=== PATIENT | female | born 1950 | race Caucasian/White ===

== ENCOUNTER → 2019-06-30 14:28 | Outpatient (CLI) | payer MEDICARE, SELFPAY ==
[2019-06-30 10:10] VITALS: BMI 33.6
[2019-06-30 15:01] LABS: Bacteria 0 SEEN /hpf (None Seen); Mucous, Urine 0 SEEN /hpf (<or=2+); Red Blood Cells-Urine 0 SEEN /hpf (0-5); Squamous Epithelial Cells - UA 0 SEEN /hpf (5-10); White Blood Cells 0 SEEN /hpf (0-5)
[2019-06-30 15:24] LABS: Color, Urine Yellow (Yellow); Glucose, Dipstick Normal (Normal); Ketone-Dipstick Negative (Negative); Leukocyte Esterase-Dipstick Negative /ul (Negative); Nitrite-Dipstick Negative (Negative); Occult Blood-Urine Negative /ul (Negative); Protein-Dipstick Negative (Negative); Specific Gravity, Urine 1.015 (1.002-1.030); Urine Bilirubin Dipstick Negative (Negative); Urine Clarity Clear (Clear); Urine Urobilinogen Normal (Normal)
== END ==
PROVIDERS: Family Provider Family Medicine; PCP Family Medicine; Referring Provider Physician Assistant; Visit Provider Physician Assistant
DX: R30.0 Dysuria (principal)
CPT/HCPCS: 81001; 87086; 87088

== ENCOUNTER 2020-07-05 06:37 | Emergency (ER) | payer MEDICARE, SELFPAY ==
[2019-06-30 10:10] VITALS: BMI 33.6
[2020-07-05 06:38] VITALS: BP 165/102; PULSE 54; RESP 20; TEMP 36.1; O2SAT 100; BMI 37.2
--- NOTE | 2020-07-05 06:55 | CT_ITS ---
STUDY: CT ABDOMEN AND PELVIS WITHOUT CONTRAST REASON FOR EXAM: Female, 69 years old. LT FLANK PAIN, N/V, HX-KS, HYSTER, APPY, COPD-FORMER SMOKER, HTN, HLD RADIATION DOSAGE (If Supplied By Facility): CTDIvol = ( 20.97 ) mGy, DLP = ( 958.49 ) mGycm TECHNIQUE: Transaxial images were obtained from the dome of the diaphragm to the symphysis pubis without oral contrast, and without intravenous contrast. Sagittal and coronal images were reconstructed. Individualized dose optimization techniques were used for this CT. COMPARISON: 08/19/2014 FINDINGS: Mild atelectasis or scarring of the lingula is partially visualized. The visualized portions of the heart are within normal limits. There is decreased attenuation of the liver consistent with steatosis. Normal gallbladder and extrahepatic biliary system. Normal spleen. Normal pancreas. Normal bilateral adrenal glands. Bilateral nephrolithiasis with increased number of calcifications since 2014. Left perinephric stranding/edema with mild left hydronephrosis also new with a 4 mm calcification in the proximal left ureter (at superior L4 level). 2.8 x 2.9 cm low-density well-defined cyst is increased in size since prior exam when it measured up to 1.9 cm. Normal visualized stomach. Normal small intestine. Normal colon. There is non-visualization of the appendix. There is diffuse atherosclerotic calcification of the abdominal aorta, without a demonstrated aneurysm. Normal inferior vena cava. Normal retroperitoneum. Normal urinary bladder. There is absence of the uterus consistent with a prior hysterectomy. Normal abdominal wall. There are diffuse degenerative changes of the visualized lumbar spine with acquired canal narrowing most conspicuous at L4-L5. CT/Abdomen/Pelvis without Cont IMPRESSION: 1. Proximal left ureter calculus (4 mm) with mild hydronephrosis and moderate perinephric stranding/edema. 2. Increased size of left renal cyst, still likely a simple cyst but given change in size, follow-up renal ultrasound or renal mass protocol CT/MRI recommended as an outpatient (after resolution of current ureteral obstruction). Electronically Signed: Chris Zepeda MD ([place]) at 8:08 EDT , Service support ,
[2020-07-05] MEDS: Ondansetron 4 MG/2 ML Vial IV (06:58)
[2020-07-05] MEDS: morphine 8 MG/ML Syringe 6 MG IV ×2 (06:59→07:33)
--- NOTE | 2020-07-05 07:03 | ED.DCSUM_ITS ---
- ER Visit Summary Date of Service: 07/05/20 Chief Complaint: Acute left flank pain History of Present Illness: The patient is a 69 F history of prior kidney stones and hypothyroidism. Prior appendectomy and hysterectomy and back surgery. Patient states that she had acute onset left flank pain that woke her from sleep around 230 this morning. Associated nausea and vomiting. No fever. She did get diaphoretic with the pain. States the last few days she has been feeling well. Denies any dysuria or hematuria. Physical Examination: Older female complaining of pain vital signs are stable initial blood pressure 165/102. Afebrile. H EENT exam unremarkable. Neck nontender. Lungs clear to auscultation bilaterally. Heart regular rate and rhythm no murmur. Rate about 60. Abdomen soft and nontender. Normal bowel sounds no peritoneal signs. Patient is moving all 4 extremities. They are neurovascularly intact. No edema. Back nontender. Her pain is around her left CVA flank region but is not reproducible. Neurologically she is awake and alert with no focal motor deficits. Test Results: CBC shows a white count of 10 hemoglobin of 14. Chemistries are unremarkable glucose of 188. Creatinine 1.2 anion gap is 6. UA is pending. CAT scan is currently pending. Emergency Department Course and Treatment: Patient with sudden onset left flank pain that awoke her from sleep. History of kidney stones. Exam and history are consistent with acute ureteral calculi. Patient being treated with IV morphine for pain, IV Zofran for nausea and IV fluids. CAT scan, labs and UA are pending. On repeat exam at 7:28 AM the patient is still on significant amount of left flank pain. She will be given a second dose of morphine IV. Patient is being turned over to the morning physician. He will check her CAT scan results and urinalysis. Reevaluate her and make final disposition. Treatment Plan: If the patient is doing well and her CAT shows a stone that should pass she may be a candidate to be discharged home. Disposition: [] Impression: Acute left flank pain History of kidney stones This note was generated with [employer] dictation software. It may contain incorrect words, spelling, and punctuation that were not noted in review of the chart prior to signing ED Disposition - Plan for ED Patient: Referrals: Jovanna Palafox DO [Primary Care Provider] -
[2020-07-05 07:12] LABS: Absolute Lymphocyte Count 1.35 X10^3/uL (0.83-4.51); Absolute Neutrophil Count 8.1 X10^3/uL (2.0-7.7); Basophil# 0.04 X10^3/uL; Basophil% 0.4 % (0-1); Eosinophil# 0.18 X10^3/uL; Eosinophils% 1.7 % (0-5); Hemoglobin 14.7 g/dL (12.0-15.0); Lymphocyte # 1.35 X10^3/ul (4.0); Lymphocyte % 13.1 % (19-41); Mean Corp Hgb Conc 32.7 g/dL (32-36); Mean Corpuscular Hgb 30.8 pg (27.0-32.0); Mean Corpuscular Volume 94.3 fL (81-99); Mean Platelet Vol. 10.1 fl (6.2-12.0); Monocyte% 5.8 % (0-10); NRBC Flagged by Analyzer 0 % (0-5); Neutrophil # 8.13 X10^3/uL (2.7-7.7); Neutrophil % 78.6 % (47-70); Platelet Count 190 K/mm3 (150-450); RBC Distribution Width CV 11.9 % (11.6-14.6); RBC Distribution Width SD 40.8 fl (35.1-43.9); Red Blood Count 4.77 M/mm3 (4.2-5.4); White Blood Count 10.3 K/mm3 (4.4-11.0)
[2020-07-05 07:21] LABS: Anion Gap 6 (5-15); BUN 25 mg/dL (7-18); BUN/Creat Ratio 20.3 RATIO (10-20); Chloride 106 mmol/L (98-107); Creatinine, Serum 1.23 mg/dL (0.55-1.02); EST Glomerular Filtration Rate 46 mL/min (>60); Est Glom Filt Rate - Afr Amer 55 mL/min (>60); Glucose 188 mg/dL (74-106); Potassium 4.4 mmol/L (3.5-5.1); Sodium Level 137 mmol/L (136-145)
--- NOTE | 2020-07-05 07:32 | ED.DEP ---
ED Disposition - Plan for ED Patient: Disposition: Home or Assisted Living Instructions: ED Renal Stone w Colic Referrals: Jovanna Palafox DO [Primary Care Provider] - 3-5 Days if not improving Additional Instructions: Plenty of fluids and rest. Follow-up with primary care physician if not improving. Pain medication as prescribed.
[2020-07-05] MEDS: 0.9% Normal Saline 1,000 ML 125 ML IV (07:33)
[2020-07-05] MEDS: Morphine 4 MG/ML Syringe IV (08:16)
[2020-07-05 08:23] LABS: Bacteria 0 SEEN /hpf (None Seen)
[2020-07-05 08:26] LABS: Color, Urine Yellow (Yellow); Glucose, Dipstick Normal (Normal); Ketone-Dipstick 5 mg/dl (Negative); Leukocyte Esterase-Dipstick 25 /ul (Negative); Nitrite-Dipstick Negative (Negative); Occult Blood-Urine 10 /ul (Negative); Protein-Dipstick 15 mg/dl (Negative); Specific Gravity, Urine 1.025 (1.002-1.030); Urine Bilirubin Dipstick Negative (Negative); Urine Clarity Sl. Cloudy (Clear); Urine Urobilinogen Normal (Normal)
[2020-07-05 08:35] LABS: Red Blood Cells-Urine 0-5 SEEN /hpf (0-5)
[2020-07-05 08:36] LABS: Mucous, Urine 1+ /hpf (<or=2+); Squamous Epithelial Cells - UA 0-5 SEEN /hpf (5-10); White Blood Cells 0-5 SEEN /hpf (0-5)
--- NOTE | 2020-07-05 08:54 | ED.DEP ---
ED Disposition - Plan for ED Patient: Disposition: Home or Assisted Living Diagnosis: Urolithiasis Instructions: ED Renal Stone w Colic Prescriptions: Tamsulosin HCl [Flomax] 0.4 mg PO DAILY #7 cap Prescription Printed Oxycodone HCl/Acetaminophen [Percocet 5/325] 1 tab PO Q6H PRN PRN 3 Days #12 tab PRN Reason: Pain Prescription Printed Referrals: Vivian Mcdaniels MD [STAFF PHYSICIAN] - 3-5 Days Additional Instructions: Plenty of fluids and rest. Follow-up with urology for repeat evaluation and for repeat imaging of your left renal cyst. Pain medication as prescribed.
[2020-07-05 09:13] VITALS: RESP 18
== END 2020-07-05 09:17 | disposition home or self-care (01) ==
PROVIDERS: Emergency Medicine; Emergency Provider Emergency Medicine
DX: R10.9 Unspecified abdominal pain (principal); N20.9 Urinary calculus, unspecified; N28.1 Cyst of kidney, acquired; E03.9 Hypothyroidism, unspecified; Z87.891 Personal history of nicotine dependence; Z87.442 Personal history of urinary calculi
CPT/HCPCS: 74176; 80048; 81001; 85025; 96361; 96374; 96375; 96376; 99283; J7030; A4216; J2405

== ENCOUNTER 2020-07-06 10:56 | Inpatient (IN) | payer MEDICARE, SELFPAY ==
[2020-07-05 06:38] VITALS: BMI 37.2
[2020-07-06 10:57] VITALS: BP 152/98; PULSE 59; RESP 18; TEMP 36.1; O2SAT 96; BMI 37.2
[2020-07-06 11:10] VITALS: BP 152/98; PULSE 59; RESP 18; TEMP 36.1; O2SAT 96
--- NOTE | 2020-07-06 11:19 | ED.VIS.GI ---
History of Present Illness Chief Complaint: Flank Pain Informant: Patient - Abdominal Pain/Flank Pain Onset: Yesterday Context: Sudden Onset - woke her up Timing: Continuous, Waxes and wanes Quality: Aching Location: Left Flank Current Severity: Severe Maximum Severity: Severe Worsened by: Nothing Relieved by: Nothing - tried Percocet, not helping - Nausea/Vomiting/Emesis GI Symptom: Nausea, Vomiting Quality: Nonbilious - Diarrhea/Melena/Hematochezia GI Symptom: Negative for: Diarrhea, Melena, Hematochezia Associated Symptoms: Negative for: Dysuria, Frequency, Hematuria, Urgency Narrative: Patient seen here yesterday and diagnosed with a left-sided kidney stone. She has had persistent symptoms that are not controlled despite taking Percocet at home. She has been vomiting as well. Denies any new symptoms. No fevers, chills, gross hematuria, urinary retention, dysuria. The pain has not moved or migrated. She has not had surgeries in the past for stones. Referred to Dr. Mcdaniels but has not seen her yet. - Past Medical History (1) Kidney stones Status: Chronic (2) Benign essential HTN Status: Chronic (3) Depression Status: Chronic (4) Generalized osteoarthritis Status: Chronic (5) Glaucoma Status: Chronic (6) Hypothyroidism Status: Chronic Past Medical History - Allergies and Home Meds Allergies/Adverse Reactions: Allergies No Known Allergies Allergy (Verified 06/30/19 10:22) Primary Care Physician: Jovanna Palafox DO [Primary Care Provider] - Surgical History: appendectomy, hysterectomy Lives: Spouse/ Significant Other Smoking Status: Former smoker Review of Systems General: Denies: Chills, Fever, Sweats Eyes: Denies: Visual changes - bilaterally, Diplopia ENT: Denies: Rhinorrhea, Sore throat Cardiovascular: Denies: Chest pain, Palpitations Respiratory: Denies: Dyspnea, Cough, Dyspnea on exertion Gastrointestinal: Reports: Abdominal pain, Nausea, Vomiting. Denies: Diarrhea, Melena, Hematochezia Genitourinary: Denies: Dysuria, Hematuria, Frequency Musculoskeletal: Reports: Back pain. Denies: Myalgias, Swelling Skin: Denies: Rash, Wounds Neurological: Denies: Headache, Weakness, Numbness Physical Exam Vital Signs/Narrative: Vital Signs Temp Pulse Resp BP Pulse Ox 07/06/20 11:10 97 F L 59 L 18 152/98 H 96 07/06/20 10:57 97 F L 59 L 18 152/98 H 96 Inital Vital Signs reviewed: Yes General: Well nourished, Well developed, Obese, Acute Distress - painful; leaning over side of bed Head: Normocephalic, Atraumatic Eyes: Perrl, EOMI ENT: Moist mucous membranes, No rhinorrhea Neck: Supple, Nontender Cardiovascular: Regular rate, Regular rhythm, No murmurs Respiratory: No distress, CTA bilaterally, Chest nontender Abdomen: Soft, Nondistended, Normal bowel sounds, Tender - mild throughout left side. Negative for: Guarding, Rebound tenderness Back: Normal Inspection, CVA tenderness - left. no rash. Extremities: Nontender, No edema. Negative for: Calf Tenderness Skin: Normal color, No rash, No Trauma Neurological: Alert, Oriented x3, Cranial nerves II-XII grossly intact, Normal Strength, Normal Sensation, Normal Gait Psychological: Normal affect, Normal Mood Diagnostic/Tx/Re-eval Laboratory Tests 07/06/20 07/06/20 07/06/20 Range/Units 12:00 11:25 11:25 WBC 12.7 H (4.4-11.0) K/mm3 RBC 4.49 (4.2-5.4) M/mm3 Hgb 13.8 (12.0-15.0) g/dL Hct 43.0 (37-47) % MCV 95.8 (81-99) fL MCH 30.7 (27.0-32.0) pg MCHC 32.1 (32-36) g/dL RDW Std Deviation 42.1 (35.1-43.9) fl RDW Coeff of Isaac 12.0 (11.6-14.6) % Plt Count 181 (150-450) K/mm3 MPV 9.8 (6.2-12.0) fl Immature Gran % (Auto) 0.900 (0.0-0.9) % Neut % (Auto) 88.5 H (47-70) % Lymph % (Auto) 5.6 L (19-41) % [place] % (Auto) 4.6 (0-10) % Eos % (Auto) 0.2 (0-5) % Baso % (Auto) 0.2 (0-1) % Absolute Neuts (auto) 11.2 H (2.0-7.7) X10^3/uL Absolute Lymphs (auto) 0.71 L (0.83-4.51) X10^3/uL Nucleated RBC % 0 (0-5) % Sodium 139 (136-145) mmol/L Potassium 4.3 (3.5-5.1) mmol/L Chloride 106 (98-107) mmol/L Carbon Dioxide 27.0 (21.0-32.0) mmol/L Anion Gap 6 (5-15) BUN 28 H (7-18) mg/dL Creatinine 1.69 H (0.55-1.02) mg/dL Estim Creat Clear Calc 25.26 ml/min Est GFR (MDRD) Af Amer 38 L (>60) mL/min Est GFR (MDRD) Non-Af 32 L (>60) mL/min BUN/Creatinine Ratio 16.6 (10-20) RATIO Glucose 161 H (74-106) mg/dL Calcium 8.9 (8.5-10.1) mg/dL Urine Color Yellow (Yellow) Urine Clarity Clear (Clear) Urine pH 5.0 (5.0 - 8.0) Ur Specific [place] 1.025 (1.002-1.030) Urine Protein Negative (Negative) mg/dl Urine Glucose (UA) Normal (Normal) mg/dl Urine Ketones Negative (Negative) mg/dl Urine Occult Blood 10 H (Negative) /ul Urine Nitrite Negative (Negative) Urine Bilirubin Negative (Negative) mg/dL Urine Urobilinogen Normal (Normal) mg/dl Ur Leukocyte Esterase 25 H (Negative) /ul Urine RBC 0 SEEN (0-5) /hpf Urine WBC 0 SEEN (0-5) /hpf Ur Squamous Epith Cells 0-5 SEEN (5-10) /hpf Urine Bacteria RARE (None Seen) /hpf Urine Mucus 0 SEEN (<or=2+) /hpf - Medical Decision Making After 1 dose of morphine and some Zofran, IV fluids, patient still in significant pain although it helped some. She was given another dose of morphine. She is improved now, but still aches. Given that she has apparently failed outpatient pain control, and has acute kidney injury compared with yesterday, I discussed with Dr. Mcdaniels who is happy to put her in and evaluate/treat further. ED Disposition - Plan for ED Patient: Disposition: Acute Care [facility] Diagnosis: Intractable pain, Ureterolithiasis, Acute kidney injury Referrals: Jovanna Palafox DO [Primary Care Provider] -
[2020-07-06] MEDS: Morphine 4 MG/ML Syringe IV ×2 (11:30→12:32)
[2020-07-06] MEDS: 0.9% Normal Saline 1,000 ML 100 ML IV (11:30)
[2020-07-06 11:31] LABS: Absolute Lymphocyte Count 0.71 X10^3/uL (0.83-4.51); Absolute Neutrophil Count 11.2 X10^3/uL (2.0-7.7); Basophil# 0.03 X10^3/uL; Basophil% 0.2 % (0-1); Eosinophil# 0.03 X10^3/uL; Eosinophils% 0.2 % (0-5); Hemoglobin 13.8 g/dL (12.0-15.0); Lymphocyte # 0.71 X10^3/ul (4.0); Lymphocyte % 5.6 % (19-41); Mean Corp Hgb Conc 32.1 g/dL (32-36); Mean Corpuscular Hgb 30.7 pg (27.0-32.0); Mean Corpuscular Volume 95.8 fL (81-99); Mean Platelet Vol. 9.8 fl (6.2-12.0); Monocyte# 0.58 X10^3/uL; Monocyte% 4.6 % (0-10); NRBC Flagged by Analyzer 0 % (0-5); Neutrophil # 11.19 X10^3/uL (2.7-7.7); Neutrophil % 88.5 % (47-70); Platelet Count 181 K/mm3 (150-450); RBC Distribution Width SD 42.1 fl (35.1-43.9); Red Blood Count 4.49 M/mm3 (4.2-5.4); White Blood Count 12.7 K/mm3 (4.4-11.0)
[2020-07-06] MEDS: Ondansetron 4 MG/2 ML Vial IV (11:32)
[2020-07-06 11:43] LABS: Anion Gap 6 (5-15); BUN 28 mg/dL (7-18); BUN/Creat Ratio 16.6 RATIO (10-20); Calcium,Total 8.9 mg/dL (8.5-10.1); Chloride 106 mmol/L (98-107); Creatinine, Serum 1.69 mg/dL (0.55-1.02); EST Glomerular Filtration Rate 32 mL/min (>60); Est Glom Filt Rate - Afr Amer 38 mL/min (>60); Estimated Creatinine Clearance 25.26 ml/min; Glucose 161 mg/dL (74-106); Potassium 4.3 mmol/L (3.5-5.1); Sodium Level 139 mmol/L (136-145)
[2020-07-06 12:04] LABS: Mucous, Urine 0 SEEN /hpf (<or=2+); Red Blood Cells-Urine 0 SEEN /hpf (0-5); White Blood Cells 0 SEEN /hpf (0-5)
[2020-07-06 12:10] LABS: Color, Urine Yellow (Yellow); Glucose, Dipstick Normal (Normal); Ketone-Dipstick Negative (Negative); Leukocyte Esterase-Dipstick 25 /ul (Negative); Nitrite-Dipstick Negative (Negative); Occult Blood-Urine 10 /ul (Negative); Protein-Dipstick Negative (Negative); Specific Gravity, Urine 1.025 (1.002-1.030); Urine Bilirubin Dipstick Negative (Negative); Urine Clarity Clear (Clear); Urine Urobilinogen Normal (Normal)
[2020-07-06 12:20] LABS: Bacteria RARE /hpf (None Seen); Squamous Epithelial Cells - UA 0-5 SEEN /hpf (5-10)
[2020-07-06 13:08] VITALS: BP 125/63; PULSE 60; RESP 15; O2SAT 96
--- NOTE | 2020-07-06 14:09 | NURSING ---
MED SURG BRANNON INTRACTABLE PAIN, JSUTINE, LEFT URETEROLITHIASIS
[2020-07-06 15:19] VITALS: BMI 36.4; BMI 36.5
[2020-07-06] MEDS: 0.45% Normal Saline 1,000 ML 100 ML IV (15:43)
[2020-07-06] MEDS: Tamsulosin HCl 0.4 MG Capsule PO (16:58)
[2020-07-06] MEDS: HYDROcodone Bitartrate/Apap 5/325 Tablet PO (16:58)
[2020-07-06 20:08] VITALS: BP 137/63; PULSE 72; RESP 16; TEMP 36.7; O2SAT 98
[2020-07-06] MEDS: Cefazolin 1 GM/50 ML BAG IV (21:14)
[2020-07-06] MEDS: 0.9% Saline Lock 10 ML Syringe IV (21:15)
[2020-07-07] VITALS (10 sets, daily range): BP systolic 136–162; BP diastolic 55–90; PULSE 70–82; RESP 16–18; TEMP 36.3–37.2; O2SAT 93–99; BMI 36.4; BMI 36.5
[2020-07-07] MEDS: 0.45% Normal Saline 1,000 ML 100 ML IV ×2 (02:07→12:38)
--- NOTE | 2020-07-07 06:00 | EKG12_ITS ---
Test Reason : PRE-OP Blood Pressure : / mmHG Vent. Rate : 085 BPM Atrial Rate : 085 BPM P-R Int : 162 ms QRS Dur : 092 ms QT Int : 364 ms P-R-T Axes : 074 -16 063 degrees QTc Int : 433 ms Sinus rhythm with Premature atrial complexes Otherwise normal ECG When compared with ECG of 07-DEC-2011 11:18, Premature atrial complexes are now Present Confirmed by TESS MCINTYRE, RAMA ([id number]), restaurant expeditor HANNAH ROSA ([id number]) on 07/14/2020 11:23:17 AM Referred By: MADELINE RAMIREZ Confirmed By:MONIKA PULIDO MD
[2020-07-07 07:34] LABS: Thyroid Stim Hormone (TSH) 0.64 uIU/mL (0.358-3.74)
[2020-07-07] MEDS: Cefazolin 1 GM/50 ML BAG IV (10:33)
[2020-07-07] MEDS: Morphine 4 MG/ML Syringe 3 MG IV (10:49)
[2020-07-07] MEDS: 0.9% Saline Lock 10 ML Syringe IV (10:50)
--- NOTE | 2020-07-07 12:15 | CASEMGMT ---
RN MARYSOL THIRD HAND CM to room to meet with patient for initial transition planning/care coordination assessment. RN MARYSOL introduced self and role at [facility].? Pt voices understanding and consents to assessment at this time.? Pt resting in bed in no distress at this time.? Pt is A/O at this time and answers all questions appropriately.?? Care providers, pharmacy, and demographics verified/updated at this time. PCP: Dr Jovanna Palafox Specialists: Dr Murray: Soil Analyst Preferred Pharmacy: [facility] Insurance: [employer] Prescription Benefit:? Yes Living Will/HPOA:? States has both LW and Healthcare POA, who is her , Truman Rivas (goes by Cornelius) LNOK: , Truman. Daughter, Pat Puri Living Arrangements: Lives w/her in 1-story home w/3 steps to enter. Denies difficulty w/steps. States is independent with ADL's and IADL's. is able to help if needed. Transportation: Pt states drives self and states no transportation concerns at this time.? also drives DME: ? Denies using any DME and denies needs. States has shower chair and walker from [facility] available but does not use. HHC/SNF: No history of either and denies needs for HHC or OP therapy. No needs identified. Pt wishes to return home and states has no concerns with going home at time of discharge.? CM to follow for any discharge planning/needs.? Pt voices no concerns/needs at this time.? Advised pt to ask for CM if any questions/concerns/needs arise.? Voices understanding. PLAN: ?Home Gabriela STEWART RN, CM
--- NOTE | 2020-07-07 16:00 | CALC_PTH ---
PATIENT: TATE MALLORY LOC: MS3 U#:[id number] AGE/SX: 69/F ROOM: MS316 RE07/06/[address]: Dr. Vivian Mcdaniels MD : 1950 BED: 1 DIS: 07/07/2020 SPEC #: [id number] RECD: 07/07/20 18:17 STATUS: KARTHIK AVILAFelipe #: [id number] RIAZ: 07/07/20 16:[address]: Vivian Mcdaniels DEPT: SURGICAL PATHOLOGY RECD BY: Zackary Miranda ENTERED: 07/08/20 06:57 SP TYPE: Calculi OTHR DR: Dr. Jovanna Palafox DO Tissues: CALCULI Procedures: Surgery Specimen Level I HEADER OPERATION: Cystoscopy, ureteroscopy, laser lithotripsy, stone basket extraction PRE-OP DIAGNOSIS: Left ureteral calculus TISSUE SUBMITTED: Left ureteral calculi for analysis GROSS DIAGNOSIS Left ureteral calculi, removal: Unremarkable calculi (gross diagnosis only). AM:florina 07/09/20 COMMENT The calculus is submitted in its entirety for chemical stone analysis. The results from this study will be reported separately. GROSS DESCRIPTION Received in fixative is one container labeled with the patient's name and designated left ureteral calculus. The specimen consists of multiple irregular fragments of light to dark bryson calculi that in aggregate measure 0.5 x 0.2 x 0.2 cm. The specimen is submitted in its entirety for chemical stone analysis. / AM:florina 07/08/20 CPT: 26201
--- NOTE | 2020-07-07 16:03 | PCM.HP.STD ---
Problem List (1) Intractable pain Status: Acute (2) Ureterolithiasis Status: Acute History of Present Illness Date of Admission: 07/07/20 Chief Complaint: Intractable pain, nausea and vomiting, left ureteral stone The patient is a 69 year old F [with a history of stones in the past that did not require surgical intervention. She presented to the emergency room on Sunday with left-sided flank pain, nausea and vomiting. She returned to the emergency room on Sunday and was admitted secondary to the same presentation. She has no urinary urgency, frequency or hematuria. There is no dysuria. She is otherwise relatively healthy.] Past Medical History Past Medical History (Chronic Problems): Chronic Problems (Last Reviewed 06/30/19 @ 10:22 by Gillian England) Kidney stones (Chronic) Hypothyroidism (Chronic) Glaucoma (Chronic) Generalized osteoarthritis (Chronic) Depression (Chronic) Benign essential HTN (Chronic) Medical History: Medical History (Last Reviewed 07/07/20 @ 16:[address] Vivian Mcdaniels MD) Arthritis M19.90 Shoulder pain M25.519 Allergies No Known Allergies Allergy (Verified 06/30/19 10:22) Home Medications: Ambulatory Orders Medication Instructions Recorded latanoprost 0.005 % eye drops 1 drp EACH EYE QHS 09/10/18 Oxycodone HCl/Acetaminophen 1 tab PO Q6H PRN PRN 3 Days #12 tab 07/05/20 [Percocet 5/325] Garlic 1,000 mg PO DAILY 07/06/20 Ibuprofen 400 mg PO DAILY PRN PRN 07/06/20 Levothyroxine Sodium [Synthroid] 50 mcg PO DAILY 07/06/20 Meloxicam 15 mg PO DAILY 07/06/20 Multivitamin with Minerals 1 tab PO DAILY 07/06/20 [Multiple Vitamin] Brunswick-3 Fatty Acids/Fish Oil [Fish 1,000 mg PO DAILY 07/06/20 Oil 1,000 mg Capsule] Tamsulosin HCl [Flomax] 0.4 mg PO DAILY 07/06/20 Timolol Maleate 1 drp EACH EYE BID 07/06/20 Surgical History: Surgical History (Last Reviewed 07/07/20 @ 16:[address] Vivian Mcdaniels MD) History of hysterectomy Z90.710 History of thyroid surgery Z98.890 Surgical History: appendectomy, hysterectomy Lives: Spouse/ Significant Other Smoking Status: Former smoker Review of Systems Constitutional: Denies: Chills, Fever Eyes: Denies: Vision Change HEENT: Denies: Visual Changes Cardiovascular: Denies: Chest Pain, Chest Pressure Respiratory: Denies: Cough, Shortness of Breath Gastrointestinal: Reports: Nausea, Vomiting. Denies: Abdominal Pain Genitourinary: Denies: Dysuria, Frequency, Hematuria, Urgency Musculoskeletal: Denies: Muscle pain Skin: Denies: Wounds Neurological: Denies: Difficulty swallowing VTE Information - Inpt Only VTE Present on Admission: Yes VTE Mechan Device Prophylaxis: SCD's VTE Pharm Prophylaxis ordered?: No Reason prophylaxis not ordered:: Treatment Not Indicated Patient Problems: Active and Suspected Problems (Last Reviewed 06/30/19 @ 10:22 by Gillian England) Intractable pain (Acute) Ureterolithiasis (Acute) Acute kidney injury (Acute) - Physical Exam Vitals/I&O's: Vital Signs Temp Pulse Resp BP Pulse Ox 98.9 F 72 18 160/80 H 99 07/07/20 14:45 07/07/20 14:45 07/07/20 14:45 07/07/20 14:45 07/07/20 14:45 Oxygen Delivery Method Room Air Weight: 93.395 kg Body Mass Index (BMI) 36.4 Intake and Output for Last 24 Hours 07/05/20 07/06/20 07/07/20 23:59 23:59 23:59 Intake Total 2401.67 / 2701.67 1888.33 / 1888.33 Output Total 1850 / 1850 Balance 2401.67 / 1951.67 38.33 / 38.33 General: Alert, Oriented x3, Cooperative HEENT: Atraumatic, Normocephalic Oral: Moist Mucosa Neck: Supple, Trachea Midline Lungs: Normal air movement Cardiovascular: Regular rate Abdomen: Soft, Non Tender, Non-Distended Extremities: No cyanosis Skin: No rashes Musculoskeletal: No Muscle Wasting Neurological: Cranial nerves II-XII grossly intact, Neuro grossly intact Psych/Mental Status: Normal Affect, Alert and oriented to time, place, person, mood and affect Laboratory Results 07/07/20 05:50: TSH 0.64 Current Medications Hydrocodone Bitart/Acetaminophen ([place] 5mg-325mg) 2 tablet PO Q6H PRN PRN PRN Reason: Pain Score 1-5/10 Last Admin: 07/06/20 16:58 Dose: 2 tablet Documented by: Docusate Sodium (Colace) 100 mg PO BID PRN PRN PRN Reason: Constipation Cefazolin Sodium () 1 gm in 50 mls @ 100 mls/hr IV Q12 [facility] Last Infusion: 07/07/20 11:05 Dose: Infused Documented by: Sodium Chloride () 1,000 mls @ 100 mls/hr IV .Q10H [facility] Last Admin: 07/07/20 12:38 Dose: 100 mls/hr Documented by: Morphine Sulfate () 3 mg IV Q3H PRN PRN PRN Reason: Pain Score 6-10/10 Last Admin: 07/07/20 10:49 Dose: 3 mg Documented by: Ondansetron HCl (Zofran) 4 mg IV Q8H PRN PRN PRN Reason: NAUSEA Sodium Chloride () 10 - 40 ml IV UD PRN PRN Reason: SALINE FLUSH Last Admin: 07/07/20 10:50 Dose: 10 ml Documented by: Tamsulosin HCl (Flomax) 0.4 mg PO DAILY@1730 [facility] Last Admin: 07/06/20 16:58 Dose: 0.4 mg Documented by: Assessment/Plan All Active Problems (Last Reviewed 06/30/19 @ 10:22 by Gillian England) Intractable pain (Acute) Ureterolithiasis (Acute) Acute kidney injury (Acute) UTI (urinary tract infection) (Acute) Mid-back pain, acute (Acute) Proceed with cystoscopy, possible left ureteroscopy, laser lithotripsy, left ureteral stent insertion Procedure Criteria Procedure Type: Elective - Unable to tolerate p.o. pain control with increased nausea and vomiting COVID Risk Discussion: The surgeon/proceduralist and patient have discussed in detail the risk of exposure to and/or potential harm posed by the COVID-19 virus with having a surgery/procedure at this time versus the risk of delaying the surgery/procedure. It is not possible to know either the risk of delaying the surgery or procedure or chance of getting an infection with perfect accuracy, but a joint decision was made between the patient and the surgeon/proceduralist to proceed at this time with the scheduled surgery/procedure as indicated on the consent form.
--- NOTE | 2020-07-07 16:08 | PCM.OPRPT ---
Problem List (1) Intractable pain Status: Acute (2) Ureterolithiasis Status: Acute Report of Operation Date of Procedure: 07/07/20 Pre-Operative Diagnosis: left ureteral calculus Post-Operative Diagnosis: same Surgery/Procedure Performed:: cystoscopy with left ureteroscopy, holmium laser lithotripsy, stone basket extraction, left ureteral stent insertion Type of Anesthesia:: General Special Medications: ancef Specimen's removed: Ureteral stone fragments Description of Procedure: The patient is a 69-year-old female with intractable pain secondary to a left obstructing ureteral calculus. She bounced back to the emergency room. After discussing the risk benefits and alternatives she agreed to proceed with surgical intervention. She was taken to the operating room and placed on the operating room table. Anesthesia monitored the head, neck, airway, IV access and vital signs throughout the case. Once anesthesia was administered, the patient was placed into dorsal lithotomy position was prepped and draped in usual sterile fashion. At this time the cystoscope was inserted through the urethra under direct visualization into the urinary bladder. The bladder mucosa was visualized in its entirety. There were no masses identified but there was diffuse mild cystitis cystica present. The ureteral orifices were located in the left one is intubated with a 0.035 Glidewire and a 0.038 Glidewire. Fluoroscopy confirmed these wires to be in the renal pelvis. The flexible ureteroscope was then placed over the 0.035 Glidewire and the stone was identified in the proximal ureter. Using a 200 ?m fiber, the stone was augmented with the holmium laser. The small pieces were removed with a stone basket without difficulty. Following removal of the last piece, the cystoscope was used to place a 6 Hebrew 24 cm double-J ureteral stent over the remaining safety wire. There was good positioning in the renal pelvis as well as the urinary bladder. The patient's bladder was then emptied and the case was terminated. She was awakened and taken to the recovery room in good condition. There were no complications during this procedure. Grafts/Implants Used: 6 x 24cm JJ stent - Complications None - Admit VTE Documentation VTE Present on Admission: Yes VTE Mechan Device Prophylaxis: SCD's VTE Pharm Prophylaxis ordered?: No Reason prophylaxis not ordered:: Treatment Not Indicated
--- NOTE | 2020-07-07 16:09 | DCINST_ITS ---
Discharge Diet: No Restrictions Discharge Activity: Return to Normal Activity, May not drive while taking narcotic pain medications. Call your doctor if you observe: Fever of 101 or Higher, Inability to urinate, Inability to have a bowel movement Allergies/Adverse Reactions: Allergies No Known Allergies Allergy (Verified 06/30/19 10:22) Medications to take at Discharge latanoprost 0.005 % eye drops 1 drp EACH EYE QHS 09/10/18 Oxycodone HCl/Acetaminophen [Percocet 5-325] 1 tab PO Q6H PRN PRN 3 Days #12 tab 07/05/20 Garlic 1,000 mg PO DAILY 07/06/20 Ibuprofen 400 mg PO DAILY PRN PRN 07/06/20 Levothyroxine Sodium [Synthroid] 50 mcg PO DAILY 07/06/20 Meloxicam 15 mg PO DAILY 07/06/20 Multivitamin with Minerals [Multiple Vitamin] 1 tab PO DAILY 07/06/20 [place]-3 Fatty Acids/Fish Oil [Fish Oil 1,000 mg Capsule] 1,000 mg PO DAILY 07/06/20 Timolol Maleate 1 drp EACH EYE BID 07/06/20 Cephalexin [Keflex] 500 mg PO Q12 3 Days #6 cap 07/07/20 Phenazopyridine HCl [Pyridium] 200 mg PO TID PRN PRN 7 Days #30 tab 07/07/20 The following prescriptions were given: Cephalexin [Keflex] 500 mg PO Q12 3 Days #6 cap Transmission Status: Pending to [facility] Phenazopyridine HCl [Pyridium] 200 mg PO TID PRN PRN 7 Days #30 tab PRN Reason: Bladder Spasms Transmission Status: Pending to [facility] Primary Care Physician: Jovanna Palafox DO [Primary Care Provider] - Test Results: Test results from this visit will be discussed in further detail at your follow- up appointment, if applicable. Please Follow Up With: Vivian Mcdaniels MD When: call office for appt Proposed Discharge Date: 07/07/20
[2020-07-07] MEDS: Lubricating Jelly 60 GM Tube 30 GM TOPICAL (17:24)
== END 2020-07-07 21:34 | disposition home or self-care (01) | DRG 661 ==
LOC: ED 14:26 → MS3 14:39
PROVIDERS: Anesthesiology; Admitting Provider Urology; Emergency Provider Emergency Medicine; Visit Provider Urology
PROC: 0TJ98ZZ Inspection of Ureter, Via Natural or Artificial Opening Endoscopic (ICD-10-PCS; CPT 52352; principal; 2020-07-07 15:50)
DX: N13.2 Hydronephrosis with renal and ureteral calculous obstruction (principal); N17.9 Acute kidney failure, unspecified; N30.80 Other cystitis without hematuria; Z87.442 Personal history of urinary calculi; I10 Essential (primary) hypertension; M15.9 Polyosteoarthritis, unspecified; F32.9 Major depressive disorder, single episode, unspecified; H40.9 Unspecified glaucoma; E03.9 Hypothyroidism, unspecified; Z87.891 Personal history of nicotine dependence; E66.9 Obesity, unspecified; Z68.36 Body mass index [BMI] 36.0-36.9, adult; F41.9 Anxiety disorder, unspecified; Z79.899 Other long term (current) drug therapy
CPT/HCPCS: 36415; 74176; 76000; 80048; 81001; 82360; 84443; 85025; 88300; 93005; 96361; 96374; 96375; 96376; 99283; 99284; J7030; A4216; C1769; C2617; J2405

== ENCOUNTER 2021-11-29 08:11 | Emergency (ER) | payer MEDICARE, SELFPAY ==
[2021-11-29 08:12] VITALS: BP 156/101; PULSE 69; RESP 15; TEMP 35.5; O2SAT 97; BMI 35.4
--- NOTE | 2021-11-29 08:46 | CT_ITS ---
STUDY: CT ABDOMEN AND PELVIS WITHOUT CONTRAST REASON FOR EXAM: Female, 71 years old. 2 day history of right flank pain. History of kidney stones. RADIATION DOSAGE (If Supplied By Facility): CTDIvol = ( 19.97 ) mGy, DLP = ( 898.01 ) mGycm TECHNIQUE: Transaxial images were obtained from the dome of the diaphragm to the symphysis pubis without oral contrast, and without intravenous contrast. Sagittal and coronal images were reconstructed. Individualized dose optimization techniques were used for this CT. COMPARISON: Comparison is made with prior study dated 07/05/2020. FINDINGS: Stable atelectasis and/or scarring in the medial anterior aspect of the right middle lobe. Mild scarring in the lingular segment of the left upper lobe. The visualized portions of the heart are within normal limits. There is decreased attenuation of the liver consistent with steatosis. Normal gallbladder and extrahepatic biliary system. Normal spleen. Normal pancreas. Normal bilateral adrenal glands. There are several nonobstructive right intrarenal calculi. The larger calculus measures 4 mm and is in the upper midportion of the kidney. Mild degree of right hydronephrosis and right hydroureter with perinephric and periureteric stranding due to a recently passed calculus. The calculus measures 8.7 mm and is within the base of the bladder on the right side. There is a 2.8 cm cyst in the upper pole of the left kidney. There is a 5.7 mm nonobstructive calculus in the superior pole of the left kidney. Normal visualized stomach. Normal small intestine. There are scattered colonic diverticula consistent with diverticulosis. There are surgical clips in the region of the appendix consistent with a prior appendectomy. There is scattered atherosclerotic calcification of the abdominal aorta, without a demonstrated aneurysm. Normal inferior vena cava. Normal retroperitoneum. Normal urinary bladder. There is absence of the uterus consistent with a prior hysterectomy. There is a small umbilical hernia containing fat. There are diffuse degenerative changes of the visualized lumbar spine. CT/Abdomen/Pelvis without Cont IMPRESSION: Bilateral nonobstructive intrarenal calculi. Right hydronephrosis and hydroureter due to a recently passed 8.7 mm calculus. The calculus lies along the posterior aspect of the bladder on the right side. Left renal cyst. Electronically Signed: Jairo Siddiqi MD at 9:45 EST ,
[2021-11-29 08:53] VITALS: BP 156/101; PULSE 69; RESP 15; TEMP 35.5; O2SAT 97
[2021-11-29 08:53] LABS: Mucous, Urine 0 SEEN /hpf (<or=2+); White Blood Cells 0 SEEN /hpf (0-5)
[2021-11-29 08:56] LABS: Color, Urine SEE COMMENT BELOW (Yellow); Glucose, Dipstick Normal (Normal); Ketone-Dipstick Negative (Negative); Leukocyte Esterase-Dipstick Negative /ul (Negative); Nitrite-Dipstick Positive (Negative); Occult Blood-Urine 150 /ul (Negative); Protein-Dipstick 15 mg/dl (Negative); Urine Bilirubin Dipstick 3 mg/dL (Negative); Urine Clarity Sl. Cloudy (Clear); Urine Urobilinogen 1 mg/dl (Normal)
[2021-11-29 08:59] LABS: Absolute Neutrophil Count 7.7 X10^3/uL (2.0-7.7); Basophil# 0.06 X10^3/uL; Basophil% 0.6 % (0-1); Eosinophil# 0.36 X10^3/uL; Eosinophils% 3.5 % (0-5); Hematocrit 45.8 % (37-47); Hemoglobin 16.1 g/dL (12.0-15.0); Lymphocyte % 11.8 % (19-41); Mean Corp Hgb Conc 35.2 g/dL (32-36); Mean Corpuscular Hgb 32.1 pg (27.0-32.0); Mean Corpuscular Volume 91.4 fL (81-99); Mean Platelet Vol. 10.1 fl (6.2-12.0); Monocyte# 0.78 X10^3/uL; Monocyte% 7.7 % (0-10); NRBC Flagged by Analyzer 0 % (0-5); Neutrophil # 7.71 X10^3/uL (2.7-7.7); Neutrophil % 75.9 % (47-70); Platelet Count 242 K/mm3 (150-450); RBC Distribution Width CV 12.4 % (11.6-14.6); RBC Distribution Width SD 41.6 fl (35.1-43.9); Red Blood Count 5.01 M/mm3 (4.2-5.4); White Blood Count 10.2 K/mm3 (4.4-11.0)
[2021-11-29] MEDS: Ondansetron 4 MG/2 ML Vial IV (09:01)
[2021-11-29] MEDS: Morphine 4 MG/ML Syringe IV (09:02)
[2021-11-29 09:05] LABS: Bacteria 1+ /hpf (None Seen); Red Blood Cells-Urine 10-25 SEEN /hpf (0-5); Squamous Epithelial Cells - UA 0-5 SEEN /hpf (5-10)
[2021-11-29 09:07] LABS: Anion Gap 3 (5-15); BUN 16 mg/dL (7-18); BUN/Creat Ratio 14.7 RATIO (10-20); Calcium,Total 9.1 mg/dL (8.5-10.1); Chloride 108 mmol/L (98-107); Creatinine, Serum 1.09 mg/dL (0.55-1.02); EST Glomerular Filtration Rate 52 mL/min (>60); Est Glom Filt Rate - Afr Amer 63 mL/min (>60); Estimated Creatinine Clearance 38.02 ml/min; Glucose 152 mg/dL (74-106); Potassium 4.1 mmol/L (3.5-5.1); Sodium Level 139 mmol/L (136-145)
--- NOTE | 2021-11-29 09:23 | EX.ED.DYSGE1 ---
HPI History of Present Illness Chief Complaint: Flank Pain Informant: patient Narrative Narrative: Patient presents with right flank pain. It started on Sunday. It started in the back that is now moved around to the front. Mild nausea but no vomiting. No fevers or chills. Prior surgeries are hysterectomy. She has had kidney stones in the past. Nothing really makes her pain better or worse. [facility] Medical History (Updated 11/29/21 @ 11:[address] Dennys Pavon MD) Arthritis Shoulder pain Home Medications latanoprost 0.005 % eye drops 1 drp EACH EYE QHS 09/10/18 [History Last Taken 07/05/20] garlic 1,000 mg PO DAILY 07/06/20 [History Last Taken 07/05/20] ibuprofen 400 mg PO DAILY PRN PRN 07/06/20 [History Last Taken 07/06/20] levothyroxine 50 mcg PO DAILY 07/06/20 [History Last Taken 07/05/20] meloxicam 15 mg PO DAILY 07/06/20 [History Last Taken 07/05/20] multivitamin with minerals 1 tab PO DAILY 07/06/20 [History Last Taken 07/05/20] omega-3 fatty acids-fish oil 1,000 mg PO DAILY 07/06/20 [History Last Taken 07/05/20] timolol maleate 1 drp EACH EYE BID 07/06/20 [History Last Taken 07/06/20] ondansetron 4 mg PO Q8H PRN #10 tab 11/29/21 [Rx Last Taken Unknown] oxycodone-acetaminophen [Percocet] 1 tab PO Q6H PRN 3 Days #12 tab 11/29/21 [Rx Last Taken Unknown] tamsulosin [Flomax] 0.4 mg PO DAILY #7 cap 11/29/21 [Rx Last Taken Unknown] Allergy/AdvReac Type Severity Reaction Status Date / Time No Known Allergies Allergy Verified 06/30/19 10:22 Surgical History History of hysterectomy History of thyroid surgery Social History Smoking Status: Former smoker alcohol intake: never ROS ROS ED Constitutional Constitutional ED: Denies chills or fever(s) ENT ENT ED: Denies rhinorrhea Cardiovascular Cardiovascular: Denies chest pain or palpitations Respiratory/Chest Respiratory/Chest: Denies cough or dyspnea Gastrointestinal Gastrointestinal: Reports abdominal pain, nausea and other Details: See history of present illness. ; Denies constipation, diarrhea, melena or vomiting Genitourinary Genitourinary ED: Reports hematuria and other Details: Patient suspicious for hematuria but she also started Pyridium [id number] so her urine is red/orange-colored. Integumentary Denies rash Neurologic Neurologic: Denies paresthesias or weakness Endocrine Endocrinology: Denies polydipsia or polyuria Allergic/Immunologic Allergic/Immunologic ED: Denies mouth swelling or urticaria EXAM Physical Exam Const Vital Signs: 11/29/21 08:12 11/29/21 08:53 11/29/21 10:46 Temperature 95.9 F L 95.9 F L Temperature Source Temporal Temporal Pulse Rate 69 69 64 Respiratory Rate 15 15 16 Blood Pressure 156/101 H 156/101 H 115/41 L Blood Pressure Mean 119 119 65 Pulse Ox 97 97 93 Oxygen Delivery Method Room Air Room Air Room Air Positive well nourished and well developed General Appearance ED: well developed and NAD; Negative for cyanotic or diaphoretic HEENT Reports moist mucous membranes Eyes General Eye ED: Negative for pale conjunctiva or scleral icterus Neck no JVD Chest Wall inspection of chest normal Resp normal respiratory effort and clear to auscultation bilaterally Cardio regular rate and regular rhythm GI normal to inspection, nondistended, normoactive bowel sounds and non-tender GI Narrative: Despite the pain that goes toward the right lower quadrant, her abdomen is actually completely benign. She states it does not hurt to press it just hurts by itself. Palpation: soft Back/Spine General Back: CVA tenderness Extremity normal to inspection Skin no rashes or lesions noted MDM MDM MDM Narrative Medical decision making narrative: Patient did get better. Her CT showed that she had 8.7 mm stone in the bladder. When I looked at it this could still be perched at the very distal UVJ. We will still get her on Flomax because of this. Urine shows a few nitrites but 0 white cells. She does not have an elevated white count. She has an appointment with Dr. Trinidad tomorrow. Lab Data Attestation: I reviewed the patient's lab results. Labs: Laboratory Results - last 24 hr 11/29/21 11/29/21 11/29/21 08:47 08:47 08:47 WBC 10.2 RBC 5.01 Hgb 16.1 H Hct 45.8 MCV 91.4 MCH 32.1 H MCHC 35.2 RDW Std Deviation 41.6 RDW Coeff of Isaac 12.4 Plt Count 242 MPV 10.1 Immature Gran % (Auto) 0.500 Neut % (Auto) 75.9 H Lymph % (Auto) 11.8 L [place] % (Auto) 7.7 Eos % (Auto) 3.5 Baso % (Auto) 0.6 Absolute Neuts (auto) 7.7 Absolute Lymphs (auto) 1.20 Nucleated RBC % 0 Sodium 139 Potassium 4.1 Chloride 108 H Carbon Dioxide 28.0 Anion Gap 3 L BUN 16 Creatinine 1.09 H Estim Creat Clear Calc 38.02 Est GFR (MDRD) Af Amer 63 Est GFR (MDRD) Non-Af 52 L BUN/Creatinine Ratio 14.7 Glucose 152 H Calcium 9.1 Urine Color SEE COMMENT BELOW Urine Clarity Sl. Cloudy Urine pH 5.0 Ur Specific [place] 1.020 Urine Protein 15 H Urine Glucose (UA) Normal Urine Ketones Negative Urine Occult Blood 150 H Urine Nitrite Positive H Urine Bilirubin 3 H Urine Urobilinogen 1 H Ur Leukocyte Esterase Negative Urine RBC 10-25 SEEN Urine WBC 0 SEEN Ur Squamous Epith Cells 0-5 SEEN Urine Bacteria 1+ Urine Mucus 0 SEEN Radiography Diagnostic Testing: Clinical Impression(s) from Imaging Studies Abdomen/Pelvis CT 11/29/21 08:46 IMPRESSION: Bilateral nonobstructive intrarenal calculi. Right hydronephrosis and hydroureter due to a recently passed 8.7 mm calculus. The calculus lies along the posterior aspect of the bladder on the right side. Left renal cyst. Electronically Signed: Jairo Siddiqi MD at 9:45 EST , Discharge Plan Triage Chief Complaint: Flank Pain ED Provider: Dennys Pavon Dx/Rx/DC Orders Clinical Impression: Kidney stone on right side Instructions: ED Kidney Stone w/ Colic Prescriptions: New oxycodone-acetaminophen [Percocet] 5-325 mg tablet 1 tab PO Q6H PRN (Reason: pain) 3 Days Qty: 12 RF: 0 ondansetron 4 mg tablet,disintegrating 4 mg PO Q8H PRN (Reason: nausea and vomiting) Qty: 10 RF: 0 tamsulosin [Flomax] 0.4 mg capsule 0.4 mg PO DAILY Qty: 7 RF: 0 No Action latanoprost [Xalatan] 0.005 % drops 1 drp EACH EYE QHS RF: 0 garlic 1,000 MG capsule 1,000 mg PO DAILY RF: 0 timolol maleate 5 ML drops 1 drp EACH EYE BID RF: 0 levothyroxine 50 MCG tablet 50 mcg PO DAILY RF: 0 ibuprofen 200 MG tablet 400 mg PO DAILY PRN PRN (Reason: Pain Or Fever) RF: 0 multivitamin with minerals 1 EACH tablet 1 tab PO DAILY RF: 0 omega-3 fatty acids-fish oil 1 EACH capsule 1,000 mg PO DAILY RF: 0 meloxicam 15 MG tablet 15 mg PO DAILY RF: 0 Primary Care Provider: Jovanna Palafox Referrals: Vivian Mcdaniels MD [STAFF PHYSICIAN] - 1 Day Jovanna Palafox DO [Primary Care Provider] - Disposition Disposition: Home, Self Care
[2021-11-29] MEDS: Ketorolac 15 MG/ML Vial IV (10:06)
[2021-11-29] MEDS: HYDROmorphone 0.5 MG/0.5 ML SYRINGE IV (10:45)
[2021-11-29 10:46] VITALS: BP 115/41; PULSE 64; RESP 16; O2SAT 93
[2021-11-29 11:39] VITALS: BP 145/78; PULSE 81; RESP 18; O2SAT 98
== END 2021-11-29 11:40 | disposition home or self-care (01) ==
PROVIDERS: Emergency Provider Emergency Medicine; Visit Provider Emergency Medicine
DX: N13.2 Hydronephrosis with renal and ureteral calculous obstruction (principal); Z87.891 Personal history of nicotine dependence
CPT/HCPCS: 74176; 80048; 81001; 85025; 96361; 96374; 96375; 99283; J7040; A4216; J2405

== ENCOUNTER 2021-11-30 09:47 | Outpatient (CLI) | payer MEDICARE, SELFPAY ==
--- NOTE | 2021-11-30 09:52 | RAD_ITS ---
STUDY: X-RAY - ABDOMEN/PELVIS REASON FOR EXAM: Female, 71 years old. Renal stones. Follow-up. TECHNIQUE: Single AP view of the abdomen / pelvis on 2 images. COMPARISON: CT of the abdomen and pelvis dated 11/29/2021. FINDINGS: Normal visualized lung bases. There is an unremarkable bowel gas pattern. There is no demonstrated free abdominal air. The visualized liver, spleen and kidneys are grossly normal in size and morphology. The renal calculi seen on the CT a very small and likely not seen because of overlying bowel gas and feces. Normal soft tissue structures. Normal visualized osseous structures. RAD/Abdomen Single View IMPRESSION: No acute abnormality. See discussion above. Electronically Signed: Armando Fagan MD at 10:02 [facility] ,
== END 2021-11-30 23:59 | disposition home or self-care (01) ==
LOC: MTRAD 09:49
PROVIDERS: Referring Provider Urology; Visit Provider Urology
DX: N20.0 Calculus of kidney (principal)
CPT/HCPCS: 74018

== ENCOUNTER 2021-12-12 13:49 | Day surgery (SDC) | payer MEDICARE, SELFPAY ==
--- NOTE | 2021-12-06 09:27 | EKG12_ITS ---
Test Reason : PREOP Blood Pressure : / mmHG Vent. Rate : 069 BPM Atrial Rate : 069 BPM P-R Int : 184 ms QRS Dur : 090 ms QT Int : 386 ms P-R-T Axes : 068 -31 066 degrees QTc Int : 413 ms Normal sinus rhythm Left axis deviation Abnormal ECG Confirmed by MAURI MCINTYRE, BRIGID ([id number]), sound editor HANNAH ROSA ([id number]) on 12/07/2021 9:54:00 AM Referred By: Vivian Mcdaniels Confirmed By:BRIGID DOTSON MD
[2021-12-06 10:18] LABS: Hematocrit 46.9 % (37-47); Hemoglobin 15.3 g/dL (12.0-15.0); Mean Corp Hgb Conc 32.6 g/dL (32-36); Mean Corpuscular Hgb 30.4 pg (27.0-32.0); Mean Corpuscular Volume 93.1 fL (81-99); Mean Platelet Vol. 9.9 fl (6.2-12.0); Platelet Count 242 K/mm3 (150-450); RBC Distribution Width CV 12.5 % (11.6-14.6); Red Blood Count 5.04 M/mm3 (4.2-5.4); White Blood Count 10.4 K/mm3 (4.4-11.0)
[2021-12-06 10:42] LABS: Anion Gap 2 (5-15); BUN 13 mg/dL (7-18); BUN/Creat Ratio 13.8 RATIO (10-20); Chloride 105 mmol/L (98-107); Creatinine, Serum 0.94 mg/dL (0.55-1.02); EST Glomerular Filtration Rate 62 mL/min (>60); Est Glom Filt Rate - Afr Amer 75 mL/min (>60); Glucose 140 mg/dL (74-106); Potassium 4.5 mmol/L (3.5-5.1); Sodium Level 138 mmol/L (136-145)
[2021-12-12 14:24] VITALS: BP 149/41; PULSE 74; RESP 16; TEMP 36.3; O2SAT 96; BMI 36.7
[2021-12-12] MEDS: Lactated Ringers 1,000 ML 15 ML IV (14:24)
--- NOTE | 2021-12-12 15:37 | PCM.OPRPT ---
Problems Associated Problem List Diagnoses (1) Bilateral renal stones: Report of Operation Date of Procedure: 12/12/21 Pre-Operative Diagnosis: Left renal calculus Post-Operative Diagnosis: Same Surgery/Procedure Performed:: Left extracorporal shockwave lithotripsy, cystoscopy with left retrograde pyelogram Surgeon: Vivian Mcdaniels Type of Anesthesia: General Specimen's removed: none Description of Procedure: The patient is a 71-year-old female with bilateral renal calculi who presents for shockwave lithotripsy of her left renal stone. Informed consent was obtained. Patient was taken in the operating room and placed on the operating room table. Anesthesia monitored the head, neck, airway, IV access and vital signs throughout the case. Once anesthesia was appropriate ministered the patient was placed in the lithotripter and the C arm was used to visualize the stones. There was difficulty secondary to the patient's habitus. At this time the decision was made to proceed with cystoscopy with retrograde pyelogram for further evaluation. She was placed into dorsal lithotomy position was prepped and draped in usual sterile fashion. The cystoscope was inserted through the urethra under direct visualization into the urinary bladder. Left ureteral orifice was isolated and intubated with an 8 Japanese cone-tip catheter. Contrast was injected in retrograde fashion under fluoroscopic visualization. The stones were identified in the upper pole of the left kidney. At this time the cystoscope was removed and 3000 shocks were applied to the stones which appeared to be well fragmented at the conclusion of the case. There were no complications during the procedure. She was awakened and taken to the recovery room in good condition. Grafts/Implants Used: None Complications None Admit VTE Documentation VTE Present on Admission: Yes VTE Mechan Device Prophylaxis: SCD's VTE Pharm Prophylaxis ordered?: No Reason prophylaxis not ordered:: Treatment Not Indicated
[2021-12-12] MEDS: Cefazolin 2 GM in 0.9% Normal Saline 100 ML IV (15:59)
--- NOTE | 2021-12-12 16:25 | PCM.DC ---
Discharge Instructions Diet Discharge Diet: No restrictions Activity Discharge Activity: Return to Normal Activity Dressing / Incision Call your doctor if you observe: Fever of 101 or Higher, Inability to urinate and Inability to have a bowel movement Follow Up Care Please Follow Up With: Vivian Mcdaniels MD When: in the office in 2-3 weeks with KUB Test Results: Test results from this visit will be discussed in further detail at your follow-up appointment, if applicable. Discharge Plan Admission Attending Provider: Vivian Mcdaniels Primary Care Provider: Jovanna Palafox Discharge Orders/Prescriptions Prescriptions: New oxycodone-acetaminophen [oxycodone-acetaminophen] 1 TABLET tablet 2 tab PO Q8H PRN PRN (Reason: Pain) 7 Days Qty: 20 RF: 0 cephalexin [cephalexin] 500 MG capsule 500 mg PO Q12 3 Days Qty: 6 RF: 0 Continued latanoprost [Xalatan] 0.005 % drops 1 drp EACH EYE QHS RF: 0 garlic 1,000 MG capsule 1,000 mg PO DAILY RF: 0 timolol maleate 5 ML drops 1 drp EACH EYE BID RF: 0 levothyroxine 50 MCG tablet 50 mcg PO QHS RF: 0 ibuprofen 200 MG tablet 400 mg PO DAILY PRN PRN (Reason: Pain Or Fever) RF: 0 multivitamin with minerals 1 EACH tablet 1 tab PO DAILY RF: 0 omega-3 fatty acids-fish oil 1 EACH capsule 1,000 mg PO DAILY RF: 0 meloxicam 15 MG tablet 15 mg PO DAILY RF: 0 oxycodone-acetaminophen [Percocet] 5-325 mg tablet 1 tab PO Q6H PRN (Reason: pain) 3 Days Qty: 12 RF: 0 ondansetron 4 mg tablet,disintegrating 4 mg PO Q8H PRN (Reason: nausea and vomiting) Qty: 10 RF: 0 tamsulosin [Flomax] 0.4 mg capsule 0.4 mg PO DAILY Qty: 7 RF: 0 Referrals / Follow Up: Jovanna Palafox DO [Primary Care Provider] - Disposition Disposition (needs filled in before D/C Order can be placed): Home, Self Care
[2021-12-12 17:08] VITALS: BP 134/70; BP 149/41; PULSE 82; RESP 14; TEMP 36.4; O2SAT 98
[2021-12-12 17:15] VITALS: BP 137/65; BP 149/41; PULSE 78; RESP 16; O2SAT 98
[2021-12-12 17:30] VITALS: BP 130/71; BP 149/41; PULSE 73; RESP 16; O2SAT 96
[2021-12-12 17:45] VITALS: BP 141/65; BP 149/41; PULSE 77; RESP 16; TEMP 36.4; O2SAT 100
[2021-12-12 18:11] VITALS: BP 149/41; BP 151/76; PULSE 74; RESP 16; TEMP 35.8; O2SAT 97
== END 2021-12-12 23:59 | disposition home or self-care (01) ==
LOC: SDC 13:49 → AC 13:55
PROVIDERS: Referring Provider Urology; Visit Provider Urology
PROC: (CPT 50590; principal; 2021-12-12 15:15)
DX: N20.0 Calculus of kidney (principal); J44.9 Chronic obstructive pulmonary disease, unspecified; N95.2 Postmenopausal atrophic vaginitis; N39.46 Mixed incontinence; E07.9 Disorder of thyroid, unspecified; M19.90 Unspecified osteoarthritis, unspecified site; Z79.899 Other long term (current) drug therapy; Z87.891 Personal history of nicotine dependence
CPT/HCPCS: 52005; 50590; 36415; 80048; 85027; 93005; J7120; J2405

== ENCOUNTER 2022-01-02 13:55 | Outpatient (CLI) | payer MEDICARE, SELFPAY ==
--- NOTE | 2022-01-02 13:57 | RAD_ITS ---
STUDY: XR Abdomen 1 View 01/02/2022 2:00 PM REASON FOR EXAM: Female, 71 years old. ABDOMINAL PAIN KIDNEY CALC TECHNIQUE: XR Abdomen 1 View COMPARISON: None FINDINGS: There is an unremarkable bowel gas pattern. There is no demonstrated free abdominal air. The visualized liver, spleen and kidneys are grossly normal in size and morphology. Normal soft tissue structures. There are diffuse degenerative changes of the visualized lumbar spine. RAD/Abdomen Single View IMPRESSION: There are no acute findings. Electronically Signed: Shailesh Feldman MD at 15:07 EDT ,
== END 2022-01-02 23:59 | disposition home or self-care (01) ==
PROVIDERS: Referring Provider Urology; Visit Provider Urology
DX: N20.0 Calculus of kidney (principal)
CPT/HCPCS: 74018

== ENCOUNTER → 2022-07-04 | Outpatient (CLI) | payer MEDICARE, SELFPAY ==
--- NOTE | 2022-07-04 15:40 | RAD_ITS ---
STUDY: X-RAY - ABDOMEN/PELVIS REASON FOR EXAM: Female, 71 years old. Kidney stone. TECHNIQUE: Two AP supine views of the abdomen and pelvis. COMPARISON: Abdomen, 01/02/2022. FINDINGS: Normal visualized lung bases. There is an unremarkable bowel gas pattern. There is no demonstrated free abdominal air. The visualized liver, spleen and kidneys are grossly normal in size and morphology. No visualized renal or ureteral calculi. Stable phleboliths in the right pelvis. Stable degenerative changes of the lumbar spine and pelvis. RAD/Abdomen Single View IMPRESSION: Normal x-ray examination of the abdomen and pelvis. No major interval change. Electronically Signed: Martin Alcocer DO at 16:03 EDT ,
== END | disposition home or self-care (01) ==
PROVIDERS: Referring Provider Urology; Visit Provider Urology
DX: N20.0 Calculus of kidney (principal)
CPT/HCPCS: 74018

== ENCOUNTER → 2024-06-25 | Outpatient (CLI) | payer MEDICARE, SELFPAY ==
--- NOTE | 2024-06-25 16:46 | CT_ITS ---
PROCEDURE: CT RIGHT KNEE WITHOUT CONTRAST REASON FOR EXAM: Female, 73 years old. Preoperative planning for the [employer] Robotic knee surgery. Knee pain. TECHNIQUE: Transaxial CT of the hip, knee and ankle were obtained. Coronal and sagittal reconstruction images of the knee were provided. Individualized dose optimization techniques were used for this CT. COMPARISON: None. FINDINGS: Standard protocol for the preoperative planning for the [employer] robotic knee surgery was performed. Osteopenia with mild arthrosis of the right hip, moderate medial compartmental arthrosis with osteophytes and mild arthrosis of the lateral femorotibial compartment and patellofemoral compartment and mild arthrosis of the tibiotalar and subtalar joints. Large calcaneal spurs. CT/Extremity Lower without Contra IMPRESSION: Preoperative [employer] Robotic knee surgical CT evaluation with findings as described above. Electronically Signed: Armando Fagan MD at 10:02 EDT ,
== END | disposition home or self-care (01) ==
LOC: CT 16:44
PROVIDERS: PCP Internal Medicine; Referring Provider Orthopaedic Surgery; Visit Provider Orthopaedic Surgery
DX: M17.11 Unilateral primary osteoarthritis, right knee (principal)
CPT/HCPCS: 73700

== ENCOUNTER → 2024-07-28 | Outpatient (CLI) | payer MEDICARE, SELFPAY ==
--- NOTE | 2024-07-28 11:57 | EKG12_ITS ---
Test Reason : PREOP Blood Pressure : / mmHG Vent. Rate : 096 BPM Atrial Rate : 096 BPM P-R Int : 156 ms QRS Dur : 094 ms QT Int : 346 ms P-R-T Axes : 055 -35 066 degrees QTc Int : 437 ms Normal sinus rhythm Left axis deviation Abnormal ECG Confirmed by MAURI MCINTYRE, BRIGID ([id number]), photograph editor HANNAH ROSA ([id number]) on 07/28/2024 1:32:56 PM Referred By: Jamal Hebert Confirmed By:BRIGID DOTSON MD
--- NOTE | 2024-07-28 12:06 | RAD_ITS ---
INDICATION: PRE OP EXAMINATION/TECHNIQUE: X-RAY - XR Chest 2 Views COMPARISON: None. FINDINGS: LINES/DEVICES: None. LUNGS: No consolidation, edema or effusion. No pneumothorax. MEDIASTINUM AND CARDIOVASCULAR STRUCTURES: Cardiac silhouette within normal limits. BONES AND SOFT TISSUES: No acute findings. RAD/Chest PA and Lateral IMPRESSION: No radiographic evidence of acute cardiopulmonary disease. Electronically Signed: Yaniv Javier MD at 19:58 EDT ,
--- OUTSIDE RECORDS SUMMARY | 2024-07-28 14:14 | XMS RPT_ITS | CCD ---
Author Organization [facility] Care Team Providers Care Network Director Name Role Phone Bernice HEAD, Radha Bourgeois Unavailable Dhruv HEAD, Sol Bourgeois Unavailable Unavailab Sol Chopra LPN Unavailable Unavailab alejo BARTON DO, DR TOSCANO Primary Care Physician [phone] Yrn PT, Shadia Unavailable Unavailable ORALIA HILL, DR TOSCANO Primary Care Physician [phone] ORALIA HILL, DR TOSCANO Primary Care Unavailable ORALIA HILL, DR TOSCANO Attending Unavailable ORALIA HILL, DR TOSCANO Primary Care Unavailable ORALIA HILL, DR TOSCANO Attending Unavailable PEPPER WILLINGHAM Attending Unavailable ORALIA HILL, DR TOSCANO Primary Care Unavailable ORALIA HILL, DR TOSCANO Primary Care Unavailable ORALIA HILL, DR TOSCANO Attending Unavailable Allergies Allergy Classification Reported Allergen(s) Allergy Type Date of Onset Reaction(s) Facility (8 sources) Adhesive Tape Allergy to substance Burn injury (morphologic abnormality) [facility] Work Phone: (8 sources) oxyCODONE; Translations: [oxycodone] Drug Allergy Unknown [facility] Work Phone: Medications Current Medications Medication Drug Class(es) Dates Sig (Normalized) Sig (Original) acyclovir 400 mg oral tablet (2 sources) Herpesvirus Nucleoside Analog DNA Polymerase Inhibitor, Herpes Simplex Virus Nucleoside Analog DNA Polymerase Inhibitor, Herpes Zoster Virus Nucleoside Analog DNA Polymerase Inhibitor Start: 02-14-2022 take 1 tablet by mouth five times daily, then take 1 tablet by mouth twice daily acyclovir 400 mg oral tablet Take 1 tablet by mouth as directed; 5 times a day for 1 week then 1 tablet twice daily Start Date: 02/14/22 Status: Ordered DME MISCellaneous (3 sources) Start: 08-19-2021 DME MISCellaneous See Instructions, Dx S92.909A; dispense one walking boot for fracture, # 1 EA, 0 Refill(s), Foot fracture, 95.8 Start Date: 08/19/21 Status: Ordered dorzolamide 20 mg/ml / timolol 5 mg/ml ophthalmic solution (4 sources) Carbonic Anhydrase Inhibitor, beta-Adrenergic Norman Start: 08-15-2022 dorzolamide-timolol 2.23%-0.68% ophthalmic solution Dose = 1 drop(s), Ophthalmic, BID, # 10 mL, 0 Refill(s) Start Date: 08/15/22 Status: Ordered escitalopram 20 mg oral tablet (2 sources) Serotonin Reuptake Inhibitor Start: 08-14-2023 escitalopram 20 mg oral tablet Dose : 20 mg = 1 tab(s), Oral, qDay, # 90 tab(s), 0 Refill(s), Pharmacy: [facility], 156, cm, 08/14/23 13:20:00 EST, Height, kg, 08/14/23 13:20:00 EST, Dosing Weight Start Date: 08/14/23 Status: Ordered Start: 02-13-2023 Lexapro 10 mg oral tablet Dose : 10 mg = 1 tab(s), Oral, Daily, # 90 tab(s), 1 Refill(s), Pharmacy: [facility], 156, cm, 02/13/23 11:08:00 EDT, Height, kg, 02/13/23 11:08:00 EDT, Dosing Weight Start Date: 02/13/23 Status: Ordered fish oil (9 sources) Start: 08-15-2019 Fish Oil 1000 mg oral capsule Dose : 1,000 mg = 1 cap(s), Oral, qDay, # 90 cap(s), 0 Refill(s) Start Date: 08/15/19 Status: Ordered Start: 03-10-2017 [facility] C APS as directed OMEGA-3 FATTY ACIDS CAPS [id number] Sol Bartlett LPN fluorometholone 1 mg/ml ophthalmic suspension (4 sources) Corticosteroid Start: 11-10-2022 take 1 dose into the eye(s) twice daily fluorometholone 0.1% ophthalmic suspension Dose = 1 drop(s), Eyes, both, BID, # 10 mL, 0 Refill(s) Start Date: 11/10/22 Status: Ordered Garlic preparation (11 sources) Non-Standardized Food Allergenic Extract Start: 08-15-2019 take 1 capsule by mouth once daily garlic oral capsule Dose = 1 cap(s), Oral, Daily, 0 Refill(s) Start Date: 08/15/19 Status: Ordered Start: 03-10-2017 GARLIC 1500 CA PS as directed GARLIC CAPS [id number] Sol Bartlett LPN Start: 03-10-2017 GARLIC 1500 CA PS as directed GARLIC CAPS [id number] Sol Bartlett LPN hydrOXYzine pamoate 25 mg oral capsule (3 sources) Antihistamine Start: 07-10-2023 hydrOXYzine pa moate 25 mg oral capsule Dose : 25 mg = 1 cap(s), Oral, BID, TAKE 1 CAPSULE BY MOUTH TWICE DAILY NEEDED FOR ANXIETY, # 180 cap(s), 0 Refill(s), Pharmacy: [facility], 156, cm, 06/08/23 14:32:00 EDT, Height, kg, 06/08/23 14:32:00 EDT, Dosing Weight Start Date: 07/10/23 Status: Ordered latanoprost 0.05 mg/ml ophthalmic solution (11 sources) Prostaglandin Analog Start: 11-06-[address] 0.005% ophthalmic solution 0 Refill(s) Start Date: 11/06/19 Status: Ordered Start: 11-06-2019 latanoprost 0. 005% ophthalmic solution 0 Refill(s) Start Date: 11/06/19 Status: Ordered Start: 03-10-2017 XALATAN SOLN a s directed LATANOPROST SOLN [id number] Sol Bartlett LPN Start: 03-10-[address] as directed LATANOPROST SOLN [id number] Sol Bartlett LPN Start: 03-10-2017 XALATAN SOLN a s directed LATANOPROST SOLN [id number] Sol Bartlett LPN Start: 03-10-[address] as directed LATANOPROST SOLN [id number] Sol Bk Bartlett LPN levothyroxine sodium 0.05 mg oral tablet (11 sources) l-Thyroxine Start: 02-29-2024 levothyroxine 50 mcg (0.05 mg) oral tablet Dose : 50 mcg = 1 tab(s), Oral, qDay, # 90 tab(s), 1 Refill(s), Pharmacy: [facility], 160, cm, 02/28/24 13:30:00 EDT, Height, kg, 01/08/24 13:29:00 EDT, Dosing Weight Start Date: 02/29/24 Status: Ordered Start: 08-14-2023 End: 02-10-2024 levothyroxine 50 mcg (0.05 m g) oral tablet Dose : 50 mcg = 1 tab(s), Oral, qDay, # 90 tab(s), 1 Refill(s), Pharmacy: [facility], 156, cm, 08/14/23 13:20:00 EST, Height, kg, 08/14/23 13:20:00 EST, Dosing Weight Start Date: 08/14/23 Stop Date: 02/10/24 Status: Ordered Start: 02-13-2023 End: 08-12-2023 levothyroxine 50 mcg (0.05 m g) oral tablet Dose : 50 mcg = 1 tab(s), Oral, qDay, # 90 tab(s), 1 Refill(s), Pharmacy: [facility], 156, cm, 02/13/23 11:08:00 EDT, Height, kg, 02/13/23 11:08:00 EDT, Dosing Weight Start Date: 02/13/23 Stop Date: 08/12/23 Status: Ordered Start: 02-14-2022 End: 08-13-2022 levothyroxine 50 mcg (0.05 m g) oral tablet Dose : 50 mcg = 1 tab(s), Oral, qDay, # 90 tab(s), 1 Refill(s), Pharmacy: [facility], 156, cm, 02/14/22 9:27:00 EDT, Height, kg, 02/14/22 9:27:00 EDT, Dosing Weight Start Date: 02/14/22 Stop Date: 08/13/22 Status: Ordered Start: 05-19-2021 End: 11-15-2021 levothyroxine 50 mcg (0.05 m g) oral tablet Dose : 50 mcg = 1 tab(s), Oral, qDay, # 90 tab(s), 1 Refill(s), Pharmacy: [facility], 156, cm, 05/19/21 9:51:00 EDT, Height, kg, 05/19/21 9:51:00 EDT, Dosing Weight Start Date: 05/19/21 Stop Date: 11/15/21 Status: Ordered Start: 03-10-2017 SYNTHROID TABS as directed LEVOTHYROXINE SODIUM TABS [id number] Sol Bartlett LPN Start: 03-10-2017 SYNTHROID TABS as directed LEVOTHYROXINE SODIUM TABS [id number] Sol Bartlett LPN meloxicam 15 mg oral tablet (11 sources) Nonsteroidal Anti-inflammatory Drug Start: 11-27-2023 meloxicam 15 mg oral tablet Dose : 15 mg = 1 tab(s), Oral, qDay, # 90 tab(s), 1 Refill(s), Pharmacy: [facility], 160, cm, 11/13/23 11:23:00 EST, Height, kg, 11/13/23 11:23:00 EST, Dosing Weight Start Date: 11/27/23 Status: Ordered Start: 09-04-2023 meloxicam 15 m g oral tablet Dose : 15 mg = 1 tab(s), Oral, qDay, # 90 tab(s), 1 Refill(s), Pharmacy: [facility], 156, cm, 08/29/23 13:51:00 EST, Height, kg, 08/29/23 13:51:00 EST, Dosing Weight Start Date: 09/04/23 Status: Ordered Start: 02-13-2023 meloxicam 15 m g oral tablet Dose : 15 mg = 1 tab(s), Oral, qDay, # 90 tab(s), 1 Refill(s), Pharmacy: [facility], 156, cm, 02/13/23 11:08:00 EDT, Height, kg, 02/13/23 11:08:00 EDT, Dosing Weight Start Date: 02/13/23 Status: Ordered Start: 07-13-2022 meloxicam 15 m g oral tablet Dose : 15 mg = 1 tab(s), Oral, qDay, PRN Joint pain, # 30 tab(s), 0 Refill(s), Pharmacy: [facility], 156, cm, 02/14/22 9:27:00 EDT, Height, kg, 02/14/22 9:27:00 EDT, Dosing Weight Start Date: 07/13/22 Status: Ordered Start: 05-19-2021 meloxicam 15 m g oral tablet Dose : 15 mg = 1 tab(s), Oral, qDay, PRN Joint pain, # 30 tab(s), 0 Refill(s), Pharmacy: [facility], 156, cm, 05/19/21 9:51:00 EDT, Height, kg, 05/19/21 9:51:00 EDT, Dosing Weight Start Date: 05/19/21 Status: Ordered Start: 03-10-2017 MELOXICAM TABS as directed MELOXICAM TABS [id number] Sol Bartlett LPN Start: 03-10-2017 MELOXICAM TABS as directed MELOXICAM TABS [id number] Sol Bartlett LPN Multivitamin preparation (8 sources) Start: 08-15-2019 take 1 tablet by mouth once daily Multivitamin Dose = 1 tab(s), Oral, Daily, 0 Refill(s) Start Date: 08/15/19 Status: Ordered PEG-3350 with Electrolytes (Eqv-GoLYTELY) oral powder for reconstitution (1 source) Start: 08-29-2023 PEG-3350 with Electrolytes (Eqv-GoLYTELY) oral powder for reconstitution See Instructions, Take as directed 1 day before colonoscopy. Follow instructions as provided by your GI provider at [facility] # 1 EA, 0 Refill(s), Pharmacy: [facility] #[facility], 156, cm, 08/29/23 13:51:00 EST, Height, kg, 08/29/23 13:51:00 EST, Dosing Weight Start Date: 08/29/23 Status: Ordered prednisoLONE acetate 10 mg/ml ophthalmic suspension (2 sources) Corticosteroid Start: 02-14-2022 prednisoLONE acetate 1% ophthalmic suspension Place 1 drop in surgical eye four times a day; then as directed Start Date: 02/14/22 Status: Ordered 12 hr timolol 5 mg/ml ophthalmic solution (4 sources) beta-Adrenergic Norman Start: 11-06-2019 timolol maleate 0.5% ophthalmic solution 0 Refill(s) Start Date: 11/06/19 Status: Ordered Start: 11-06-2019 timolol maleat e 0.5% ophthalmic solution 0 Refill(s) Start Date: 11/06/19 Status: Ordered 24 hr venlafaxine 37.5 mg extended release oral capsule (2 sources) Serotonin and Norepinephrine Reuptake Inhibitor Start: 02-29-2024 Effexor XR 37.5 mg oral capsule, extended release Dose : 37.5 mg = 1 cap(s), Oral, BID, # 180 cap(s), 3 Refill(s), Pharmacy: [facility], 160, cm, 02/28/24 13:30:00 EDT, Height, kg, 01/08/24 13:29:00 EDT, Dosing Weight Start Date: 02/29/24 Status: Ordered Start: 01-08-2024 Effexor XR 37. 5 mg oral capsule, extended release Dose : 37.5 mg = 1 cap(s), Oral, BID, # 60 cap(s), 1 Refill(s), Pharmacy: [facility], 160, cm, 01/08/24 13:29:00 EDT, Height, kg, 01/08/24 13:29:00 EDT, Dosing Weight Start Date: 01/08/24 Status: Ordered Benefiber (8 sources) Start: 08-15-2019 Benefiber gram (s), Oral, BID, 0 Refill(s) Start Date: 08/15/19 Status: Ordered Completed/Discontinued Medications Medication Drug Class(es) Dates Sig (Normalized) Sig (Original) AZITHROMYCIN (3 sources) Macrolide Antimicrobial Start: 03-10-2017 ZITHROMAX Z-ANNY 250 MG TABS take 2 tablets today, one for the next 4 days AZITHROMYCIN [id number] Mahnaz Smith PA-C Start: 03-10-2017 ZITHROMAX Z-PA K 250 MG TABS take 2 tablets today, one for the next 4 days ALEXANDER [id number] Mahnaz Smith PA-C MULTIPLE VITAMIN (3 sources) Start: 03-10-2017 MULTIVITAMINS CAPS as directed MULTIPLE VITAMIN [id number] Sol Bartlett FURNACE FIRER Start: 03-10-2017 MULTIVITAMINS CAPS as directed MULTIPLE VITAMIN [id number] Sol Bartlett FURNACE FIRER OMEGA-3 FATTY ACIDS CAPS (2 sources) Start: 03-10-2017 [facility] FISH OIL C APS as directed OMEGA-3 FATTY ACIDS CAPS [id number] Sol Bartlett FURNACE FIRER Psyllium (3 sources) Start: 03-10-2017 [facility] FIBER CAPS as directed PSYLLIUM CAPS [id number] Sol Bartlett FURNACE FIRER Start: 03-10-2017 [facility] FIBER CAPS as directed PSYLLIUM CAPS [id number] Sol Bartlett FURNACE FIRER Problems Active Problems Problem Classification Problem Date Documented Da te Episodic/Chronic Adjustment disorders (4 sources) Adjustment disorder 10-06-2022 Chronic Calculus of urinary tract (6 sources) Kidney stone 02-14-2022 Episodic Cardiac dysrhythmias (8 sources) Premature atrial contraction 02-15-2021 Chronic Chronic kidney disease (10 sources) Chronic kidney disease stage 3; Translations: [Chronic kidney disease, stage 3 unspecified] 02-15-2021 Chronic Chronic obstructive pulmonary disease and bronchiectasis (8 sources) Chronic obstructive lung disease 03-12-2020 Chronic Diabetes mellitus without complication (10 sources) Hyperglycemia; Translations: [Hyperglycemia, unspecified] 02-15-2021 Episodic Disorders of lipid metabolism (10 sources) Hyperlipidemia; Translations: [Hyperlipidemia, unspecified] 03-12-2020 Chronic Mood disorders (2 sources) Recurrent major depressive episodes, moderate 11-13-2023 Chronic Nutritional deficiencies (9 sources) Vitamin D deficiency; Translations: [Vitamin D deficiency, unspecified] 02-15-2021 Chronic Osteoarthritis (16 sources) Arthritis; Translations: [Osteoarthritis of right knee joint] 03-12-2020 Chronic Other bone disease and musculoskeletal deformities (8 sources) Osteopenia 03-12-2020 Episodic Other bone disease and musculoskeletal deformities (1 source) Disorder of bone; Translations: [Other specified disorders of bone density and structure, unspecified site] Episodic Other connective tissue disease (8 sources) Triggering of digit 02-15-2021 Episodic Other nervous system disorders (8 sources) Piriformis syndrome 08-14-2019 Chronic Other nutritional; endocrine; and metabolic disorders (2 sources) Body mass index 40+ - severely obese 02-15-2021 Chronic Other nutritional; endocrine; and metabolic disorders (8 sources) Morbid obesity 02-15-2021 Chronic Other nutritional; endocrine; and metabolic disorders (6 sources) Body mass index 30+ - obesity 02-14-2022 Chronic Other upper respiratory disease (6 sources) Allergic rhinitis 02-14-2022 Chronic Residual codes; unclassified (8 sources) H/O Spinal surgery 08-15-2019 Episodic Residual codes; unclassified (3 sources) Family history of cancer of colon 08-29-2023 Episodic Screening and history of mental health and substance abuse codes (8 sources) Ex-smoker 08-15-2019 Episodic Thyroid disorders (9 sources) Hypothyroidism; Translations: [Hypothyroidism, unspecified] 03-12-2020 Chronic Unclassified (3 sources) Patient encounter status 08-29-2023 Comment on above: needs repeat 08/2026 Past or Other Problems Problem Classification Problem Date Documented Da te Episodic/Chronic Other circulatory disease (3 sources) Other specified symptoms and signs involving the circulatory and respiratory systems; Translations: [Other specified symptoms and signs involving the circulatory and respiratory systems] Onset: 03-10-2017 03-10-2017 Episodic Other screening for suspected conditions (not mental disorders or infectious disease) (2 sources) Encounter for screening for malignant neoplasm of colon; Translations: [Encounter for screening for malignant neoplasm of colon] Onset: 09-10-2023 Episodic Other upper respiratory infections (4 sources) Acute pharyngitis; Translations: [Acute sinusitis] Onset: 03-10-2017 09-02-2017 Episodic Results Test Name Value Interpretation Reference Range Facility MA MAMMOGRAM SCREENING BILAT ERAL W/TOMOon 03-28-2024 MA MAMMOGRAM SCREENING BILATERAL W/JAMARI ORIGINAL FROM: [facility] [address] [place] [address] PROCEDURE FOR: TATE [facility] [address] [place] [address] Home: PID#: [id number] Exam#: [id number] : 1950 Age: 73 TO: DORCAS BARTON DO [address], [place] [address] Fax: NO FAX EXAMINATION: SCREENING DIGITAL BILATERAL MAMMOGRAM WITH TOMOSYNTHESIS, 03/28/2024 1:38 pm TECHNIQUE: Screening mammography of the bilateral breasts was performed with tomosynthesis. 2D standard and 3D tomosynthesis combination imaging performed through both breasts in the MLO and CC projection. Computer aided detection was utilized in the interpretation of this exam. COMPARISON: 03/28/2023, 04/11/2022, 03/27/2022 HISTORY: Breast cancer screening. FINDINGS: BREAST DENSITY: There are scattered areas of fibroglandular density. There are benign appearing calcifications in the right breast. There are benign appearing scattered unchanged densities in the left breast.. There are no significant masses or calcifications. IMPRESSION: No mammographic evidence of malignancy. Continued screening with annual mammograms is recommended. Kathe Lopeszick risk calculations, generated with the history provided, report this patient's 10 year risk and lifetime risk for developing breast cancer at 3.6% and 3.6%, respectively. Based on this assessment tool, if the patient's calculated lifetime risk is below 20%, then the patient is considered at average risk for developing breast cancer. If the patient's calculated lifetime risk is at or above 20%, then the patient is considered high risk for developing breast cancer and may be a candidate for supplemental breast MRI screening in addition to annual mammographic screening per the [employer] [employer]. BIRADS: BI-RADS: 2: Benign RECALL: 1 year screening RECALL TYPE: mammo LETTER SENT: Normal BI-RADS 1 and 2 Interpreted by: Ilan Araujo MD Preliminary Report By: Ilan Araujo MD Electronically signed By Ilan Araujo MD Dictated Date: 03/28/2024 5:30:54 PM Prelim Date: 03/28/2024 5:36:58 PM Sign Date: 03/28/2024 5:36:58 PM Ordering Provider: DORCAS BARTON Behavioral Health Worker: SOWMYA TANG RT(R) RDMS letter sent: Normal BI-RADS 1 and 2 Mammogram BI-RADS: 2 Benign Normal [facility] ([place]) .Auto Diffon 02-22-2024 Basophil, Absolute 0.0 10 3/mcL Normal 0.0-0.2 [facility] ([place]) Comment on above: Performed By: #### G FR, FERR, FT4, CBC, CMP, ADIFF, TSH, FT3, VIDH, ANEU, LIPID, FE, A1C #### [address] [address] Basophils/100 WBC (Bld) 0.3 % Normal 0.0-2.5 [facility]) Comment on above: Performed By: #### G FR, FERR, FT4, CBC, CMP, ADIFF, TSH, FT3, VIDH, ANEU, LIPID, FE, A1C #### [address] [address] Eosinophil, Absolute 0.4 10 3/mcL Normal 0.0-0.4 [facility] ([place]) Comment on above: Performed By: #### G FR, FERR, FT4, CBC, CMP, ADIFF, TSH, FT3, VIDH, ANEU, LIPID, FE, A1C #### [address] [address] Eosinophils/100 WBC (Bld) 4.4 % Normal 0.0-7.0 [facility] ([place]) Comment on above: Performed By: #### G FR, FERR, FT4, CBC, CMP, ADIFF, TSH, FT3, VIDH, ANEU, LIPID, FE, A1C #### [address] [address] Lymphocyte, Absolute 1.9 10 3/mcL Normal 0.8-3.9 [facility] ([place]) Comment on above: Performed By: #### G FR, FERR, FT4, CBC, CMP, ADIFF, TSH, FT3, VIDH, ANEU, LIPID, FE, A1C #### [address] [address] Lymphocytes/100 WBC (Bld) 20.3 % Normal 10.0-50.0 [facility] ([place]) Comment on above: Performed By: #### G FR, FERR, FT4, CBC, CMP, ADIFF, TSH, FT3, VIDH, ANEU, LIPID, FE, A1C #### [address] [address] Monocyte, Absolute 0.7 10 3/mcL Normal 0.2-1.0 [facility] ([place]) Comment on above: Performed By: #### G FR, FERR, FT4, CBC, CMP, ADIFF, TSH, FT3, VIDH, ANEU, LIPID, FE, A1C #### [address] [address] Monocytes/100 WBC (Bld) 8.0 % Normal 1.7-13.0 [facility] ([place]) Comment on above: Performed By: #### G FR, FERR, FT4, CBC, CMP, ADIFF, TSH, FT3, VIDH, ANEU, LIPID, FE, A1C #### [address] [address] Neutrophils/100 WBC (Bld) 67.0 % Normal 37.0-80.0 [facility] ([place]) Comment on above: Performed By: #### G FR, FERR, FT4, CBC, CMP, ADIFF, TSH, FT3, VIDH, ANEU, LIPID, FE, A1C #### [address] [address] .GFRon 02-22-2024 GFR 50 ml/min/1.73sqm Normal [facility] ([place]) Comment on above: Result Comment: GFR Population mean for , Non- Americans Ages 20-29 = 116 mL/min/1.73 sq.m. Ages 30-39 = 107 mL/min/1.73 sq.m. Ages 40-49 = 99 mL/min/1.73 sq.m. Ages 50-59 = 93 mL/min/1.73 sq.m. Ages 60-69 = 85 mL/min/1.73 sq.m. Ages 70+ = 75 mL/min/1.73 sq.m. Chronic Kidney Disease: Less than 60 mL/min/1.73 square meters End Stage Renal Disease: Less than 15 mL/min/1.73 square meters Performed By: #### G FR, FERR, FT4, CBC, CMP, ADIFF, TSH, FT3, VIDH, ANEU, LIPID, FE, A1C #### [address] [address] GFR Non- 41 ml/min/1.73sqm Normal [facility] ([place]) Comment on above: Result Comment: GFR Population mean for , Non- Americans Ages 20-29 = 116 mL/min/1.73 sq.m. Ages 30-39 = 107 mL/min/1.73 sq.m. Ages 40-49 = 99 mL/min/1.73 sq.m. Ages 50-59 = 93 mL/min/1.73 sq.m. Ages 60-69 = 85 mL/min/1.73 sq.m. Ages 70+ = 75 mL/min/1.73 sq.m. Chronic Kidney Disease: Less than 60 mL/min/1.73 square meters End Stage Renal Disease: Less than 15 mL/min/1.73 square meters Performed By: #### G FR, FERR, FT4, CBC, CMP, ADIFF, TSH, FT3, VIDH, ANEU, LIPID, FE, A1C #### [address] [address] .NEUABSon 02-22-2024 Neutrophil, Absolute 6.1 10 3/mcL Normal 2.9-6.2 [facility] ([place]) Comment on above: Performed By: #### G FR, FERR, FT4, CBC, CMP, ADIFF, TSH, FT3, VIDH, ANEU, LIPID, FE, A1C #### [address] [address] A1Con 02-22-2024 HbA1c (Bld) [Mass fraction] 6.2 % Normal 4.3-6.4 [facility] ([place]) Comment on above: Performed By: #### G FR, FERR, FT4, CBC, CMP, ADIFF, TSH, FT3, VIDH, ANEU, LIPID, FE, A1C #### [place] [id number] CBCon 02-22-2024 Erythrocyte distribution width (RBC) [Ratio] 13.2 % Normal 11.5-14.5 [facility] ([place]) Comment on above: Performed By: #### G FR, FERR, FT4, CBC, CMP, ADIFF, TSH, FT3, VIDH, ANEU, LIPID, FE, A1C #### [place] [address] Hematocrit (Bld) [Volume fraction] 42.4 % Normal 37.0-47.0 [facility] ([place]) Comment on above: Performed By: #### G FR, FERR, FT4, CBC, CMP, ADIFF, TSH, FT3, VIDH, ANEU, LIPID, FE, A1C #### [place] [address] Hgb 14.9 G/dL Normal 12.0-16.0 [facility] ([place]) Comment on above: Performed By: #### G FR, FERR, FT4, CBC, CMP, ADIFF, TSH, FT3, VIDH, ANEU, LIPID, FE, A1C #### [place] [id number] MCH (RBC) [Entitic mass] 31.3 pg High 27.0-31.2 [facility] ([place]) Comment on above: Performed By: #### G FR, FERR, FT4, CBC, CMP, ADIFF, TSH, FT3, VIDH, ANEU, LIPID, FE, A1C #### [place] [address] MCHC 35.2 G/dL Normal 33.0-37.0 [facility] ([place] Comment on above: Performed By: #### G FR, FERR, FT4, CBC, CMP, ADIFF, TSH, FT3, VIDH, ANEU, LIPID, FE, A1C #### [place] [address] MCV (RBC) [Entitic vol] 89.0 fL Normal 80.0-94.0 [facility] ([place]) Comment on above: Performed By: #### G FR, FERR, FT4, CBC, CMP, ADIFF, TSH, FT3, VIDH, ANEU, LIPID, FE, A1C #### [address] [address] Platelet 237 10 3/mcL Normal 130-400 [facility] ([place]) Comment on above: Performed By: #### G FR, FERR, FT4, CBC, CMP, ADIFF, TSH, FT3, VIDH, ANEU, LIPID, FE, A1C #### [address] [address] Platelet mean volume (Bld) [Entitic vol] 7.5 fL Normal 7.4-10.4 [facility] ([place]) Comment on above: Performed By: #### G FR, FERR, FT4, CBC, CMP, ADIFF, TSH, FT3, VIDH, ANEU, LIPID, FE, A1C #### [address] [address] RBC 4.76 10 6/mcL Normal 4.20-5.40 [facility] ([place]) Comment on above: Performed By: #### G FR, FERR, FT4, CBC, CMP, ADIFF, TSH, FT3, VIDH, ANEU, LIPID, FE, A1C #### [address] [address] WBC 9.2 10 3/mcL Normal 4.6-10.8 [facility] ([place]) Comment on above: Performed By: #### G FR, FERR, FT4, CBC, CMP, ADIFF, TSH, FT3, VIDH, ANEU, LIPID, FE, A1C #### [address] [address] CMPon 02-22-2024 Albumin Level 3.6 G/dL Normal 3.4-4.8 [facility] ([place]) Comment on above: Performed By: #### G FR, FERR, FT4, CBC, CMP, ADIFF, TSH, FT3, VIDH, ANEU, LIPID, FE, A1C #### [address] [address] Albumin/Globulin [Mass ratio] 0.9 {ratio} Low 1.1-2.5 [facility] ([place]) Comment on above: Performed By: #### G FR, FERR, FT4, CBC, CMP, ADIFF, TSH, FT3, VIDH, ANEU, LIPID, FE, A1C #### [address] [address] ALP [Catalytic activity/Vol] 73 U/L Normal 40-135 [facility] ([place]) Comment on above: Performed By: #### G FR, FERR, FT4, CBC, CMP, ADIFF, TSH, FT3, VIDH, ANEU, LIPID, FE, A1C #### [address] [address] ALT [Catalytic activity/Vol] 26 U/L Normal 14-59 [facility] ([place] Comment on above: Performed By: #### G FR, FERR, FT4, CBC, CMP, ADIFF, TSH, FT3, VIDH, ANEU, LIPID, FE, A1C #### [address] [address] AST [Catalytic activity/Vol] 11 U/L Normal 10-40 [facility] ([place] Comment on above: Performed By: #### G FR, FERR, FT4, CBC, CMP, ADIFF, TSH, FT3, VIDH, ANEU, LIPID, FE, A1C #### [address] [address] Bili Total 0.5 mg/dL Normal 0.2-1.0 [facility] ([place] Comment on above: Result Comment: Use of this assay is not recommended for patients undergoing treatment with eltrombopag due to the potential for falsely elevated results. Performed By: #### G FR, FERR, FT4, CBC, CMP, ADIFF, TSH, FT3, VIDH, ANEU, LIPID, FE, A1C #### [address] [address] BUN/Creatinine Ratio 13 ratio Normal 7-27 [facility] ([place] Comment on above: Performed By: #### G FR, FERR, FT4, CBC, CMP, ADIFF, TSH, FT3, VIDH, ANEU, LIPID, FE, A1C #### [address] [address] Calcium [Mass/Vol] 9.2 mg/dL Normal 8.4-10.2 [facility] ([place]) Comment on above: Performed By: #### G FR, FERR, FT4, CBC, CMP, ADIFF, TSH, FT3, VIDH, ANEU, LIPID, FE, A1C #### [address] [address] Chloride [Moles/Vol] 105 mmol/L Normal 98-107 [facility] ([place] Comment on above: Performed By: #### G FR, FERR, FT4, CBC, CMP, ADIFF, TSH, FT3, VIDH, ANEU, LIPID, FE, A1C #### [address] [address] CO2 [Moles/Vol] 27 mmol/L Normal 23-31 [facility] ([place] Comment on above: Performed By: #### G FR, FERR, FT4, CBC, CMP, ADIFF, TSH, FT3, VIDH, ANEU, LIPID, FE, A1C #### [address] [address] Creatinine [Mass/Vol] 1.26 mg/dL High 0.55-1.02 [facility] ([place]) Comment on above: Performed By: #### G FR, FERR, FT4, CBC, CMP, ADIFF, TSH, FT3, VIDH, ANEU, LIPID, FE, A1C #### [address] [address] Electrolyte Balance 12.0 mEq/L Normal 4.0-15.0 [facility] ([place]) Comment on above: Performed By: #### G FR, FERR, FT4, CBC, CMP, ADIFF, TSH, FT3, VIDH, ANEU, LIPID, FE, A1C #### [place] [id number] Globulin 3.9 G/dL Normal [facility] ([place] Comment on above: Performed By: #### G FR, FERR, FT4, CBC, CMP, ADIFF, TSH, FT3, VIDH, ANEU, LIPID, FE, A1C #### [address] [address] Glucose [Mass/Vol] 144 mg/dL High 83-110 [facility] ([place] Comment on above: Performed By: #### G FR, FERR, FT4, CBC, CMP, ADIFF, TSH, FT3, VIDH, ANEU, LIPID, FE, A1C #### [address] [address] Potassium [Moles/Vol] 4.6 mmol/L Normal 3.5-5.1 [facility] ([place] Comment on above: Performed By: #### G FR, FERR, FT4, CBC, CMP, ADIFF, TSH, FT3, VIDH, ANEU, LIPID, FE, A1C #### [address] [address] Sodium [Moles/Vol] 144 mmol/L Normal 136-145 [facility] ([place] Comment on above: Performed By: #### G FR, FERR, FT4, CBC, CMP, ADIFF, TSH, FT3, VIDH, ANEU, LIPID, FE, A1C #### [address] [address] Total Protein 7.5 G/dL Normal 6.4-8.2 [facility] ([place] Comment on above: Performed By: #### G FR, FERR, FT4, CBC, CMP, ADIFF, TSH, FT3, VIDH, ANEU, LIPID, FE, A1C #### [address] [address] Urea nitrogen [Mass/Vol] 16 mg/dL Normal 7-18 [facility] ([place] Comment on above: Performed By: #### G FR, FERR, FT4, CBC, CMP, ADIFF, TSH, FT3, VIDH, ANEU, LIPID, FE, A1C #### [address] [address] FEon 02-22-2024 Iron [Mass/Vol] 77 ug/dL Normal 50-170 [facility] ([place] Comment on above: Performed By: #### G FR, FERR, FT4, CBC, CMP, ADIFF, TSH, FT3, VIDH, ANEU, LIPID, FE, A1C #### [address] [address] Jacqueline 02-22-2024 Ferritin [Mass/Vol] 373.0 ng/mL High 8.0-252.0 [facility] ([place] Comment on above: Performed By: #### G FR, FERR, FT4, CBC, CMP, ADIFF, TSH, FT3, VIDH, ANEU, LIPID, FE, A1C #### [address] [address] FT3on 02-22-2024 Free T3 [Mass/Vol] 3.19 pg/mL Normal 2.30-4.00 [facility] ([place]) Comment on above: Performed By: #### G FR, FERR, FT4, CBC, CMP, ADIFF, TSH, FT3, VIDH, ANEU, LIPID, FE, A1C #### [address] [address] FT4on 02-22-2024 Free T4 [Mass/Vol] 1.26 ng/dL Normal 0.76-1.46 [facility] ([place]) Comment on above: Performed By: #### G FR, FERR, FT4, CBC, CMP, ADIFF, TSH, FT3, VIDH, ANEU, LIPID, FE, A1C #### [address] [address] LABORATORYOrdered By: SYSTEM SYSTEM on 02-22-2024 25-hydroxyvitamin D3 [Mass/Vol] 41.7 ng/mL Invalid Interpretation Code AO ADM SS Comment on above: Interpretive Data: I nterpretive Values Based on Total 25(OH) Vitamin D: Deficient <20 ng/mL Insufficient 20 - <30 ng/mL Sufficient 30-100 ng/mL Albumin BCP dye [Mass/Vol] 3.6 G/dL Normal 3.4 - 4.8 G/dL AO ADM SS Albumin/Globulin [Mass ratio] 0.9 {ratio} Low 1.1 - 2.5 ratio AO ADM SS ALP [Catalytic activity/Vol] 73 U/L Normal 40 - 135 U/L AO ADM SS ALT With P-5'-P [Catalytic activity/Vol] 26 U/L Normal 14 - 59 U/L AO ADM SS AST With P-5'-P [Catalytic activity/Vol] 11 U/L Normal 10 - 40 U/L AO ADM SS Basophil, Absolute 0.0 103/mcL Normal 0.0 - 0.2 10^3/mcL AO Workflow SS Basophils/100 WBC (Bld) 0.3 % Normal 0.0 - 2.5 % AO Workflow SS Bilirubin [Mass/Vol] 0.5 mg/dL Normal 0.2 - 1 .0 mg/dL AO ADM SS Comment on above: Interpretive Data: U se of this assay is not recommended for patients undergoing treatment with eltrombopag due to the potential for falsely elevated results. Calcium [Mass/Vol] 9.2 mg/dL Normal 8.4 - 10. 2 mg/dL AO ADM SS Chloride [Moles/Vol] 105 mmol/L Normal 98 - 10 7 mmol/L AO ADM SS CO2 [Moles/Vol] 27 mmol/L Normal 23 - 31 mmol/L AO ADM SS Creatinine [Mass/Vol] 1.26 mg/dL High 0.55 - 1.02 mg/dL AO ADM SS Electrolyte Balance 12.0 mEq/L Normal 4.0 - 15 .0 mEq/L AO ADM SS Eosinophil, Absolute 0.4 103/mcL Normal 0.0 - 0 .4 10^3/mcL AO Workflow SS Eosinophils/100 WBC (Bld) 4.4 % Normal 0.0 - 7.0 % AO Workflow SS Erythrocyte distribution width (RBC) [Ratio] 13.2 % Normal 11.5 - 14.5 % AO Workflow SS Ferritin [Mass/Vol] 373.0 ng/mL High 8.0 - 25 2.0 ng/mL AO ADM SS Free T3 [Mass/Vol] 3.19 pg/mL Normal 2.30 - 4. 00 pg/mL AO ADM SS Free T4 [Mass/Vol] 1.26 ng/dL Normal 0.76 - 1. 46 ng/dL AO ADM SS GFR/1.73 sq M.predicted among blacks MDRD (S/P/Bld) [Vol rate/Area] 50 ml/min/1.73sqm Invalid Interpretation Code AO Chemistry S Comment on above: Interpretive Data: GFR Population mean for , Non- Americans Ages 20-29 = 116 mL/min/1.73 sq.m. Ages 30-39 = 107 mL/min/1.73 sq.m. Ages 40-49 = 99 mL/min/1.73 sq.m. Ages 50-59 = 93 mL/min/1.73 sq.m. Ages 60-69 = 85 mL/min/1.73 sq.m. Ages 70+ = 75 mL/min/1.73 sq.m. Chronic Kidney Disease: Less than 60 mL/min/1.73 square meters End Stage Renal Disease: Less than 15 mL/min/1.73 square meters GFR/1.73 sq M.predicted among non-blacks MDRD (S/P/Bld) [Vol rate/Area] 41 ml/min/1.73sqm Invalid Interpretation Code AO Chemistry S Comment on above: Interpretive Data: GFR Population mean for , Non- Americans Ages 20-29 = 116 mL/min/1.73 sq.m. Ages 30-39 = 107 mL/min/1.73 sq.m. Ages 40-49 = 99 mL/min/1.73 sq.m. Ages 50-59 = 93 mL/min/1.73 sq.m. Ages 60-69 = 85 mL/min/1.73 sq.m. Ages 70+ = 75 mL/min/1.73 sq.m. Chronic Kidney Disease: Less than 60 mL/min/1.73 square meters End Stage Renal Disease: Less than 15 mL/min/1.73 square meters Globulin 3.9 G/dL Invalid Interpretation Code AO ADM SS Glucose [Mass/Vol] 144 mg/dL High 83 - 110 mg/dL AO ADM SS HbA1c (Bld) [Mass fraction] 6.2 % Normal 4.3 - 6.4 % AO ADM SS Hematocrit (Bld) [Volume fraction] 42.4 % Normal 37.0 - 47.0 % AO Workflow SS Hemoglobin (Bld) [Mass/Vol] 14.9 G/dL Normal 12.0 - 16.0 G/dL AO Workflow SS Iron [Mass/Vol] 77 ug/dL Normal 50 - 170 mcg/dL AO ADM SS Lymphocyte, Absolute 1.9 103/mcL Normal 0.8 - 3 .9 10^3/mcL AO Workflow SS Lymphocytes/100 WBC (Bld) 20.3 % Normal 10.0 - 50.0 % AO Workflow SS MCH (RBC) [Entitic mass] 31.3 pg High 27.0 - 31.2 pg AO Workflow SS MCHC 35.2 G/dL Normal 33.0 - 37.0 G/dL AO Workflow SS MCV (RBC) [Entitic vol] 89.0 fL Normal 80.0 - 94.0 fL AO Workflow SS Monocyte, Absolute 0.7 103/mcL Normal 0.2 - 1.0 10^3/mcL AO Workflow SS Monocytes/100 WBC (Bld) 8.0 % Normal 1.7 - 13.0 % AO Workflow SS Neutrophil, Absolute 6.1 103/mcL Normal 2.9 - 6 .2 10^3/mcL AO Workflow SS Neutrophils/100 WBC (Bld) 67.0 % Normal 37.0 - 80.0 % AO Workflow SS Platelet mean volume (Bld) [Entitic vol] 7.5 fL Normal 7.4 - 10.4 fL AO Workflow SS Platelets (Bld) [#/Vol] 237 103/mcL Normal 130 - 400 10^3/mcL AO Workflow SS Potassium [Moles/Vol] 4.6 mmol/L Normal 3.5 - 5.1 mmol/L AO ADM SS Protein [Mass/Vol] 7.5 G/dL Normal 6.4 - 8.2 G/dL AO ADM SS RBC (Bld) [#/Vol] 4.76 106/mcL Normal 4.20 - 5.4 0 10^6/mcL AO Workflow SS Sodium [Moles/Vol] 144 mmol/L Normal 136 - 145 mmol/L AO ADM SS TSH Qn 1.26 m[IU]/L Normal 0.36 - 3.74 mcIU/mL AO ADM SS Urea nitrogen [Mass/Vol] 16 mg/dL Normal 7 - 18 mg/dL AO ADM SS Urea nitrogen/Creatinine [Mass ratio] 13 ratio Normal 7 - 27 ratio AO ADM SS WBC (Bld) [#/Vol] 9.2 103/mcL Normal 4.6 - 10.8 10^3/mcL AO Workflow SS LABORATORYOrdered By: Vicky Springer on 02-22-2024 Cholesterol [Mass/Vol] 249 mg/dL High 0 - 200 mg/dL AO ADM SS Comment on above: Interpretive Data: C holesterol Reference Interval: Less than 200 Desirable 200-239 Borderline high risk 240 and above High risk Cholesterol in HDL [Mass/Vol] 62 mg/dL High 40 - 60 mg/dL AO ADM SS Cholesterol in LDL [Mass/Vol] 157 mg/dL High 0 - 130 mg/dL AO ADM SS Triglyceride [Mass/Vol] 149 mg/dL Normal 0 - 150 mg/dL AO ADM SS Comment on above: Interpretive Data: T riglyceride Reference Interval: Less than 150 Normal 150-199 Borderline high risk 200-499 High risk 500 or higher Very high risk LIPIDon 02-22-2024 Cholesterol [Mass/Vol] 249 mg/dL High 0-200 [facility] ([place]) Comment on above: Result Comment: Chol esterol Reference Interval: Less than 200 Desirable 200-239 Borderline high risk 240 and above High risk Performed By: #### G FR, FERR, FT4, CBC, CMP, ADIFF, TSH, FT3, VIDH, ANEU, LIPID, FE, A1C #### [address] [address] Cholesterol in HDL [Mass/Vol] 62 mg/dL High 40-60 [facility] ([place] Comment on above: Performed By: #### G FR, FERR, FT4, CBC, CMP, ADIFF, TSH, FT3, VIDH, ANEU, LIPID, FE, A1C #### [address] [address] Cholesterol in LDL [Mass/Vol] 157 mg/dL High 0-130 [facility] ([place] Comment on above: Performed By: #### G FR, FERR, FT4, CBC, CMP, ADIFF, TSH, FT3, VIDH, ANEU, LIPID, FE, A1C #### [address] [address] Triglyceride [Mass/Vol] 149 mg/dL Normal 0-150 [facility] ([place] Comment on above: Result Comment: Trig lyceride Reference Interval: Less than 150 Normal 150-199 Borderline high risk 200-499 High risk 500 or higher Very high risk Performed By: #### G FR, FERR, FT4, CBC, CMP, ADIFF, TSH, FT3, VIDH, ANEU, LIPID, FE, A1C #### [address] [address] TSHon 02-22-2024 TSH Qn 1.26 m[IU]/L Normal 0.36-3.74 [facility] ([place]) Comment on above: Performed By: #### G FR, FERR, FT4, CBC, CMP, ADIFF, TSH, FT3, VIDH, ANEU, LIPID, FE, A1C #### [place] [address] VIDHon 02-22-2024 Vit. D 25-Hydroxy 41.7 ng/mL Normal [facility] ([place]) Comment on above: Result Comment: Inte rpretive Values Based on Total 25(OH) Vitamin D: Deficient <20 ng/mL Insufficient 20 - <30 ng/mL Sufficient 30-100 ng/mL Performed By: #### G FR, FERR, FT4, CBC, CMP, ADIFF, TSH, FT3, VIDH, ANEU, LIPID, FE, A1C #### [address] [address] Final Surgical Pathology Rep [facility] 09-13-2023 Final Surgical Pathology Report . Pathology Reports Accession: Collected Date/Time: Received Date/Time: Pathologist: [id number] 09/10/2023 13:25 EST 09/11/2023 10:15 MD SYLVAIN LOPEZ Final Surgical Pathology Report DIAGNOSIS: CECUM/ASCENDING COLON, BIOPSY: - TUBULAR ADENOMA CLINICAL INFORMATION: SCREENING Procedure: COLONOSCOPY Preoperative diagnosis: SCREENING Postoperative diagnosis: SCREENING SPECIMEN: A ASCENDING CECAL GROSS DESCRIPTION: All parts labelled with patient name and [id number] Received in formalin labeled cecal polyp are 2 bryson tissue fragments measuring 0.3 and 0.7 x 0.4 cm greatest dimension. TS-1 Shayy Seals, Grossing Re Examiner/ Dr. Mitch Ulloa, Pathologist Dictated by Shayy Seals MICROSCOPIC DESCRIPTION: The microscopic examination is performed, except in the case of Gross Only. Electronically Signed by Pathology Report verified by [facility] SYLVAIN SKY MD Sign out Date: 09/13/2023 13:48 Performing Lab: [facility], [facility] [address] [place] [address] Pathology Dept Disclaimer If ancillary studies were utilized, the following Laboratory Developed Test (LDT) disclaimer will apply: Under CLIA requirements, [facility] is qualified to perform high complexity testing. For all ancillary stains, positive and negative controls stain appropriately. Performance characteristics of immunohistochemical and chromogenic in-situ hybridization tests have been determined by [facility]. These tests are used for clinical purposes, They should not be regarded as investigational or for research. Normal [facility] ([place]) .Auto Diffon 08-16-2023 Basophil, Absolute 0.1 10 3/mcL Normal 0.0-0.2 [facility] ([place] Comment on above: Performed By: #### G FR, FERR, FT4, CBC, CMP, ADIFF, TSH, FT3, VIDH, ANEU, LIPID, FE, A1C #### [address] [address] Basophils/100 WBC (Bld) 0.6 % Normal 0.0-2.5 [facility] ([place]) Comment on above: Performed By: #### G FR, FERR, FT4, CBC, CMP, ADIFF, TSH, FT3, VIDH, ANEU, LIPID, FE, A1C #### [address] [address] Eosinophil, Absolute 0.4 10 3/mcL Normal 0.0-0.4 [facility] ([place]) Comment on above: Performed By: #### G FR, FERR, FT4, CBC, CMP, ADIFF, TSH, FT3, VIDH, ANEU, LIPID, FE, A1C #### [address] [address] Eosinophils/100 WBC (Bld) 5.2 % Normal 0.0-7.0 [facility] ([place] Comment on above: Performed By: #### G FR, FERR, FT4, CBC, CMP, ADIFF, TSH, FT3, VIDH, ANEU, LIPID, FE, A1C #### [address] [address] Lymphocyte, Absolute 1.9 10 3/mcL Normal 0.8-3.9 [facility] ([place]) Comment on above: Performed By: #### G FR, FERR, FT4, CBC, CMP, ADIFF, TSH, FT3, VIDH, ANEU, LIPID, FE, A1C #### [address] [address] Lymphocytes/100 WBC (Bld) 23.0 % Normal 10.0-50.0 [facility] ([place]) Comment on above: Performed By: #### G FR, FERR, FT4, CBC, CMP, ADIFF, TSH, FT3, VIDH, ANEU, LIPID, FE, A1C #### [address] [address] Monocyte, Absolute 0.8 10 3/mcL Normal 0.2-1.0 [facility] ([place] Comment on above: Performed By: #### G FR, FERR, FT4, CBC, CMP, ADIFF, TSH, FT3, VIDH, ANEU, LIPID, FE, A1C #### [address] [address] Monocytes/100 WBC (Bld) 9.9 % Normal 1.7-13.0 [facility] ([place] Comment on above: Performed By: #### G FR, FERR, FT4, CBC, CMP, ADIFF, TSH, FT3, VIDH, ANEU, LIPID, FE, A1C #### [address] [address] Neutrophils/100 WBC (Bld) 61.3 % Normal 37.0-80.0 [facility] ([place] Comment on above: Performed By: #### G FR, FERR, FT4, CBC, CMP, ADIFF, TSH, FT3, VIDH, ANEU, LIPID, FE, A1C #### [address] [address] .GFRon 08-16-2023 GFR Non- 49 ml/min/1.73sqm Normal [facility] ([place]) Comment on above: Result Comment: GFR Population mean for , Non- Americans Ages 20-29 = 116 mL/min/1.73 sq.m. Ages 30-39 = 107 mL/min/1.73 sq.m. Ages 40-49 = 99 mL/min/1.73 sq.m. Ages 50-59 = 93 mL/min/1.73 sq.m. Ages 60-69 = 85 mL/min/1.73 sq.m. Ages 70+ = 75 mL/min/1.73 sq.m. Chronic Kidney Disease: Less than 60 mL/min/1.73 square meters End Stage Renal Disease: Less than 15 mL/min/1.73 square meters Performed By: #### G FR, FERR, FT4, CBC, CMP, ADIFF, TSH, FT3, VIDH, ANEU, LIPID, FE, A1C #### [address] [address] GFR 59 ml/min/1.73sqm Normal [facility] ([place] Comment on above: Result Comment: GFR Population mean for , Non- Americans Ages 20-29 = 116 mL/min/1.73 sq.m. Ages 30-39 = 107 mL/min/1.73 sq.m. Ages 40-49 = 99 mL/min/1.73 sq.m. Ages 50-59 = 93 mL/min/1.73 sq.m. Ages 60-69 = 85 mL/min/1.73 sq.m. Ages 70+ = 75 mL/min/1.73 sq.m. Chronic Kidney Disease: Less than 60 mL/min/1.73 square meters End Stage Renal Disease: Less than 15 mL/min/1.73 square meters Performed By: #### G FR, FERR, FT4, CBC, CMP, ADIFF, TSH, FT3, VIDH, ANEU, LIPID, FE, A1C #### [address] [address] .NEUABSon 08-16-2023 Neutrophil, Absolute 5.1 10 3/mcL Normal 2.9-6.2 [facility] ([place] Comment on above: Performed By: #### G FR, FERR, FT4, CBC, CMP, ADIFF, TSH, FT3, VIDH, ANEU, LIPID, FE, A1C #### [address] [address] A1Con 08-16-2023 HbA1c (Bld) [Mass fraction] 6.2 % Normal 4.3-6.4 [facility] ([place] Comment on above: Performed By: #### G FR, FERR, FT4, CBC, CMP, ADIFF, TSH, FT3, VIDH, ANEU, LIPID, FE, A1C #### [address] [address] CBCon 08-16-2023 Erythrocyte distribution width (RBC) [Ratio] 12.7 % Normal 11.5-14.5 [facility] ([place] Comment on above: Performed By: #### G FR, FERR, FT4, CBC, CMP, ADIFF, TSH, FT3, VIDH, ANEU, LIPID, FE, A1C #### [address] [address] Hematocrit (Bld) [Volume fraction] 43.0 % Normal 37.0-47.0 [facility] ([place] Comment on above: Performed By: #### G FR, FERR, FT4, CBC, CMP, ADIFF, TSH, FT3, VIDH, ANEU, LIPID, FE, A1C #### [address] [address] Hgb 14.7 G/dL Normal 12.0-16.0 [facility] ([place] Comment on above: Performed By: #### G FR, FERR, FT4, CBC, CMP, ADIFF, TSH, FT3, VIDH, ANEU, LIPID, FE, A1C #### [address] [address] MCH (RBC) [Entitic mass] 30.4 pg Normal 27.0-31.2 [facility] ([place] Comment on above: Performed By: #### G FR, FERR, FT4, CBC, CMP, ADIFF, TSH, FT3, VIDH, ANEU, LIPID, FE, A1C #### [address] [address] MCHC 34.1 G/dL Normal 33.0-37.0 [facility] ([place] Comment on above: Performed By: #### G FR, FERR, FT4, CBC, CMP, ADIFF, TSH, FT3, VIDH, ANEU, LIPID, FE, A1C #### [address] [address] MCV (RBC) [Entitic vol] 89.2 fL Normal 80.0-94.0 [facility] ([place] Comment on above: Performed By: #### G FR, FERR, FT4, CBC, CMP, ADIFF, TSH, FT3, VIDH, ANEU, LIPID, FE, A1C #### [place] [address] Platelet 213 10 3/mcL Normal 130-400 [facility] ([place] Comment on above: Performed By: #### G FR, FERR, FT4, CBC, CMP, ADIFF, TSH, FT3, VIDH, ANEU, LIPID, FE, A1C #### [place] [address] Platelet mean volume (Bld) [Entitic vol] 7.4 fL Normal 7.4-10.4 [facility] ([place] Comment on above: Performed By: #### G FR, FERR, FT4, CBC, CMP, ADIFF, TSH, FT3, VIDH, ANEU, LIPID, FE, A1C #### [address] [address] RBC 4.82 10 6/mcL Normal 4.20-5.40 [facility] ([place] Comment on above: Performed By: #### G FR, FERR, FT4, CBC, CMP, ADIFF, TSH, FT3, VIDH, ANEU, LIPID, FE, A1C #### [address] [address] WBC 8.3 10 3/mcL Normal 4.6-10.8 [facility] ([place] Comment on above: Performed By: #### G FR, FERR, FT4, CBC, CMP, ADIFF, TSH, FT3, VIDH, ANEU, LIPID, FE, A1C #### [address] [address] CMPon 08-16-2023 Albumin Level 3.4 G/dL Normal 3.4-4.8 [facility] ([place] Comment on above: Performed By: #### G FR, FERR, FT4, CBC, CMP, ADIFF, TSH, FT3, VIDH, ANEU, LIPID, FE, A1C #### [address] [address] Albumin/Globulin [Mass ratio] 0.8 {ratio} Low 1.1-2.5 [facility] ([place] Comment on above: Performed By: #### G FR, FERR, FT4, CBC, CMP, ADIFF, TSH, FT3, VIDH, ANEU, LIPID, FE, A1C #### [address] [address] ALP [Catalytic activity/Vol] 79 U/L Normal 40-135 [facility] ([place] Comment on above: Performed By: #### G FR, FERR, FT4, CBC, CMP, ADIFF, TSH, FT3, VIDH, ANEU, LIPID, FE, A1C #### [address] [address] ALT [Catalytic activity/Vol] 21 U/L Normal 14-59 [facility] ([place] Comment on above: Performed By: #### G FR, FERR, FT4, CBC, CMP, ADIFF, TSH, FT3, VIDH, ANEU, LIPID, FE, A1C #### [address] [address] AST [Catalytic activity/Vol] 13 U/L Normal 10-40 [facility] ([place] Comment on above: Performed By: #### G FR, FERR, FT4, CBC, CMP, ADIFF, TSH, FT3, VIDH, ANEU, LIPID, FE, A1C #### [address] [address] Bili Total 0.4 mg/dL Normal 0.2-1.0 [facility] ([place] Comment on above: Result Comment: Use of this assay is not recommended for patients undergoing treatment with eltrombopag due to the potential for falsely elevated results. Performed By: #### G FR, FERR, FT4, CBC, CMP, ADIFF, TSH, FT3, VIDH, ANEU, LIPID, FE, A1C #### [address] [address] BUN/Creatinine Ratio 21 ratio Normal 7-27 [facility] ([place] Comment on above: Performed By: #### G FR, FERR, FT4, CBC, CMP, ADIFF, TSH, FT3, VIDH, ANEU, LIPID, FE, A1C #### [address] [address] Calcium [Mass/Vol] 8.9 mg/dL Normal 8.4-10.2 [facility] ([place]) Comment on above: Performed By: #### G FR, FERR, FT4, CBC, CMP, ADIFF, TSH, FT3, VIDH, ANEU, LIPID, FE, A1C #### [address] [address] Chloride [Moles/Vol] 106 mmol/L Normal 98-107 [facility] ([place] Comment on above: Performed By: #### G FR, FERR, FT4, CBC, CMP, ADIFF, TSH, FT3, VIDH, ANEU, LIPID, FE, A1C #### [address] [address] CO2 [Moles/Vol] 26 mmol/L Normal 23-31 [facility] ([place] Comment on above: Performed By: #### G FR, FERR, FT4, CBC, CMP, ADIFF, TSH, FT3, VIDH, ANEU, LIPID, FE, A1C #### [address] [address] Creatinine [Mass/Vol] 1.10 mg/dL High 0.55-1.02 [facility] ([place]) Comment on above: Performed By: #### G FR, FERR, FT4, CBC, CMP, ADIFF, TSH, FT3, VIDH, ANEU, LIPID, FE, A1C #### [address] [address] Electrolyte Balance 10.0 mEq/L Normal 4.0-15.0 [facility] ([place]) Comment on above: Performed By: #### G FR, FERR, FT4, CBC, CMP, ADIFF, TSH, FT3, VIDH, ANEU, LIPID, FE, A1C #### [address] [address] Globulin 4.0 G/dL Normal [facility] ([place] Comment on above: Performed By: #### G FR, FERR, FT4, CBC, CMP, ADIFF, TSH, FT3, VIDH, ANEU, LIPID, FE, A1C #### [address] [address] Glucose [Mass/Vol] 122 mg/dL High 83-110 [facility] ([place]) Comment on above: Performed By: #### G FR, FERR, FT4, CBC, CMP, ADIFF, TSH, FT3, VIDH, ANEU, LIPID, FE, A1C #### [address] [address] Potassium [Moles/Vol] 4.5 mmol/L Normal 3.5-5.1 [facility] ([place]) Comment on above: Performed By: #### G FR, FERR, FT4, CBC, CMP, ADIFF, TSH, FT3, VIDH, ANEU, LIPID, FE, A1C #### [address] [address] Sodium [Moles/Vol] 142 mmol/L Normal 136-145 [facility] ([place]) Comment on above: Performed By: #### G FR, FERR, FT4, CBC, CMP, ADIFF, TSH, FT3, VIDH, ANEU, LIPID, FE, A1C #### [address] [address] Total Protein 7.4 G/dL Normal 6.4-8.2 [facility] ([place]) Comment on above: Performed By: #### G FR, FERR, FT4, CBC, CMP, ADIFF, TSH, FT3, VIDH, ANEU, LIPID, FE, A1C #### [address] [address] Urea nitrogen [Mass/Vol] 23 mg/dL High 7-18 [facility] ([place]) Comment on above: Performed By: #### G FR, FERR, FT4, CBC, CMP, ADIFF, TSH, FT3, VIDH, ANEU, LIPID, FE, A1C #### [address] [address] LIPIDon 08-16-2023 Cholesterol [Mass/Vol] 225 mg/dL High 0-200 [facility] ([place]) Comment on above: Result Comment: Chol esterol Reference Interval: Less than 200 Desirable 200-239 Borderline high risk 240 and above High risk Performed By: #### G FR, FERR, FT4, CBC, CMP, ADIFF, TSH, FT3, VIDH, ANEU, LIPID, FE, A1C #### [address] [address] Cholesterol in HDL [Mass/Vol] 59 mg/dL Normal 40-60 [facility] ([place]) Comment on above: Performed By: #### G FR, FERR, FT4, CBC, CMP, ADIFF, TSH, FT3, VIDH, ANEU, LIPID, FE, A1C #### [address] [address] Cholesterol in LDL [Mass/Vol] 138 mg/dL High 0-130 [facility] ([place]) Comment on above: Performed By: #### G FR, FERR, FT4, CBC, CMP, ADIFF, TSH, FT3, VIDH, ANEU, LIPID, FE, A1C #### [address] [address] Triglyceride [Mass/Vol] 139 mg/dL Normal 0-150 [facility] ([place]) Comment on above: Result Comment: Trig lyceride Reference Interval: Less than 150 Normal 150-199 Borderline high risk 200-499 High risk 500 or higher Very high risk Performed By: #### G FR, FERR, FT4, CBC, CMP, ADIFF, TSH, FT3, VIDH, ANEU, LIPID, FE, A1C #### [address] [address] TSHon 08-16-2023 TSH Qn 0.66 m[IU]/L Normal 0.36-3.74 [facility] ([place]) Comment on above: Performed By: #### G FR, FERR, FT4, CBC, CMP, ADIFF, TSH, FT3, VIDH, ANEU, LIPID, FE, A1C #### [address] [address] VIDHon 08-16-2023 Vit. D 25-Hydroxy 37.7 ng/mL Normal [facility] ([place]) Comment on above: Result Comment: Inte rpretive Values Based on Total 25(OH) Vitamin D: Deficient <20 ng/mL Insufficient 20 - <30 ng/mL Sufficient 30-100 ng/mL Performed By: #### G FR, FERR, FT4, CBC, CMP, ADIFF, TSH, FT3, VIDH, ANEU, LIPID, FE, A1C #### [address] [address] LABORATORYOrdered By: SYSTEM SYSTEM on 02-13-2023 25-hydroxyvitamin D3 [Mass/Vol] 36.2 ng/mL Invalid Interpretation Code AO ADM SS Albumin BCP dye [Mass/Vol] 3.5 G/dL Invalid Interpretation Code 3.4 - 4.8 G/dL AO ADM SS Albumin/Globulin [Mass ratio] 1.0 {ratio} Invalid Interpretation Code 1.1 - 2.5 ratio AO ADM SS ALP [Catalytic activity/Vol] 60 U/L Invalid Interpretation Code 40 - 135 U/L AO ADM SS ALT With P-5'-P [Catalytic activity/Vol] 28 U/L Invalid Interpretation Code 14 - 59 U/L AO ADM SS AST With P-5'-P [Catalytic activity/Vol] 15 U/L Invalid Interpretation Code 10 - 40 U/L AO ADM SS Bilirubin [Mass/Vol] 0.4 mg/dL Invalid Interpretation Code 0.2 - 1.0 mg/dL AO ADM SS Calcium [Mass/Vol] 8.7 mg/dL Invalid Interpretation Code 8.4 - 10.2 mg/dL AO ADM SS Chloride [Moles/Vol] 107 mmol/L Invalid Interpretation Code 98 - 107 mmol/L AO ADM SS CO2 [Moles/Vol] 30 mmol/L Invalid Interpretation Code 23 - 31 mmol/L AO ADM SS Creatinine [Mass/Vol] 0.83 mg/dL Invalid Interpretation Code 0.55 - 1.02 mg/dL AO ADM SS Electrolyte Balance 5.0 mEq/L Invalid Interpretation Code 4.0 - 15.0 mEq/L AO ADM SS GFR/1.73 sq M.predicted among blacks MDRD (S/P/Bld) [Vol rate/Area] 81 ml/min/1.73sqm Invalid Interpretation Code AO Chemistry S GFR/1.73 sq M.predicted among non-blacks MDRD (S/P/Bld) [Vol rate/Area] 67 ml/min/1.73sqm Invalid Interpretation Code AO Chemistry S Globulin 3.5 G/dL Invalid Interpretation Code AO ADM SS Glucose [Mass/Vol] 115 mg/dL Invalid Interpretation Code 83 - 110 mg/dL AO ADM SS Potassium [Moles/Vol] 4.3 mmol/L Invalid Interpretation Code 3.5 - 5.1 mmol/L AO ADM SS Protein [Mass/Vol] 7.0 G/dL Invalid Interpretation Code 6.4 - 8.2 G/dL AO ADM SS Sodium [Moles/Vol] 142 mmol/L Invalid Interpretation Code 136 - 145 mmol/L AO ADM SS TSH Qn 0.44 m[IU]/L Invalid Interpretation Code 0.36 - 3.74 mcIU/mL AO ADM SS Urea nitrogen [Mass/Vol] 19 mg/dL Invalid Interpretation Code 7 - 18 mg/dL AO ADM SS Urea nitrogen/Creatinine [Mass ratio] 23 ratio Invalid Interpretation Code 7 - 27 ratio AO ADM SS LABORATORYOrdered By: Nataliya Coreas on 02-13-2023 Basophil, Absolute 0.0 103/mcL Invalid Interpretation Code 0.0 - 0.2 10^3/mcL AO Workflow SS Basophils/100 WBC (Bld) 0.5 % Invalid Interpretation Code 0.0 - 2.5 % AO Workflow SS Eosinophil, Absolute 0.3 103/mcL Invalid Interpretation Code 0.0 - 0.4 10^3/mcL AO Workflow SS Eosinophils/100 WBC (Bld) 4.3 % Invalid Interpretation Code 0.0 - 7.0 % AO Workflow SS Erythrocyte distribution width (RBC) [Ratio] 13.3 % Invalid Interpretation Code 11.5 - 14.5 % AO Workflow SS Hematocrit (Bld) [Volume fraction] 42.9 % Invalid Interpretation Code 37.0 - 47.0 % AO Workflow SS Hemoglobin (Bld) [Mass/Vol] 14.2 G/dL Invalid Interpretation Code 12.0 - 16.0 G/dL AO Workflow SS Lymphocyte, Absolute 1.9 103/mcL Invalid Interpretation Code 0.8 - 3.9 10^3/mcL AO Workflow SS Lymphocytes/100 WBC (Bld) 25.5 % Invalid Interpretation Code 10.0 - 50.0 % AO Workflow SS MCH (RBC) [Entitic mass] 30.3 pg Invalid Interpretation Code 27.0 - 31.2 pg AO Workflow SS MCHC 33.2 G/dL Invalid Interpretation Code 33.0 - 37.0 G/dL AO Workflow SS MCV (RBC) [Entitic vol] 91.4 fL Invalid Interpretation Code 80.0 - 94.0 fL AO Workflow SS Monocyte, Absolute 0.6 103/mcL Invalid Interpretation Code 0.2 - 1.0 10^3/mcL AO Workflow SS Monocytes/100 WBC (Bld) 8.0 % Invalid Interpretation Code 1.7 - 13.0 % AO Workflow SS Neutrophil, Absolute 4.6 103/mcL Invalid Interpretation Code 2.9 - 6.2 10^3/mcL AO Workflow SS Neutrophils/100 WBC (Bld) 61.7 % Invalid Interpretation Code 37.0 - 80.0 % AO Workflow SS Platelet mean volume (Bld) [Entitic vol] 8.1 fL Invalid Interpretation Code 7.4 - 10.4 fL AO Workflow SS Platelets (Bld) [#/Vol] 203 103/mcL Invalid Interpretation Code 130 - 400 10^3/mcL AO Workflow SS RBC (Bld) [#/Vol] 4.69 106/mcL Invalid Interpretation Code 4.20 - 5.40 10^6/mcL AO Workflow SS WBC (Bld) [#/Vol] 7.4 103/mcL Invalid Interpretation Code 4.6 - 10.8 10^3/mcL AO Workflow SS LABORATORYOrdered By: Annita Dunn on 02-13-2023 Cholesterol [Mass/Vol] 193 mg/dL Invalid Interpretation Code 0 - 200 mg/dL AO ADM SS Cholesterol in HDL [Mass/Vol] 58 mg/dL Invalid Interpretation Code 40 - 60 mg/dL AO ADM SS Cholesterol in LDL [Mass/Vol] 105 mg/dL Invalid Interpretation Code 0 - 130 mg/dL AO ADM SS Triglyceride [Mass/Vol] 151 mg/dL Invalid Interpretation Code 0 - 150 mg/dL AO ADM SS LABORATORYOrdered By: Jason Ramos on 08-11-2022 Albumin BCP dye [Mass/Vol] 4.0 G/dL Invalid Interpretation Code 3.4 - 4.8 G/dL AO ADM SS Albumin/Globulin [Mass ratio] 1.2 {ratio} Invalid Interpretation Code 1.1 - 2.5 ratio AO ADM SS ALP [Catalytic activity/Vol] 76 U/L Invalid Interpretation Code 40 - 135 U/L AO ADM SS ALT With P-5'-P [Catalytic activity/Vol] 46 U/L Invalid Interpretation Code 14 - 59 U/L AO ADM SS AST With P-5'-P [Catalytic activity/Vol] 27 U/L Invalid Interpretation Code 10 - 40 U/L AO ADM SS Bilirubin [Mass/Vol] 0.7 mg/dL Invalid Interpretation Code 0.2 - 1.0 mg/dL AO ADM SS Calcium [Mass/Vol] 9.4 mg/dL Invalid Interpretation Code 8.4 - 10.2 mg/dL AO ADM SS Chloride [Moles/Vol] 106 mmol/L Invalid Interpretation Code 98 - 107 mmol/L AO ADM SS Cholesterol [Mass/Vol] 227 mg/dL Invalid Interpretation Code 0 - 200 mg/dL AO ADM SS Cholesterol in HDL [Mass/Vol] 64 mg/dL Invalid Interpretation Code 40 - 60 mg/dL AO ADM SS Cholesterol in LDL [Mass/Vol] 137 mg/dL Invalid Interpretation Code 0 - 130 mg/dL AO ADM SS CO2 [Moles/Vol] 32 mmol/L Invalid Interpretation Code 23 - 31 mmol/L AO ADM SS Creatinine [Mass/Vol] 0.88 mg/dL Invalid Interpretation Code 0.55 - 1.02 mg/dL AO ADM SS Electrolyte Balance 5.0 mEq/L Invalid Interpretation Code 4.0 - 15.0 mEq/L AO ADM SS Globulin 3.4 G/dL Invalid Interpretation Code AO ADM SS Glucose [Mass/Vol] 107 mg/dL Invalid Interpretation Code 83 - 110 mg/dL AO ADM SS Potassium [Moles/Vol] 4.2 mmol/L Invalid Interpretation Code 3.5 - 5.1 mmol/L AO ADM SS Protein [Mass/Vol] 7.4 G/dL Invalid Interpretation Code 6.4 - 8.2 G/dL AO ADM SS Sodium [Moles/Vol] 143 mmol/L Invalid Interpretation Code 136 - 145 mmol/L AO ADM SS Triglyceride [Mass/Vol] 130 mg/dL Invalid Interpretation Code 0 - 150 mg/dL AO ADM SS TSH Qn 0.95 m[IU]/L Invalid Interpretation Code 0.36 - 3.74 mcIU/mL AO ADM SS Urea nitrogen [Mass/Vol] 12 mg/dL Invalid Interpretation Code 7 - 18 mg/dL AO ADM SS Urea nitrogen/Creatinine [Mass ratio] 14 ratio Invalid Interpretation Code 7 - 27 ratio AO ADM SS Vit. D 25-Hydroxy 32.1 ng/mL Invalid Interpretation Code AO ADM SS LABORATORYOrdered By: Radha Red on 08-11-2022 Basophil, Absolute 0.0 103/mcL Invalid Interpretation Code 0.0 - 0.2 10^3/mcL AO Workflow SS Basophils/100 WBC (Bld) 0.7 % Invalid Interpretation Code 0.0 - 2.5 % AO Workflow SS Eosinophil, Absolute 0.4 103/mcL Invalid Interpretation Code 0.0 - 0.4 10^3/mcL AO Workflow SS Eosinophils/100 WBC (Bld) 6.5 % Invalid Interpretation Code 0.0 - 7.0 % AO Workflow SS Erythrocyte distribution width (RBC) [Ratio] 13.5 % Invalid Interpretation Code 11.5 - 14.5 % AO Workflow SS Hematocrit (Bld) [Volume fraction] 43.4 % Invalid Interpretation Code 37.0 - 47.0 % AO Workflow SS Hemoglobin (Bld) [Mass/Vol] 14.9 G/dL Invalid Interpretation Code 12.0 - 16.0 G/dL AO Workflow SS Lymphocyte, Absolute 1.5 103/mcL Invalid Interpretation Code 0.8 - 3.9 10^3/mcL AO Workflow SS Lymphocytes/100 WBC (Bld) 22.7 % Invalid Interpretation Code 10.0 - 50.0 % AO Workflow SS MCH (RBC) [Entitic mass] 30.9 pg Invalid Interpretation Code 27.0 - 31.2 pg AO Workflow SS MCHC 34.3 G/dL Invalid Interpretation Code 33.0 - 37.0 G/dL AO Workflow SS MCV (RBC) [Entitic vol] 90.3 fL Invalid Interpretation Code 80.0 - 94.0 fL AO Workflow SS Monocyte, Absolute 0.6 103/mcL Invalid Interpretation Code 0.2 - 1.0 10^3/mcL AO Workflow SS Monocytes/100 WBC (Bld) 8.7 % Invalid Interpretation Code 1.7 - 13.0 % AO Workflow SS Neutrophil, Absolute 4.1 103/mcL Invalid Interpretation Code 2.9 - 6.2 10^3/mcL AO Workflow SS Neutrophils/100 WBC (Bld) 61.4 % Invalid Interpretation Code 37.0 - 80.0 % AO Workflow SS Platelet mean volume (Bld) [Entitic vol] 8.5 fL Invalid Interpretation Code 7.4 - 10.4 fL AO Workflow SS Platelets (Bld) [#/Vol] 212 103/mcL Invalid Interpretation Code 130 - 400 10^3/mcL AO Workflow SS RBC (Bld) [#/Vol] 4.81 106/mcL Invalid Interpretation Code 4.20 - 5.40 10^6/mcL AO Workflow SS WBC (Bld) [#/Vol] 6.7 103/mcL Invalid Interpretation Code 4.6 - 10.8 10^3/mcL AO Workflow SS LABORATORYOrdered By: SYSTEM SYSTEM on 08-11-2022 GFR 76 ml/min/1.73sqm Invalid Interpretation Code AO Chemistry S GFR Non- 63 ml/min/1.73sqm Invalid Interpretation Code AO Chemistry S LABORATORYOrdered By: Annita Murphy on 08-11-2022 HbA1c (Bld) [Mass fraction] 6.3 % Invalid Interpretation Code 4.3 - 6.4 % AO ADM SS LABORATORYOrdered By: Annita Dunn on 02-10-2022 Albumin BCP dye [Mass/Vol] 3.4 G/dL Invalid Interpretation Code 3.4 - 4.8 G/dL AO ADM SS Albumin/Globulin [Mass ratio] 0.8 {ratio} Invalid Interpretation Code 1.1 - 2.5 ratio AO ADM SS ALP [Catalytic activity/Vol] 77 U/L Invalid Interpretation Code 40 - 135 U/L AO ADM SS ALT With P-5'-P [Catalytic activity/Vol] 43 U/L Invalid Interpretation Code 14 - 59 U/L AO ADM SS AST With P-5'-P [Catalytic activity/Vol] 23 U/L Invalid Interpretation Code 10 - 40 U/L AO ADM SS Bilirubin [Mass/Vol] 0.4 mg/dL Invalid Interpretation Code 0.2 - 1.0 mg/dL AO ADM SS Calcium [Mass/Vol] 8.7 mg/dL Invalid Interpretation Code 8.4 - 10.2 mg/dL AO ADM SS Chloride [Moles/Vol] 104 mmol/L Invalid Interpretation Code 98 - 107 mmol/L AO ADM SS Cholesterol [Mass/Vol] 205 mg/dL Invalid Interpretation Code 0 - 200 mg/dL AO ADM SS Cholesterol in HDL [Mass/Vol] 54 mg/dL Invalid Interpretation Code 40 - 60 mg/dL AO ADM SS Cholesterol in LDL [Mass/Vol] 133 mg/dL Invalid Interpretation Code 0 - 130 mg/dL AO ADM SS CO2 [Moles/Vol] 29 mmol/L Invalid Interpretation Code 23 - 31 mmol/L AO ADM SS Creatinine [Mass/Vol] 1.03 mg/dL Invalid Interpretation Code 0.55 - 1.02 mg/dL AO ADM SS Electrolyte Balance 10.0 mEq/L Invalid Interpretation Code 4.0 - 15.0 mEq/L AO ADM SS Globulin 4.1 G/dL Invalid Interpretation Code AO ADM SS Glucose [Mass/Vol] 135 mg/dL Invalid Interpretation Code 83 - 110 mg/dL AO ADM SS HbA1c (Bld) [Mass fraction] 6.1 % Invalid Interpretation Code 4.3 - 6.4 % AO ADM SS Potassium [Moles/Vol] 3.9 mmol/L Invalid Interpretation Code 3.5 - 5.1 mmol/L AO ADM SS Protein [Mass/Vol] 7.5 G/dL Invalid Interpretation Code 6.4 - 8.2 G/dL AO ADM SS Sodium [Moles/Vol] 143 mmol/L Invalid Interpretation Code 136 - 145 mmol/L AO ADM SS Triglyceride [Mass/Vol] 91 mg/dL Invalid Interpretation Code 0 - 150 mg/dL AO ADM SS TSH Qn 1.24 m[IU]/L Invalid Interpretation Code 0.36 - 3.74 mcIU/mL AO ADM SS Urea nitrogen [Mass/Vol] 12 mg/dL Invalid Interpretation Code 7 - 18 mg/dL AO ADM SS Urea nitrogen/Creatinine [Mass ratio] 12 ratio Invalid Interpretation Code 7 - 27 ratio AO ADM SS Vit. D 25-Hydroxy 34.5 ng/mL Invalid Interpretation Code AO ADM SS LABORATORYOrdered By: SYSTEM SYSTEM on 02-10-2022 GFR 64 ml/min/1.73sqm Invalid Interpretation Code AO Chemistry S GFR Non- 53 ml/min/1.73sqm Invalid Interpretation Code AO Chemistry S LABORATORYOrdered By: Melba Hebert on 08-11-2021 Albumin BCP dye [Mass/Vol] 3.9 G/dL Invalid Interpretation Code 3.4 - 4.8 G/dL AO ADM SS Albumin/Globulin [Mass ratio] 1.1 {ratio} Invalid Interpretation Code 1.1 - 2.5 ratio AO ADM SS ALP [Catalytic activity/Vol] 65 U/L Invalid Interpretation Code 40 - 135 U/L AO ADM SS ALT With P-5'-P [Catalytic activity/Vol] 35 U/L Invalid Interpretation Code 14 - 59 U/L AO ADM SS AST With P-5'-P [Catalytic activity/Vol] 20 U/L Invalid Interpretation Code 10 - 40 U/L AO ADM SS Bilirubin [Mass/Vol] 0.5 mg/dL Invalid Interpretation Code 0.2 - 1.0 mg/dL AO ADM SS Calcium [Mass/Vol] 9.1 mg/dL Invalid Interpretation Code 8.4 - 10.2 mg/dL AO ADM SS Chloride [Moles/Vol] 105 mmol/L Invalid Interpretation Code 98 - 107 mmol/L AO ADM SS Cholesterol [Mass/Vol] 238 mg/dL Invalid Interpretation Code 0 - 200 mg/dL AO ADM SS Cholesterol in HDL [Mass/Vol] 62 mg/dL Invalid Interpretation Code 40 - 60 mg/dL AO ADM SS Cholesterol in LDL [Mass/Vol] 154 mg/dL Invalid Interpretation Code 0 - 130 mg/dL AO ADM SS CO2 [Moles/Vol] 29 mmol/L Invalid Interpretation Code 23 - 31 mmol/L AO ADM SS Creatinine [Mass/Vol] 0.88 mg/dL Invalid Interpretation Code 0.55 - 1.02 mg/dL AO ADM SS Electrolyte Balance 8.0 mEq/L Invalid Interpretation Code AO ADM SS Globulin 3.4 G/dL Invalid Interpretation Code AO ADM SS Glucose [Mass/Vol] 96 mg/dL Invalid Interpretation Code 83 - 110 mg/dL AO ADM SS Potassium [Moles/Vol] 5.0 mmol/L Invalid Interpretation Code 3.5 - 5.1 mmol/L AO ADM SS Protein [Mass/Vol] 7.3 G/dL Invalid Interpretation Code 6.4 - 8.2 G/dL AO ADM SS Sodium [Moles/Vol] 142 mmol/L Invalid Interpretation Code 136 - 145 mmol/L AO ADM SS Triglyceride [Mass/Vol] 109 mg/dL Invalid Interpretation Code 0 - 150 mg/dL AO ADM SS TSH Qn 0.68 m[IU]/L Invalid Interpretation Code 0.36 - 3.74 mcIU/mL AO ADM SS Urea nitrogen [Mass/Vol] 14 mg/dL Invalid Interpretation Code 7 - 18 mg/dL AO ADM SS Urea nitrogen/Creatinine [Mass ratio] 16 ratio Invalid Interpretation Code 7 - 27 ratio AO ADM SS Vit. D 25-Hydroxy 36.6 ng/mL Invalid Interpretation Code AO ADM SS LABORATORYOrdered By: SYSTEM SYSTEM on 08-11-2021 GFR 77 ml/min/1.73sqm Invalid Interpretation Code AO Chemistry S GFR Non- 63 ml/min/1.73sqm Invalid Interpretation Code AO Chemistry S LABORATORYOrdered By: Annita Dunn on 08-11-2021 HbA1c (Bld) [Mass fraction] 6.1 % Invalid Interpretation Code 4.3 - 6.4 % AO ADM SS Office Visit: UC: Sore throa t/sinus congestionon 09-02-2017 Documentation of current medications (procedure) Done Invalid Interpretation Code [facility] Work Phone: Fall risk assessment No Invalid Interpretation Code [facility] Work Phone: Rapid strep test Negative Invalid Interpretation Code [facility] Work Phone: Tobacco smoking status NHIS Never Invalid Interpretation Code [facility] Work Phone: Tobacco smoking status NHIS Tobacco smoking status NHIS Invalid Interpretation Code [facility] Work Phone: Office Visit: UC: sinus janes estionon 03-10-2017 Fall risk assessment No [facility] Work Phone: Protein mass conc Done [facility] Work Phone: Tobacco smoking status NHIS Never smoker [facility] Work Phone: Vital Signs Date Time Vital Sign Value Performing Clinician Faci lity 09-10-2023 14:00-0500 Diastolic Blood Pressure Non-Invasive 65 mm[Hg] DR PEPPER WILLINGHAM MD [facility] 09-10-2023 14:00-0500 Heart rate 77 /min DR PEPPER WILLINGHAM MD [facility] 09-10-2023 14:00-0500 Respiratory rate 19 /min DR PEPPER WILLINGHAM MD [facility] 09-10-2023 14:00-0500 Systolic Blood Pressure Non-Invasive 141 mm[Hg] DR PEPPER WILLINGHAM MD [facility] 09-10-2023 13:56-0500 Diastolic Blood Pressure Non-Invasive 62 mm[Hg] DR PEPPER WILLINGHAM MD [facility] 09-10-2023 13:56-0500 Heart rate 73 /min DR PEPPER WILLINGHAM MD [facility] 09-10-2023 13:56-0500 Respiratory rate 18 /min DR PEPPER WILLINGHAM MD [facility] 09-10-2023 13:56-0500 Systolic Blood Pressure Non-Invasive 93 mm[Hg] DR PEPPER WILLINGHAM MD [facility] 09-10-2023 13:51-0500 Diastolic Blood Pressure Non-Invasive 62 mm[Hg] DR PEPPER WILLINGHAM MD [facility] 09-10-2023 13:51-0500 Heart rate 64 /min DR PEPPER WILLINGHAM MD [facility] 09-10-2023 13:51-0500 Respiratory rate 14 /min DR PEPPER WILLINGHAM MD [facility] 09-10-2023 13:51-0500 Systolic Blood Pressure Non-Invasive 125 mm[Hg] DR PEPPER WILLINGHAM MD [facility] 09-10-2023 13:40-0500 Body temperature 96.8 [degF] DR PEPPER WILLINGHAM MD [facility] 09-10-2023 13:35-0500 Respiratory Rate - Anes 12 br/min DR PEPPER WILLINGHAM MD [facility] 09-10-2023 13:30-0500 Respiratory Rate - Anes 15 br/min DR PEPPER WILLINGHAM MD [facility] 09-10-2023 13:25-0500 Respiratory Rate - Anes 15 br/min DR PEPPER WILLINGHAM MD [facility] 09-10-2023 13:04-0500 Body height [address] PEPPER WILLINGHAM MD [facility] 09-10-2023 13:04-0500 Body weight 92.[address] PEPPER WILLINGHAM MD [facility] 09-10-2023 13:04-0500 Body weight 38.13 kg/m2 DR PEPPER WILLINGHAM MD [facility] 09-10-2023 12:50-0500 Body height [address] PEPPER WILLINGHAM MD [facility] 09-10-2023 12:50-0500 Body temperature 96.26 [degF] DR PEPPER WILLINGHAM MD [facility] 09-10-2023 12:50-0500 Body weight 92.[address] PEPPER WILLINGHAM MD [facility] 09-10-2023 12:50-0500 Heart rate 67 /min DR PEPPER WILLINGHAM MD [facility] 09-02-2017 09:20-0500 BMI (Body Mass Index) 34.89 kg/m2 Radha Queen [employer] [facility] Work Phone: 09-02-2017 09:20-0500 Body Temperature 98.3 [degF] Radha Alarconar [employer] [facility] Work Phone: 09-02-2017 09:20-0500 BP Diastolic 82 mm[Hg] Radha Queen [employer] [facility] Work Phone: 09-02-2017 09:20-0500 BP Systolic 126 mm[Hg] Radha Queen [employer] [facility] Work Phone: 09-02-2017 09:20-0500 Height 160.02 cm Radha Queen [employer] [facility] Work Phone: 09-02-2017 09:20-0500 Pulse (Heart Rate) 96 /min Radha Queen [employer] [facility] Work Phone: 09-02-2017 09:20-0500 Respiratory Rate 14 /min Radha Queen [employer] [facility] Work Phone: 09-02-2017 09:20-0500 Weight 89.36 kg Radha Queen [employer] [facility] Work Phone: 03-10-2017 12:32-0400 BMI (Body Mass Index) 35.57 kg/m2 Sol Bartlett LPN [facility] Work Phone: 03-10-2017 12:32-0400 Body Temperature 98.2 [degF] Sol Bartlett LPN [facility] Work Phone: 03-10-2017 12:32-0400 BP Diastolic 72 mm[Hg] Sol Bartlett LPN [facility] Work Phone: 03-10-2017 12:32-0400 BP Systolic 124 mm[Hg] Sol Bartlett LPN [facility] Work Phone: 03-10-2017 12:32-0400 Height 160.02 cm Sol Bartlett LPN [facility] Work Phone: 03-10-2017 12:32-0400 Pulse (Heart Rate) 72 /min Sol Bartlett LPN [facility] Work Phone: 03-10-2017 12:32-0400 Pulse Oximetry 97 % Sol Bartlett LPN [facility] Work Phone: 03-10-2017 12:32-0400 Respiratory Rate 14 /min Sol Bartlett LPN [facility] Work Phone: 03-10-2017 12:32-0400 Weight 91.08 kg Sol Bartlett LPN [facility] Work Phone: Encounters Encounter Date Encounter Type Care Provider Facility Start: 03-28-2024 End: 03-28-[address] DORCAS BARTON DO Facility:B Start: 03-28-2024 End: 03-28-[address] DORCAS BARTON DO [facility] Start: 02-22-2024 End: 02-22-[address] DORCAS BARTON DO Facility:B Start: 02-22-2024 End: 02-22-[address] DORCAS BARTON DO [facility] Start: 09-10-2023 End: 09-10-2023 ambulatory PEPPER WILLINGHAM Facility:B Start: 09-10-2023 End: 09-10-[address] PEPPER WILLINGHAM MD [facility] Start: 08-16-2023 End: 08-16-[address] DORCAS ORALIA DO Facility:B Start: 02-13-2023 End: 02-13-[address] DORCAS BARTON DO [facility] Start: 08-11-2022 End: 08-11-[address] DORCAS BARTON DO [facility] Start: 03-27-2022 End: 03-27-[address] DORCAS BARTON DO [facility] Start: 02-10-2022 End: 02-10-[address] DORCAS BARTON DO [facility] Start: 08-11-2021 End: 08-11-[address] DORCAS BARTON DO [facility] Procedures Date Procedure Procedure Detail Performing Clinician Start: 01-30-2024 Structure of eye pro per (body structure) DR DORCAS BARTON DO Comment on above: tube placed for glau coma. Start: 12-30-[address] DORCAS BARTON DO Start: 09-02-2017 End: 09-02-2017 [facility] Anthony Crawford PA-C Work Phone: Start: 03-31-[address] DORCAS BARTON DO Start: 03-01-[address] DORCAS WOLF DO Start: 12-11-[address] DORCAS BARTON DO Start: 10-01-[address] DORCAS BARTON DO Start: 10-01-1995 Ligation of fallopian tube DR DORCAS BARTON DO Start: 10-01-[address] DORCAS WOLF DO Start: 10-01-1993 Adhesive capsulitis of shoulder (disorder) DR DORCAS BARTON DO Start: 10-01-1979 Lobectomy of thyroid gland DR DORCAS BARTON DO Cataract surgery DR DORCAS LLANES DO Septoplasty/submucou s resecj w/wo cartilage grf DR DORCAS BARTON DO Comment on above: 2001 Plan of Treatment Date Care Activity Detail Author Start: 09-02-2017 End: 09-02-2017 Streptococcus.beta-hemol ytic [Presence] in Throat by Organism specific culture *Culture, R/O Strep A Swab [facility] Work Phone: Start: 09-02-2017 End: 09-02-2017 Appointment Appointment [facility] Work Phone: Start: 03-10-2017 End: 03-10-2017 Appointment Appointment [facility] Work Phone: Patient Education UPPER%20RESPIR ATORY%20IN FECTION [facility] Work Phone: Immunizations Immunization Date Immunization Notes Care Provider [facility] 08-14-2023 influenza, high dose seasonal, preservative-free; Translations: [Fluad Quadrivalent PF ] DR PEPPER WILLINGHAM MD [facility] 02-20-[address] DORCAS BARTON DO [facility] 08-21-[address] DORCAS BARTON DO [facility] 07-26-2022 COVID-19, mRNA, LNP- S, bivalent booster, PF, 30 mcg/0.3 mL dose; Translations: [Pfizer-BioNTech COVID-19 (12y+) Bivalent Booster Vaccine PF] DR DORCAS BARTON DO [facility] 07-26-2022 [id number] mRNA([id number]+)biv al vac; Translations: [Pfizer-BioNTech COVID-19 (12y+) Bivalent Booster Vaccine PF] DR DORCAS BARTON DO [facility] 07-14-2022 influenza, high dose seasonal, preservative-free DR DORCAS BARTON DO [facility] 02-16-2022 COVID-19, mRNA, LNP- S, PF, 30 mcg/0.3 mL dose; Translations: [Pfizer-BioNTech COVID-19 Vaccine (Do Not Dilute)] DR DORCAS BARTON DO [facility] 09-01-2021 COVID-19, mRNA, LNP- S, PF, 30 mcg/0.3 mL dose; Translations: [Pfizer-BioNTech COVID-19 Vaccine] DR DORCAS BARTON DO [facility] 08-18-2021 influenza, high dose seasonal, preservative-free; Translations: [Fluad Quadrivalent PF ] DR DORCAS BARTON DO [facility] 01-03-2021 SARS-CoV-2 mRNA (tozinameran) vaccine DR DORCAS BARTON DO [facility] 12-13-2020 SARS-CoV-2 mRNA (tozinameran) vaccine DR DORCAS BARTON DO [facility] Comment on above: Result Comment: 2020: [id number] 06-18-2020 influenza, injectabl e, quadrivalent, preservative free; Translations: [Fluarix PF Quadrivalent ] DR DORCAS BARTON DO [facility] 08-08-2019 influenza, injectabl e, quadrivalent, preservative free; Translations: [Fluarix PF Quadrivalent ] DR DORCAS BARTON DO [facility] 06-28-2018 influenza virus vacc ine, unspecified formulation DR DORCAS BARTON DO [facility] 07-03-2017 influenza virus vacc ine, unspecified formulation DR DORCAS BARTON DO [facility] 10-01-2016 pneumococcal conjuga te vaccine, [address] DORCAS BARTON DO [facility] 07-17-2016 influenza virus vacc ine, unspecified formulation DR DORCAS BARTON DO [facility] 01-21-2016 pneumococcal conjuga te vaccine, [address] DORCAS BARTON DO [facility] 07-30-2015 influenza virus vacc ine, unspecified formulation DR DORCAS BARTON DO [facility] 08-19-2014 pneumococcal polysaccharide vaccine, [address] DORCAS BARTON DO [facility] 07-31-2014 influenza virus vacc ine, unspecified formulation DR DORCAS BARTON DO [facility] 07-25-2013 influenza virus vacc ine, unspecified formulation DR DORCAS BARTON DO [facility] 04-16-[address] Francoise BARTON DO [facility] Payers Date Payer Category Payer Medicare [id number] 1950 Unknown [id number] 1950 Unknown [id number] 1950 Unknown [id number] 1950 Unknown [id number] Social History Date Type Detail Facility Start: 08-14-2019 Ex-smoker (finding) [facility] Comment on above: Minimal smoke exposu re Quit smokng August 2010, smoked for 20 years Sex Assigned At [facility] Functional Status Date Assessment Result Facility 09-10-2023 Functional Status Maintained [facility] Mental Status Date Assessment Result Facility 09-10-2023 Mental Status Orientation Oriented x 4 [facility] 09-10-2023 Mental Status [facility] Clinical Notes 09-10-2023 Note Date & Type Note Facility 09-10-2023 Hospital Discharg e instructions Patient Education 09/10/2023 13:47:47 Monitored Anesthesia Care, Care After Monitored Anesthesia Care, Care After These instructions provide you with information about caring for yourself after your procedure. Your health care provider may also give you more specific instructions. Your treatment has been planned according to current medical practices, but problems sometimes occur. Call your health care provider if you have any problems or questions after your procedure. What can I expect after the procedure? After your procedure, you may: Feel sleepy for several hours. Feel clumsy and have poor balance for several hours. Feel forgetful about what happened after the procedure. Have poor judgment for several hours. Feel nauseous or vomit. Have a sore throat if you had a breathing tube during the procedure. Follow these instructions at home: For at least 24 hours after the procedure: Have a responsible adult stay with you. It is important to have someone help care for you until you are awake and alert. Rest as needed. Do not: ?Participate in activities in which you could fall or become injured. ?Drive. ?Use heavy machinery. ?Drink alcohol. ?Take sleeping pills or medicines that cause drowsiness. ?Make important decisions or sign legal documents. ?Take care of children on your own. Eating and drinking Follow the diet that is recommended by your health care provider. If you vomit, drink water, juice, or soup when you can drink without vomiting. Make sure you have little or no nausea before eating solid foods. General instructions Take ldju-szf-jarpsqs and prescription medicines only as told by your health care provider. If you have sleep apnea, surgery and certain medicines can increase your risk for breathing problems. Follow instructions from your health care provider about wearing your sleep device: ?Anytime you are sleeping, including during daytime naps. ?While taking prescription pain medicines, sleeping medicines, or medicines that make you drowsy. If you smoke, do not smoke without supervision. Keep all follow-up visits as told by your health care provider. This is important. Contact a health care provider if: You keep feeling nauseous or you keep vomiting. You feel light-headed. You develop a rash. You have a fever. Get help right away if: You have trouble breathing. Summary For several hours after your procedure, you may feel sleepy and have poor judgment. Have a responsible adult stay with you for at least 24 hours or until you are awake and alert. This information is not intended to replace advice given to you by your health care provider. Make sure you discuss any questions you have with your health care provider. Document Released: 01/07/2017 Document Revised: 12/16/2018 Document Reviewed: 01/07/2017 [employer] Patient Education 2020 [employer]. 09/10/2023 13:47:41 Colonoscopy, Adult, Care After, Zfai-kr-Hrbv Colonoscopy, Adult, Care After This sheet gives you information about how to care for yourself after your procedure. Your doctor may also give you more specific instructions. If you have problems or questions, call your doctor. What can I expect after the procedure? After the procedure, it is common to have: A small amount of blood in your poop for 24 hours. Some gas. Mild cramping or bloating in your belly. Follow these instructions at home: General instructions For the first 24 hours after the procedure: ?Do not drive or use machinery. ?Do not sign important documents. ?Do not drink alcohol. ?Do your daily activities more slowly than normal. ?Eat foods that are soft and easy to digest. Take leos-vkp-tlselrd or prescription medicines only as told by your doctor. To help cramping and bloating: Try walking around. Put heat on your belly (abdomen) as told by your doctor. Use a heat source that your doctor recommends, such as a moist heat pack or a heating pad. ?Put a towel between your skin and the heat source. ?Leave the heat on for 20 30 minutes. ?Remove the heat if your skin turns bright red. This is especially important if you cannot feel pain, heat, or cold. You can get burned. Eating and drinking Drink enough fluid to keep your pee (urine) clear or pale yellow. Return to your normal diet as told by your doctor. Avoid heavy or fried foods that are hard to digest. Avoid drinking alcohol for as long as told by your doctor. Contact a doctor if: You have blood in your poop (stool) 2 3 days after the procedure. Get help right away if: You have more than a small amount of blood in your poop. You see large clumps of tissue (blood clots) in your poop. Your belly is swollen. You feel sick to your stomach (nauseous). You throw up (vomit). You have a fever. You have belly pain that gets worse, and medicine does not help your pain. Summary After the procedure, it is common to have a small amount of blood in your poop. You may also have mild cramping and bloating in your belly. For the first 24 hours after the procedure, do not drive or use machinery, do not sign important documents, and do not drink alcohol. Get help right away if you have a lot of blood in your poop, feel sick to your stomach, have a fever, or have more belly pain. This information is not intended to replace advice given to you by your health care provider. Make sure you discuss any questions you have with your health care provider. Document Released: 10/20/2011 Document Revised: 07/18/2018 Document Reviewed: 06/11/2017 [employer] Patient Education [employer]. Follow Up Care 08/30/2023 09:26:14 With:PEPPER WILLINGHAM MD, Clinical Gastroenterology Address: [address] [place] [address] [place] [address]- [phone] When: Unknown Comments:Follow-up as needed. Call the office with questions or concerns. [facility] 09-10-2023 Evaluation + Plan note Extrac willard from: Title:History and Physical Author:MARE WILLINGHAM MD Date:09/10/23 Orders: Lactated Ringers Infusion 1,000 mL, Start: 09/10/23 12:45:00 EST, Rate: 20 mL/hr, 09/10/23 12:45:00 EST Communication Order (scheduled) Communication Order (scheduled) Communication Order (scheduled) Consult to Anesthesia Sign Consent Strong family history of colon cancer. Consent conference held for colonoscopy. Future Appointments Appointment Date:02/12/2024 01:30:00 PM Scheduled Provider:DORCAS BARTON DO Location:[facility] Appointment Type:PC [facility] 12-11-2023 Summary of episode note Discharge Instructions Thank you for allowing [facility] to assist you with your healthcare needs. The following is importantdischarge information regarding your hospital visit. Your Care Team DORCAS BARTON DO What to do next Scheduled Follow-Up Appointments Appointment Type When With Where Contact InformationPC 02/12/2024 01:30 PM EDT DORCAS BARTON DO [facility] [address] [phone] Follow Up Appointments Follow Up with PEPPER WILLINGHAM MD, Clinical Gastroenterology When Why: Follow-up as needed. Call the office with questions or concerns. Where: [address] [place] [address] [place] [address] [phone] Allergies OxyCONTIN (Unknown) Tape (Burn) Medications Please ask your primary doctor or pharmacist before taking any other medication not listed, including over the counter drugs, herbal medications, vitamins and or supplements as they may interact withyour home medications. What How Much When Instructions Last Dose Unchanged dorzolamide-timolol ophthalmic (dorzolamide-timolol 2.23%-0.68% ophthalmic solution) 1 Drops Ophthalmic Two (2) times a day Unchanged escitalopram (escitalopram 20 mg oral tablet) 1 tab(s) by mouth Once a day Unchanged fluorometholone ophthalmic (fluorometholone 0.1% ophthalmic suspension) 1 Drops Both eyes Two (2) times a day Unchanged herbal/ nutritional product (garlic oral capsule) 1 cap by mouth Every day Unchanged hydrOXYzine (hydrOXYzine pamoate 25 mg oral capsule) 1 cap by mouth Two (2) times a day TAKE 1 CAPSULE BY MOUTH TWICE DAILY NEEDED FOR ANXIETY Unchanged levothyroxine (levothyroxine 50 mcg (0.05 mg) oral tablet) 1 tab(s) by mouth Once a day Duration: 90 Days Unchanged meloxicam (meloxicam 15 mg oral tablet) 1 tab(s) by mouth Once a day Unchanged multivitamin (Multivitamin) 1 tab(s) by mouth Every day Unchanged omega-3 polyunsaturated fatty acids (Fish Oil 1000 mg oral capsule) 1 cap by mouth Once a day Unchanged polyethylene glycol 3350 with electrolytes (PEG-3350 with Electrolytes (Eqv-GoLYTELY) oral powder for reconstitution) See instructions Take as directed 1 day before colonoscopy. Follow instructions as provided by your GI provider at [facility]. Unchanged wheat dextrin (Benefiber) by mouth Two (2) times a day Please take this list to your next doctor s visit. Bring all medications you take, including over the counter medications, herbals and other supplements with you to your doctor s visit. Patients and families are reminded to discard old lists and to update any records with all medication providers or retail pharmacies. Education Materials Monitored Anesthesia Care, Care After These instructions provide you with information about caring for yourself after your procedure. Your health care provider may also give you more specific instructions. Your treatment has been plannedaccording to current medical practices, but problems sometimes occur. Call your health care provider if you have any problems or questions after your procedure. What can I expect after the procedure? After your procedure, you may: Feel sleepy for several hours. Feel clumsy and have poor balance for several hours. Feel forgetful about what happened after the procedure. Have poor judgment for several hours. Feel nauseous or vomit. Have a sore throat if you had a breathing tube during the procedure. Follow these instructions at home: For at least 24 hours after the procedure: Have a responsible adult stay with you. It is important to have someone help care for you until youare awake and alert. Rest as needed. Do not: ? Participate in activities in which you could fall or become injured. ? Drive. ? Use heavy machinery. ? Drink alcohol. ? Take sleeping pills or medicines that cause drowsiness. ? Make important decisions or sign legal documents. ? Take care of children on your own. Eating and drinking Follow the diet that is recommended by your health care provider. If you vomit, drink water, juice, or soup when you can drink without vomiting. Make sure you have little or no nausea before eating solid foods. General instructions Take brec-unm-poqgerf and prescription medicines only as told by your health care provider. If you have sleep apnea, surgery and certain medicines can increase your risk for breathing problems. Follow instructions from your health care provider about wearing your sleep device: ? Anytime you are sleeping, including during daytime naps. ? While taking prescription pain medicines, sleeping medicines, or medicines that make you drowsy. If you smoke, do not smoke without supervision. Keep all follow-up visits as told by your health care provider. This is important. Contact a health care provider if: You keep feeling nauseous or you keep vomiting. You feel light-headed. You develop a rash. You have a fever. Get help right away if: You have trouble breathing. Summary For several hours after your procedure, you may feel sleepy and have poor judgment. Have a responsible adult stay with you for at least 24 hours or until you are awake and alert. This information is not intended to replace advice given to you by your health care provider. Make sure you discuss any questions you have with your health care provider. Document Released: 01/07/2017 Document Revised: 12/16/2018 Document Reviewed: 01/07/2017 [employer] Patient Education 2020 [employer]. Colonoscopy, Adult, Care After This sheet gives you information about how to care for yourself after your procedure. Your doctor may also give you more specific instructions. If you have problems or questions, call your doctor. What can I expect after the procedure? After the procedure, it is common to have: A small amount of blood in your poop for 24 hours. Some gas. Mild cramping or bloating in your belly. Follow these instructions at home: General instructions For the first 24 hours after the procedure: ? Do not drive or use machinery. ? Do not sign important documents. ? Do not drink alcohol. ? Do your daily activities more slowly than normal. ? Eat foods that are soft and easy to digest. Take thyd-ygt-pkisniq or prescription medicines only as told by your doctor. To help cramping and bloating: Try walking around. Put heat on your belly (abdomen) as told by your doctor. Use a heat source that your doctor recommends, such as a moist heat pack or a heating pad. ? Put a towel between your skin and the heat source. ? Leave the heat on for 20 30 minutes. ? Remove the heat if your skin turns bright red. This is especially important if you cannot feel pain, heat, or cold. You can get burned. Eating and drinking Drink enough fluid to keep your pee (urine) clear or pale yellow. Return to your normal diet as told by your doctor. Avoid heavy or fried foods that are hard to digest. Avoid drinking alcohol for as long as told by your doctor. Contact a doctor if: You have blood in your poop (stool) 2 3 days after the procedure. Get help right away if: You have more than a small amount of blood in your poop. You see large clumps of tissue (blood clots) in your poop. Your belly is swollen. You feel sick to your stomach (nauseous). You throw up (vomit). You have a fever. You have belly pain that gets worse, and medicine does not help your pain. Summary After the procedure, it is common to have a small amount of blood in your poop. You may also have mild cramping and bloating in your belly. For the first 24 hours after the procedure, do not drive or use machinery, do not sign important documents, and do not drink alcohol. Get help right away if you have a lot of blood in your poop, feel sick to your stomach, have a fever, or have more belly pain. This information is not intended to replace advice given to you by your health care provider. Make sure you discuss any questions you have with your health care provider. Document Released: 10/20/2011 Document Revised: 07/18/2018 Document Reviewed: 06/11/2017 [employer] Patient Education 2020 [employer] Additional Information VACCINATE! IT SAVES LIVES! Members of the community who have not yet received the COVID-19 vaccine and would like to receive it can visit one of [facility] vaccine clinics. There are many vaccine clinic locations within the [facility]. For locations and available times, please visit https://gettheshot.coronavirus.[place].gov/. It is important to note that some COVID mobile vaccine clinics are held outdoors and may be canceled in rainy or stormy conditions. To learn more about pediatric vaccinations (ages 5-11), we invite you to visit the [facility] webpage. https://www.[email or web address].org/pages/5691-Pftmg-Fjvjjfygmfj-Mzqdbgpakz-Myyno-Elr stions.htmlTo learn more about the COVID-19 vaccine, we invite you to visit the CDC website for a list of frequently asked questions.https://www.cdc.gov/coronavirus/2019-ncov/vaccines/faq.html [employer] Patient Portal Access Instructions: Stay connected with your healthcare team and access your personal medical information anytime with the [employer] Patient Portal. Please follow the directions below to create your [employer] account: 1.Access the email account you provided upon registration to the hospital/physician office.2.Look for an invitation email from [facility].3.Open the email and access the invitation link: AcceptInvitation to [employer].4.Fill in the required foster to create your account. To access your account, visit [email or web address]. Click the blue button labeled Access Patient Portal and then log in with the username and password that you created in the steps above. You will be able to view your test results, lab results, a summary of your visits, upcoming appointments and more. There is also a convenient messaging option where you can send secure messages to your p rovider. In addition, you will have the ability to download any documents or summaries to your computer and/or send the information securely to a physician. Remember that your healthcare information is confidential, so carefully consider who you will allowto register on the [facility] Patient Portal for access to your information. You can also access the [facility] Patient Portal on the [facility] arjun. Simply click on Patient Portal and then log into your account. If you would like to receive a full copy of your medical records, please contact the [facility] Medical Records Department by calling [phone], Sunday through Sunday between 8 a.m. and 4:30 p.m. HOW TO SAFELY DISPOSE OF PRESCRIPTION MEDICATIONS Please use one of the following methods to safely dispose of your unused medications. 1.Use a drug disposal kit: the drug disposal pouch allows you to safely discard your old and unuseddrugs. Ask your nurse to give you one when you are discharged.2.Visit a local take-back location: Many local pharmacies and police departments have programs that collect old and unwanted prescriptiondrugs. Call your local pharmacy or go to http://[employer].MyDemocracy/7S6Ei7v to find one close to you.3.Make use of household items: Use cat litter or old coffee grounds to dispose medications if other options arenot available. Mix your drugs with these household products, seal them in an airtight container andthrow it into the garbage. Call [facility]: [phone] to be sure your drugs can be disposed of in this way. Some medicines may require a different approach.4.Never flush your medications down the toilet. IF YOU HAVE BEEN PRESCRIBED AN OPIOID FOR PAIN If you have been prescribed an opioid (such as hydrocodone, oxycodone or morphine), it is critical to understand the possible side effects and risks of opioid pain medications. Even when taken as directed, opioids can have several side effects including: Tolerance, meaning you might need to take more of a medication for the same pain relief. Nausea, vomiting and/or constipation. Sleepiness, dizziness, dry mouth, confusion, depression or itching. Physical dependence, meaning you have withdrawal symptoms when a medication is stopped, can develop within a few days. KNOW YOUR RESPONSIBILITIES It is important to know exactly how much and how often to take the opioid pain medications you are prescribed. Never take opioids in higher amounts or more often than prescribed. Do not combine opioids with alcohol or other drugs that cause drowsiness, such as benzodiazepines, also known as benzos, including diazepam and alprazolam, muscle relaxants or sleep aids. Never sell or share prescription opioids. This is illegal. Store opioids in a secure place and out of reach of others (including children, family, friends and visitors). The last page of this document has been signed and retained as a CHART COPY. Signatures Patient Education Materials Monitored Anesthesia Care, Care After Colonoscopy, Adult, Care After, Bwcc-ou-Twok Medication Leaflets My discharge plan and instructions have been reviewed and explained to me and I,TATE MALLORY V understand my current condition and have read and understand these discharge instructions. I have received a written copy of the plan/instructions. If I have questions, I am aware that I should contactmy doctor. Patient/Oleo Hasher And Renderer Signature: Date/Time: Relationship to Patient: Witness Name/Signature: Date/Time: [facility]12-11-2023 Note Date of Service 09/10/2023 Chief Complaint Family history of colon cancer and 2 siblings and screening History of Present Illness This is a preprocedural/presurgical H&P. The patient was originally evaluated by Betty Alejandro, the PA. Please refer to her note also. I independently and personally performed a history and physical examination with this patient and repeated the villanueva components of the exam/history. I have reviewed her note. The patient was scheduled for endoscopy based on that visit and was evaluated by me prior to it. Voice recognition software was utilized for this document and may contain recognition errors inherent in that process. He has had 2 brothers with colon cancer. Here for screening purposes.No current GI symptoms. Physical Exam Vitals and Measurements T: 35.7 C (Temporal Artery) HR: 67(Apical) RR: 14 SpO2: 96% HT: 156 cm WT: 92.8 kg BMI: 38.13 Weight Dosing Weight: 92.8 kg (09/10/23) Dosing Weight: 92.8 kg (09/10/23) General appearance: The patient is alert and oriented and in no apparent distress. Vital signs werereviewed. HEENT: Hearing is appropriate. Sclera are clear and nonicteric. Nares normal. Neck is free of lymphadenopathy. The trachea is midline. Chest: No supraclavicular lymphadenopathy. Lungs: Lungs are clear bilaterally. No rales or wheezing. Cardiac: nl Abdomen: Bowel sounds are present. The abdomen is soft, nontender. No palpable masses. No organomegaly. No inguinal lymphadenopathy. Rectal examination is deferred. Extremities: No cyanosis or clubbing. Neurology: No gross focal neurologic deficits. Integument: No telangiectasias or petechiae are seen. Lymphatic: No supraclavicular cervical inguinal adenopathy found Psychiatric examination: The patient is alert and oriented. Cognition seems appropriate. Recent andremote memory intact. Affect is appropriate. Lab Results No 36 Hour Lab Data Assessment/Plan Orders: Lactated Ringers Infusion 1,000 mL, Start: 09/10/23 12:45:00 EST, Rate: 20 mL/hr, 09/10/23 12:45:00EST Communication Order (scheduled) Communication Order (scheduled) Communication Order (scheduled) Consult to Anesthesia Sign Consent Strong family history of colon cancer. Consent conference held for colonoscopy. Problem List/Past Medical History Ongoing Adjustment disorder Allergic rhinitis Arthritis BMI 39.0-39.9,adult CKD (chronic kidney disease) stage 3, GFR 30-59 ml/min COPD without exacerbation Family history of colon cancer Former smoker Hyperglycemia Hyperlipidemia Hypothyroidism Morbid obesity Nephrolithiasis Osteoarthritis of right knee Osteopenia PAC (premature atrial contraction) Piriformis syndrome Previous back surgery Screening for colon cancer Trigger finger Vitamin D deficiency Historical No qualifying data Procedure/Surgical History DESK Cornea transplant: 12/30/18 Microdiscectomy: 03/31/16 Colonoscopy: 03/01/16 Knee replacement: 12/11/11 Tubal ligation: 10/01/95 Hysterectomy: 10/01/94 Frozen shoulder: 10/01/93 Thyroid lobectomy: 10/01/79 Cataract surgery bilateral Septoplasty or submucous resection, with or without cartilage scoring, contouring or replacement with graft Medications Home Medications (11) Active Benefiber , Oral, BID dorzolamide-timolol 2.23%-0.68% ophthalmic solution 1 drop(s), Ophthalmic, BID escitalopram 20 mg oral tablet 20 mg = 1 tab(s), Oral, qDay Fish Oil 1000 mg oral capsule 1,000 mg = 1 cap(s), Oral, qDay fluorometholone 0.1% ophthalmic suspension 1 drop(s), Eyes, both, BID garlic oral capsule 1 cap(s), Oral, Daily hydrOXYzine pamoate 25 mg oral capsule 25 mg = 1 cap(s), Oral, BID levothyroxine 50 mcg (0.05 mg) oral tablet 50 mcg = 1 tab(s), Oral, qDay meloxicam 15 mg oral tablet 15 mg = 1 tab(s), Oral, qDay Multivitamin 1 tab(s), Oral, Daily PEG-3350 with Electrolytes (Eqv-GoLYTELY) oral powder for reconstitution See Instructions Allergies OxyCONTIN (Unknown) Tape (Burn) Social History Alcohol Use: occasional., 08/14/2019 Nutrition/Health Caffeine intake amount: coffee 1 servings., 04/22/2020 Substance Abuse Use: Never., 08/14/2019 Tobacco Tobacco Use: Former smoker, quit more than 30 days ago., 08/14/2019 Family History Diabetes mellitus type 2: Grandparent. Malignant neoplasm of brain: Grandparent. Melanoma: Father. Immunizations pneumococcal 13-valent conjugate vaccine: 0 unknown unit (10/01/16) pneumococcal 13-valent conjugate vaccine: 0 unknown unit (01/21/16) pneumococcal 23-valent vaccine(Pneumovax: 0 unknown unit (08/19/14) SARS-CoV-2 mRNA (tozinameran) vaccine: 30 mcg (02/16/22) SARS-CoV-2 mRNA (tozinameran) vaccine: 30 mcg (09/01/21) SARS-CoV-2 mRNA (tozinameran) vaccine: 0.5 unknown unit (01/03/21) SARS-CoV-2 mRNA (tozinameran) vaccine: 0.5 unknown unit (12/13/20) varicella virus vaccine: 0 unknown unit (04/16/13) zoster vaccine, inactivated: 0.5 unknown unit (08/21/22) Code Status No qualifying data available. Digitally Signed by PEPPER WILLINGHAM MD on 09/10/2023 01:18 PM [facility]12-11-2023 Anesthesiology Consult note Patient: TATE MALLORY V Age: 72 years Sex: Female : 1950 Associated Diagnoses: None Author: ZOHREH PENNINGTON Preoperative Information Anesthesia history Patient's history: negative. Family's history: negative. Health Status Allergies: Allergic Reactions (Selected) Severity Not Documented OxyCONTIN- Unknown. Tape- Burn., Allergies (2) ActiveReaction OxyCONTINUnknown TapeBurn Current medications: (Selected) Inpatient Medications Ordered Lactated Ringers Infusion 1,000 mL: 20 mL/hr, Intravenous Prescriptions Prescribed PEG-3350 with Electrolytes (Eqv-GoLYTELY) oral powder for reconstitution: See Instructions, Take asdirected 1 day before colonoscopy. Follow instructions as provided by your GI provider at [facility]., 1 EA, 0 Refill(s) escitalopram 20 mg oral tablet: 20 mg, 1 tab(s), Oral, qDay, 90 tab(s), 0 Refill(s) hydrOXYzine pamoate 25 mg oral capsule: 25 mg, 1 cap(s), Oral, BID, TAKE 1 CAPSULE BY MOUTH TWICE DAILY NEEDED FOR ANXIETY, 180 cap(s), 0 Refill(s) levothyroxine 50 mcg (0.05 mg) oral tablet: 50 mcg, 1 tab(s), Oral, qDay, for 90 day(s), 90 tab(s),1 Refill(s) meloxicam 15 mg oral tablet: 15 mg, 1 tab(s), Oral, qDay, 90 tab(s), 1 Refill(s) Documented Medications Documented Benefiber: gram(s), Oral, BID, 0 Refill(s) Fish Oil 1000 mg oral capsule: 1,000 mg, 1 cap(s), Oral, qDay, 90 cap(s), 0 Refill(s) Multivitamin: 1 tab(s), Oral, Daily, 0 Refill(s) dorzolamide-timolol 2.23%-0.68% ophthalmic solution: 1 drop(s), Ophthalmic, BID, 10 mL, 0 Refill(s) fluorometholone 0.1% ophthalmic suspension: 1 drop(s), Eyes, both, BID, 10 mL, 0 Refill(s) garlic oral capsule: 1 cap(s), Oral, Daily, 0 Refill(s), Medications (1) Active Scheduled: (0) Continuous: (1) Lactated Ringers Infusion 1,000 mL 1,000 mL, Intravenous, 20 mL/hr PRN: (0) Problem list: Medical Adjustment disorder / SNOMED CT 90804477 / Confirmed Allergic rhinitis / SNOMED CT 010191234 / Confirmed Arthritis / SNOMED CT 2089059 / Confirmed BMI 39.0-39.9,adult / SNOMED CT 936456054 / Confirmed CKD (chronic kidney disease) stage 3, GFR 30-59 ml/min / SNOMED CT 4974116754 / Confirmed COPD without exacerbation / SNOMED CT 53425227 / Confirmed Former smoker / SNOMED CT 18945177 / Confirmed Family history of colon cancer / SNOMED CT 986639849 / Confirmed Previous back surgery / SNOMED CT 761313882 / Confirmed Hyperglycemia / SNOMED CT 519646469 / Confirmed Hyperlipidemia / SNOMED CT 64661060 / Confirmed Hypothyroidism / SNOMED CT 51828802 / Confirmed Nephrolithiasis / SNOMED CT 776734374 / Confirmed Morbid obesity / SNOMED CT 098975016 / Confirmed Osteoarthritis of right knee / SNOMED CT 0054147480 / Confirmed Osteopenia / SNOMED CT 144190839 / Confirmed Screening for colon cancer / SNOMED CT 964007807 / Confirmed Piriformis syndrome / SNOMED CT 838037095 / Confirmed PAC (premature atrial contraction) / SNOMED CT 633248995 / Confirmed Trigger finger / SNOMED CT 113762297 / Confirmed Vitamin D deficiency / SNOMED CT 19819087 / Confirmed, Active Problems (21) Adjustment disorder Allergic rhinitis Arthritis BMI 39.0-39.9,adult CKD (chronic kidney disease) stage 3, GFR 30-59 ml/min COPD without exacerbation Family history of colon cancer Former smoker Hyperglycemia Hyperlipidemia Hypothyroidism Morbid obesity Nephrolithiasis Osteoarthritis of right knee Osteopenia PAC (premature atrial contraction) Piriformis syndrome Previous back surgery Screening for colon cancer Trigger finger Vitamin D deficiency Histories Past Medical History: No active or resolved past medical history items have been selected or recorded. 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 Microdiscectomy (274317609) on 03/31/2016 at 65 Years. Colonoscopy (481556453) on 03/01/2016 at 65 Years. Knee replacement ([id number]) on 12/11/2011 at 61 Years. Arthroscopic knee procedure ([id number]) on 10/01/2010 at 59 Years. Tubal ligation ([id number]) on 10/01/1995 at 44 Years. Hysterectomy ([id number]) on 10/01/1994 at 43 Years. Frozen shoulder (7097033571) on 10/01/1993 at 42 Years. Thyroid lobectomy (2092250635) on 10/01/1979 at 28 Years. Cataract surgery bilateral (884215540). Septoplasty or submucous resection, with or without cartilage scoring, contouring or replacement with graft (23364). Comments: 08/18/2019 9:18 EDDIE - Miya Francisco LPN 2002 Social History Social & Psychosocial Habits Alcohol 09/10/2023 Use: occasional Substance Abuse 09/10/2023 Use: Never Tobacco 09/10/2023 Tobacco Use: Former smoker, quit more Comment: Quit smokng August 2010, smoked for 20 years - 08/14/2019 17:14 - Chela Vaughn LPN; Minimal smoke exposure - 08/14/2019 17:14 - Chela Vaughn LPN Nutrition/Health 09/10/2023 Caffeine intake amount: coffee 1 servings . Physical Examination Vital Signs 09/10/2023 12:50 EST Temperature Temporal Artery 35.7 DegC Apical Heart Rate 67 bpm Respiratory Rate 14 br/min Vital Signs(last 24 hrs) Last Charted Resp Rate 14 br/min (SEP 10 12:50) BMI38.13 (SEP 10 13:04) Measurements from flowsheet : Measurements 09/10/2023 13:04 EST Height 156 cm Admission Weight 92.8 kg [place] Body Weight 48.76 kg BSA Admission 1.92 Body Mass Index 38.13 kg/m2 09/10/2023 12:50 EST Height 156 cm Admission Weight 92.8 kg [place] Body Weight 48.76 kg Admission Body Mass Index 38.13 m2 Pain assessment: Pain Assessment 09/10/2023 12:50 EST Primary Pain Intensity 0 Pain Scale Type 0-10 Pain scale . General: Alert and oriented. Airway: Normal temporomandibular joint mobility. Mallampati classification: II (soft palate, fauces, uvula visible). Dentition Evaluation: Denies loose/chipped teeth. Respiratory: Lungs are clear to auscultation, Respirations are non-labored. Cardiovascular: Normal rate, Regular rhythm. Neurologic: Alert, Oriented. Review / Management Results review: No qualifying data available , Lab results 09/10/2023 13:04 EST Designated Person #1 We May Share SIMON Puri [phone] Designated Person #1 Relationship Daughter Height 156 cm Admission Weight 92.8 kg [place] Body Weight 48.76 kg BSA Admission 1.92 Body Mass Index 38.13 kg/m2 Status N/A Sensory Deficits Hearing deficit, left ear, Hearing deficit, right ear Infectious Disease Symptoms Patient states no symptoms Infectious Disease Recent Exposure No Alcohol and Drug Use No Employee of Institutional Living No Health Care Employee No History of Exposure to TB No History of Positive Chest X-Ray for TB No History of Positive TB Skin Test No Homeless No Known Immunosuppression No Recent Immigrant No Resident of Institutional Living No Bloody Sputum No Fatigue No Fever No Loss of Appetite No Night Sweats No Persistent Cough > 3 Weeks No Weight Loss No Individuals Taught Patient Learning Readiness Willing to learn Barriers to Learning Hearing deficit Teaching Method Explanation, Printed materials Preferred Spoken Language [place] Preferred Written Language [place] Information Given by Patient Patient's Current Physicians Dr. Barton Discharge To, Anticipated Home with family care Prev Test Positive/Diagnosis w/COVID-19 No Current Quarantine/Isolated any Illness No Any Contact with Sick Animals/Birds No Traveled Anywhere in Last 30 Days No Lactated Ringers Injection Begin Bag 1,000 mL mL N/A Personal Devices, Patient Valuables Dentures, partial plate Admission Note-Nursing Procedure/Therapy Intake 09/10/2023 13:00 EST Continuous IV Infusions LR Antecubital Right 09/10/2023 Peripheral IV Activity: Insert new site Peripheral IV Dressing Condition: Clean, Dry, Intact Peripheral IV Dressing Activity: Applied Peripheral IV Line Status/Patency: Continuous infusion Peripheral IV Site Condition: No complications Peripheral IV Equipment: Manual Peripheral IV Number of Attempts: 1 09/10/2023 12:50 EST Height 156 cm Admission Weight 92.8 kg [place] Body Weight 48.76 kg Admission Body Mass Index 38.13 m2 Temperature Temporal Artery 35.7 DegC Apical Heart Rate 67 bpm Respiratory Rate 14 br/min Primary Pain Intensity 0 Pain Scale Type 0-10 Pain scale Heart Sounds ICU S1S2 All Lobes Breath Sounds Clear, Diminished Oxygen Therapy Room air Oxygen Saturation 96 % Abdomen Description Non-distended Bowel Sounds All Quadrants Present Skin Temperature Warm Skin Description [place], Dry Skin Integrity Intact Mucous Membrane Color [place] Characteristics of Speech Clear Level of Consciousness Alert Strength All Extremities Strong Affect/Behavior Appropriate, Calm, Cooperative Orientation Oriented x 4 Patient Identified Identification band Arrival Mode Ambulatory Amrita Motor (2) Moves 4 extremities voluntarily or on command Amrita Respirations (2) Spontaneous respiration without support, RR > 10 Amrita Blood Pressure (2) BP 20% above or below preanesthetic level Amrita Pulse (2) Pulse 20% above or below preanesthetic level Amrita Oxygen Saturation (2) 94% or more Amrita Level of Consciousness (2) Fully awake Amrita III Score 12 Standard Safety ID band on, Allergy Band on, Call device within reach, Bed in low position, Wheels locked . Assessment and Plan [place] [employer] Anesthesiologists (ASA) physical status classification: Class III. Anesthetic Preoperative Plan Anesthetic technique: MAC. Postoperative pain management: Per surgeon. Risks discussed: nausea, vomiting, hypotension, allergic reaction, serious complications. Informed consent: signed by patient. Digitally Signed by ZOHREH PENNINGTON on 09/10/2023 01:13 PM [facility] Future Appointments Appointment Date:08/18/2021 09:00:00 AM Scheduled Provider:DORCAS BARTON DO Location:[facility] Appointment Type:PC OV Appointment Date:08/18/2021 02:00:00 PM Scheduled Provider:DORCAS BARTON DO Location:[facility] Appointment Type:PC OV [facility] Evaluation + Plan note Future Appointments Appointment Date:02/14/2022 09:30:00 AM Scheduled Provider:DORCAS BARTON DO Location:[facility] Appointment Type:PC OV Future Scheduled Tests Radiology* XR Foot Minimum 3 Views Right 08/18/21 [facility] Evaluation + Plan note Future Appointments Appointment Date:08/15/2022 10:45:00 AM Scheduled Provider:DORCAS BARTON DO Location:[facility] Appointment Type:PC OV Follow Up Future Scheduled Tests Laboratory* Thyroid Stimulating Hormone 08/17/22 * A1C Hemoglobin 08/17/22 * Complete Blood Count 08/17/22 * Lipid Profile 08/17/22 * Vitamin D Level 08/17/22 * Complete Metabolic Panel 08/17/22 Radiology* XR Foot Minimum 3 Views Right 08/18/21 [facility] Evaluation + Plan note Future Appointments Appointment Date:08/15/2022 11:00:00 AM Scheduled Provider:DORCAS BARTON DO Location:[facility] Appointment Type:PC OV Follow Up Future Scheduled Tests Radiology* XR Foot Minimum 3 Views Right 08/18/21 [facility] Evaluation + Plan note Future Appointments Appointment Date:08/14/2023 01:30:00 PM Scheduled Provider:DORCAS BARTON DO Location:[facility] Appointment Type:PC OV Future Scheduled Tests Radiology* MA Mammo Screening Bilateral w/ Jamari 02/13/23 * BD Bone Density DEXA Axial Skeleton 02/13/23 [facility] Evaluation + Plan note Future Appointments Appointment Date:02/28/2024 01:30:00 PM Scheduled Provider:DORCAS BARTON DO Location:[facility] Appointment Type:PC OV [facility] Evaluation + Plan note Future Appointments Appointment Date:08/21/2024 02:00:00 PM Scheduled Provider:DORCAS BARTON DO Location:[facility] Appointment Type:PC OV Future Scheduled Tests Laboratory* Thyroid Stimulating Hormone 08/30/24 * A1C Hemoglobin 08/30/24 * Complete Blood Count 08/30/24 * Lipid Profile 08/30/24 * Vitamin D Level 08/30/24 * Complete Metabolic Panel 08/30/24 [facility] Hospital course Narrative No data available for this section [facility] Hospital Discharge instructions No data available for this section [facility] Progress note No data available for this section [facility] Summary Purpose Family History No Family History Records Found Advance Directives No Advanced Directives Records Found Additional Source Comments Care Team (unrecognized sect ion and content) Personnel Name: DORCAS BARTON DO Address: [address] [place] [address] Name: Jean Marie Pool PT Care Team Personnel Name: Jean Marie Pool PT Position: P3 Scheduling - Unit Leader Advanced Member Role: Other Name: DORCAS BARTON DO Position: P4 Physician - Primary Care Member Role: Primary Care Physician Address: Address: [address] [place] [address] Care Team Related Persons Name: HARINI PURI Care Team Personnel Name: Jean Marie Pool PT Position: P3 Scheduling - Unit Leader Advanced Member Role: Other Name: DORCAS BARTON DO Position: P4 Physician - Primary Care Member Role: Primary Care Physician Address: Address: [address] Care Team Related Persons Name: HARINI PURI Care Team Personnel Name: Jean Marie Pool PT Position: P3 Scheduling - Unit Leader Advanced Member Role: Other Name: DORCAS BARTON DO Position: P4 Physician - Primary Care Member Role: Primary Care Physician Address: Address: [address] [place] [address] Care Team Related Persons Name: HARINI PURI Care Team Personnel Name: Jean Marie Pool Clecharlie Reno PT Position: P3 Scheduling - Unit Leader Advanced Member Role: Other Name: DORCAS BARTON DO Position: P4 Physician - Primary Care Member Role: Primary Care Physician Address: Address: [address] [place] [address] Care Team Related Persons Name: HARINI PURI Care Team (unrecognized sect ion and content) Personnel Name: DORCAS BARTON DO Address: Address: [address] [place] [address] Name: Jean Marie Poolrk Shadia PT Care Team Personnel Name: Jean Marie Pool PT Position: P3 Scheduling - Unit Leader Advanced Member Role: Other Name: DORCAS BARTON DO Position: P4 Physician - Primary Care Member Role: Primary Care Physician Address: Address: [address] [place] [address] Care Team Related Persons Name: SARAH MALLORY Address: [address] [id number] [place] INFORMATION SOURCE (unrecogn ized section and content) DATE CREATED AUTHOR 04/02/2024 [facility]ation ([place]) FOR RECORDS PERTAINING TO PATIENTS WHO ARE OR HAVE BEEN ENROLLED IN A CHEMICAL DEPENDENCY/SUBSTANCEABUSE PROGRAM, SOME INFORMATION MAY BE OMITTED. This clinical summary was aggregated from multiple sources. Caution should be exercised in using it in the provision of clinical care. This summary normalizes information from multiple sources, and as a consequence, information in this document may materially change the coding, format and clinical context of patient data. In addition, data may be omitted in some cases. CLINICAL DECISIONS SHOULD BE BASED ON THE PRIMARY CLINICAL RECORDS. [facility] [employer] [facility]. provides no warranty or guarantee of the accuracy or completeness of information in this document.
== END | disposition home or self-care (01) ==
LOC: PSN 11:56
PROVIDERS: PCP Internal Medicine; Referring Provider Orthopaedic Surgery; Visit Provider Orthopaedic Surgery
DX: Z01.810 Encounter for preprocedural cardiovascular examination (principal); M17.11 Unilateral primary osteoarthritis, right knee
CPT/HCPCS: 71046; 93005

== ENCOUNTER → 2024-08-11 | Outpatient (CLI) | payer MEDICARE, SELFPAY ==
--- NOTE | 2024-08-11 09:45 | KNEE_PTH ---
PATIENT: TATE MALLORY LOC: [facility] U#:[id number] AGE/SX: 73/F ROOM: RE08/11/[address]: Dr. Jamal Hebert MD : 1950 BED: DIS: 08/11/2024 SPEC #: [id number] RECD: 08/11/24 14:57 STATUS: KARTHIK REQ #: [id number] RIAZ: 08/11/24 09:[address]: Jamal Hebert DEPT: SURGICAL PATHOLOGY RECD BY: Tika Sharp ENTERED: 08/12/24 10:06 SP TYPE: TOTAL KNEE OTHR DR: Dr. Leonor Domingo MD Tissues: Knee, NOS Procedures: Decalcification bone/plaque Surgery Specimen Level IV HEADER OPERATION: Right total knee arthroplasty PRE-OP DIAGNOSIS: Severe right knee osteoarthritis TISSUE SUBMITTED: Right knee bone and soft tissue MICROSCOPIC DIAGNOSIS Bone and tissue of right knee, total knee resection: Severe degenerative joint disease. Polarizable crystals suggestive of pseudogout. AM: 08/15/2024 MICROSCOPIC DESCRIPTION Slides are reviewed. GROSS DESCRIPTION Received is one container designated bone and soft tissue right knee. The specimen consists of multiple fragments of bryson-yellow bone measuring in aggregate 11.0 x 10.0 x 3.5 cm. Also present in the container are two detached pieces of fibrocartilaginous tissue measuring in aggregate 5.5 x 2.5 x 1.0cm. A number of bony fragments contain articular surfaces consistent with tibial plateau and femoral condyle and displaying prominent osteophyte formation, eburnation and bone erosion. Postal Worker sections are submitted in two cassettes as follows: 1 - soft tissue, 2 - bone after decalcification. / ARIAN. 08/12/2024 TC:5 CPT: 20274, 33643
== END | disposition home or self-care (01) ==
LOC: LABSPEC 15:05
PROVIDERS: PCP Internal Medicine; Referring Provider Orthopaedic Surgery; Visit Provider Orthopaedic Surgery
DX: M17.11 Unilateral primary osteoarthritis, right knee (principal)
CPT/HCPCS: 88305; 88311

== ENCOUNTER 2024-09-14 22:15 | Inpatient (IN) | payer MEDICARE, SELFPAY ==
[2024-09-14 22:16] VITALS: BP 200/96; PULSE 110; RESP 20; TEMP 36.2; O2SAT 95; BMI 38.9
--- NOTE | 2024-09-14 22:29 | EKG12_ITS ---
Test Reason : HTN Blood Pressure : */* mmHG Vent. Rate : 100 BPM Atrial Rate : 100 BPM P-R Int : 156 ms QRS Dur : 82 ms QT Int : 326 ms P-R-T Axes : 67 -38 70 degrees QTcB Int : 420 ms Normal sinus rhythm Left axis deviation Abnormal ECG Confirmed by MAURI MCINTYRE, BRIGID ([id number]), senior editor HANNAH ROSA ([id number]) on 09/17/2024 6:29:00 AM Referred By: Confirmed By: BRIGID DOTSON MD
--- NOTE | 2024-09-14 22:29 | CT_ITS ---
EXAM: CT HEAD WITHOUT INTRAVENOUS CONTRAST CLINICAL INDICATION: dysequilibrium TECHNIQUE: Multiple axial images were obtained of the head without intravenous contrast. This CT exam was performed using one or more of the following dose reduction techniques: automated exposure control, adjustment of the mA and/or kV according to patient size, and/or use of iterative reconstruction technique. RADIATION DOSE: CTDIvol = 44.99 mGy, DLP = 796.11 mGy-cm COMPARISON: No relevant prior studies available. FINDINGS: BRAIN AND EXTRA-AXIAL SPACES: Moderate generalized atrophy. Moderate low density bilaterally in the deep white matter. No intra- or extra-axial hemorrhage. No evidence of acute infarct. No intracranial mass or mass effect. There is preservation of the peguero/white matter interface. Posterior fossa structures are unremarkable. No hydrocephalus. Basal cisterns are patent. BONES/JOINTS: Unremarkable. No discrete lytic or blastic abnormalities. SINUSES: Unremarkable as visualized. Clear. MASTOID AIR CELLS: Unremarkable. Clear. ORBITS: Visualized globes, extraocular muscles, optic nerves and retrobulbar fat appear unremarkable. CT/Brain/Head without Contrast IMPRESSION: Moderate generalized atrophy. Moderate low density bilaterally in the deep white matter. This likely represents chronic small vessel ischemic changes in the deep white matter. Electronically Signed: Angus Rubin MD at 23:37 EST ,
--- NOTE | 2024-09-14 22:35 | EDS_ITS ---
HPI History of Present Illness Chief Complaint: Hypertension Informant: patient Narrative Narrative: 73-year-old female presents with dizziness that started sometime yesterday, over 24 hours ago. Mostly notices it when she is getting around walking. She is off balance and feels some sensation of dizziness in her head but not lily spinning and vomiting. No nausea with this. No hearing disturbance. 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 She denies any recent URI or earache/infection. No recent head injury. She decided to check her blood pressure at home and it was reading 180 systolic. She does not have a history of high blood pressure, last time she had a checked was when she had knee surgery in August and it was in the 150s. She denies any chest pain, dyspnea. She has urinary frequency but no dysuria. No focal neurologic symptoms, vision changes, diplopia, photophobia. PFSH PFSH Medical History Bilateral renal stones Wears hearing aid Wears glasses Wears partial dentures History of steroid therapy Thyroid disease Osteoarthritis Easy bruising Former smoker COPD (chronic obstructive pulmonary disease) Shortness of breath on exertion History of irregular heartbeat History of stress test Shoulder pain Arthritis Home Medications ?Medication ?Instructions ?Recorded ?Last Taken ?Type latanoprost 0.005 % eye drops 1 drp EACH EYE QHS GLUACOMA 09/10/18 07/05/20 History (Xalatan) levothyroxine 50 mcg tablet 50 mcg PO QHS THYROID 07/06/20 07/05/20 History multivitamin with minerals 1 tab PO DAILY SUPPLEMENT 07/06/20 07/05/20 History timolol maleate 0.25 % eye drops 1 drp EACH EYE BID GLAUCOMA 07/06/20 07/06/20 History hydroxyzine pamoate 25 mg capsule 25 mg PO BID PRN PRN anxiety 09/14/24 Unknown History venlafaxine 37.5 mg 37.5 mg PO BID 09/14/24 Unknown History capsule,extended release 24 hr Allergy/AdvReac Type Severity Reaction Status Date / Time No Known Allergies Allergy Verified 09/14/24 22:16 Surgical History History of shoulder surgery History of cornea transplant History of microdiscectomy History of colonoscopy History of total left knee replacement History of nasal septoplasty History of tubal ligation History of cataract extraction History of thyroid surgery History of hysterectomy Social History Smoking Status: Former smoker alcohol intake: never ROS ROS ED Constitutional Constitutional ED: Denies chills or fever(s) Eyes Eyes: Denies change in vision or diplopia ENT ENT ED: Denies rhinorrhea or sore throat Cardiovascular Cardiovascular: Denies chest pain or palpitations Respiratory/Chest Respiratory/Chest: Denies cough or dyspnea Gastrointestinal Gastrointestinal: Denies abdominal pain, diarrhea, nausea or vomiting Genitourinary Genitourinary ED: Reports urinary frequency; Denies dysuria or hematuria Musculoskeletal Musculoskeletal: Denies back pain or neck pain Integumentary Denies abscess or rash Neurologic Neurologic: Reports as per HPI, abnormal gait, disequilibrium and dizziness; Denies abnormal speech, headache(s), paresthesias, vertigo or weakness Psychiatric Psychiatric: Denies anxiety or suicidal thoughts EXAM Physical Exam Const Vital Signs: 09/14/24 22:16 09/14/24 22:36 09/14/24 23:03 Temperature 97.1 F L Temperature Source Temporal Pulse Rate 110 H 98 Respiratory Rate 20 H 30 H Respiratory Effort Normal Non-Labored Respiratory Pattern Normal Blood Pressure 200/96 H 156/78 H Blood Pressure Mean 130 104 Pulse Ox 95 97 Oxygen Delivery Method Room Air Positive well nourished and well developed General Appearance ED: well developed and NAD HEENT Reports moist mucous membranes normocephalic and atraumatic Eyes PERRL and EOMs intact bilaterally Neck full ROM and supple Resp normal respiratory effort and clear to auscultation bilaterally Cardio regular rate, regular rhythm and no murmurs Rate: tachycardic GI non-tender and non-distended Auscultation: normoactive bowel sounds Palpation: soft Back/Spine no CVA tenderness General Back: other FROM Extremity normal to inspection General Extremety ED: Negative for edema, pulses abnormal or tenderness General Extremity: Negative for edema or pulses abnormal Neuro oriented x3, CN's II-XII intact bilaterally and no sensory deficits noted Neuro Narrative: Normal speech. No dysmetria. Normal visual foster. NIHSS 0. Sensorium / Orientation: awake and alert Motor Exam: strength 5/5 throughout Psych mental status grossly normal Skin no rashes or lesions noted and no wounds MDM MDM MDM Narrative Medical decision making narrative: Patient is concerned her blood pressure is high and causing the symptoms. 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 Ischemic stroke in the posterior fossa is in the differential here. However the patient presents with symptoms that have been ongoing for more than 24 hours. Therefore no stroke team was called and she does not need emergent vascular imaging at this time, but since my plan is admission, she can get an MRI with an MRA tomorrow. In case she is having an acute stroke that is causing this I do not want to lower her blood pressure too much so protocol orders were placed for this including labetalol as needed for diastolic or systolic it is too high. In the meantime workup shows the following: Urine appears to be infected which should not be explaining her high blood pressure, she has a mild JUSTINE which may or may not be related to her high pressures, and her CT head is negative for any acute. I reviewed the images and the report which I agree with. Without treatment, repeat blood pressure is 156/78. I test-walked her myself. She is not grossly ataxic, but had some mild disequilibrium symptoms. She was holding right hand while walking. Given that the patient is in the first 48 hours of symptoms, it is possible she is having posterior CERTIFIED OPHTHALMIC TECHNICIAN process and a false negative CT which is common in that context. I recommend inpatient observation possibly MR imaging in the morning. Discussed with hospitalist. Patient amenable. Lab Data Attestation: I reviewed the patient's lab results. Labs: Laboratory Results - last 24 hr 09/14/24 09/14/24 22:33 22:52 WBC 9.1 RBC 4.38 Hgb 13.1 Hct 41.2 MCV 94.1 MCH 29.9 MCHC 31.8 L RDW Std Deviation 45.6 H RDW Coeff of Isaac 13.2 Plt Count 239 MPV 9.6 Immature Gran % (Auto) 0.200 Neut % (Auto) 54.6 Lymph % (Auto) 27.6 [place] % (Auto) 10.8 H Eos % (Auto) 6.2 H Baso % (Auto) 0.6 Absolute Neuts (auto) 4.9 Absolute Lymphs (auto) 2.50 Nucleated RBC % 0 Sodium 140 Potassium 3.9 Chloride 106 Carbon Dioxide 27.0 Anion Gap 7 BUN 25 H Creatinine 1.31 H Estim Creat Clear Calc 41.80 Est GFR (MDRD) Af Amer 51 L Est GFR (MDRD) Non-Af 42 L BUN/Creatinine Ratio 19.1 Glucose 214 H Calcium 9.0 Troponin I High Sens 13 Urine Color Yellow Urine Clarity Cloudy Urine pH 5.0 Ur Specific [place] 1.025 Urine Protein 100 H Urine Glucose (UA) Normal Urine Ketones Negative Urine Occult Blood 150 H Urine Nitrite Positive H Urine Bilirubin Negative Urine Urobilinogen Normal Ur Leukocyte Esterase 500 H Urine RBC 5-10 SEEN Urine WBC 10-25 SEEN Ur Squamous Epith Cells 5-10 SEEN Urine Bacteria 2+ Urine Mucus RARE Radiography Diagnostic Testing: Clinical Impression(s) from Imaging Studies Brain CT 09/14/24 22:29 IMPRESSION: Moderate generalized atrophy. Moderate low density bilaterally in the deep white matter. This likely represents chronic small vessel ischemic changes in the deep white matter. Electronically Signed: Angus Rubin MD at 23:37 EST , Rhythm Strip Rhythm Strip: Sinus Tach Rate: 110 Ectopy: None EKG Initial EKG: Attestation: I personally reviewed and interpreted this EKG as follows: Interpretation: No Acute Injury Pattern, Sinus Tachycardia and LAFB Comments: nml intervals Prior EKG tracings: available for review Prior: Unchanged Management Discussion w/another healthcare provider: Hospitalist Discharge Plan Dx/Rx/DC Orders Clinical Impression: Dysequilibrium, Acute UTI, Accelerated hypertension, Acute renal insufficiency Disposition Disposition: Acute Care [facility]
[2024-09-14 22:40] LABS: Absolute Neutrophil Count 4.9 X10^3/uL (2.0-7.7); Basophil# 0.05 X10^3/uL; Basophil% 0.6 % (0-1); Eosinophil# 0.56 X10^3/uL; Eosinophils% 6.2 % (0-5); Hematocrit 41.2 % (37-47); Hemoglobin 13.1 g/dL (12.0-15.0); Lymphocyte % 27.6 % (19-41); Mean Corp Hgb Conc 31.8 g/dL (32-36); Mean Corpuscular Hgb 29.9 pg (27.0-32.0); Mean Corpuscular Volume 94.1 fL (81-99); Mean Platelet Vol. 9.6 fl (6.2-12.0); Monocyte# 0.98 X10^3/uL; Monocyte% 10.8 % (0-10); NRBC Flagged by Analyzer 0 % (0-5); Neutrophil # 4.94 X10^3/uL (2.7-7.7); Neutrophil % 54.6 % (47-70); Platelet Count 239 K/mm3 (150-450); RBC Distribution Width CV 13.2 % (11.6-14.6); RBC Distribution Width SD 45.6 fl (35.1-43.9); Red Blood Count 4.38 M/mm3 (4.2-5.4); White Blood Count 9.1 K/mm3 (4.4-11.0)
[2024-09-14 22:58] LABS: Anion Gap 7 (5-15); BUN 25 mg/dL (7-18); BUN/Creat Ratio 19.1 RATIO (10-20); Chloride 106 mmol/L (98-107); Creatinine, Serum 1.31 mg/dL (0.55-1.02); EST Glomerular Filtration Rate 42 mL/min (>60); Est Glom Filt Rate - Afr Amer 51 mL/min (>60); Glucose 214 mg/dL (74-106); Potassium 3.9 mmol/L (3.5-5.1); Sodium Level 140 mmol/L (136-145); Troponin-I HS 13 pg/mL (3.0-54.0)
[2024-09-14 22:59] LABS: Color, Urine Yellow (Yellow); Glucose, Dipstick Normal (Normal); Ketone-Dipstick Negative (Negative); Leukocyte Esterase-Dipstick 500 /ul (Negative); Nitrite-Dipstick Positive (Negative); Occult Blood-Urine 150 /ul (Negative); Protein-Dipstick 100 mg/dl (Negative); Specific Gravity, Urine 1.025 (1.002-1.030); Urine Bilirubin Dipstick Negative (Negative); Urine Clarity Cloudy (Clear); Urine Urobilinogen Normal (Normal)
[2024-09-14 23:03] VITALS: BP 156/78; PULSE 98; RESP 30; O2SAT 97
[2024-09-14 23:06] LABS: Red Blood Cells-Urine 5-10 SEEN /hpf (0-5); White Blood Cells 10-25 SEEN /hpf (0-5)
[2024-09-14 23:07] LABS: Bacteria 2+ /hpf (None Seen); Mucous, Urine RARE /hpf (<or=2+); Squamous Epithelial Cells - UA 5-10 SEEN /hpf (5-10)
[2024-09-14] MEDS: Ceftriaxone 1 GM/50 ML BAG IV (23:33)
--- NOTE | 2024-09-14 23:49 | PCM.HP.STD ---
HPI - General General Date of Admission: 09/14/24 Date of Service: 09/14/24 Chief Complaint: Lightheadedness, dizziness, urinary frequency. HPI Narrative The patient is a 73 y/o F w/ PMHx: PAF, CKD stage III unclear subtype based on GFR trending, Glaucoma unclear type, Anxiety and Depression, Hypothyroidism, COPD, Former tobacco use, Obesity who presents to the [facility] ED on 09/14/24 with history of dizziness starting approximately 24 hours prior especially with attempts to get up and walk with sensation of feeling off balance occasionally dizzy but no lily spinning with no nausea or emesis with history of previous benign positional vertigo with no recent URI or earaches or infection no head injury with BP assessment at home with elevated readings with systolic at 180s with no history of hypertension previously although she does report that in August she had knee surgery and her BP was elevated at that time at 150 but was untreated with recent urinary frequency prompting eventual ED evaluation to be cautious. She definitely does report that the dizziness is different than when she has had benign positional vertigo previously. Workup in the ED included T97.1, heart rate 110, BP initially 200/96, respiratory rate 20, and he 5% on room air with most recent repeat vitals heart rate 98, BP 156/78, respiratory rate 30, 97% on room air, CBC with WBC 9.1, human 13.1, platelet 239 without marked shift, BMP with BUN/creatinine 25/1.31, GFR 42, glucose 214, troponin 13, urinalysis with cloudy appearing urine, specific gravity 1.025, protein 100, occult blood 150, nitrate positive, excess trace 500, urine RBCs 5-10, urine WBCs 10-25 with 2+ urine bacteria, urine culture pending per ED, CT brain with moderate generalized atrophy with moderate low-density bilaterally deep white matter likely member services representative of chronic small vessel ischemic changes, EKG with sinus tachycardia with no acute evidence of ischemia unchanged from previous. In the ED patient administered Rocephin 1 g IV x 1.in place. Full Code status. [facility] Medical History (Updated 09/15/24 @ 00:[address] Florida Salinas MD) Obesity Anxiety and depression CKD (chronic kidney disease), stage III Hypothyroidism PAF (paroxysmal atrial fibrillation) Bilateral renal stones Wears hearing aid Wears glasses Wears partial dentures Osteoarthritis Former smoker COPD (chronic obstructive pulmonary disease) History of stress test Arthritis Home Medications ?Medication ?Instructions ?Recorded ?Last Taken ?Type latanoprost 0.005 % eye drops 1 drp EACH EYE QHS GLUACOMA 09/10/18 07/05/20 History (Xalatan) levothyroxine 50 mcg tablet 50 mcg PO QHS THYROID 07/06/20 07/05/20 History multivitamin with minerals 1 tab PO DAILY SUPPLEMENT 07/06/20 07/05/20 History timolol maleate 0.25 % eye drops 1 drp EACH EYE BID GLAUCOMA 07/06/20 07/06/20 History hydroxyzine pamoate 25 mg capsule 25 mg PO BID PRN PRN anxiety 09/14/24 Unknown History venlafaxine 37.5 mg 37.5 mg PO BID 09/14/24 Unknown History capsule,extended release 24 hr Allergy/AdvReac Type Severity Reaction Status Date / Time No Known Allergies Allergy Verified 09/14/24 22:16 Family History (Updated 09/15/24 @ 00:[address] Florida Salinas MD) Mother Hypertension Father Hypertension CAD (coronary artery disease) Myocardial infarction Heart disease Surgical History History of shoulder surgery History of cornea transplant History of microdiscectomy History of colonoscopy History of total left knee replacement History of nasal septoplasty History of tubal ligation History of cataract extraction History of thyroid surgery History of hysterectomy Social History (Updated 09/15/24 @ 00:[address] Florida Salinas MD) household members: none Smoking Status: Former smoker how long ago did patient quit smoking: Quit 2011, started in her 20s, smoked 1/2-1 ppd until quit. alcohol intake: never substance use type: does not use ROS ROS Narrative Admission Review of Systems: CONSTITUTIONAL: No weight loss, fever, chills, + weakness or fatigue. HEENT: + Lightheadedness, dizziness. Eyes: No visual loss, blurred vision, double vision or yellow sclerae. Ears, Nose, Throat: No hearing loss, sneezing, congestion, runny nose or sore throat. SKIN: No rash or itching, lesions, wounds. CARDIOVASCULAR: No chest pain, chest pressure or chest discomfort, palpitations, edema, orthopnea, syncopal events. RESPIRATORY: No shortness of breath, cough or sputum, wheezing, hemoptysis. GASTROINTESTINAL: No anorexia, nausea, vomiting or diarrhea, abdominal pain, melena, BRBPR. GENITOURINARY: + Urinary frequency increased. No dysuria, urgency or retention. NEUROLOGICAL: + Lightheadedness, dizziness, questionable ataxia. No headache, syncope, paralysis, numbness or tingling in the extremities, focal weakness, change in bowel or bladder control, seizure. MUSCULOSKELETAL: + muscle, back pain, joint pain or stiffness. HEMATOLOGIC: No anemia, bleeding or bruising. LYMPHATICS: No enlarged nodes. No history of splenectomy. PSYCHIATRIC: + History of anxiety and depression. ENDOCRINOLOGIC: No reports of sweating, cold or heat intolerance. No polyuria or polydipsia. ALLERGIES: No history of asthma, hives, eczema or rhinitis. Vital Signs Vital Signs Vital Signs: 09/14/24 22:16 09/14/24 22:36 09/14/24 23:03 Temperature 97.1 F L Temperature Source Temporal Pulse Rate 110 H 98 Respiratory Rate 20 H 30 H Respiratory Effort Normal Non-Labored Respiratory Pattern Normal Blood Pressure 200/96 H 156/78 H Blood Pressure Mean 130 104 Pulse Ox 95 97 Oxygen Delivery Method Room Air Weight Weight: 220 lb Body Mass Index (BMI) 38.9 Physical Exam Narrative Physical Examination: General: Awake, alert, oriented x 3 and cooperative, seated upright in the ED bed, no acute distress, no dizziness reported and when she is up and attempting to move. Skin: Normal color, normal turgor, no icterus, no cyanosis. HEENT: AT/NC, EOMI, PERRLA, dry MM, no carotid bruits or JVD noted. Lungs: Mild diminished, greater bases, appropriate effort, no rales, ronchi or wheezing. Heart: Regular rate and rhythm; no gallop, rub audible. Abdomen: Soft, obese, NTTP, ND, mildly hyperactive BS, no appreciated HSM. Extremities: No cyanosis, clubbing, or edema. Neurological: Patient awake, alert, oriented as noted, cognitive function intact; pupils equally reactive to light and accommodation, cranial nerves grossly normal, moving all 4 extremities, no focal deficits, strength mildly to moderately global decrease secondary to acute presentation, no evidence of any nystagmus, sensation intact, currently no dizziness but at rest. Psychiatric: Affect appears fatigued otherwise normal, no acute evidence of depressive or anxiety feelings but does have underlying history. Results Lab / Micro Data 09/14/24 22:33 09/14/24 22:33 Labs: Laboratory Results - last 24 hr 09/14/24 22:33: WBC 9.1, RBC 4.38, Hgb 13.1, Hct 41.2, MCV 94.1, MCH 29.9, MCHC 31.8 L, RDW Std Deviation 45.6 H, RDW Coeff of Isaac 13.2, Plt Count 239, MPV 9.6, Immature Gran % (Auto) 0.200, Neut % (Auto) 54.6, Lymph % (Auto) 27.6, [place] % (Auto) 10.8 H, Eos % (Auto) 6.2 H, Baso % (Auto) 0.6, Absolute Neuts (auto) 4.9, Absolute Lymphs (auto) 2.50, Nucleated RBC % 0, Sodium 140, Potassium 3.9, Chloride 106, Carbon Dioxide 27.0, Anion Gap 7, BUN 25 H, Creatinine 1.31 H, Estim Creat Clear Calc 41.80, Est GFR (MDRD) Af Amer 51 L, Est GFR (MDRD) Non-Af 42 L, BUN/Creatinine Ratio 19.1, Glucose 214 H, Calcium 9.0, Troponin I High Sens 13 09/14/24 22:52: Urine Color Yellow, Urine Clarity Cloudy, Urine pH 5.0, Ur Specific [place] 1.025, Urine Protein 100 H, Urine Glucose (UA) Normal, Urine Ketones Negative, Urine Occult Blood 150 H, Urine Nitrite Positive H, Urine Bilirubin Negative, Urine Urobilinogen Normal, Ur Leukocyte Esterase 500 H, Urine RBC 5-10 SEEN, Urine WBC 10-25 SEEN, Ur Squamous Epith Cells 5-10 SEEN, Urine Bacteria 2+, Urine Mucus RARE Rhythm Strip Rhythm Strip: Sinus Tach Rate: 110 Ectopy: None Imaging Radiology Impression Brain CT 09/14/24 22:29 IMPRESSION: Moderate generalized atrophy. Moderate low density bilaterally in the deep white matter. This likely represents chronic small vessel ischemic changes in the deep white matter. Electronically Signed: Angus Rubin MD at 23:37 EST , Assessment & Plan Assessment/Plan (1) Acute UTI: PLAN: Plan The patient is a 73 y/o F w/ PMHx: PAF, CKD stage III unclear subtype based on GFR trending, Glaucoma unclear type, Anxiety and Depression, Hypothyroidism, COPD, Former tobacco use, Obesity who presents to the [facility] ED on 09/14/24 with history of dizziness starting approximately 24 hours prior especially with attempts to get up and walk with sensation of feeling off balance occasionally dizzy but no lily spinning with no nausea or emesis with history of previous benign positional vertigo with no recent URI or earaches or infection no head injury with BP assessment at home with elevated readings with systolic at 180s with no history of hypertension previously although she does report that in August she had knee surgery and her BP was elevated at that time at 150 but was untreated with recent urinary frequency prompting eventual ED evaluation to be cautious. #1. Dizziness, lightheadedness, possible ataxia concerning for possible posterior CVA: Will admit to PCU, will obtain MRI Brain, ECHO, PT/OT/Speech/Nutrition evaluation per protocol. Will allow permissive HTN, will continue hydration given mild increased creatinine with plan for also follow-up CTA head and neck as long as creatinine clearance remains appropriate, will maintain on asa, AM FLP, fall precautions. Will obtain Mag, TSH, FLP, HgbA1c requested. Maintain on fall and aspiration precautions. #2. Acute Complicated Urinary Tract Infection: UA upon ED evaluation remarkable, pending UCx, judiciously hydrate, monitor I/Os, continue IV Rocephin w/ transition as able pending sensitivities and speciation. #3. Elevated BP without hypertensive diagnosis concerning for Hypertensive Urgency: From report likely had elevated BP at least in August with systolic in the 150s, currently upon presentation elevated again above goal, improved with labetalol in the ED, certainly could be related with acute infection but given elevation previously may be chronic but this is also in the setting of an acute surgical intervention, will maintain on as needed IV hydralazine in the interim but if ongoing will need to add oral regimen. #4. Acutely elevated creatinine/acute renal insufficiency on Chronic Kidney Disease Stage III, unclear subtype per GFR trending (not greater than 1.5 times baseline normal thus not consistent technically with acute kidney injury): Admission BUN/Cr 25/1.31, baseline renal function appears primarily 0.9-1.2 although has vacillated up to 1.6, most recently prior to this 12/06/2021 creatinine 0.94, repeat BMP in AM. #5. PAF: Per current list she is not on any regimen nor anticoagulant, will maintain on monitor as noted. #6. Chronic COPD: Per current list does not appear to be on any inhalers, will maintain in the interim PRN albuterol, HOB, IS parameters. #7. Anxiety and depression: We will continue patient home venlafaxine regimen as well as as needed hydroxyzine. #8. Former tobacco use: Encourage continued tobacco cessation. #9. Glaucoma, unclear type: We will continue patient home eyedrop regimen. #10. Hypothyroidism: We will continue patient home levothyroxine regimen. #11. Obesity: Weight loss and lifestyle changes encouraged. #12. DVT prophylaxis: Lovenox. #13. CODE status: Patient MILAN is her daughter and living will is currently in place. Full Code status. Charges/Coding Visit Charges Inpatient E&M: 42035 Init Hosp L3
[2024-09-14 23:56] VITALS: BP 156/80; PULSE 90; RESP 16; TEMP 36.8; O2SAT 100
[2024-09-14 23:57] VITALS: BP 156/82; PULSE 90; RESP 16; TEMP 36.8; O2SAT 95
--- NOTE | 2024-09-15 00:25 | MRI_ITS ---
STUDY: MRI BRAIN WITHOUT CONTRAST REASON FOR EXAM: Female, 73 years old. ? CVA izziness, off balance TECHNIQUE: Standardized multiplanar fat and water weighted pulse sequences were obtained. COMPARISON: Head CT dated September 14, 2024 FINDINGS: There is mild cerebral atrophy with widening of the extra-axial spaces and ventricular dilatation. There are multiple white matter hyperintensities, distributed throughout the deep white matter tracts of the cerebral hemispheres, consistent with moderate chronic white matter ischemic changes. There is no evidence for recent intracranial ischemia or other cause of cytotoxic edema on diffusion weighted imaging (DWI). There are no demyelinating plagues of the supratentorial brain, brainstem or cerebellum. There are no findings suspicious for multiple sclerosis (MS). Normal T2* images of the brain without demonstrated susceptibility artifact. There is no demonstrated hemosiderin stain. Normal bilateral basal ganglia. Normal thalami. There is no extra-axial fluid accumulation. Normal flow voids within the major intracranial circulation suggesting patency by spin echo criteria. Normal sella turcica, pituitary gland, infundibular stalk, optic chiasm and hypothalamus. Normal tectal plate and pineal gland. Normal midbrain, lashawn and medulla. Normal cerebellum. Normal basal cisterns. Normal bilateral temporal bones. Normal bilateral internal auditory canals. No demonstrated orbital abnormality, within the constraints of a routine brain study. Normal visualized paranasal sinuses. Normal calvarium and skull base. Normal visualized soft tissue structures. Normal visualized upper cervical spine. MRI/Brain without Contrast IMPRESSION: No acute infarct or intracranial hemorrhage. 1. Involutional moderate chronic ischemic changes of the brain, as described above. Electronically Signed: Rosas Crocker MD at 11:13 EST Reading Location ID and State: [facility] / [place] , Service support ,
--- NOTE | 2024-09-15 00:26 | ECHOCS_ITS ---
Reason For Study: TIA/CVA Procedure This was a 2D Doppler, Color Flow transthoracic echocardiogram. The study was technically difficult. Contrast injection was performed. Exam performed portable in patient room. Left Ventricle Normal LV size. Left ventricular systolic function is normal. The left ventricular ejection fraction is 65 %. No regional wall motion abnormalities noted. Right Ventricle Normal RV size. Normal systolic function. Atria Normal left atrium. Normal right atrium. Bubble contrast study is negative for PFO/ASD. Mitral Valve Normal mitral valve. Tricuspid Valve Normal tricuspid valve. Aortic Valve Trisinus/trileaflet aortic valve. Pulmonic Valve Normal pulmonic valve. Great Vessels Normal aortic root. The pulmonary artery is normal size. Inferior vena cava collapse with respiration. Pericardium/Pleural No pericardial effusion. Medication Diluted definity 2ml given slow IV push to enhance endocardial definition. Performed a rapid injection of agitated mix of 9 cc saline and 1cc air to assess for atrial septal defect. MMode/2D Measurements & Calculations LVIDd: 3.6 cm IVSd: 1.5 cm LVOT diam: 1.9 cm LVIDs: 1.6 cm LVPWd: 1.1 cm RVDd: 3.3 cm FS: 57.5 % LVOT area: 2.8 cm2 asc Aorta Diam: 3.6 cm LAV(MOD-bp): 25.8 ml LVAd ap4: 26.0 cm2 LAV(MOD-bp) Indexed: 12.9 ml/m2 LVLd ap4: 7.7 cm LAV(MOD-sp2): 28.3 ml EDV(MOD-sp4): 73.1 ml LAV(MOD-sp4): 22.4 ml EDV(sp4-el): 74.1 ml LVAs ap4: 16.3 cm2 LVLs ap4: 6.9 cm ESV(MOD-sp4): 31.9 ml ESV(sp4-el): 32.6 ml EF(MOD-sp4): 56.4 % EF(sp4-el): 56.0 % LVAd ap2: 24.2 cm2 SV(MOD-sp4): 41.2 ml SV(MOD-sp2): 40.1 ml LVLd ap2: 7.7 cm SI(MOD-sp4): 20.6 ml/m2 SI(MOD-sp2): 20.1 ml/m2 EDV(MOD-sp2): 61.2 ml EDV(sp2-el): 64.4 ml LVAs ap2: 12.6 cm2 LVLs ap2: 6.0 cm ESV(MOD-sp2): 21.1 ml ESV(sp2-el): 22.2 ml EF(MOD-sp2): 65.5 % SV(sp4-el): 41.4 ml Ao sinus diam: 3.[address] Junction: 2.9 cm LA dimension(2D): 3.3 cm LA A4 area: 10.6 cm2 RA A4 area: 11.6 cm2 TAPSE: 1.5 cm Time Measurements MV dec time: 0.17 sec Doppler Measurements & Calculations MV E max natonio: 74.9 cm/sec Lat Peak E' Antonio: 8.3 cm/sec Med Peak E' Antonio: 9.2 cm/sec MV A max antonio: 94.2 cm/sec E/E' lat: 9.0 E/E' med: 8.1 MV E/A: 0.79 MV dec slope: 441.0 cm/sec2 Ao V2 max: 119.4 cm/sec LV V1 max: 95.9 cm/sec Ao max P.7 mmHg LV V1 max P.7 mmHg Ao V2 mean: 91.9 cm/sec LV V1 mean P.4 mmHg Ao mean P.5 mmHg LV V1 mean: 75.3 cm/sec Ao V2 VTI: 19.2 cm LV V1 VTI: 15.5 cm AV (velocity ratio): 0.81 SANDEEP(I,D): 2.3 cm2 SANDEEP(V,D): 2.3 cm2 SV(LVOT): 43.4 ml PA V2 max: 122.9 cm/sec ECHO/Echo Complete W/ Contrast Interpretation Summary Normal LV size. Left ventricular systolic function is normal. The left ventricular ejection fraction is 65 %. Bubble contrast study is negative for PFO/ASD. Contrast injection was performed. Ordering Physician: [place] Salinas Performed By: Poppy Snowden RDCS
[2024-09-15 00:35] VITALS: BMI 38.2
[2024-09-15] MEDS: 0.9% Normal Saline (1000mL) 1,000 ML 100 ML IV (01:10)
[2024-09-15] MEDS: 0.9% Saline Lock 10 ML Syringe IV ×2 (01:10→12:06)
[2024-09-15] MEDS: Aspirin 325 MG Tablet PO (01:14)
[2024-09-15 01:24] VITALS: BMI 38.2
[2024-09-15 03:48] VITALS: BMI 38.2
[2024-09-15 04:25] VITALS: BP 146/63; PULSE 95; RESP 18; TEMP 36.6; O2SAT 95
--- NOTE | 2024-09-15 05:55 | CT_ITS ---
STUDY: CTA HEAD AND NECK WITH CONTRAST REASON FOR EXAM: Female, 73 years old. Acute mental status change RADIATION DOSAGE (If Supplied By Facility): CTDIvol = ( 15.55 ) mGy, DLP = ( 685.44 ) mGycm TECHNIQUE: CT angiography was performed with a multi-detector CT scanner. Data acquisition was obtained from the skull base through the vertex following intravenous administration of IV 100mL Isovue-370. MIP images were reconstructed from the axial data set. Post-processing of the angiographic images was performed, with multiplanar reformation and 3D reconstruction. Individualized dose optimization techniques were used for this CT. COMPARISON: No relevant priors. FINDINGS: Normal bilateral petrous carotid arteries. Normal right cavernous carotid artery with a normal supraclinoid bifurcation. Normal left cavernous carotid artery with a normal supraclinoid bifurcation. Normal right A1 segments of the anterior cerebral artery. Normal left A1 segments of the anterior cerebral artery. Normal intact anterior communicating artery (ACOM). Normal bilateral A2 segments of the anterior cerebral arteries. Normal right M1 and M2 segments of the middle cerebral arteries, with a normal M1 bifurcation. Normal left M1 and M2 segments of the middle cerebral arteries, with a normal M1 bifurcation. Normal right posterior communicating artery (PCOM). Normal left posterior communicating artery (PCOM). Normal bilateral vertebral arteries. Normal basilar artery with a normal basilar bifurcation. The visualized bilateral superior cerebellar (SCA) arteries are normal. Normal bilateral P1, P2 and visualized P3 segments of the posterior cerebral arteries. There is no demonstrated aneurysm of the [place]. Left lobe of the thyroid is likely surgically absent. The right lobe shows multiple low-density nodules. Consider a dedicated thyroid ultrasound if not recently performed. No suspicious enhancing lesion, no airway narrowing or deviation. Lung apices are clear AORTIC ARCH: Normal visualized aortic arch. Normal origins of the brachiocephalic, left common carotid, and left subclavian arteries. RIGHT CAROTID ARTERIES: Normal right common carotid artery (CCA). Normal right common carotid bulb. Normal origin of the right internal carotid (ICA) artery however, just distal to the origin is a calcified plaque causing 50% stenosis of the proximal right ICA this is seen on source images 197-212. No further narrowing is identified. Normal origin of the right external carotid artery (ECA). LEFT CAROTID ARTERIES: Normal left common carotid artery (CCA). Normal left common carotid bulb. Normal origin of the left internal carotid (ICA) artery without a hemodynamically significant stenosis. Normal visualized cervical portion of the left internal carotid artery. Normal origin of the left external carotid artery (ECA). VERTEBRAL ARTERIES: There is enhancement within the bilateral vertebral arteries with a small right vertebral artery, and a dominant left vertebral artery. CT/CTA Head AND Neck W/ Contrast IMPRESSION: No vaso-occlusive disease or significant stenosis noted in the intracranial circulation. No demonstrated aneurysm or vascular malformation 50% stenosis of the proximal right ICA just distal to its origin No demonstrated left ICA stenosis No demonstrated CCA stenosis Multiple low-density nodules within the right lobe of the thyroid, consider dedicated thyroid ultrasound for further evaluation No suspicious enhancing lesion, airway narrowing or deviation Electronically Signed: Torsten Mcmillan MD at 8:45 EST ,
[2024-09-15 06:13] LABS: Absolute Lymphocyte Count 2.87 X10^3/uL (0.83-4.51); Absolute Neutrophil Count 4.5 X10^3/uL (2.0-7.7); Basophil# 0.04 X10^3/uL; Basophil% 0.4 % (0-1); Eosinophil# 0.56 X10^3/uL; Eosinophils% 6.3 % (0-5); Hematocrit 37.4 % (37-47); Hemoglobin 11.7 g/dL (12.0-15.0); Lymphocyte # 2.87 X10^3/ul (0.83-4.51); Lymphocyte % 32.1 % (19-41); Mean Corp Hgb Conc 31.3 g/dL (32-36); Mean Corpuscular Hgb 29.8 pg (27.0-32.0); Mean Corpuscular Volume 95.2 fL (81-99); Monocyte# 0.94 X10^3/uL; Monocyte% 10.5 % (0-10); NRBC Flagged by Analyzer 0 % (0-5); Neutrophil # 4.51 X10^3/uL (2.7-7.7); Neutrophil % 50.5 % (47-70); Platelet Count 215 K/mm3 (150-450); RBC Distribution Width CV 13.2 % (11.6-14.6); RBC Distribution Width SD 46.7 fl (35.1-43.9); Red Blood Count 3.93 M/mm3 (4.2-5.4); White Blood Count 8.9 K/mm3 (4.4-11.0)
[2024-09-15 06:53] LABS: ALB/GLOB Ratio 0.8 RATIO (0.9-2.4); AST(SGOT) 15 U/L (15-37); Alanine Aminotransfer ALT/SGPT 20 U/L (13-56); Albumin, Serum 2.9 g/dL (3.2-5.0); Alkaline Phosphatase 99 U/L (45-117); Anion Gap 5 (5-15); BUN 21 mg/dL (7-18); BUN/Creat Ratio 19.6 RATIO (10-20); Calcium,Total 8.9 mg/dL (8.5-10.1); Chloride 109 mmol/L (98-107); Creatinine, Serum 1.07 mg/dL (0.55-1.02); EST Glomerular Filtration Rate 53 mL/min (>60); Est Glom Filt Rate - Afr Amer 64 mL/min (>60); Estimated Creatinine Clearance 50.66 ml/min; Globulin 3.8 g/dL (2.2-4.2); Glucose 106 mg/dL (74-106); Potassium 3.9 mmol/L (3.5-5.1); Protein, Total 6.7 g/dL (6.4-8.2); Sodium Level 142 mmol/L (136-145)
[2024-09-15 07:09] LABS: Hemoglobin A1c 6.6 % (3.8-5.6)
--- NOTE | 2024-09-15 08:27 | NURSING ---
NIHSS not completed at 0825 due to patient getting ECHO. Will complete NIHSS when testing completed.
[2024-09-15 09:00] VITALS: BP 197/94; PULSE 114; RESP 16; TEMP 37.2; O2SAT 97
[2024-09-15 09:09] LABS: Ferritin 328 ng/mL (8-252); Iron 48 ug/dL (50-170); Iron Binding Capacity,Total 244 ug/dL (250-450); PERCENT IRON SATURATION 19.7 % (15.0-55.0)
[2024-09-15 11:20] LABS: Cholesterol 199 mg/dL (200); High Density Lipoprotein 53 mg/dL; Triglycerides 213 mg/dL; Very Low Density Lipoprotein 43 mg/dL (5-40)
[2024-09-15 11:30] VITALS: BP 133/68; PULSE 102
--- NOTE | 2024-09-15 11:35 | CASEMGMT ---
BRIDGETTE GREGG Face to Face with patient for initial transition planning/care coordination assessment. RN CM introduced self and role at [facility]. Patient sitting in chair, alert and oriented. Patient willing to participate in assessment and is able to answer all questions appropriately. Care providers, pharmacy, and demographics verified. Strata: 1 PCP: Jose L Specialists: trei Clark Preferred Pharmacy: [facility]; [facility] Retail at discharge. Insurance: [employer] Prescription Benefit: Yes Living Will/HPOA: yes, daughter Pat Puri LNOK: daughter Living Arrangements: Patient lives alone in a single story home with 5-6 steps and railing to enter the home. Patient is independent and able to ambulate stairs Transportation: self, sister DME/HHC: Patient has cane, walker, shower chair, cpap, and pulse ox at home. No previous HHC or SNF. Patient is currently active with [facility] outpatient therapy Patient wishes to discharge home, with resumption of outpatient therapy as previously ordered. Patient states she has no further needs or concerns at this time. CM to follow for discharge planning needs that may arise. Disposition Plan: Patient to discharge home with family support and follow-up plans in place. Mary STEWART, RN, CM
[2024-09-15] MEDS: FLU VACCINE **HIGH DOSE** TV 24-25 180 MCG/0.5 ML SYRINGE IM (11:37)
[2024-09-15] MEDS: Aspirin 81 MG TAB.CHEW PO (11:37)
[2024-09-15] MEDS: Enoxaparin 40 MG/0.4 ML Syringe SC (11:42)
--- NOTE | 2024-09-15 12:00 | CASEMGMT ---
SW did not complete a PHQ 9 as patient did not have a Stroke. Yamel ZAPIEN
[2024-09-15 13:00] VITALS: BP 141/69; PULSE 98; RESP 17; TEMP 36.7; O2SAT 97
[2024-09-15 13:50] VITALS: O2SAT 98
[2024-09-15 14:17] VITALS: BMI 38.2
--- NOTE | 2024-09-15 14:21 | PCM.DC.SUM ---
Providers Date of Admission: 09/14/24 Date of Discharge: 09/15/24 Primary Care Physician: Dr. Leonor Domingo MD Reason For Visit: HTN URGENCY UTI ? TIA/CVA Diagnosis Discharge Diagnosis (1) Acute UTI: Status: Acute Code(s): N39.0 - Urinary tract infection, site not specified Medications at Discharge Home Medications levothyroxine 50 mcg tablet 50 mcg PO QHS THYROID 07/06/20 multivitamin with minerals 1 tab PO DAILY SUPPLEMENT 07/06/20 timolol maleate 0.25 % eye drops 1 drp EACH EYE BID GLAUCOMA 07/06/20 hydroxyzine pamoate 25 mg capsule 25 mg PO BID PRN PRN anxiety 09/14/24 venlafaxine 37.5 mg capsule,extended release 24 hr 37.5 mg PO BID 09/14/24 aspirin 81 mg chewable tablet 81 mg PO BREAKFAST 30 days #30 tabs 09/15/24 atorvastatin 40 mg tablet 40 mg PO DAILY 30 days #30 tabs 09/15/24 levofloxacin 750 mg tablet 750 mg PO DAILY 5 days #5 tabs 09/15/24 Hospital Course Operations None Procedures EKG, Transthoracic echo and - (CT brain, MRI brain, CTA head/neck) Summary of Care Provided Minutes Spent on Discharge: 45 Hospital Course: Patient is a 73-year-old female who presented [facility] ED on 09/14/2024 with dizziness and hypertension. Short hospital course as noted below. Patient discharged home with no therapy needs in stable condition on 09/15. 1. Dizziness with disequilibrium, CVA ruled out; history of vertigo ? Neurology followed. Presented with dizziness and disequilibrium with walking as well as very elevated blood pressure into the 180s to 190s concerning for posterior stroke. However, CT brain, CTA head/neck and MRI brain were all needed for any acute pathology. Echo showed normal EF, no other concerning findings. Worked with therapy on afternoon of day of discharge and did well, dizziness was much improved. Blood pressure also improved back to the 130s systolic without treatment. Lipid panel with total cholesterol 199, LDL 103, HDL 53. A1c 6.6%. Given concern for possible TIA and elevated lipids as well as elevated ASCVD risk score, will treat with baby aspirin and atorvastatin 40 mg daily going forward. 2. Elevated blood pressure readings ? Patient was hypertensive to the 190s to low 200s systolic on admission. Patient denies ever being on previous antihypertensive medications. Blood pressure improved back to the 130s to low 140s systolic by hospital day 2 and was consistently in the range. Patient may have some degree of essential hypertension at baseline but I recommended patient take her blood pressure at home twice daily for the next week and see how her blood pressures are running. Recommended that if they are continuing to run in the 130s to 140s that she contact her PCP and discuss starting an antihypertensive medication then. 3. Acute cystitis ? Patient did report increased urinary frequency on admission. UA showed 500 leukocyte esterase, positive nitrites, 2+ bacteria. Urine culture pending on discharge. Patient notably with no prior urine culture data available and does not have a frequent history of UTIs. Will opt to treat with Levaquin on discharge to complete a 7-day course of antibiotics total, stop date 09/20. I discussed with the patient that if her urine culture shows that she is resistant to Levaquin, I will call her and switch her antibiotic as needed. 4. Mild normocytic anemia ? Hemoglobin 11.7 on admit. Prior baseline appeared to be 13-14 back in 2021. Anemia studies were consistent with mild anemia of chronic disease. No need for further treatment at this time. 5. Mild creatinine elevation ? Creatinine 1.31 on admit, improved to 1.07 on hospital day 2 after IV fluid resuscitation. Prior baseline was 0.9-1.0 back in 2021, suspect she is back to her baseline. 6. Hyperlipidemia ?Lipid panel on admit as noted above. ASCVD 10-year risk score calculated to be 24%. Will start patient on atorvastatin 40 mg daily on discharge. 7. Thyroid nodules ? Noted on CTA head/neck to have multiple low-density nodules within the right lobe of the thyroid with recommendation to consider thyroid ultrasound for further evaluation. Patient notably with normal TSH on admit and no symptoms of neck pain or discomfort. Continue home Synthroid as noted below and will defer to outpatient physician on need for ultrasound moving forward. Chronic medical conditions: ? Class II obesity: BMI 38 on admit. Encouraged lifestyle modifications. Complicates hospital course, care and prognosis. ? Hypothyroidism: TSH normal on admit. Continue home Synthroid. ? Depression/anxiety: Stable. Continue home venlafaxine and hydroxyzine as needed. ? Glaucoma: Continue home eyedrops. ? Former tobacco use: Encouraged continued cessation. *Patient was admitted under inpatient status but improved back to baseline more quickly than anticipated and was able to be discharged home on hospital day 2. Total clinical time spent by myself addressing the patient's medical issues, reviewing all the data, and collaborating with patient's care team: 45 minutes. Physical Exam Const alert, oriented x3 and no apparent distress Constitutional Narrative: Elderly female, class II obesity, otherwise sitting up comfortably in bed, conversing normally, in no acute distress. General Appearance: cooperative and comfortable HEENT normocephalic, head/scalp atraumatic, hearing grossly normal bilaterally, nasal mucous membranes and turbinates normal and moist oral mucous membranes Eyes PERRL, EOMs intact bilaterally and conjunctivae normal Neck full ROM Chest inspection of chest normal Resp normal respiratory effort, normal air movement, no use of accessory muscles and clear to auscultation bilaterally Cardio regular rate, regular rhythm, no murmurs and peripheral pulses 2+ throughout GI normal to inspection, nondistended, normoactive bowel sounds, soft to palpation, non-tender and non-distended Back/Spine normal ROM Extremity normal to inspection, full ROM and no pedal edema Skin no rashes or lesions noted Psych mental status grossly normal Weight / BMI Weight Weight: 98 kg Body Mass Index (BMI) 38.2 ABG / Lab / Microbiology Data 09/15/24 05:09 09/15/24 05:09 Laboratory: Laboratory Results - last 24 hr 09/14/24 22:33: WBC 9.1, RBC 4.38, Hgb 13.1, Hct 41.2, MCV 94.1, MCH 29.9, MCHC 31.8 L, RDW Std Deviation 45.6 H, RDW Coeff of Isaac 13.2, Plt Count 239, MPV 9.6, Immature Gran % (Auto) 0.200, Neut % (Auto) 54.6, Lymph % (Auto) 27.6, Sherman % (Auto) 10.8 H, Eos % (Auto) 6.2 H, Baso % (Auto) 0.6, Absolute Neuts (auto) 4.9, Absolute Lymphs (auto) 2.50, Nucleated RBC % 0, Sodium 140, Potassium 3.9, Chloride 106, Carbon Dioxide 27.0, Anion Gap 7, BUN 25 H, Creatinine 1.31 H, Estim Creat Clear Calc 41.80, Est GFR (MDRD) Af Amer 51 L, Est GFR (MDRD) Non-Af 42 L, BUN/Creatinine Ratio 19.1, Glucose 214 H, Calcium 9.0, Magnesium 2.0, Troponin I High Sens 13 09/14/24 22:52: Urine Color Yellow, Urine Clarity Cloudy, Urine pH 5.0, Ur Specific [place] 1.025, Urine Protein 100 H, Urine Glucose (UA) Normal, Urine Ketones Negative, Urine Occult Blood 150 H, Urine Nitrite Positive H, Urine Bilirubin Negative, Urine Urobilinogen Normal, Ur Leukocyte Esterase 500 H, Urine RBC 5-10 SEEN, Urine WBC 10-25 SEEN, Ur Squamous Epith Cells 5-10 SEEN, Urine Bacteria 2+, Urine Mucus RARE 09/15/24 05:09: WBC 8.9, RBC 3.93 L, Hgb 11.7 L, Hct 37.4, MCV 95.2, MCH 29.8, MCHC 31.3 L, RDW Std Deviation 46.7 H, RDW Coeff of Isaac 13.2, Plt Count 215, MPV 10.0, Immature Gran % (Auto) 0.200, Neut % (Auto) 50.5, Lymph % (Auto) 32.1, Sherman % (Auto) 10.5 H, Eos % (Auto) 6.3 H, Baso % (Auto) 0.4, Absolute Neuts (auto) 4.5, Absolute Lymphs (auto) 2.87, Nucleated RBC % 0, Sodium 142, Potassium 3.9, Chloride 109 H, Carbon Dioxide 27.0, Anion Gap 5, BUN 21 H, Creatinine 1.07 H, Estim Creat Clear Calc 50.66, Est GFR (MDRD) Af Amer 64, Est GFR (MDRD) Non-Af 53 L, BUN/Creatinine Ratio 19.6, Glucose 106, Hemoglobin A1c 6.6 H, Calcium 8.9, Iron 48 L, TIBC 244 L, Iron Saturation 19.7, Ferritin 328 H, Total Bilirubin 0.30, AST 15, ALT 20, Alkaline Phosphatase 99, Total Protein 6.7, Albumin 2.9 L, Globulin 3.8, Albumin/Globulin Ratio 0.8 L, Triglycerides 213 H, Cholesterol 199, LDL Cholesterol 103, VLDL Cholesterol 43 H, HDL Cholesterol 53, Folate 19.20, TSH 1.730 Radiography Diagnostic Testing: Radiology Impression Brain CT 09/14/24 22:29 IMPRESSION: Moderate generalized atrophy. Moderate low density bilaterally in the deep white matter. This likely represents chronic small vessel ischemic changes in the deep white matter. Electronically Signed: Angus Rubin MD at 23:37 EST , Brain MRI 09/15/24 00:25 IMPRESSION: No acute infarct or intracranial hemorrhage. 1. Involutional moderate chronic ischemic changes of the brain, as described above. Electronically Signed: Rosas Crocker MD at 11:13 EST , Echocardiogram 09/15/24 00:26 Interpretation Summary Normal LV size. Left ventricular systolic function is normal. The left ventricular ejection fraction is 65 %. Bubble contrast study is negative for PFO/ASD. Contrast injection was performed. Ordering Physician: [place] Salinas Performed By: Poppy Snowden RDCS Head/Neck CTA 09/15/24 05:55 IMPRESSION: No vaso-occlusive disease or significant stenosis noted in the intracranial circulation. No demonstrated aneurysm or vascular malformation 50% stenosis of the proximal right ICA just distal to its origin No demonstrated left ICA stenosis No demonstrated CCA stenosis Multiple low-density nodules within the right lobe of the thyroid, consider dedicated thyroid ultrasound for further evaluation No suspicious enhancing lesion, airway narrowing or deviation Electronically Signed: Torsten Mcmillan MD at 8:45 EST , D/C Instructions DC O2, CPAP, BIPAP Needs Additional Home O2 Discharge instructions: No DC home with Oxygen: No Meaningful Use Info Meaningful Use Meaningful Use Diagnoses (Choose all that apply): None applicable Ischemic Stroke Statin Dosing Therapy Reference: STATIN DOSE THERAPY REFERENCE: * Patients > 75 years receive moderate or high dose statin therapy. * Patients 75 years or YOUNGER should receive HIGH intensity statin dose unless contraindicated. You will be required to document reason for non-treatment if statin daily dose does not meet guidelines. HIGH DOSE STATIN THERAPY DAILY Atorvastatin > than or = to 40 mg Rosuvastatin > than or = to 20 mg Amlodipine + Atorvastatin > than or = to 2.5/40 mg Ezetimibe + Simvastatin 10/80 mg Simvastatin 80mg Discharge Plan Admission Admit Date/Time: 09/14/24 23:49 Primary Reason for Your Visit: dizziness and elevated BP Attending Provider: Obi Moran Primary Care Provider: Leonor Domingo Consulting Providers: [place] Salinas Instructions Additional Instructions / Restrictions: Please start taking a baby aspirin and Lipitor daily as noted below. Please take Levaquin daily for 5 more days to complete a course of antibiotics for your urinary tract infection. Please take your blood pressure at home twice daily for the next week and if it is running very high, please either call your primary care doctor or come back to the ED for further evaluation. Discharge Orders/Prescriptions Prescriptions: New aspirin 81 mg Tablet,Chewable 81 mg PO BREAKFAST 30 Days Qty: 30 2RF atorvastatin 40 mg tablet 40 mg PO DAILY 30 Days Qty: 30 2RF levofloxacin 750 mg tablet 750 mg PO DAILY 5 Days Qty: 5 0RF Continued timolol maleate 5 ML drops 1 drp EACH EYE BID levothyroxine 50 MCG tablet 50 mcg PO QHS multivitamin with minerals 1 EACH tablet 1 tab PO DAILY hydroxyzine pamoate 25 mg capsule 25 mg PO BID PRN PRN (Reason: anxiety) venlafaxine 37.5 mg capsule,extended release 24hr 37.5 mg PO BID Discontinued latanoprost [Xalatan] 0.005 % drops 1 drp EACH EYE QHS Referrals / Follow Up: Leonor Domingo MD [Primary Care Provider] - Disposition Disposition (needs filled in before D/C Order can be placed): Home, Self Care Charges/Coding Visit Charges Inpatient E&M: 29964 Disch Hosp >30min
[2024-09-15 16:28] LABS: Vitamin B12 194 pg/mL (211-911)
== END 2024-09-15 16:11 | disposition home or self-care (01) | DRG 690 ==
LOC: ED 23:37 → PCU 09-15 03:08
PROVIDERS: Admitting Provider Family Medicine; Emergency Provider Emergency Medicine; PCP Internal Medicine; Visit Provider Hospitalist
DX: N30.00 Acute cystitis without hematuria (principal); G45.9 Transient cerebral ischemic attack, unspecified; D63.1 Anemia in chronic kidney disease; J44.9 Chronic obstructive pulmonary disease, unspecified; N18.30 Chronic kidney disease, stage 3 unspecified; E03.9 Hypothyroidism, unspecified; F32.A Depression, unspecified; Z68.38 Body mass index [BMI] 38.0-38.9, adult; I48.0 Paroxysmal atrial fibrillation; F41.9 Anxiety disorder, unspecified; E78.5 Hyperlipidemia, unspecified; R03.0 Elevated blood-pressure reading, without diagnosis of hypertension; R42 Dizziness and giddiness; E66.812 Obesity, class 2; Z79.890 Hormone replacement therapy; Z79.899 Other long term (current) drug therapy; Z87.891 Personal history of nicotine dependence; Z23 Encounter for immunization; Z82.49 Family history of ischemic heart disease and other diseases of the circulatory system
CPT/HCPCS: 36415; 70450; 70496; 70498; 70551; 80048; 80053; 80061; 81001; 82607; 82728; 82746; 83036; 83540; 83550; 83735; 84443; 84484; 85025; 87086; 87088; 90662; 93005; 93306; 94668; 97162; 97166; 97802; 99252; 99285; J7030; Q9957; Q9967; A4216; C8929; G0463

== ENCOUNTER → 2024-10-21 | Outpatient (CLI) | payer MEDICARE, SELFPAY | END | disposition home or self-care (01) | PROVIDERS: PCP Internal Medicine; Referring Provider Physician Assistant; Visit Provider Physician Assistant | DX: G47.33 Obstructive sleep apnea (adult) (pediatric) (principal) | CPT/HCPCS: 95810 ==

== ENCOUNTER → 2024-10-22 | Outpatient (CLI) | payer MEDICARE, SELFPAY ==
--- NOTE | 2024-10-23 08:48 | STRESSREP_ITS ---
Stress Test Report Date: 10/22/2024 Procedure: Pharmacologic stress nuclear imaging study Indications: Dyspnea Consent: Per the patient Procedure: The patient underwent pharmacologic (Regadenoson 0.4mg ) evaluation with a peak heart rate of 107 beats per minute (73%predicted maximal heart rate) and a peak blood pressure of 138/80 mmHg. The baseline ECG demonstrated sinus rhythm. The peak pharmacologic ECG demonstrated no ischemic change. There were no cardiac dysrhythmias pretest, during pharmacologic infusion, or recovery. There was no complaint of chest discomfort during pharmacologic infusion or recovery. The patient was injected with 14.6 millicuries of technetium 99m Cardiolite and subsequently rest SPECT Cardiolite nuclear imaging was obtained in the horizontal long, vertical long, and short axis views. The patient underwent pharmacologic (Regadenoson) evaluation. The patient was injected with 45.0 millicuries of technetium 99m Cardiolite and subsequently stress SPECT Cardiolite nuclear imaging was obtained in the horizontal long, vertical long, and short axis views. A gated Cardiolite study at peak stress was obtained. The examination was stopped secondary to completion of protocol. Rest and stress SPECT Cardiolite nuclear imaging status post realignment, normalization, and attenuation correction demonstrate no fixed or reversible perfusion defects. There is end systolic thickening and brightening. The gated Cardiolite study demonstrates myocardial thickening and inward wall motion. The reported LVEF is 82%. Impression: 1. Pharmacologic (Regadenoson) evaluation 2. Peak pharmacologic ECG with no diagnostic ischemic changes. 3. There were no cardiac dysrhythmias pretest, during pharmacologic infusion, or recovery. 5. Rest and stress SPECT Cardiolite nuclear imaging demonstrate relative uniform tracer uptake and myocardial perfusion appearing within normal limits. 6. The gated Cardiolite study reports an LVEF of 82%. This note was generated with VeriShowation software. It may contain incorrect words, spelling, and punctuation that were not noted in checking the note before signing.
== END | disposition home or self-care (01) ==
LOC: CVS 05:24
PROVIDERS: PCP Internal Medicine; Referring Provider Physician Assistant; Visit Provider Physician Assistant
DX: R06.09 Other forms of dyspnea (principal)
CPT/HCPCS: 78452; 93017; A9500; A4216; J2785

== ENCOUNTER → 2024-11-11 | Outpatient (CLI) | payer MEDICARE, SELFPAY | END | disposition home or self-care (01) | LOC: SL 13:46 | PROVIDERS: PCP Internal Medicine; Referring Provider Physician Assistant; Visit Provider Physician Assistant | DX: Z00.00 Encounter for general adult medical examination without abnormal findings (principal) ==

== ENCOUNTER → 2024-11-12 | Outpatient (CLI) | payer MEDICARE, SELFPAY | END | disposition home or self-care (01) | LOC: PSN 11:49 | PROVIDERS: PCP Internal Medicine; Referring Provider Internal Medicine Cardiovascular Disease; Visit Provider Internal Medicine Cardiovascular Disease | DX: E78.5 Hyperlipidemia, unspecified (principal); R06.09 Other forms of dyspnea; R53.83 Other fatigue; I51.89 Other ill-defined heart diseases; R00.0 Tachycardia, unspecified | CPT/HCPCS: 93225; 93226 ==

== ENCOUNTER → 2024-11-20 | Outpatient (CLI) | payer MEDICARE, SELFPAY ==
--- NOTE | 2024-11-20 13:45 | US_ITS ---
PROCEDURE: ULTRASOUND THYROID REASON FOR EXAM: Evaluate nodule seen on recent CT. TECHNIQUE: REAL-TIME GRAYSCALE AND COLOR-FLOW IMAGING WAS PERFORMED ALONG WITH ROUTINE IMAGE DOCUMENTATION. COMPARISON: CT neck dated 09/15/2024. FINDINGS: Right thyroid lobe measures 4.53 x 1.90 x 1.93 cm.. Left thyroid is surgically absent. Isthmus thickness is surgically absent.. Right thyroid lobe size: Normal. Background Echotexture: Normal. Thyroid Nodules: NODULE: Inferior pole, cystic, 0.9 x 0.8 x 1.0 cm, lobulated margin, well- circumscribed, anechoic, TR 1. NODULE: Inferior pole, solid, 1.5 x 1.3 x 1.5 cm, lobulated margin, well- circumscribed, hyperechoic, no calcification, wider than tall, TR 3. NODULE: Midpole, predominantly solid, 1.2 x 1.1 x 0.8 cm, well-circumscribed, isoechoic, no calcification, wider than tall, TR 3. US/Thyroid IMPRESSION: 1. Status post left hemithyroidectomy. 2. Benign cystic nodule, right inferior pole. 3. TR 3 category nodules in the right mid and inferior poles. No FNA warrante d. Follow-up ultrasound recommended in 12 months. Reading Location: [facility]
== END | disposition home or self-care (01) ==
LOC: US 13:44
PROVIDERS: PCP Internal Medicine; Referring Provider Physician Assistant; Visit Provider Physician Assistant
DX: E04.1 Nontoxic single thyroid nodule (principal)
CPT/HCPCS: 76536

== ENCOUNTER → 2024-12-11 | Outpatient (CLI) | payer MEDICARE, SELFPAY ==
[2024-12-11 14:42] LABS: ALB/GLOB Ratio 1.1 RATIO (0.9-2.4); AST(SGOT) 21 U/L (<=31); Alanine Aminotransfer ALT/SGPT 24 U/L (<=34); Alkaline Phosphatase 95 U/L (35-104); Anion Gap 15 (5-15); BUN 19 mg/dL (4-19); BUN/Creat Ratio 17.5 RATIO (10-20); Calcium,Total 9.2 mg/dL (7.6-11.0); Carbon Dioxide 22.7 mmol/L (21.0-32.0); Chloride 102 mmol/L (98-108); EST Glomerular Filtration Rate 52 (>60); Globulin 3.7 g/dL (2.2-4.2); Glucose 304 mg/dL (70-99); Potassium 3.8 mmol/L (3.3-5.1); Protein, Total 7.7 g/dL (5.9-8.4); Sodium Level 139 mmol/L (133-145); Total Bilirubin 0.36 mg/dL (0.00-1.30)
== END | disposition home or self-care (01) ==
LOC: LAB 13:28
PROVIDERS: PCP Internal Medicine; Referring Provider Internal Medicine Cardiovascular Disease; Visit Provider Internal Medicine Cardiovascular Disease
DX: I47.11 Inappropriate sinus tachycardia, so stated (principal); R06.09 Other forms of dyspnea; R53.83 Other fatigue
CPT/HCPCS: 36415; 80053

== ENCOUNTER 2024-12-30 12:56 | Outpatient (CLI) | payer MEDICARE, SELFPAY ==
--- NOTE | 2024-12-30 12:58 | CT_ITS ---
PROCEDURE: LIMITED CHEST CT CARDIAC ONLY REASON FOR EXAM: R06.09 - OTHER FORMS OF DYSPNEA TECHNIQUE: Supine chest CT with and without contrast, high resolution CT (HRCT) protocol. One or more dose reduction techniques were used (e.g., Automated exposure control, adjustment of the mA and/or kV according to patient size, use of iterative reconstruction technique). COMPARISON: None FINDINGS: Hardware: None Lymph nodes: Small benign-appearing mediastinal lymph nodes. Heart and Vasculature: Normal heart size. No pericardial effusion. Coronary Artery Calcifications: Present Lungs and Airways: Minimal linear scarring in the lingular segment of the left upper lobe as well as the right middle lobe. Pleura: Unremarkable Upper Abdomen: Fatty infiltration of the liver. Bones: Degenerative changes of the thoracic spine. CT/Limited Chest CT Cardiac Only IMPRESSION: Coronary artery calcification (CAC) is is present Reading Location: [id number]
[2024-12-30 13:13] VITALS: BP 163/71; PULSE 82; RESP 18; O2SAT 97; BMI 35.4
[2024-12-30 13:35] VITALS: BP 117/67; PULSE 77
[2024-12-30] MEDS: Metoprolol Tartrate 5 MG/5 ML Vial IV (13:35)
[2024-12-30] MEDS: Nitroglycerin SL (ED/IMG/CATH) 0.4 MG TABLET SL (13:39)
[2024-12-30 13:42] VITALS: BP 132/72
[2024-12-30 13:48] VITALS: BP 110/57; PULSE 69; RESP 18; O2SAT 96
[2024-12-30 13:51] VITALS: BP 126/62; PULSE 67; RESP 18; O2SAT 96
--- NOTE | 2024-12-31 08:18 | CCTA.WCONT ---
CCTA w/Cont Coronary Arteries Date of Study:: 12/30/24 Dyspnea Coronary Calcium Scoring: High-resolution Computed Tomographic imaging of the chest was performed on [12/30/2024], with particular attention paid to the coronary arteries. Intravenous contrast agent was administered per protocol and images reconstructed and displayed. LEFT MAIN CORONARY ARTERY: Coronary calcium score of 0. The left main arises from the left coronary cusp with no significant calcification or atherosclerotic plaquing noted. It bifurcates into left anterior descending artery and left circumflex artery. [] LEFT ANTERIOR DESCENDING CORONARY ARTERY: Coronary calcium score of 288. This vessel arises from the left main coronary artery. The proximal portion appears to be free of significant atherosclerotic plaquing but there is an eccentric 40 to 50% plaque noted in the midsegment of the LAD with the distal vessel being free of significant disease. [] LEFT CIRCUMFLEX CORONARY ARTERY: Coronary calcium score of 26. The proximal circumflex artery appears to be free of significant disease there is mild calcification noted in the vessel continues with no high-grade plaquing present. [] RIGHT CORONARY ARTERY: Coronary calcium score of 31. This arises from the right coronary cusp there is mild calcification noted in the vessel is noted to be a small vessel. [] THORACIC AORTA: [] PULMONARY ARTERY: [] LEFT ATRIUM/APPENDAGE: [] MITRAL VALVE: [] AORTIC VALVE: [] LEFT VENTRICLE: [] CORONARY CALCIUM SCORE: Total coronary calcium score of 346. Percentile ranking of [address] angiogram demonstrating moderate calcification noted in the LAD with eccentric plaquing. []
== END 2024-12-30 23:59 | disposition home or self-care (01) ==
PROVIDERS: PCP Internal Medicine; Referring Provider Internal Medicine Cardiovascular Disease; Visit Provider Internal Medicine Cardiovascular Disease
DX: I25.10 Atherosclerotic heart disease of native coronary artery without angina pectoris (principal); R06.09 Other forms of dyspnea; R53.83 Other fatigue; R00.0 Tachycardia, unspecified; I51.89 Other ill-defined heart diseases; E78.5 Hyperlipidemia, unspecified
CPT/HCPCS: 75571; 75574; 76380; 96374; Q9967

== ENCOUNTER → 2025-03-31 | Outpatient (CLI) | payer MEDICARE, SELFPAY ==
--- NOTE | 2025-03-31 13:15 | BI_ITS ---
EXAM: SCRN MAMM (CAD)W/JADA BILAT DATE: 03/31/2025 CLINICAL HISTORY: F, Age 74 y/o , SCREENING TECHNIQUE: SCRN MAMM (CAD)W/JADA BILAT COMPARISON: Prior exam(s) dated 03/28/2024, 03/28/2023 03/27/2022. FINDINGS: TISSUE DENSITY: There are scattered areas of fibroglandular density. Bilateral Breast Mammographic Findings: No significant masses, calcifications or other abnormalities are identified. BI/SCRN MAMM (CAD)W/JADA BILAT IMPRESSION: There is no mammographic evidence of malignancy. OVERALL FINAL ASSESSMENT BI-RADS 1: NEGATIVE. RECOMMEND ANNUAL MAMMOGRAPHIC SCREENING. RECOMMENDATION: Routine annual follow-up in 1 Year A letter with findings and recommendations will be mailed to the patient. Reading Location: [id number]
--- OUTSIDE RECORDS SUMMARY | 2025-03-31 22:30 | XMS RPT_ITS | CCD ---
Author Organization [facility] Care Team Providers Care Diesel Dinkey Engineer Name Role Phone Radha Queen LPN N Unavailable Sol Bartlett LPN Unavailable Unavailab le Sol Bartlett LPN Unavailable Unavailab le ORALIA HILL, DR TOSCANO Primary Care Physician Yrn PT, Shadia Unavailable Unavailable Dr. Dorcas Palafox Primary Care Provider [phone] Dr. Nikita Malik Attending Provider Dr. Vivian Mcdaniels Referring Provider ORALIA HILL, DR TOSCANO Primary Care Physician [phone] ORALIA HILL, DR TOSCANO Primary Care Unavailable ORALIA DO, DR TOSCANO Attending Unavailable ORALIA DO, DR TOSCANO Primary Care Unavailable ORALIA DO, DR TOSCANO Attending Unavailable PEPPER WILLINGHAM Attending Unavailable ORALIA DO, DR TOSCANO Primary Care Unavailable ORALIA DO, DR TOSCANO Primary Care Unavailable ORALIA DO, DR TOSCANO Attending Unavailable DORCAS PALAFOX Attending Unavailable DORCAS PALAFXO Primary Care Unavailable Jose L MCINTYRE, Dr. Galvez Primary Care Provider Ventura MCINTYRE, Dr. Blanton Emergency Provider Rita MCINTYRE, Dr. [place] Moses Admit Provider Rita MCINTYRE, Dr. [place] Moses Other Provider [phone] Dr. Obi Moran DO Attending Provider Dr. [place] Salinas MD Attending Provider Dr. Nikita Malik MD Attending Provider Dr. Obi Moran DO Other Provider [phone] Jose L MCINTYRE, Dr. Galvez Referring Provider Giacomo Brian Attending Provider [phone] Jose L MCINTYRE, Dr. Galvez Attending Provider Giacomo Brian Referring Provider [phone] Leonardo MCINTYRE, Dr. Carreno Attending Provider Giacomo Brian Other Provider Leonardo MCINTYRE, Dr. Carreno Referring Provider Leonardo MCINTYRE, Dr. Carreno Other Provider [phone] [place], Leonor Referring Unavailable Wayvandana PAGiacomo Attending Unavailable [place], Leonor Primary Care Unavailable Wayt PA, Giacomo Attending Unavailable Wayt PA, Giacomo Referring Unavailable [place], Leonor Primary Care Unavailable Wayt PA, Giacomo Attending Unavailable Wayt PA, Giacomo Referring Unavailable [place], Leonor Primary Care Unavailable Leonardo, Wai Referring Unavailable Leonardo, Wai Attending Unavailable [place], Leonor Primary Care Unavailable Obi Moran Attending Unavailable White, [place] L Admitting Unavailable White, [place] L Consulting Unavailable [place], Leonor Primary Care Unavailable Obi Moran Consulting Unavailable White, [place] L Admitting Unavailable White, [place] L Consulting Unavailable White, [place] L Attending Unavailable Jose L, Leonor Primary Care Unavailable Helena, Nikita Attending Unavailable [place], Leonor Primary Care Unavailable Jamal Hebert Referring Unavailable Helena, Nikita Attending Unavailable [place], Leonor Primary Care Unavailable Leonardo, Wai Referring Unavailable Leonardo, Wai Attending Unavailable [place], Leonor Primary Care Unavailable Wayt PA, Giacomo Attending Unavailable Wayt PA, Giacomo Referring Unavailable [place], Leonor Primary Care Unavailable Wayt PA, Giacomo Attending Unavailable Wayt PA, Giacomo Referring Unavailable Jose L, Leonor Primary Care Unavailable White, [place] L Admitting Unavailable White, [place] L Consulting Unavailable Obi Moran Attending Unavailable Jose L, Leonor Primary Care Unavailable Jose L, Leonor Referring Unavailable Jsoe L, Leonor Primary Care Unavailable [place], Leonor Attending Unavailable Jose L, Leonor Referring Unavailable [place], Leonor Attending Unavailable Jose L, Leonor Primary Care Unavailable [place], Leonor Referring Unavailable Giacomo Brian Attending Unavailable [place], Leonor Primary Care Unavailable Leonardo, Wai Attending Unavailable [place], Leonor Referring Unavailable [place], Leonor Primary Care Unavailable Leonardo, Wai Referring Unavailable [place], Leonor Primary Care Unavailable Helena, [place] Attending Unavailable Hebert, Jamal Referring Unavailable Jose L, Leonor Primary Care Unavailable Hebert, Jamal Attending Unavailable Hebert, Jamal Attending Unavailable Hebert, Jamal Referring Unavailable [place], Leonor Primary Care Unavailable Hebert, Jamal Attending Unavailable Hebert, Jamal Referring Unavailable Jose L, Leonor Primary Care Unavailable Leonardo, Wai Referring Unavailable Leonardo, Wai Attending Unavailable [place], Leonor Primary Care Unavailable Leonardo, Wai Attending Unavailable Giacomo Brian Referring Unavailable [place], Leonor Primary Care Unavailable Leonardo, Wai Attending Unavailable Giacomo Brian Referring Unavailable Giacomo Brian Consulting Unavailable Jose L, Leonor Primary Care Unavailable Leonardo, Wai Referring Unavailable Leonardo, Wai Consulting Unavailable Jose L, Leonor Primary Care Unavailable Helena, [place] Attending Unavailable Jose L, Leonor Referring Unavailable Jose L, Leonor Primary Care Unavailable [place], [place] Attending Unavailable Leonardo, Wai Referring Unavailable Leonardo, Wai Attending Unavailable Jose L, Leonor Primary Care Unavailable Leonardo, Wai Attending Unavailable Jose L, Leonor Referring Unavailable [place], Leon[place] Primary Care Unavailable Jose L, Leon[place] Referring Unavailable Jose L, Leonor Primary Care Unavailable Giacomo Brian Attending Unavailable Allergies Allergy Classification Reported Allergen(s) Allergy Type Date of Onset Reaction(s) Facility (9 sources) Adhesive Tape Allergy to substance Burn injury (morphologic abnormality) [facility] Work Phone: (9 sources) oxyCODONE; Translations: [oxycodone] Drug Allergy Unknown [facility] Work Phone: Medications Current Medications Medication [...] twice daily Start Date: 02/14/22 Status: Ordered aspirin 81 mg chewable tablet (2 sources) Platelet Aggregation Inhibitor, Nonsteroidal Anti-inflammatory Drug Start: 09-15-2024 take 1 tablet by mouth at breakfast Aspirin 81 mg Tablet,Chewable Active 81 mg PO WITH BREAKFAST September 15, 2024 1:00am atorvastatin 40 mg oral tablet (4 sources) HMG-CoA Reductase Inhibitor Start: 09-15-2024 End: 12-12-2024 take 1 tablet by mouth once daily Atorvastatin 40 mg tablet Active 40 mg PO DAILY 90 December 12, 2024 1:37pm [facility] (3 sources) Start: 08-19-2021 DME [facility] See Instructions, Dx S92.909A; dispense one walking boot for fracture, # 1 EA, 0 Refill(s), Foot fracture, 95.8 Start Date: 08/19/21 Status: Ordered dorzolamide 20 mg/ml / timolol 5 mg/ml ophthalmic solution (6 sources) Carbonic Anhydrase Inhibitor, beta-Adrenergic Norman Start: 12-30-2024 Dorzolamide-Timolol 22.3-6.8 mg/mL drops Active 1 NMA OPHTHALMIC TWICE A DAY December 30, 2024 12:00am Start: 08-15-2022 dorzolamide-ti molol 2.23%-0.68% ophthalmic solution Dose = 1 drop(s), Ophthalmic, BID, # 10 mL, 0 Refill(s) Start Date: 08/15/22 Status: Ordered escitalopram 20 mg oral tablet (2 sources) Serotonin Reuptake Inhibitor Start: 08-14-2023 escitalopram 20 mg oral tablet Dose : 20 mg = 1 tab(s), Oral, qDay, # 90 tab(s), 0 Refill(s), Pharmacy: [facility], 156, cm, 08/14/23 13:20:00 EST, Height, kg, 08/14/23 13:20:00 EST, Dosing Weight Start Date: 08/14/23 Status: Ordered Start: 02-13-2023 Lexapro 10 mg oral tablet Dose : 10 mg = 1 tab(s), Oral, Daily, # 90 tab(s), 1 Refill(s), Pharmacy: [facility], 156, cm, 02/13/23 11:08:00 [...] APS as directed OMEGA-3 FATTY ACIDS CAPS [id number] Sol Bartlett LPN fluorometholone 1 mg/ml ophthalmic suspension (5 sources) Corticosteroid Start: 11-10-2022 take 1 dose into the eye(s) twice daily fluorometholone 0.1% ophthalmic suspension Dose = 1 drop(s), Eyes, both, BID, # 10 mL, 0 Refill(s) Start Date: 11/10/22 Status: Ordered 14 actuat fluticasone furoate 0.1 mg/actuat / umeclidinium 0.0625 mg/actuat / vilanterol 0.025 mg/actuat dry powder inhaler (2 sources) Anticholinergic, Corticosteroid, beta2-Adrenergic Agonist Start: 12-12-2024 Fluticasone-Umeclidi n-Vilanter (Trelegy Ellipta) 100-62.5-25 mcg blister with device Active 1 NMA INHALATION Q24H December 12, 2024 12:00am Garlic (16 sources) Non-Standardized Food Allergenic Extract Start: 07-06-2020 take 1000 mg by mouth once daily Garlic Active 1000 MG PO DAILY July 06, 2020 2:17pm Start: 07-06-2020 End: 09-14-2024 take 1 capsule by mouth once daily Garlic 1,000 MG capsule Discontinued 1000 mg PO DAILY July 06, 2020 12:00am September 14, 2024 11:38pm Start: 07-06-2020 take 1000 mg by mout h once daily Garlic Active 1000 MG PO DAILY July 06, 2020 12:00am Start: 08-15-2019 take 1 capsule by mo uth once daily garlic oral capsule Dose = 1 cap(s), Oral, Daily, 0 Refill(s) Start Date: 08/15/19 Status: Ordered Start: 03-10-2017 GARLIC 1500 CA PS as directed GARLIC CAPS [id number] Sol Bartlett LPN Start: 03-10-2017 GARLIC 1500 CA PS as directed GARLIC CAPS [id number] Sol Bartlett LPN hydrOXYzine pamoate 25 mg oral capsule (8 sources) Antihistamine Start: 09-14-2024 End: 12-12-2024 take 1 capsule by mouth twice daily as needed for anxiety Hydroxyzine Pamoate 25 mg capsule Active 25 mg PO TWICE DAILY NEEDED as needed for anxiety 120 December 12, 2024 1:37pm Start: 04-02-2024 hydrOXYzine pa moate 25 mg oral capsule Dose : 25 mg = 1 cap(s), Oral, BID, TAKE 1 CAPSULE BY MOUTH TWICE DAILY NEEDED FOR ANXIETY, # 180 cap(s), 0 Refill(s), Pharmacy: [facility], 160, cm, 02/28/24 13:30:00 EDT, Height, kg, 01/08/24 13:29:00 EDT, Dosing Weight Start Date: 04/02/24 Status: Ordered Start: 07-10-2023 hydrOXYzine pa moate 25 mg oral capsule Dose : 25 mg = 1 cap(s), Oral, BID, TAKE 1 CAPSULE BY MOUTH TWICE DAILY NEEDED FOR ANXIETY, # 180 cap(s), 0 Refill(s), Pharmacy: [facility], 156, cm, 06/08/23 14:32:00 EDT, Height, kg, 06/08/23 14:32:00 EDT, Dosing Weight Start Date: 07/10/23 Status: Ordered latanoprost 0.05 mg/ml ophthalmic solution (15 sources) Prostaglandin Analog Start: 11-06-[address] 0.005% ophthalmic solution 0 Refill(s) Start Date: 11/06/19 Status: Ordered Start: 11-06-2019 latanoprost 0. 005% ophthalmic solution 0 Refill(s) Start Date: 11/06/19 Status: Ordered Start: 09-10-2018 End: 09-15-2024 Latanoprost (Xalatan) 0.005 % drops Discontinued 1 NMA EACH EYE AT BEDTIME September 10, 2018 1:00am September 15, 2024 4:05pm Start: 09-10-2018 Latanoprost (X alatan) 0.005 % drops Active 1 DRP EACH EYE AT BEDTIME September 10, 2018 1:26pm Start: 03-10-2017 XALATAN SOLN a s directed LATANOPROST SOLN [id number] Sol Bartlett LPN Start: 03-10-[address] as directed LATANOPROST SOLN [id number] Sol Bartlett LPN Start: 03-10-2017 XALATAN SOLN a s directed LATANOPROST SOLN [id number] Sol Bartlett LPN Start: 03-10-[address] as directed LATANOPROST SOLN [id number] Sol Bartlett LPN levothyroxine sodium 0.05 mg oral tablet (16 sources) l-Thyroxine Start: 02-29-2024 levothyroxine 50 mcg (0.05 mg) oral tablet Dose : 50 mcg = 1 tab(s), Oral, qDay, # 90 tab(s), 1 Refill(s), Pharmacy: [facility], 160, cm, 02/28/24 13:30:00 EDT, Height, kg, 01/08/24 13:29:00 EDT, Dosing Weight Start Date: 02/29/24 Status: Ordered Start: 08-14-2023 End: 02-10-2024 levothyroxine 50 mcg (0.05 m g) oral tablet Dose : 50 mcg = 1 tab(s), Oral, qDay, # 90 tab(s), 1 Refill(s), Pharmacy: [facility], 156, cm, 08/14/23 13:20:00 EST, Height, kg, 08/14/23 13:20:00 EST, Dosing Weight Start Date: 08/14/23 Stop Date: 02/10/24 Status: Ordered Start: 02-13-2023 End: 08-12-2023 levothyroxine 50 mcg (0.05 m g) oral tablet Dose : 50 mcg = 1 tab(s), Oral, qDay, # 90 tab(s), 1 Refill(s), Pharmacy: [facility], 156, cm, 02/13/23 11:08:00 EDT, Height, kg, 02/13/23 11:08:00 EDT, Dosing Weight Start Date: 02/13/23 Stop Date: 08/12/23 Status: Ordered Start: 02-14-2022 End: 08-13-2022 levothyroxine 50 mcg (0.05 m g) oral tablet Dose : 50 mcg = 1 tab(s), Oral, qDay, # 90 tab(s), 1 Refill(s), Pharmacy: [facility], 156, cm, 02/14/22 9:27:00 EDT, Height, kg, 02/14/22 9:27:00 EDT, Dosing Weight Start Date: 02/14/22 Stop Date: 08/13/22 Status: Ordered Start: 05-19-2021 End: 11-15-2021 levothyroxine 50 mcg (0.05 m g) oral tablet Dose : 50 mcg = 1 tab(s), Oral, qDay, # 90 tab(s), 1 Refill(s), Pharmacy: [facility], 156, cm, 05/19/21 9:51:00 EDT, Height, kg, 05/19/21 9:51:00 EDT, Dosing Weight Start Date: 05/19/21 Stop Date: 11/15/21 Status: Ordered Start: 07-06-2020 take 1 tablet by eyad th at bedtime Levothyroxine 50 MCG tablet Active 50 ug PO AT BEDTIME July 06, 2020 12:00am Start: 03-10-2017 SYNTHROID TABS as directed LEVOTHYROXINE SODIUM TABS [id number] Sol Bartlett LPN Start: 03-10-2017 SYNTHROID TABS as directed LEVOTHYROXINE SODIUM TABS [id number] Sol Bartlett LPN lisinopril 5 mg oral tablet (2 sources) Angiotensin Converting Enzyme Inhibitor Start: 12-12-2024 take 1 tablet by mouth once daily Lisinopril 5 mg tablet Active 5 mg PO daily December 12, 2024 12:00am meloxicam 15 mg oral tablet (20 sources) Nonsteroidal Anti-inflammatory Drug Start: 12-30-2024 take 1 tablet by mouth once daily Meloxicam 15 mg tablet Active 15 mg PO DAILY December 30, 2024 12:00am Start: 12-11-2024 End: 12-13-2024 Meloxicam 15 mg tablet Disco ntinued mg PO December 11, 2024 12:00am December 13, 2024 11:47am Start: 01-23-2018 End: 09-14-2024 meloxicam 15 mg oral tablet Dose : 15 mg = 1 tab(s), Oral, qDay, # 90 tab(s), 0 Refill(s), Pharmacy: [facility], 160, cm, 02/28/24 13:30:00 EDT, Height, kg, 01/08/24 13:29:00 EDT, Dosing Weight Start Date: 04/02/24 Status: Ordered Start: 03-10-2017 MELOXICAM TABS as directed MELOXICAM TABS [id number] Sol Bartlett LPN Start: 03-10-2017 MELOXICAM TABS as directed MELOXICAM TABS [id number] Sol Bartlett LPN 24 hr metFORMIN hydrochloride 500 mg extended release oral tablet (2 sources) Biguanide Start: 12-12-2024 take 1 tablet by mouth twice daily Metformin 500 mg tablet extended release 24 hr Active 500 mg PO TWICE A DAY December 12, 2024 12:00am 24 hr metoprolol succinate 50 mg extended release oral tablet (4 sources) beta-Adrenergic Norman Start: 12-11-2024 take 1 tablet by mouth once daily Metoprolol Succinate 50 mg tablet extended release 24 hr Active 50 mg PO daily December 11, 2024 12:00am Start: 10-28-2024 End: 12-01-2024 take 1 tablet by mouth every hour Metoprolol Tartrate 50 mg tablet Discontinued 50 mg PO ONCE 1 October 28, 2024 1:00am December 01, 2024 4:52pm Take (1) tablet by mouth (1) hour prior to Cardiac Angiogram and Calcium Scoring diagnostic examination. Multivitamin preparation (9 sources) Start: 08-15-2019 take 1 tablet by mouth once daily Multivitamin Dose = 1 tab(s), Oral, Daily, 0 Refill(s) Start Date: 08/15/19 Status: Ordered Multivitamin With Minerals (2 sources) Start: 07-06-2020 take 1 tablet by mouth once daily Multivitamin With Minerals Active 1 TABLET PO DAILY July 06, 2020 2:17pm Start: 07-06-2020 take 1 tablet by eyad th once daily Multivitamin With Minerals Active 1 TABLET PO DAILY July 06, 2020 12:00am Multivitamin With Minerals 1 EACH tablet (2 sources) Start: 07-06-2020 take 1 tablet by mouth once daily Multivitamin With Minerals 1 EACH tablet Active 1 {tbl} PO DAILY July 06, 2020 12:00am Jarbidge-3 Fatty Acids-Fish Oil (2 sources) Start: 07-06-2020 take 1000 mg by mouth once daily Jarbidge-3 Fatty Acids-Fish Oil Active 1000 MG PO DAILY July 06, 2020 2:17pm Start: 07-06-2020 take 1000 mg by mout h once daily Jarbidge-3 Fatty Acids-Fish Oil Active 1000 MG PO DAILY July 06, 2020 12:00am PEG-3350 with Electrolytes (Eqv-GoLYTELY) oral powder for reconstitution (1 source) Start: 08-29-2023 PEG-3350 with Electrolytes (Eqv-GoLYTELY) oral powder for reconstitution See Instructions, Take as directed 1 day before colonoscopy. Follow instructions as provided by your GI provider at [facility] # 1 EA, 0 Refill(s), Pharmacy: [facility], 156, cm, 08/29/23 13:51:00 EST, Height, kg, 08/29/23 13:51:00 EST, Dosing Weight Start Date: 08/29/23 Status: Ordered prednisoLONE acetate 10 mg/ml ophthalmic suspension (2 sources) Corticosteroid Start: 02-14-2022 prednisoLONE a cetate 1% ophthalmic suspension Place 1 drop in surgical eye four times a day; then as directed Start Date: 02/14/22 Status: Ordered timolol 2.5 mg/ml ophthalmic solution (8 sources) beta-Adrenergic Norman Start: 07-06-2020 Timolol Maleate 5 ML drops Active 1 NMA EACH EYE TWICE A DAY July 06, 2020 12:00am Start: 07-06-2020 Timolol Maleat e Active 1 DRP EACH EYE TWICE A DAY July 06, 2020 2:17pm Start: 11-06-2019 timolol maleat e 0.5% ophthalmic solution 0 Refill(s) Start Date: 11/06/19 Status: Ordered Start: 11-06-2019 timolol maleat e 0.5% ophthalmic solution 0 Refill(s) Start Date: 11/06/19 Status: Ordered 24 hr venlafaxine 37.5 mg extended release oral capsule (5 sources) Serotonin and Norepinephrine Reuptake Inhibitor Start: 09-14-2024 take 1 capsule by mouth twice daily Venlafaxine 37.5 mg capsule,extended release 24hr Active 37.5 mg PO TWICE A DAY September 14, 2024 1:00am Start: 04-02-2024 Effexor XR 37. 5 mg oral capsule, extended release Dose : 37.5 mg = 1 cap(s), Oral, BID, # 180 cap(s), 0 Refill(s), Pharmacy: [facility], 160, cm, 02/28/24 13:30:00 EDT, Height, kg, 01/08/24 13:29:00 EDT, Dosing Weight Start Date: 04/02/24 Status: Ordered Start: 02-29-2024 Effexor XR 37. 5 mg oral capsule, extended release Dose : 37.5 mg = 1 cap(s), Oral, BID, # 180 cap(s), 3 Refill(s), Pharmacy: [facility], 160, cm, 02/28/24 13:30:00 EDT, Height, kg, 01/08/24 13:29:00 EDT, Dosing Weight Start Date: 02/29/24 Status: Ordered Start: 01-08-2024 Effexor XR 37. 5 mg oral capsule, extended release Dose : 37.5 mg = 1 cap(s), Oral, BID, # 60 cap(s), 1 Refill(s), Pharmacy: [facility], 160, cm, 01/08/24 13:29:00 EDT, Height, kg, 01/08/24 13:29:00 EDT, Dosing Weight Start Date: 01/08/24 Status: Ordered Benefiber (9 sources) Start: 08-15-2019 Benefiber gram (s), Oral, BID, 0 Refill(s) Start Date: 08/15/19 Status: Ordered Completed/Discontinued Medications Medication Drug Class(es) Dates Sig (Normalized) Sig (Original) acetaminophen 325 mg / oxyCODONE hydrochloride 5 mg oral tablet (16 sources) Opioid Agonist Start: 12-12-2021 End: 09-14-2024 Oxycodone-Acetamino phen 1 TABLET tablet Discontinued 2 {tbl} PO EVERY 8 HOURS NEEDED as needed for Pain 19 04December 12, 2021 September 14, 2024 11:39pm Start: 12-12-2021 take 2 tablets by mo uth every eight hours as needed Oxycodone-Acetaminophen Active 2 TABLET PO EVERY 8 HOURS NEEDED 19 04December 12, 2021 4:26pm Start: 11-29-2021 End: 09-14-2024 Oxycodone-Acetaminophen (Per cocet) 5-325 mg tablet Discontinued 1 {tbl} PO EVERY 6 HOURS as needed for pain 09 02November 29, 2021 September 14, 2024 11:39pm Start: 07-05-2020 End: 07-08-2020 Oxycodone-Acetaminophen 1 TA BLET tablet Discontinued 1 {tbl} PO EVERY 6 HOURS NEEDED as needed for Pain 09 02July 05, 2020 July 07, 2020 12:00am July 08, 2020 12:02am Start: 07-05-2020 End: 07-08-2020 take 1 tablet by mouth every six hours as needed Oxycodone-Acetaminophen Discontinued 1 TABLET PO EVERY 6 HOURS NEEDED 09 02July 05, 2020 July 08, 2020 12:02am Start: 08-19-2014 End: 09-10-2018 Oxycodone-Acetaminophen 1 TA BLET tablet Discontinued 1 {tbl} PO EVERY 4 HOURS NEEDED as needed for Pain August 19, 2014 1:00am September 10, 2018 1:26pm Start: 08-19-2014 End: 09-10-2018 take 1 tablet by mouth every four hours as needed Oxycodone-Acetaminophen Discontinued 1 TABLET PO EVERY 4 HOURS NEEDED August 19, 2014 8:05am September 10, 2018 1:26pm AZITHROMYCIN (3 sources) Macrolide Antimicrobial Start: 03-10-2017 ZITHRO MAX Z-ANNY 250 MG TABS take 2 tablets today, one for the next 4 days AZITHROMYCIN [id number] Mahnaz Smith PA-C Start: 03-10-2017 ZITHROMAX Z-PA K 250 MG TABS take 2 tablets today, one for the next 4 days AZITHROMYCIN [id number] Mahnaz Smith PA-C buPROPion hydrochloride 75 mg oral tablet (4 sources) Aminoketone Start: 08-19-2014 End: 09-10-2018 take 1 tablet by mouth once daily Bupropion Hcl 75 MG tablet Discontinued 75 mg PO DAILY August 19, 2014 1:00am September 10, 2018 1:26pm cephalexin 500 mg oral capsule (8 sources) Cephalosporin Antibacterial Start: 12-12-2021 End: 09-14-2024 take 1 capsule by mouth every twelve hours Cephalexin 500 MG capsule Discontinued 500 mg PO EVERY 12 HOURS 6 3 December 12, 2021 12:00am September 14, 2024 11:37pm Start: 07-07-2020 End: 07-10-2020 take 1 capsule by mouth every twelve hours Cephalexin 500 MG capsule Discontinued 500 mg PO EVERY 12 HOURS 6 3 July 07, 2020 12:00am July 09, 2020 12:00am July 10, 2020 12:02am ibuprofen 200 mg oral tablet (4 sources) Nonsteroidal Anti-inflammatory Drug Start: 07-06-2020 End: 09-14-2024 take 2 tablets by mouth once daily as needed for pain Ibuprofen 200 MG tablet Discontinued 400 mg PO DAILY NEEDED as needed for Pain Or Fever July 06, 2020 12:00am September 14, 2024 11:38pm Start: 07-06-2020 take 400 mg by mouth once daily as needed Ibuprofen Active 400 MG PO DAILY NEEDED July 06, 2020 2:17pm levoFLOXacin 750 mg oral tablet (2 sources) Quinolone Antimicrobial Start: 09-15-2024 End: 09-25-2024 take 1 tablet by mouth once daily Levofloxacin 750 mg tablet Discontinued 750 mg PO DAILY 5 September 15, 2024 1:00am September 25, 2024 3:27pm MULTIPLE VITAMIN (3 sources) Start: 03-10-2017 MULTIVITAMINS CAPS as directed MULTIPLE VITAMIN [id number] Sol Bartlett LPN Start: 03-10-2017 MULTIVITAMINS CAPS as directed MULTIPLE VITAMIN [id number] Sol Bartlett LPN OMEGA-3 FATTY ACIDS CAPS (2 sources) Start: 03-10-2017 [facility] FISH OIL CAPS as directed OMEGA-3 FATTY ACIDS CAPS [id number] Sol Bartlett LPN Jarbidge-3 Fatty Acids-Fish Oil 1 EACH capsule (2 sources) Start: 07-06-2020 End: 09-14-2024 take 1 capsule by mouth once daily Jarbidge-3 Fatty Acids-Fish Oil 1 EACH capsule Discontinued 1000 mg PO DAILY July 06, 2020 12:00am September 14, 2024 11:39pm ondansetron 4 mg disintegrating oral tablet (4 sources) Serotonin-3 Receptor Antagonist Start: 11-29-2021 End: 09-14-2024 take 1 tablet by mouth every eight hours as needed for nausea and vomiting Ondansetron 4 mg tablet,disintegratin g Discontinued 4 mg PO Q8H as needed for nausea and vomiting November 29, 2021 1:00am September 14, 2024 11:39pm phenazopyridine hydrochloride 200 mg oral tablet (4 sources) Start: 07-07-2020 End: 07-14-2020 take 1 tablet by mouth three times daily as needed for muscle spasms Phenazopyridine 200 MG tablet Discontinued 200 mg PO 3 TIMES DAILY NEEDED as needed for Bladder Spasms 30 July 07, 2020 12:00am July 13, 2020 12:00am July 14, 2020 12:03am Psyllium (3 sources) Start: 03-10-2017 [facility] FIBER CAPS as directed PSYLLIUM CAPS [id number] Sol Bartlett LPN Start: 03-10-2017 [facility] FIBER CAPS as directed PSYLLIUM CAPS [id number] Sol N Dhruv CERTIFIER rosuvastatin calcium 5 mg oral tablet (4 sources) HMG-CoA Reductase Inhibitor Start: 08-19-2014 End: 09-10-2018 take 1 tablet by mouth at bedtime Rosuvastatin 5 MG tablet Discontinued 5 mg PO AT BEDTIME August 19, 2014 1:00am September 10, 2018 1:26pm tamsulosin hydrochloride 0.4 mg oral capsule (16 sources) alpha-Adrenergic Norman Start: 11-29-2021 End: 09-14-2024 take 1 capsule by mouth once daily Tamsulosin (Flomax) 0.4 mg capsule Discontinued 0.4 mg PO DAILY November 29, 2021 1:00am September 14, 2024 11:39pm Start: 07-05-2020 End: 07-07-2020 take 1 capsule by mouth once daily Tamsulosin 0.4 MG capsule Discontinued 0.4 mg PO DAILY July 06, 2020 2:25pm July 07, 2020 5:55pm Start: 08-19-2014 End: 09-10-2018 take 1 capsule by mouth once daily Tamsulosin 0.4 MG capsule Discontinued 0.4 mg PO DAILY August 19, 2014 1:00am September 10, 2018 1:26pm Problems Active Problems Problem Classification Problem Date Documented Da te Episodic/Chronic Acute and unspecified renal failure (4 sources) Injury of kidney; Translations: [Acute kidney failure, unspecified] 09-01-2024 Episodic Adjustment disorders (5 sources) Adjustment disorder 10-06-2022 Chronic Administrative/social admission (2 sources) First encounter by subject; Translations: [Persons encountering health services in other specified circumstances] Onset: 12-30-2024 12-29-2024 Episodic Anxiety disorders (10 sources) Mixed anxiety and depressive disorder; Translations: [Anxiety disorder, unspecified] Onset: 12-30-2024 10-28-2024 Chronic Calculus of urinary tract (20 sources) Kidney stone; Translations: [Calculus of kidney] Episodic Cardiac dysrhythmias (13 sources) Premature atrial contraction; Translations: [Inappropriate sinus tachycardia] 02-15-2021 Chronic Cardiac dysrhythmias (6 sources) Tachycardia; Translations: [Tachycardia, unspecified] Onset: 12-12-2024 10-28-2024 Episodic Chronic kidney disease (15 sources) Chronic kidney disease stage 3; Translations: [Chronic kidney disease, stage 3 unspecified] 02-15-2021 Chronic Chronic kidney disease (2 sources) Chronic kidney disease; Translations: [Chronic kidney disease, stage 3 unspecified] Onset: 07-29-2024 Chronic obstructive pulmonary disease and bronchiectasis (9 sources) Chronic obstructive lung disease 03-12-2020 Chronic Complications of surgical procedures or medical care (2 sources) Postoperative hypothyroidism; Translations: [Postprocedural hypothyroidism] Onset: 12-30-2024 12-29-2024 Chronic Deficiency and other anemia (6 sources) Anemia; Translations: [Anemia, unspecified] 09-25-2024 Episodic Diabetes mellitus without complication (10 sources) Diabetes mellitus; Translations: [Type 2 diabetes mellitus without complications] Onset: 12-30-2024 09-25-2024 Chronic Diabetes mellitus without complication (13 sources) Hyperglycemia; Translations: [Hyperglycemia, unspecified] Onset: 07-29-2024 02-15-2021 Episodic Disorders of lipid metabolism (20 sources) Hyperlipidemia; Translations: [Hyperlipidemia, unspecified] Onset: 07-29-2024 03-12-2020 Chronic Essential hypertension (12 sources) Benign essential hypertension; Translations: [Essential (primary) hypertension] Onset: 12-30-2024 09-23-2024 Chronic Glaucoma (4 sources) Glaucoma; Translations: [Unspecified glaucoma] 10-16-2013 Chronic Malaise and fatigue (6 sources) Fatigue; Translations: [Other fatigue] Onset: 12-12-2024 09-25-2024 Episodic Mood disorders (7 sources) Depressive disorder; Translations: [Depression] 11-13-2023 Chronic Mood disorders (1 source) Mood disorders; Translations: [Depression, unspecified] Onset: 12-30-2024 Nutritional deficiencies (12 sources) Vitamin D deficiency; Translations: [Vitamin D deficiency, unspecified] Onset: 07-29-2024 02-15-2021 Chronic Nutritional deficiencies (6 sources) Cobalamin deficiency; Translations: [Deficiency of other specified B group vitamins] Onset: 12-30-2024 09-25-2024 Episodic Osteoarthritis (20 sources) Arthritis; Translations: [Osteoarthritis of right knee joint] Onset: 09-09-2024 03-12-2020 Chronic Other and ill-defined heart disease (6 sources) Diastolic dysfunction; Translations: [Other ill-defined heart diseases] 10-28-2024 Chronic Other and ill-defined heart disease (2 sources) Other ill-defined heart diseases; Translations: [Other ill-defined heart diseases] Onset: 12-12-2024 Chronic Other bone disease and musculoskeletal deformities (9 sources) Osteopenia 03-12-2020 Episodic Other bone disease and musculoskeletal deformities (1 source) Disorder of bone; Translations: [Other specified disorders of bone density and structure, unspecified site] Episodic Other bone disease and musculoskeletal deformities (2 sources) Other specified disorders of bone density and structure, unspecified site; Translations: [Other specified disorders of bone density and structure, unspecified site] Onset: 07-29-2024 Episodic Other circulatory disease (5 sources) Elevated blood pressure; Translations: [Elevated blood-pressure reading, without diagnosis of hypertension] 09-25-2024 Episodic Other connective tissue disease (2 sources) History of total knee arthroplasty; Translations: [Presence of right artificial knee joint] 10-28-2024 Chronic Comment on above: Aug 2024 Other connective tissue disease (9 sources) Triggering of digit 02-15-2021 Episodic Other diseases of kidney and ureters (4 sources) Acute renal insufficiency; Translations: [Disorder of kidney and ureter, unspecified] 09-23-2024 Episodic Other lower respiratory disease (17 sources) Dyspnea on exertion; Translations: [Other forms of dyspnea] Episodic Other lower respiratory disease (2 sources) Other forms of dyspnea; Translations: [Other forms of dyspnea] Onset: 01-07-2025 Episodic Other nervous system disorders (9 sources) Piriformis syndrome 08-14-2019 Chronic Other non-traumatic joint disorders (1 source) Pain in wrist; Translations: [Pain in right wrist] 12-29-2024 Episodic Other non-traumatic joint disorders (1 source) Pain in right wrist; Translations: [Pain in right wrist] Onset: 12-30-2024 Episodic Other nutritional; endocrine; and metabolic disorders (2 sources) Body mass index 40+ - severely obese 02-15-2021 Chronic Other nutritional; endocrine; and metabolic disorders (9 sources) Morbid obesity 02-15-2021 Chronic Other nutritional; endocrine; and metabolic disorders (13 sources) Body mass index 30+ - obesity; Translations: [Obesity, unspecified] 02-14-2022 Chronic Other nutritional; endocrine; and metabolic disorders (1 source) Obesity, unspecified; Translations: [Obesity, unspecified] Onset: 12-12-2024 Chronic Other screening for suspected conditions (not mental disorders or infectious disease) (7 sources) Encounter for screening for malignant neoplasm of colon; Translations: [Patient encounter status] Onset: 09-10-2023 Episodic Other upper respiratory disease (7 sources) Allergic rhinitis 02-14-2022 Chronic Residual codes; unclassified (10 sources) Sleep apnea; Translations: [Sleep apnea, unspecified] 10-28-2024 Chronic Residual codes; unclassified (1 source) Obstructive sleep apnea syndrome; Translations: [Obstructive sleep apnea (adult) (pediatric)] 12-29-2024 Chronic Residual codes; unclassified (1 source) Obstructive sleep apnea (adult) (pediatric); Translations: [Obstructive sleep apnea (adult) (pediatric)] Onset: 12-30-2024 Chronic Residual codes; unclassified (9 sources) H/O Spinal surgery 08-15-2019 Episodic Residual codes; unclassified (4 sources) Pain; Translations: [Pain, unspecified] 09-01-2024 Episodic Residual codes; unclassified (4 sources) Family history of cancer of colon 08-29-2023 Episodic Screening and history of mental health and substance abuse codes (9 sources) Ex-smoker 08-15-2019 Episodic Spondylosis; intervertebral disc disorders; other back problems (4 sources) Acute thoracic back pain; Translations: [Dorsalgia, unspecified] 09-01-2024 Episodic Thyroid disorders (20 sources) Hypothyroidism; Translations: [Hypothyroidism, unspecified] Onset: 07-29-2024 03-12-2020 Chronic Unclassified (4 sources) Patient encounter status 08-29-2023 Comment on above: needs repeat 08/2026 Unclassified (2 sources) R06.09 - Other forms of dyspnea Unclassified (1 source) Inappropriate sinus tachycardia, so stated; Translations: [Inappropriate sinus tachycardia, so stated] Onset: 12-21-2024 Past or Other Problems Problem Classification Problem Date Documented Da te Episodic/Chronic Conditions associated with dizziness or vertigo (5 sources) Loss of equilibrium; Translations: [Dizziness and giddiness] Onset: 09-18-2024 09-23-2024 Episodic Deficiency and other anemia (1 source) Anemia, unspecified; Translations: [Anemia, unspecified] Onset: 12-12-2024 Episodic Other circulatory disease (3 sources) Other specified symptoms and signs involving the circulatory and respiratory systems; Translations: [Other specified symptoms and signs involving the circulatory and respiratory systems] Onset: 03-10-2017 03-10-2017 Episodic Other upper respiratory infections (4 sources) Acute pharyngitis; Translations: [Acute sinusitis] Onset: 03-10-2017 09-02-2017 Episodic Urinary tract infections (9 sources) Urinary tract infectious disease; Translations: [Urinary tract infection, site not specified] Onset: 09-15-2024 09-01-2024 Episodic Results Test Name Value Interpretation Reference Range Facility Coronary Angiography CTon Coronary Angiography CT [facility] Imaging Services [address] [address] 12/31/24 0818 MR#: [id number] Acct: [id number] Name: TATE MALLORY Rep #: [id number] : 1950 74 From: Nikita Malik MD PCP: Dr. Leonor Domingo MD Status:REG CLI Y Location: CT CCTA w/Cont Coronary Arteries Date of Study:: 12/30/24 Dyspnea Coronary Calcium Scoring: High-resolution Computed Tomographic imaging of the chest was performed on [12/30/2024], with particular attention paid to the coronary arteries. Intravenous contrast agent was administered per protocol and images reconstructed and displayed. LEFT MAIN CORONARY ARTERY: Coronary calcium score of 0. The left main arises from the left coronary cusp with no significant calcification or atherosclerotic plaquing noted. It bifurcates into left anterior descending artery and left circumflex artery. [] LEFT ANTERIOR DESCENDING CORONARY ARTERY: Coronary calcium score of 288. This vessel arises from the left main coronary artery. The proximal portion appears to be free of significant atherosclerotic plaquing but there is an eccentric 40 to 50% plaque noted in the midsegment of the LAD with the distal vessel being free of significant disease. [] LEFT CIRCUMFLEX CORONARY ARTERY: Coronary calcium score of 26. The proximal circumflex artery appears to be free of significant disease there is mild calcification noted in the vessel continues with no high-grade plaquing present. [] RIGHT CORONARY ARTERY: Coronary calcium score of 31. This arises from the right coronary cusp there is mild calcification noted in the vessel is noted to be a small vessel. [] THORACIC AORTA: [] PULMONARY ARTERY: [] LEFT ATRIUM/APPENDAGE: [] MITRAL VALVE: [] AORTIC VALVE: [] LEFT VENTRICLE: [] CORONARY CALCIUM SCORE: Total coronary calcium score of 346. Percentile ranking of [address] angiogram demonstrating moderate calcification noted in the LAD with eccentric plaquing. [] 12/31/24820 Date Nikita Malik MD Cosigner Signature (if applicable): Date CC: Dr. Leonor Domingo MD; Dr. Wai Patterson MD; Dr. Nikita Malik MD Signed [facility] Limited Chest CT Cardiac Onl yon 12-30-[address] Cardiac Only [facility] Imaging Services [address] [place] [id number] Cardiac Only MR#: [id number] Acct: [id number] Name: TATE MALLORY Rep #: [id number] : 1950 F 74 From: Jairo hugo MD PCP: Dr. Leonor Domingo MD Status: [facility] Study: Limited Chest CT Cardiac Only Date of Exam: Exam# [id number] Ordering Dr: Wai Patterson MD PROCEDURE: LIMITED CHEST CT CARDIAC ONLY REASON FOR EXAM: R06.09 - OTHER FORMS OF DYSPNEA TECHNIQUE: Supine chest CT with and without contrast, high resolution CT (HRCT) protocol. One or more dose reduction techniques were used (e.g., Automated exposure control, adjustment of the mA and/or kV according to patient size, use of iterative reconstruction technique). COMPARISON: None FINDINGS: Hardware: None Lymph nodes: Small benign-appearing mediastinal lymph nodes. Heart and Vasculature: Normal heart size. No pericardial effusion. Coronary Artery Calcifications: Present Lungs and Airways: Minimal linear scarring in the lingular segment of the left upper lobe as well as the right middle lobe. Pleura: Unremarkable Upper Abdomen: Fatty infiltration of the liver. Bones: Degenerative changes of the thoracic spine. CT/Limited Chest CT Cardiac Only IMPRESSION: Coronary artery calcification (CAC) is is present Reading Location: [id number] CC: Dr. Leonor Domingo MD; Dr. 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 IN Chief Complaint: 6 WK fu Director Of Vocational Guidance Required: No Accompanied by: Self Is patient in pain?: No Allergies No Known Allergies Allergy (Verified 12/29/24 14:15) Medications ???Medication ???Instructions ???Recorded ???Confirmed ???Type levothyroxine 50 mcg tablet 50 mcg PO QHS THYROID 07/06/20 History multivitamin with minerals 1 tab PO DAILY SUPPLEMENT 07/06/20 12/29/24 History timolol maleate 0.25 % eye drops 1 drp EACH EYE BID GLAUCOMA 12/29/24 History venlafaxine 37.5 mg 37.5 mg PO BID 09/14/24 12/29/24 H istory capsule,extended release 24 hr aspirin 81 mg chewable tablet 81 mg PO BREAKFAST 30 days #30 tab s 09/15/24 12/29/24 Rx metoprolol succinate 50 mg 50 mg PO QDAY #90 tabs 12/11/24 Rx tablet,extended release 24 hr atorvastatin 40 mg tablet 40 mg PO DAILY 90 days #90 tabs 12/29/24 Rx fluticasone fur. 100 mcg-umeclid 1 inh inhalation Q24H #28 ea 12/1212/29/24 Rx 62.5 mcg-vilant 25 mcg inhalat.powder (Trelegy Ellipta) hydroxyzine pamoate 25 mg capsule 25 mg PO BID PRN PRN anxiety #120 12/12/24 12/29/24 Rx caps lisinopril 5 mg tablet 5 mg PO QDAY #30 tabs 12/12/24 Rx metformin 500 mg tablet,extended 500 mg PO BID #60 tabs 12/12/24 Rx release 24 hr Have you fallen in the past year?: No Nurse's Note: right wrist is painful and radiates into fingers and hands [facility] Anxiety Irregular heart beat Obesity Anxiety and depression CKD (chronic kidney disease), stage III PAF (paroxysmal atrial fibrillation) Bilateral renal stones Wears hearing aid Wears glasses Wears partial dentures Osteoarthritis Former smoker COPD (chronic obstructive pulmonary disease) History of stress test Arthritis Hypothyroidism Surgical History (Updated 12/29/24 @ 14:[address] Leonor Domingo MD) History of total right knee replacement History of appendectomy History of shoulder surgery History of cornea transplant History of microdiscectomy History of colonoscopy History of total left knee replacement History of nasal septoplasty History of tubal ligation History of cataract extraction History of thyroid surgery History of hysterectomy Family History (Updated 12/29/24 @ 14:[address] Leonor Domingo MD) Mother Hypertension Dementia Father Hypertension CAD (coronary artery disease) Myocardial infarction Heart disease Brother Colon cancer Brother Colon cancer Social History (Updated 12/29/24 @ 14:[address] 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 alcohol intake: former substance use type: does not use do you feel safe at home: Yes Questionnaire PQH-9 BMS Over the last 2 weeks, how often have you been bothered by any of the following problems? 1. Little interest or pleasure in doing things: several days 2. Feeling down, depressed, or hopeless: several days 3. Trouble falling or staying asleep, or sleeping too much: several days 4. Feeling tired or having little energy: several days 5. Poor appetite or overeating: not at all 6. Feeling bad about yourself - or that you are a failure or have let yourself and your family down: several days 7. Trouble concentrating on things, such as reading the newspaper or watching television: not at all 8. Moving or speaking so slowly that other people could have noticed? - Or the opposite - being so fidgety or restless that you have been moving around a lot more than usual: not at all 9. Thoughts that you would be better off or of hurting yourself in some way: not at all Total score: 5 If you checked off any problems, how difficult have these problems made it for you to do your work, take care of things at home, or get along with other people?: not difficult at all Source: Developed by Opal Nunez (more content not included)... [facility] Internal Medicine Office Vis [facility] 12-12-2024 Internal Medicine Office Visit [facility] [address] [place] [address] OFFICE VISIT Date of Service: 12/12/24 MR#: [id number] Acct: [id number] Name: TATE MALLORY Rep #: [id number] : 1950 Provider: GASTON Jin Age/Sex: 74/F Location: [facility] – [place] Status: Signed Intake Vital Signs 10/31/24 11:32 12/11/24 12:19 12/12/24 12:59 Height 5 ft 3 in 5 ft 3 in 5 ft 3 in Weight: 210 lb BMI 37.2 BP 136/78 H Blood Pressure Location Lt brachial Position Sitting Respiration 19 H Pulse 95 Pulse Source Monitor Temp 97.0 F L Temp Source Temporal Pulse Oximetry (%) 98 Oxygen Delivery Method room air Intake Visit Reasons: 6 wk FU Chief Complaint: 6 WK fu Is patient in pain?: No Allergies No Known Allergies Allergy (Verified 12/12/24 12:54) Medications ???Medication ???Instructions ???Recorded ???Confirmed ???Type levothyroxine 50 mcg tablet 50 mcg PO QHS THYROID 07/06/20 History multivitamin with minerals 1 tab PO DAILY SUPPLEMENT 07/06/20 12/12/24 History timolol maleate 0.25 % eye drops 1 drp EACH EYE BID GLAUCOMA 12/12/24 History venlafaxine 37.5 mg 37.5 mg PO BID 09/14/24 12/12/24 H istory capsule,extended release 24 hr aspirin 81 mg chewable tablet 81 mg PO BREAKFAST 30 days #30 tab s 09/15/24 12/12/24 Rx metoprolol succinate 50 mg 50 mg PO QDAY #90 tabs 12/11/24 Rx tablet,extended release 24 hr atorvastatin 40 mg tablet 40 mg PO DAILY 90 days #90 tabs 12/12/24 Rx fluticasone fur. 100 mcg-umeclid 1 inh inhalation Q24H #28 ea 12/1212/12/24 Rx 62.5 mcg-vilant 25 mcg inhalat.powder (Trelegy Ellipta) hydroxyzine pamoate 25 mg capsule 25 mg PO BID PRN PRN anxiety #120 12/12/24 12/12/24 Rx caps lisinopril 5 mg tablet 5 mg PO QDAY #30 tabs 12/12/24 Rx metformin 500 mg tablet,extended 500 mg PO BID #60 tabs 12/12/24 Rx release 24 hr Have you fallen in the past year?: Yes (X2) Nurse's Note: pt reports that she has had an increase in shaky hands and shaky legs that have been causing her legs to go out from under her. states this started last August. [facility] Medical History (Updated 12/13/24 @ 11:46 by Giacomo FELDMAN, PA) Anxiety Irregular heart beat Obesity Anxiety and depression CKD (chronic kidney disease), stage III PAF (paroxysmal atrial fibrillation) Bilateral renal stones Wears hearing aid Wears glasses Wears partial dentures Osteoarthritis Former smoker COPD (chronic obstructive pulmonary disease) History of stress test Arthritis Hypothyroidism Surgical History History of appendectomy History of shoulder surgery History of cornea transplant History of microdiscectomy History of colonoscopy History of total left knee replacement History of nasal septoplasty History of tubal ligation History of cataract extraction History of thyroid surgery History of hysterectomy Family History Mother Hypertension Father Hypertension CAD (coronary artery disease) Myocardial infarction Heart disease Social History household members: none Smoking Status: Former smoker how long ago did patient quit smoking: Quit 2011, started in her 20s, smoked 1/2-1 ppd until quit. alcohol intake: never substance use type: does not use HPI HPI Chief Complaint: 6 WK fu Details: TATE MALLORY, is a 74 F who presents to the office today for f/u since visiting the spool cleaner hand. Patient states that she saw her spool cleaner hand to review all of her recent cardiac testing. Patient states that she essentially was told that they don't feel that this is heart related. She states that she is still scheduled for a CT angiogram next month. She states that she still gets winded with exertion (walking out to the mailbox) and with certain activities. She states that this week she was actually for first time she took a shower and washed her face and body and was able to complete the shower without sitting to rest. She states that was the first time she was able to do it without stopping. She is unsure that this was a fluke but again states that maybe has gotten a little bit better. Patient was a smoker for about 20 years but she did quit 15 years ago Patient denies having any type of chest pains or pressures, wheezing, acute shortness of breath, diaphoresis, nausea/vomiting, headaches, fatigue, or other symptoms. ROS Const Constitutional: No body ache, chills, excessive sweating, fatigue, fever(s), frequent falls, headache(s), snoring, weight change, sleep problems, abnormal sleep pattern or change in appetite Eyes Eyes: No blurry v (more content not included)... [facility] - Hematology and Cell countsOrdered By: Giacomo Frost on 12-12-2024 HbA1c (Bld) [Mass fraction] 7.6 % High 4.2-6.3 [facility] Anion gap in Serum or Plasma Ordered By: Wai Patterson on 12-11-2024 Anion gap [Moles/Vol] 15 mmol/L 5-15 [facility] BUN/creatinine ratioOrdered By: Wai Patterson on 12-11-2024 Urea nitrogen/Creatinine [Mass ratio] 17.5 mg/mg 10-20 [facility] Bilirubin, totalOrdered By: Wai Patterson on 12-11-2024 Bilirubin [Mass/Vol] 0.36 mg/dL 0.00-1.30 [facility] Carbon dioxide, total [Moles /volume] in Central venous bloodOrdered By: Wai Patterson on 12-11-2024 CO2 [Moles/Vol] 22.7 mmol/L 21.0-32.0 [facility] Cardiology Visit Reporton Cardiology Visit Report [facility] [address] [place] [address]. [address] [place], [place] [address] OFFICE VISIT Date of Service: 12/11/24 MR#: [id number] Acct: [id number] Name: TATE MALLORY Rep #: [id number] : 1950 Provider: Dr. Wai Patterson MD Age/Sex: 74/F Location: [facility] – [place].[facility] Status: Signed HPI HPI History of Present Illness Details: This lady is here for follow-up visit. Continues to complain of shortness of breath with exertion. Her coronary CT angio is scheduled for next month. Holter monitoring showed average heart rate of 100 bpm. Occasional PACs with some short runs were also noted. Intake Vital Signs 10/31/24 11:32 12/11/24 12:19 Height 5 ft 3 in 5 ft 3 in Weight: 209 lb BMI 37.0 BP 131/83 H Blood Pressure Location Lt brachial Position Sitting Respiration 18 Pulse 101 H Pulse Source NIBP Intake Visit Reasons: 6 WK FU Director Of Vocational Guidance Required: No Accompanied by: Self Is patient in pain?: No Allergies No Known Allergies Allergy (Verified 12/11/24 12:57) Medications ???Medication ???Instructions ???Recorded ???Confirmed ???Type levothyroxine 50 mcg tablet 50 mcg PO QHS THYROID 07/06/2003/25 History multivitamin with minerals 1 tab PO DAILY SUPPLEMENT 07/06/20 12/04/24 History timolol maleate 0.25 % eye drops 1 drp EACH EYE BID GLAUCOMA 12/04/24 History hydroxyzine pamoate 25 mg capsule 25 mg PO BID PRN PRN anxiety 08/3112/04/24 History venlafaxine 37.5 mg 37.5 mg PO BID 09/14/24 12/04/24 H istory capsule,extended release 24 hr aspirin 81 mg chewable tablet 81 mg PO BREAKFAST 30 days #30 tab s 09/15/24 12/04/24 Rx atorvastatin 40 mg tablet 40 mg PO DAILY 30 days #30 tabs 12/04/24 Rx meloxicam 15 mg tablet mg PO 12/11/24 12/11/24 History Ejection fraction %: 65 Have you fallen in the past year?: Yes (repeated falls; no major injury; orthopedic relate) [facility] Medical History Anxiety Anxiety and depression Arthritis Bilateral renal stones CKD (chronic kidney disease), stage III COPD (chronic obstructive pulmonary disease) Former smoker History of stress test Hypothyroidism Irregular heart beat Obesity Osteoarthritis PAF (paroxysmal atrial fibrillation) Wears glasses Wears hearing aid Wears partial dentures Surgical History History of appendectomy History of cataract extraction History of colonoscopy History of cornea transplant History of hysterectomy History of microdiscectomy History of nasal septoplasty History of shoulder surgery History of thyroid surgery History of total left knee replacement History of tubal ligation Family History Mother Hypertension Father Hypertension CAD (coronary artery disease) Myocardial infarction Heart disease Social History household members: none Smoking Status: Former smoker how long ago did patient quit smoking: Quit 2011, started in her 20s, smoked 1/2-1 ppd until quit. alcohol intake: never substance use type: does not use ROS Const Const: Positive for weakness; Negative for fatigue, headache(s) or weight gain ENT ENT: Positive for balance problems; Negative for headache(s), dizziness or Nosebleed/epistaxis Cardio Chest Pain: No Palpitations: No Edema: None Muscle aches with walking: None Resp Respiratory: Positive for SOB with activity and SOB at rest; Negative for SOB orthopnea SOB lying down GI GI: Negative nausea, vomiting or heartburn Musc Musc: Positive for muscle weakness and balance problems; Negative for muscle aches/ myalgia or joint pain Neuro Neuro: Positive for weakness; Negative for dizziness, lightheadedness, near syncope, syncope or headache(s) Endo Endo: Negative for fatigue Cardiology Exam Const Appearance: comfortable and no acute distress Nutritional Appearance: obese Appears comfortable but anxious. Neck Neck: no JVD Carotids: Negative bruit Chest Auscultation: Bilateral: Clear to Auscultation Cardio Rate: regular rate Rhythm: regular rhythm Heart sounds: S1 normal and S2 normal GI GI: obese Neuro General: patient alert, patient awake and patient oriented x3 Extremities Lower Extremity Edema: Trace: Bilateral Supplemental Info Supplemental Information Echocardiogram Complete w/Contrast 09/15/2024: Interpretation Summary Normal LV size. Left ventricular systolic function is normal. The left ventricular ejection fraction is 65 %. Bubble contrast study is negative for PFO/ASD. Contrast injection was performed. Stress Test 10/23/2024: Procedure: Pharmacologic stress nucle (more content not included)... Normal [facility] Chloride assayOrdered By: Jessica Patterson on 12-11-2024 Chloride [Moles/Vol] 102 mmol/L 98-108 [facility] Comprehensive Metabolic Prof ilon 12-11-2024 Albumin [Mass/Vol] 4.0 g/dL Normal 3.4-4.8 [facility] Comment on above: Performed By: #### L 500.8416 #### [facility] [address] [place], [address] Albumin/Globulin [Mass ratio] 1.1 {ratio} Normal 0.9-2.4 [facility] Comment on above: Performed By: #### L 500.4050 #### [facility] [address] [place], [address] ALK PHOS 95 U/L Normal 35-104 [facility] Comment on above: Performed By: #### L 500.4050 #### [facility] [address] [place], [address] ALT [Catalytic activity/Vol] 24 U/L Normal <=34 [facility] Comment on above: Performed By: #### L [id number] #### [facility] [address] [place], [address] AST [Catalytic activity/Vol] 21 U/L Normal <=31 [facility] Comment on above: Performed By: #### L 500.4050 #### [facility] [address] [place], [address] Bilirubin [Mass/Vol] 0.36 mg/dL Normal 0.00-1.30 [facility] Comment on above: Performed By: #### L 500.4050 #### [facility] [address] [place], [address] BUN/CRE 17.5 RATIO Normal 10-20 [facility] Comment on above: Performed By: #### L [id number] #### [facility] [address] [place], [address] Calcium [Mass/Vol] 9.2 mg/dL Normal 7.6-11.0 [facility] Comment on above: Performed By: #### L 500.4050 #### [facility] [address] [place], [address] Chloride [Moles/Vol] 102 mmol/L Normal 98-108 [facility] Comment on above: Performed By: #### L 500.4050 #### [facility] [address] [place], [address] CO2 [Moles/Vol] 22.7 mmol/L Normal 21.0-32.0 [facility] Comment on above: Performed By: #### L 500.4050 #### [facility] [address] [place], [address] Creatinine [Mass/Vol] 1.10 mg/dL Normal 0.70-1.20 [facility] Comment on above: Performed By: #### L 500.4050 #### [facility] [address] [place], [address] GAP 15 Normal 5-15 [facility] Comment on above: Performed By: #### L 500.4050 #### [facility] [address] [place], [address] GFR/1.73 sq M.predicted among non-blacks MDRD (S/P/Bld) [Vol rate/Area] 52 mL/min/{1.73_m2} Low >60 [facility] Comment on above: Result Comment: mL/m in/1.73m2 CKD-EPI Creatinine Equation (2020) Performed By: #### L 500.4050 #### [facility] [address] [place], [address] Globulin (S) [Mass/Vol] 3.7 g/dL Normal 2.2-4.2 [facility] Comment on above: Performed By: #### L 500.4050 #### [facility] [address] [place], [address] Glucose [Mass/Vol] 304 mg/dL High 70-99 [facility] Comment on above: Performed By: #### L 500.4050 #### [facility] [address] [place], [address] Potassium [Moles/Vol] 3.8 mmol/L Normal 3.3-5.1 [facility] Comment on above: Performed By: #### L 500.4050 #### [facility] [address] [place], [address] Sodium [Moles/Vol] 139 mmol/L Normal 133-145 [facility] Comment on above: Performed By: #### L 500.4050 #### [facility] [address] [place], [address] T PROT 7.7 g/dL Normal 5.9-8.4 [facility] Comment on above: Performed By: #### L 500.4050 #### [facility] [address] [place], [address] Urea nitrogen [Mass/Vol] 19 mg/dL Normal 4-19 [facility] Comment on above: Performed By: #### L 500.4050 #### [facility] [address] [place], [address] GFR/1.73 sq M.predicted alexandra g non-blacks MDRD (S/P/Bld) [Vol rate/Area]Ordered By: Wai Patterson on 12-11-2024 Estimated GFR (MDRD) Non-Af Amer 52 Low >60 [facility] Comment on above: mL/min/1.73m2 CKD-EP I Creatinine Equation (2020) Laboratory - Chemistry and C hemistry - challengeOrdered By: Wai Patterson on 12-11-2024 AST [Catalytic activity/Vol] 21 U/L <32 [facility] Potassium (Unsp spec) [Mass/ Vol]Ordered By: Wai Patterson on 12-11-2024 Potassium [Moles/Vol] 3.8 mmol/L 3.3-5.1 [facility] Serum creatinine measurement (mass/volume)Ordered By: Wai Patterson on 12-11-2024 Creatinine [Mass/Vol] 1.10 mg/dL 0.70-1.20 [facility] Serum globulin measurementOr dered By: Wai Patterson on 12-11-2024 Globulin (S) [Mass/Vol] 3.7 g/dL 2.2-4.2 [facility] Serum glucose measurement (m ass/volume)Ordered By: Wai Patterson on 12-11-2024 Glucose [Mass/Vol] 304 mg/dL High 70-99 [facility] Serum or plasma alanine bocanegra otransferase (ALT) measurementOrdered By: Wai Patterson on 12-11-2024 ALT [Catalytic activity/Vol] 24 U/L <35 [facility] Serum or plasma albumin diane urement (mass/volume)Ordered By: Wai Patterson on 12-11-2024 Albumin [Mass/Vol] 4.0 g/dL 3.4-4.8 [facility] Serum or plasma albumin/glob ulin mass ratioOrdered By: Wai Patterson on 12-11-2024 Albumin/Globulin [Mass ratio] 1.1 {ratio} 0.9-2.4 [facility] Serum or plasma alkaline julito sphatase measurementOrdered By: Wai Patterson on 12-11-2024 ALP [Catalytic activity/Vol] 95 U/L 35-104 [facility] Serum or plasma calcium diane urement (mass/volume)Ordered By: Wai Patterson on 12-11-2024 Calcium [Mass/Vol] 9.2 mg/dL 7.6-11.0 [facility] Serum or plasma urea nitroge n measurement (mass/volume)Ordered By: Wai Patterson on 12-11-2024 Urea nitrogen [Mass/Vol] 19 mg/dL 4-19 [facility] Sodium levelOrdered By: Dmitri Patterson on 12-11-2024 Sodium [Moles/Vol] 139 mmol/L 133-145 [facility] Total proteinOrdered By: Clary Patterson on 12-11-2024 Protein [Mass/Vol] 7.7 g/dL 5.9-8.4 [facility] Thyroidon 11-20-2024 Thyroid [facility] Imaging Services [address] [place] [address] [id number] Thyroid MR#: [id number] Acct: [id number] Name: TATE MALLORY Rep #: [id number] : 1950 F 74 From: Alcides Dobbins MD PCP: Dr. Leonor Domingo MD Status: REG CLI Study: Thyroid Date of Exam: 11/20/24 Exam# [id number] Ordering Dr: Giacomo Frost PROCEDURE: ULTRASOUND THYROID REASON FOR EXAM: Evaluate nodule seen on recent CT. TECHNIQUE: REAL-TIME GRAYSCALE AND COLOR-FLOW IMAGING WAS PERFORMED ALONG WITH ROUTINE IMAGE DOCUMENTATION. COMPARISON: CT neck dated 09/15/2024. FINDINGS: Right thyroid lobe measures 4.53 x 1.90 x 1.93 cm.. Left thyroid is surgically absent. Isthmus thickness is surgically absent.. Right thyroid lobe size: Normal. Background Echotexture: Normal. Thyroid Nodules: NODULE: Inferior pole, cystic, 0.9 x 0.8 x 1.0 cm, lobulated margin, well-circumscribed, anechoic, TR 1. NODULE: Inferior pole, solid, 1.5 x 1.3 x 1.5 cm, lobulated margin, well-circumscribed, hyperechoic, no calcification, wider than tall, TR 3. NODULE: Midpole, predominantly solid, 1.2 x 1.1 x 0.8 cm, well-circumscribed, isoechoic, no calcification, wider than tall, TR 3. US/Thyroid IMPRESSION: 1. Status post left hemithyroidectomy. 2. Benign cystic nodule, right inferior pole. 3. TR 3 category nodules in the right mid and inferior poles. No FNA warranted. Follow-up ultrasound recommended in 12 months. Reading Location: [facility] CC: Dr. Leonor Domingo MD; GASTON Jin Horse Breeder: Signed Normal [facility] Internal Medicine Office Vis andreina 10-31-2024 Internal Medicine Office Visit [facility] [address] [place] [address] OFFICE VISIT Date of Service: 10/31/24 MR#: [id number] Acct: [id number] Name: TATE MALLORY Rep #: [id number] : 1950 Provider: GASTON Jin Age/Sex: 73/F Location: [facility] [place] Status: Signed Intake Vital Signs 09/25/24 14:28 10/22/24 10:56 10/28/24 08:25 10/31/24 11:32 10/31/24 11:57 Height 5 ft 3 in 5 ft 3 in 5 ft 3 in 5 ft 3 in Weight: 211 lb 211 lb BMI 37.3 37.3 BP 133/82 H 180/98 H 138/80 H Blood Pressure Location Lt brachial Rt brachial Lt brachial Position Sitting Sitting Sitting Respiration 16 20 H Pulse 102 H 115 H 96 Pulse Source NIBP Monitor Temp 96.6 F L Temp Source Temporal Pulse Oximetry (%) 95 Intake Visit Reasons: ACUTE 1 MONTH FU Chief Complaint: test results Director Of Vocational Guidance Required: No Accompanied by: Self Is patient in pain?: No Allergies No Known Allergies Allergy (Verified 10/31/24 11:29) Medications ???Medication ???Instructions ???Recorded ???Confirmed ???Type levothyroxine 50 mcg tablet 50 mcg PO QHS THYROID 07/06/20 History multivitamin with minerals 1 tab PO DAILY SUPPLEMENT 07/06/20 10/31/24 History timolol maleate 0.25 % eye drops 1 drp EACH EYE BID GLAUCOMA 10/31/24 History hydroxyzine pamoate 25 mg capsule 25 mg PO BID PRN PRN anxiety 08/3110/31/24 History venlafaxine 37.5 mg 37.5 mg PO BID 09/14/24 10/31/24 H istory capsule,extended release 24 hr aspirin 81 mg chewable tablet 81 mg PO BREAKFAST 30 days #30 tab s 09/15/24 10/31/24 Rx atorvastatin 40 mg tablet 40 mg PO DAILY 30 days #30 tabs 10/31/24 Rx metoprolol tartrate 50 mg tablet 50 mg PO ONCE #1 TAB 10/28/2410/03 Rx Have you fallen in the past year?: No Nurse's Note: discuss test results need refills on medication [facility] Medical History Anxiety Irregular heart beat Obesity Anxiety and depression CKD (chronic kidney disease), stage III PAF (paroxysmal atrial fibrillation) Bilateral renal stones Wears hearing aid Wears glasses Wears partial dentures Osteoarthritis Former smoker COPD (chronic obstructive pulmonary disease) History of stress test Arthritis Hypothyroidism Surgical History History of appendectomy History of shoulder surgery History of cornea transplant History of microdiscectomy History of colonoscopy History of total left knee replacement History of nasal septoplasty History of tubal ligation History of cataract extraction History of thyroid surgery History of hysterectomy Family History Mother Hypertension Father Hypertension CAD (coronary artery disease) Myocardial infarction Heart disease Social History household members: none Smoking Status: Former smoker how long ago did patient quit smoking: Quit 2011, started in her 20s, smoked 1/2-1 ppd until quit. alcohol intake: never substance use type: does not use HPI HPI Chief Complaint: test results Details: TATE MALLORY, is a 73 F who presents to the office today to review her recent tests / studies that she had (sleep study and stress test). In the mean time she did see the spool cleaner hand. They were able to review her stress test with her. She is set to have cardiac CT scan due to her risk factors. She started to take Iron supplement back in August. She also was started on Statin medication in her ER and will need a new script for that. She continues to take her venlafaxine for her depression which she states still works. She has been taking the hydroxyzine for the anxiety which she states helps a little. ROS Const Constitutional: No body ache, excessive sweating, fatigue, fever(s), frequent falls, headache(s), snoring, weakness, weight change, sleep problems or change in appetite Eyes Eyes: No blurry vision, change in vision, eye pain or Light sensitivity ENT ENT: No abnormal hearing, ear or mastoid pain, tinnitus, nasal congestion, headache(s), neck pain or sore throat Resp Respiratory: No cough, shortness of breath, snoring or wheezing Cardio Cardiology: No chest pain at rest, chest pain with exertion, excessive sweating, shortness of breath, dyspnea on exertion, lightheadedness, orthopnea or palpitations Gastro GI: No abdominal pain, change in bowel habits, constipation, cramping, diarrhea, nausea/dyspepsia or vomiting Genitourinary-Female: No burning urination, painful urination, urinary incontinence, urinary frequency, blood in urine, abnormal periods or pelvic pain Musc Musculoskeletal: No abnormal gait, joint pain, back pain, limited range (more content not included)... Normal [facility] 12 Lead EKG performed by [facility] [place] on 10-28-2024 12 Lead EKG performed by [facility] [address] [place] [address] 12 Lead EKG performed by [facility] [place] 10/28/24830 MR#: [id number] Acct: [id number] Name: TATE MALLORY Rep #: [id number] : 1950 73 From: Wai Patterson MD Attending Dr: Dr. Wai Patterson MD Status: DEP AMB Ordering Dr: Wai Patterson MD Date: 10/28/24 Location: [facility] – [place].[facility] Sex: F C Admitted: [facility] [place]/12 Lead EKG performed by [facility] [place] ECG Report Interpretation ----Sinus Tachycardia -Left axis -anterior fascicular block. -Anteroseptal infarct -age undetermined. ABNORMAL Electronically signed on 10/29/2024 at 09:[address] Wai Patterson Real Time Translation Software Version 8610 10/29/24930 Date Wai Patterson MD CC: Dr. Leonor Domingo MD Date Dictated: 10/28/24830 Date Transcribed: 10/28/24830 Horse Breeder: JESSICA Signed Normal [facility] Cardiology Visit Reporton Cardiology Visit Report [facility] [address] [place] [address] OFFICE VISIT Date of Service: 10/28/24 MR#: [id number] Acct: [id number] Name: TTAE MALLORY Rep #: [id number] : 1950 Provider: Dr. Wai Patterson MD Age/Sex: 73/F Location: [facility] – [place].[facility] Status: Signed HPI HPI History of Present Illness Details: This lady has past medical history significant for hypothyroidism, dyslipidemia, anxiety and obstructive sleep apnea. He has been referred to us for her complaints of shortness of breath with exertion. According to the patient, she has been having shortness of breath with exertion for the last couple of years. No recent worsening. According to the patient, she gets short of breath with climbing a flight of stairs or walking moderate distance. Denies any chest pains either at rest or with exertion. Denies any palpitations. No orthopnea or PND. Denies any ankle edema. Per patient, she has been told in the past that she may have COPD. Denies any wheezing. Intake Vital Signs 09/25/24 14:28 10/22/24 10:56 10/28/24 08:25 Height 5 ft 3 in 5 ft 3 in 5 ft 3 in Weight: 211 lb BMI 37.3 BP 133/82 H Blood Pressure Location Lt brachial Position Sitting Respiration 16 Pulse 102 H Pulse Source NIBP Intake Visit Reasons: DYSPNEA (WAYT) Director Of Vocational Guidance Required: No Accompanied by: Self Is patient in pain?: No Allergies No Known Allergies Allergy (Verified 10/28/24 11:36) Medications ???Medication ???Instructions ???Recorded ???Confirmed ???Type levothyroxine 50 mcg tablet 50 mcg PO QHS THYROID 07/06/20 10/28/24 History multivitamin with minerals 1 tab PO DAILY SUPPLEMENT 07/06/20 10/28/24 History timolol maleate 0.25 % eye drops 1 drp EACH EYE BID GLAUCOMA 07/06/20 10/28/24 History hydroxyzine pamoate 25 mg capsule 25 mg PO BID PRN PRN anxiety 09/14/24 10/28/24 History venlafaxine 37.5 mg 37.5 mg PO BID 09/14/24 10/28/24 History capsule,extended release 24 hr aspirin 81 mg chewable tablet 81 mg PO BREAKFAST 30 days #30 tabs 09/15/24 10/28/24 Rx atorvastatin 40 mg tablet 40 mg PO DAILY 30 days #30 tabs 09/15/24 10/28/24 Rx Ejection fraction %: 65 Have you fallen in the past year?: No PFSH Medical History (Updated 10/28/24 @ 12:[address] Wai Patterson MD) Anxiety Irregular heart beat Obesity Anxiety and depression CKD (chronic kidney disease), stage III PAF (paroxysmal atrial fibrillation) Bilateral renal stones Wears hearing aid Wears glasses Wears partial dentures Osteoarthritis Former smoker COPD (chronic obstructive pulmonary disease) History of stress test Arthritis Hypothyroidism Surgical History History of appendectomy History of shoulder surgery History of cornea transplant History of microdiscectomy History of colonoscopy History of total left knee replacement History of nasal septoplasty History of tubal ligation History of cataract extraction History of thyroid surgery History of hysterectomy Family History Mother Hypertension Father Hypertension CAD (coronary artery disease) Myocardial infarction Heart disease Social History household members: none Smoking Status: Former smoker how long ago did patient quit smoking: Quit 2011, started in her 20s, smoked 1/2-1 ppd until quit. alcohol intake: never substance use type: does not use ROS Const Const: Positive for fatigue; Negative for weakness, headache(s) or weight gain ENT ENT: Positive for balance problems (occasional); Negative for headache(s), dizziness or Nosebleed/epistaxis Cardio Chest Pain: No Palpitations: No Edema: None Muscle aches with walking: None Resp Respiratory: Positive for SOB with activity; Negative for SOB at rest or SOB orthopnea SOB lying down GI GI: Negative nausea, vomiting or heartburn Musc Musc: Positive for joint pain (right knee; s/p procedure.) and balance problems (occasional); Negative for muscle aches/ myalgia or muscle weakness Neuro Neuro: Negative for dizziness, lightheadedness, near syncope, syncope, headache(s) or weakness Endo Endo: Positive for fatigue Cardiology Exam Const Appearance: comfortable and no acute distress Nutritional Appearance: obese Neck Neck: no JVD Carotids: Negative bruit Chest Auscultation: Bilateral: Clear to Auscultation Cardio Rate: regular rate Rhythm: regular rhythm Heart sounds: S1 normal and S2 normal GI GI: obese Neuro General: patient alert, patient awake and patient oriented x3 Extremities Lower Extremity Edema: Trace: Bilateral Supplemental Info Supplemental Information Echocardiogram Complete (more content not included)... Normal [facility] Stress Reporton 10-23-2024 Stress Report [facility] [address] [place] [address] MR#: [id number] Acct: [id number] Name: TATE MALLORY Rep #: [id number] : 1950 73 From: Wai Patterson MD Primary Care: Dr. Leonor Domingo MD Status: REG CLI Referring Dr: Giacomo Frost Sex: F C Stress Test Report Date: 10/22/2024 Procedure: Pharmacologic stress nuclear imaging study Indications: Dyspnea Consent: Per the patient Procedure: The patient underwent pharmacologic (Regadenoson 0.4mg ) evaluation with a peak heart rate of 107 beats per minute (73%predicted maximal heart rate) and a peak blood pressure of 138/80 mmHg. The baseline ECG demonstrated sinus rhythm. The peak pharmacologic ECG demonstrated no ischemic change. There were no cardiac dysrhythmias pretest, during pharmacologic infusion, or recovery. There was no complaint of chest discomfort during pharmacologic infusion or recovery. The patient was injected with 14.6 millicuries of technetium 99m Cardiolite and subsequently rest SPECT Cardiolite nuclear imaging was obtained in the horizontal long, vertical long, and short axis views. The patient underwent pharmacologic (Regadenoson) evaluation. The patient was injected with 45.0 millicuries of technetium 99m Cardiolite and subsequently stress SPECT Cardiolite nuclear imaging was obtained in the horizontal long, vertical long, and short axis views. A gated Cardiolite study at peak stress was obtained. The examination was stopped secondary to completion of protocol. Rest and stress SPECT Cardiolite nuclear imaging status post realignment, normalization, and attenuation correction demonstrate no fixed or reversible perfusion defects. There is end systolic thickening and brightening. The gated Cardiolite study demonstrates myocardial thickening and inward wall motion. The reported LVEF is 82%. Impression: 1. Pharmacologic (Regadenoson) evaluation 2. Peak pharmacologic ECG with no diagnostic ischemic changes. 3. There were no cardiac dysrhythmias pretest, during pharmacologic infusion, or recovery. 5. Rest and stress SPECT Cardiolite nuclear imaging demonstrate relative uniform tracer uptake and myocardial perfusion appearing within normal limits. 6. The gated Cardiolite study reports an LVEF of 82%. This note was generated with [employer] software. It may contain incorrect words, spelling, and punctuation that were not noted in checking the note before signing. 10/23/24 0849 Date Wai Patterson MD CC: Dr. Leonor Domingo MD; GASTON Jin Date Dictated: 10/23/24847 Date Transcribed: 10/23/24847 Horse Breeder: JESSICA Signed Normal [facility] Office Visit Reporton 2024 Office Visit Report [facility] [address] [place] [address] OFFICE VISIT Date of Service: 10/02/24 MR#: [id number] Acct: [id number] Patient: TATE MALLORY Rep #: [id number] : 1950 Provider: ZELDA NURSE Age/Sex: 73/F Location: [facility] – [place] Status: Signed with Addenda ADDENDUM by Dr. Leonor Domingo MD on 10/02/24 at 1635 Assessment Plan (1) Elevated blood pressure readin10/02/24 1635 Date Leonor Domingo MD cc: * Signed Intake Vital Signs 09/25/24 14:28 Height 5 ft 3 in Weight: 213 lb BMI 37.7 BP 118/82 H Blood Pressure Location Lt brachial Position Sitting Respiration 16 Pulse 109 H Pulse Source Monitor Temp 97.3 F L Temp Source Temporal Pulse Oximetry (%) 97 Oxygen Delivery Method room air Intake Visit Reasons: BP CHECK WITH CUFF Chief Complaint: high bp Allergies No Known Allergies Allergy (Verified 12/26/24 14:23) Medications ???Medication ???Instructions ???Recorded ???Confirmed ???Type levothyroxine 50 mcg tablet 50 mcg PO QHS THYROID 07/06/20 10/02/24 History multivitamin with minerals 1 tab PO DAILY SUPPLEMENT 07/06/20 10/02/24 History timolol maleate 0.25 % eye drops 1 drp EACH EYE BID GLAUCOMA 07/06/20 10/02/24 History hydroxyzine pamoate 25 mg capsule 25 mg PO BID PRN PRN anxiety 09/14/24 10/02/24 History venlafaxine 37.5 mg 37.5 mg PO BID 09/14/24 10/02/24 History capsule,extended release 24 hr aspirin 81 mg chewable tablet 81 mg PO BREAKFAST 30 days #30 tabs 09/15/24 10/02/24 Rx atorvastatin 40 mg tablet 40 mg PO DAILY 30 days #30 tabs 09/15/24 10/02/24 Rx Have you fallen in the past year?: No Nurse's Note: pt in for bp nv check pt states bp has been running with home cuff, pt bp cuff is wrist a cuff. 140/75 146/82 167/85 120/68 141/69 139/72 174/93 189/83 130/69 heart rate range 75-90 pt states feeling off intermittently , no chest pain, no SOB, no GOLDSMITH today bp check with pt cuff in office- initial read error, cuff would not read pt. check with manual cuff in office- 138/84 heart 90 advised pt to change out bp cuff and call with readings Clinical Quality Measures Falls Risk Screening/Assistive Devices Have you fallen in the past year?: No 10/02/24 1634 Date Leonor Parkinson Signature: Date (if applicable) CC: Lisandro [facility] Internal Medicine Office Vis andreina 09-25-2024 Internal Medicine Office Visit [facility] [address] [place] [address] OFFICE VISIT Date of Service: 09/25/24 MR#: [id number] Acct: [id number] Name: TATE MALLORY Rep #: [id number] : 1950 Provider: GASTON Jin Age/Sex: 73/F Location: [facility] [place] Status: Signed Intake Vital Signs 09/15/24 08:44 09/25/24 14:28 Height 5 ft 3 in 5 ft 3 in Weight: 213 lb BMI 37.7 BP 118/82 H Blood Pressure Location Lt brachial Position Sitting Respiration 16 Pulse 109 H Pulse Source Monitor Temp 97.3 F L Temp Source Temporal Pulse Oximetry (%) 97 Oxygen Delivery Method room air Intake Visit Reasons: HIGH BP Chief Complaint: high bp Director Of Vocational Guidance Required: No Accompanied by: Self Is patient in pain?: No Allergies No Known Allergies Allergy (Verified 09/25/24 14:23) Medications ???Medication ???Instructions ???Recorded ???Confirmed ???Type levothyroxine 50 mcg tablet 50 mcg PO QHS THYROID 07/06/20 09/25/24 History multivitamin with minerals 1 tab PO DAILY SUPPLEMENT 07/06/20 09/25/24 History timolol maleate 0.25 % eye drops 1 drp EACH EYE BID GLAUCOMA 07/06/20 09/25/24 History hydroxyzine pamoate 25 mg capsule 25 mg PO BID PRN PRN anxiety 09/14/24 09/25/24 History venlafaxine 37.5 mg 37.5 mg PO BID 09/14/24 09/25/24 History capsule,extended release 24 hr aspirin 81 mg chewable tablet 81 mg PO BREAKFAST 30 days #30 tabs 09/15/24 09/25/24 Rx atorvastatin 40 mg tablet 40 mg PO DAILY 30 days #30 tabs 09/15/24 09/25/24 Rx Have you fallen in the past year?: No PFSH Medical History Anxiety Irregular heart beat Obesity Anxiety and depression CKD (chronic kidney disease), stage III PAF (paroxysmal atrial fibrillation) Bilateral renal stones Wears hearing aid Wears glasses Wears partial dentures Osteoarthritis Former smoker COPD (chronic obstructive pulmonary disease) History of stress test Arthritis Hypothyroidism Surgical History History of appendectomy History of shoulder surgery History of cornea transplant History of microdiscectomy History of colonoscopy History of total left knee replacement History of nasal septoplasty History of tubal ligation History of cataract extraction History of thyroid surgery History of hysterectomy Family History Mother Hypertension Father Hypertension CAD (coronary artery disease) Myocardial infarction Heart disease Social History household members: none Smoking Status: Former smoker how long ago did patient quit smoking: Quit 2011, started in her 20s, smoked 1/2-1 ppd until quit. alcohol intake: never substance use type: does not use Questionnaire STOP-BANG Sleep Apnea STOP Do you SNORE loudly? (louder than talking or loud enough to be heard through closed doors)?: Yes Do you feel TIRED, fatigued, or sleepy during daytime?: Yes Has anyone OBSERVED you stop breathing during your sleep?: No Do you have or are you being treated for high blood PRESSURE?: Yes BANG BMI more than 35kg/m2?: Yes AGE over 50 years old?: Yes NECK circumference>16 inches (40cm)?: No GENDER: Male?: No SCORE Total Score: High risk of TONY: Yes 5-8 HPI HPI Chief Complaint: high bp Details: TATE MALLORY, is a 73 F who presents to the office today for hospital follow-up. Patient was admitted to the hospital as she was shakey and was feeling tired and noticed that her blood pressures were elevated. They ran a large number of tests and really did not find too much. They found that she had a UTI but was treated for that and she states that she no longer has any symptoms. Patient is here for follow-up. She states that she has had the fatigue / felt tired for several months now. She states that her sleep is sporadic where sometimes she sleeps well and sometimes she is up all night. She states that even the nights that she sleeps that she wakes up and feels tired. She does state that her used to tell her that she snored very heavily at the same time she does not recall him telling her that she stops sleeping or had abnormal breathing. Patient has not had any change in her bowels. She denies any blood in the stools. She did have a colonoscopy which she states was clear. They told her that she is to repeat this in 2-3 years. Patient states that she has always had a little bit of dyspnea on exertion and thought maybe she was out of shape. This has worsened over the past several years and states that sometimes she does have to stop when she is going upstairs or with certain walking distances or certain hills. Patient was a previous smoker but states that she stopped (more content not included)... Normal [facility] Urine Cultureon 09-17-2024 URC Below infection leve l. Mixed Gram Positive Organisms [place] Count 1000-10,000 MIXC Mixed contaminants. Submit a new specimen if indicated. Normal [facility] Comment on above: Performed By: #### L 500.4050 #### [facility] [address] [place] [id number] Lipid Profileon 09-16-2024 CHOL Normal 200 [facility] Comment on above: Result Comment: Canc elled via OM: MD Ordered Performed By: #### L 500.4100 #### [facility] [address] [facility] [address] HDL Normal [facility] Comment on above: Result Comment: Canc elled via OM: MD Ordered Performed By: #### L 500.4100 #### [facility] [address] [facility] [address] LDL Normal 0-130 [facility] Comment on above: Result Comment: Canc elled via OM: MD Ordered Performed By: #### L 500.4100 #### [facility] [address] [facility] [address] TRIG Normal [facility] Comment on above: Result Comment: Canc elled via OM: MD Ordered Performed By: #### L 500.4100 #### [facility] [address] [place] [id number] VLDL Normal 5-40 [facility] Comment on above: Result Comment: Canc elled via OM: Ordered Performed By: #### L 500.4100 #### [facility] [address] [place], [place], [id number] Absolute neutrophil countOrd ered By: Florida Salinas on 09-15-2024 Neutrophils (Bld) [#/Vol] 4.5 10*3/uL 2.0-7.7 [facility] Albumin to globulin ratioOrd ered By: Florida Salinas on 09-15-2024 Albumin/Globulin [Mass ratio] 0.8 {ratio} Low 0.9-2.4 [facility] Basophil percentageOrdered B y: Florida Salinas on 09-15-2024 Basophils/100 WBC (Bld) 0.4 % 0-1 [facility] Bilirubin, totalOrdered By: Florida Salinas on 09-15-2024 Bilirubin [Mass/Vol] 0.30 mg/dL 0.20-1.00 [facility] Comment on above: For patients on eltr ombopag therapy, use of Dimension [place] TBIL is not recommended. Blood urea nitrogen (BUN)/cr eatinine ratioOrdered By: Florida Salinas on 09-15-2024 Urea nitrogen/Creatinine [Mass ratio] 19.6 mg/mg 10-20 [facility] Brain without Contraston Brain without Contrast [facility] Imaging Services [address] [place], [place] [address] Brain without Contrast MR#: [id number] Acct: [id number] Name: TATE MALLORY Rep #: [id number] : 1950 F 73 From: Rosas coleman MD PCP: Dr. Leonor Domingo MD Status: ADM IN Study: Brain without Contrast Date of Exam: 09/15/24 Exam# [id number] Ordering Dr: Florida Salinas MD [id number] STUDY: MRI BRAIN WITHOUT CONTRAST REASON FOR EXAM: Female, 73 years old. ? CVA izziness, off balance TECHNIQUE: Standardized multiplanar fat and water weighted pulse sequences were obtained. COMPARISON: Head CT dated September 14, 2024 FINDINGS: There is mild cerebral atrophy with widening of the extra-axial spaces and ventricular dilatation. There are multiple white matter hyperintensities, distributed throughout the deep white matter tracts of the cerebral hemispheres, consistent with moderate chronic white matter ischemic changes. There is no evidence for recent intracranial ischemia or other cause of cytotoxic edema on diffusion weighted imaging (DWI). There are no demyelinating plagues of the supratentorial brain, brainstem or cerebellum. There are no findings suspicious for multiple sclerosis (MS). Normal T2* images of the brain without demonstrated susceptibility artifact. There is no demonstrated hemosiderin stain. Normal bilateral basal ganglia. Normal thalami. There is no extra-axial fluid accumulation. Normal flow voids within the major intracranial circulation suggesting patency by spin echo criteria. Normal sella turcica, pituitary gland, infundibular stalk, optic chiasm and hypothalamus. Normal tectal plate and pineal gland. Normal midbrain, lashawn and medulla. Normal cerebellum. Normal basal cisterns. Normal bilateral temporal bones. Normal bilateral internal auditory canals. No demonstrated orbital abnormality, within the constraints of a routine brain study. Normal visualized paranasal sinuses. Normal calvarium and skull base. Normal visualized soft tissue structures. Normal visualized upper cervical spine. MRI/Brain without Contrast IMPRESSION: No acute infarct or intracranial hemorrhage. 1. Involutional moderate chronic ischemic changes of the brain, as described above. Electronically Signed: Rosas Crocker MD at 11:13 EST , CC: Dr. Leonor Domingo MD; Dr. 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, [address] Absolute Neut 4.5 X10 3/uL Normal 2.0-7.7 [facility] Comment on above: Performed By: #### L 501.9520, L500.4050, L100.0100, L501.9985 ####[facility] [address] [place], [address] Basophils/100 WBC (Bld) 0.4 % Normal 0-1 [facility] Comment on above: Performed By: #### L 501.9520, L500.4050, L100.0100, L501.9985 ####[facility] [address] [place], [address] Eosinophils/100 WBC (Bld) 6.3 % High 0-5 [facility] Comment on above: Performed By: #### L 501.9520, L500.4050, L100.0100, L501.9985 ####[facility] [address] [place], [address] Erythrocyte distribution width (RBC) [Ratio] 13.2 % Normal 11.6-14.6 [facility] Comment on above: Performed By: #### L 501.9520, L500.4050, L100.0100, L501.9985 ####[facility] [address] [place], [address] Hematocrit (Bld) [Volume fraction] 37.4 % Normal 37-47 [facility] Comment on above: Performed By: #### L 501.9520, L500.4050, L100.0100, L501.9985 ####[facility] [address] [place], [address] Hemoglobin (Bld) [Mass/Vol] 11.7 g/dL Low 12.0-15.0 [facility] Comment on above: Performed By: #### L 501.9520, L500.4050, L100.0100, L501.9985 ####[facility] [address] [place], [address] IG% 0.200 Normal 0.0-0.9 [facility] Comment on above: Result Comment: IG% - Immature Granulocytes (promyelocytes, myelocytes and metamyelocytes) > 1% indicates that a LEFT SHIFT is Present. Performed By: #### L 501.9520, L500.4050, L100.0100, L501.9985 ####[facility] [address] [place], [address] Lymphocytes/100 WBC (Bld) 32.1 % Normal 19-41 [facility] Comment on above: Performed By: #### L 501.9520, L500.4050, L100.0100, L501.9985 ####[facility] [address] [place], [address] MCH (RBC) [Entitic mass] 29.8 pg Normal 27.0-32.0 [facility] Comment on above: Performed By: #### L 501.9520, L500.4050, L100.0100, L501.9985 ####[facility] [address] [place], [address] MCHC (RBC) [Mass/Vol] 31.3 g/dL Low 32-36 [facility] Comment on above: Performed By: #### L 501.9520, L500.4050, L100.0100, L501.9985 ####[facility] [address] [place], [address] MCV (RBC) [Entitic vol] 95.2 fL Normal 81-99 [facility] Comment on above: Performed By: #### L 501.9520, L500.4050, L100.0100, L501.9985 ####[facility] [address] [place], [address] Monocytes/100 WBC (Bld) 10.5 % High 0-10 [facility] Comment on above: Performed By: #### L 501.9520, L500.4050, L100.0100, L501.9985 ####[facility] [address] [place], [address] Neutrophils/100 WBC (Bld) 50.5 % Normal 47-70 [facility] Comment on above: Performed By: #### L 501.9520, L500.4050, L100.0100, L501.9985 ####[facility] [address] [place], [address] Nucleated RBC (Bld) [#/Vol] 0 10*3/uL Normal 0-5 [facility] Comment on above: Performed By: #### L 501.9520, L500.4050, L100.0100, L501.9985 ####[facility] [address] [place], [address] Platelet mean volume (Bld) [Entitic vol] 10.0 fL Normal 6.2-12.0 [facility] Comment on above: Performed By: #### L 501.9520, L500.4050, L100.0100, L501.9985 ####[facility] [address] [place], [address] Platelets (Bld) [#/Vol] 215 10*3/uL Normal 150-450 [facility] Comment on above: Performed By: #### L 501.9520, L500.4050, L100.0100, L501.9985 ####[facility] [address] [place], [address] RBC (Bld) [#/Vol] 3.93 10*6/uL Low 4.2-5.4 [facility] Comment on above: Performed By: #### L 501.9520, L500.4050, L100.0100, L501.9985 ####[facility] [address] [place], [address] RDW SD 46.7 fl High 35.1-43.9 [facility] Comment on above: Performed By: #### L 501.9520, L500.4050, L100.0100, L501.9985 ####[facility] [address] [place], [address] WBC (Bld) [#/Vol] 8.9 10*3/uL Normal 4.4-11.0 [facility] Comment on above: Performed By: #### L 501.9520, L500.4050, L100.0100, L501.9985 ####[facility] [address] [place], [address] CTA Head AND Neck W/ Contras ton 09-15-2024 CTA Head AND Neck W/ Contrast [facility] Imaging Services [address] [place] [address] CTA Head AND Neck W/ Contrast MR#: [id number] Acct: [id number] Name: TATE MALLORY Rep #: [id number] : 1950 F 73 From: Tino Mcmillan MD PCP: Dr. Leonor Domingo MD Status: ADM IN Study: CTA Head AND Neck W/ Contrast Date of Exam: Exam# [id number] Ordering Dr: Florida Salinas MD [id number] STUDY: CTA HEAD AND NECK WITH CONTRAST REASON FOR EXAM: Female, 73 years old. Acute mental status change RADIATION DOSAGE (If Supplied By Facility): CTDIvol = ( 15.55 ) mGy, DLP = ( 685.44 ) mGycm TECHNIQUE: CT angiography was performed with a multi-detector CT scanner. Data acquisition was obtained from the skull base through the vertex following intravenous administration of IV 100mL Isovue-370. MIP images were reconstructed from the axial data set. Post-processing of the angiographic images was performed, with multiplanar reformation and 3D reconstruction. Individualized dose optimization techniques were used for this CT. COMPARISON: No relevant priors. FINDINGS: Normal bilateral petrous carotid arteries. Normal right cavernous carotid artery with a normal supraclinoid bifurcation. Normal left cavernous carotid artery with a normal supraclinoid bifurcation. Normal right A1 segments of the anterior cerebral artery. Normal left A1 segments of the anterior cerebral artery. Normal intact anterior communicating artery (ACOM). Normal bilateral A2 segments of the anterior cerebral arteries. Normal right M1 and M2 segments of the middle cerebral arteries, with a normal M1 bifurcation. Normal left M1 and M2 segments of the middle cerebral arteries, with a normal M1 bifurcation. Normal right posterior communicating artery (PCOM). Normal left posterior communicating artery (PCOM). Normal bilateral vertebral arteries. Normal basilar artery with a normal basilar bifurcation. The visualized bilateral superior cerebellar (SCA) arteries are normal. Normal bilateral P1, P2 and visualized P3 segments of the posterior cerebral arteries. There is no demonstrated aneurysm of the [place]. Left lobe of the thyroid is likely surgically absent. The right lobe shows multiple low-density nodules. Consider a dedicated thyroid ultrasound if not recently performed. No suspicious enhancing lesion, no airway narrowing or deviation. Lung apices are clear AORTIC ARCH: Normal visualized aortic arch. Normal origins of the brachiocephalic, left common carotid, and left subclavian arteries. RIGHT CAROTID ARTERIES: Normal right common carotid artery (CCA). Normal right common carotid bulb. Normal origin of the right internal carotid (ICA) artery however, just distal to the origin is a calcified plaque causing 50% stenosis of the proximal right ICA this is seen on source images 197-212. No further narrowing is identified. Normal origin of the right external carotid artery (ECA). LEFT CAROTID ARTERIES: Normal left common carotid artery (CCA). Normal left common carotid bulb. Normal origin of the left internal carotid (ICA) artery without a hemodynamically significant stenosis. Normal visualized cervical portion of the left internal carotid artery. Normal origin of the left external carotid artery (ECA). VERTEBRAL ARTERIES: There is enhancement within the bilateral vertebral arteries with a small right vertebral artery, and a dominant left vertebral artery. CT/CTA Head AND Neck W/ Contrast IMPRESSION: No vaso-occlusive disease or significant stenosis noted in the intracranial circulation. No demonstrated aneurysm or vascular malformation 50% stenosis of the proximal right ICA just distal to its origin No demonstrated left ICA stenosis No demonstrated CCA stenosis Multiple low-density nodules within the right lobe of the thyroid, consider dedicated thyroid ultrasound for further evaluation No suspicious enhancing lesion, airway narrowing or deviation Electronically Signed: Torsten Mcmillan MD at 8:45 EST , CC: Dr. Leonor Domingo MD; Dr. 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 [place], [place], [address] Albumin/Globulin [Mass ratio] 0.8 {ratio} Low 0.9-2.4 [facility] Comment on above: Performed By: #### L 501.9520, L500.4050, L100.0100, L501.9985 ####[facility] [address] [place], [address] ALK P 99 U/L Normal 45-117 [facility] Comment on above: Performed By: #### L 501.9520, L500.4050, L100.0100, L501.9985 ####[facility] [address] [place], [address] ALT [Catalytic activity/Vol] 20 U/L Normal 13-56 [facility] Comment on above: Performed By: #### L 501.9520, L500.4050, L100.0100, L501.9985 ####[facility] [address] [place], [address] AST [Catalytic activity/Vol] 15 U/L Normal 15-37 [facility] Comment on above: Performed By: #### L 501.9520, L500.4050, L100.0100, L501.9985 ####[facility] [address] [place], [address] Bilirubin [Mass/Vol] 0.30 mg/dL Normal 0.20-1.00 [facility] Comment on above: Result Comment: For patients on eltrombopag therapy, use of Dimension [place] TBIL is not recommended. Performed By: #### L 501.9520, L500.4050, L100.0100, L501.9985 ####[facility] [address] [place], [address] BUN/CRE 19.6 RATIO Normal 10-20 [facility] Comment on above: Performed By: #### L 501.9520, L500.4050, L100.0100, L501.9985 ####[facility] [address] [place], [address] CA,Total 8.9 mg/dL Normal 8.5-10.1 [facility] Comment on above: Performed By: #### L 501.9520, L500.4050, L100.0100, L501.9985 ####[facility] [address] [place], [address] Chloride [Moles/Vol] 109 mmol/L High 98-107 [facility] Comment on above: Performed By: #### L 501.9520, L500.4050, L100.0100, L501.9985 ####[facility] [address] [place], [address] CO2 [Moles/Vol] 27.0 mmol/L Normal 21.0-32.0 [facility] Comment on above: Performed By: #### L 501.9520, L500.4050, L100.0100, L501.9985 ####[facility] [address] [place], [address] Creatinine [Mass/Vol] 1.07 mg/dL High 0.55-1.02 [facility] Comment on above: Result Comment: The validity of the calculated GFR GFRAA in patients over 70 years has not been determined. Clinical correlation is essential. Performed By: #### L 501.9520, L500.4050, L100.0100, L501.9985 ####[facility] [address] [place], [address] ECRCL 50.66 ml/min Normal [facility] Comment on above: Performed By: #### L 501.9520, L500.4050, L100.0100, L501.9985 ####[facility] [address] [place], [address] EST GFR - AA 64 mL/min Normal >60 [facility] Comment on above: Result Comment: Afri can [place] GFR Calc Performed By: #### L 501.9520, L500.4050, L100.0100, L501.9985 ####[facility] [address] [place], [address] GAP 5 Normal 5-15 [facility] Comment on above: Performed By: #### L 501.9520, L500.4050, L100.0100, L501.9985 ####[facility] [address] [place], [address] GFR/1.73 sq M.predicted among non-blacks MDRD (S/P/Bld) [Vol rate/Area] 53 mL/min/{1.73_m2} Low >60 [facility] Comment on above: Result Comment: Non- GFR Calc Performed By: #### L 501.9520, L500.4050, L100.0100, L501.9985 ####[facility] [address] [place], [address] Globulin (S) [Mass/Vol] 3.8 g/dL Normal 2.2-4.2 [facility] Comment on above: Performed By: #### L 501.9520, L500.4050, L100.0100, L501.9985 ####[facility] [address] [place], [address] Glucose [Mass/Vol] 106 mg/dL Normal 74-106 [facility] Comment on above: Result Comment: Fast ing Glucose result from 100 to 125 mg/dL suggests IMPAIRED HOMEOSTASIS per A.D.A. criteria. Performed By: #### L 501.9520, L500.4050, L100.0100, L501.9985 ####[facility] [address] [place], [address] Potassium [Moles/Vol] 3.9 mmol/L Normal 3.5-5.1 [facility] Comment on above: Performed By: #### L 501.9520, L500.4050, L100.0100, L501.9985 ####[facility] [address] [address] [place], [address] Sodium [Moles/Vol] 142 mmol/L Normal 136-145 [facility] Comment on above: Performed By: #### L 501.9520, L500.4050, L100.0100, L501.9985 ####[facility] [address] [place], [address] T PROT 6.7 g/dL Normal 6.4-8.2 [facility] Comment on above: Performed By: #### L 501.9520, L500.4050, L100.0100, L501.9985 ####[facility] [address] [place], [address] Urea nitrogen [Mass/Vol] 21 mg/dL High 7-18 [facility] Comment on above: Performed By: #### L 501.9520, L500.4050, L100.0100, L501.9985 ####[facility] [address] [place], [address] Discharge Instructionon 08-31 Discharge Instruction [facility] Medical Records Department [address] [place] [address] Instructions for Home/Discharge Instructions 09/15/24 1420 MR#: [id number] Acct: [id number] Name: TATE MALLORY Rep #: [id number] : 1950 73 From: Obi Moran DO PCP: Dr. Leonor Domingo MD Status:ADM IN Discharge Instructions Diet Discharge Diet: No restrictions DC O2, CPAP, BIPAP needs Additional Home O2 Discharge instructions: No Dressing / Incision Discharge Activity: No Restrictions Follow Up Care Test Results: Test results from this visit will be discussed in further detail at your follow-up appointment, if applicable. Discharge Plan Admission Admit Date/Time: 09/14/24 23:49 Primary Reason for Your Visit: dizziness and elevated BP Attending Provider: Obi Moran Primary Care Provider: Leonor Domingo Consulting Providers: Florida Salinas Instructions Additional Instructions / Restrictions: Please start taking a baby aspirin and Lipitor daily as noted below. Please take Levaquin daily for 5 more days to complete a course of antibiotics for your urinary tract infection. Please take your blood pressure at home twice daily for the next week and if it is running very high, please either call your primary care doctor or come back to the ED for further evaluation. Discharge Orders/Prescriptions Prescriptions: New aspirin 81 mg Tablet,Chewable 81 mg PO BREAKFAST 30 Days Qty: 30 2RF atorvastatin 40 mg tablet 40 mg PO DAILY 30 Days Qty: 30 2RF levofloxacin 750 mg tablet 750 mg PO DAILY 5 Days Qty: 5 0RF Continued timolol maleate 5 ML drops 1 drp EACH EYE BID levothyroxine 50 MCG tablet 50 mcg PO QHS multivitamin with minerals 1 EACH tablet 1 tab PO DAILY hydroxyzine pamoate 25 mg capsule 25 mg PO BID PRN PRN (Reason: anxiety) venlafaxine 37.5 mg capsule,extended release 24hr 37.5 mg PO BID Discontinued latanoprost [Xalatan] 0.005 % drops 1 drp EACH EYE QHS Referrals / Follow Up: Leonor Domingo MD [Primary Care Provider] - Disposition Disposition (needs filled in before D/C Order can be placed): Home, Self Care 09/15/24 0867 Obi Moran DO CC: Dr. Leonor Domingo MD; Dr. Florida Salinas MD Signed Normal [facility] Echo Complete W/ Contraston 09-15-2024 Echo Complete W/ Contrast [facility] Cardiovascular Services [address] [place] [address] Echo Complete W/ Contrast 09/15/24 0828 MR#: [id number] Acct: [id number] Name: TATE MALLORY Rep #: [id number] : 1950 73 From: Nikita Malik MD Attending Dr: Dr. Obi Moran, Status : ADM IN Ordering Dr: Florida Salinas MD Date: 09/15/24 Location: PCU Sex: F C Admitted: 09/14/24 Reason For Study: TIA/CVA Procedure This was a 2D Doppler, Color Flow transthoracic echocardiogram. The study was technically difficult. Contrast injection was performed. Exam performed portable in patient room. Left Ventricle Normal LV size. Left ventricular systolic function is normal. The left ventricular ejection fraction is 65 %. No regional wall motion abnormalities noted. Right Ventricle Normal RV size. Normal systolic function. Atria Normal left atrium. Normal right atrium. Bubble contrast study is negative for PFO/ASD. Mitral Valve Normal mitral valve. Tricuspid Valve Normal tricuspid valve. Aortic Valve Trisinus/trileaflet aortic valve. Pulmonic Valve Normal pulmonic valve. Great Vessels Normal aortic root. The pulmonary artery is normal size. Inferior vena cava collapse with respiration. Pericardium/Pleural No pericardial effusion. Medication Diluted definity 2ml given slow IV push to enhance endocardial definition. Performed a rapid injection of agitated mix of 9 cc saline and 1cc air to assess for atrial septal defect. MMode/2D Measurements Calculations LVIDd: 3.6 cm IVSd: 1.5 cm LVOT diam: 1.9 cm LVIDs: 1.6 cm LVPWd: 1.1 cm RVDd: 3.3 cm FS: 57.5 % LVOT area: 2.8 cm2 asc Aorta Diam: 3.6 cm LAV(MOD-bp): 25.8 ml LVAd ap4: 26.0 cm2 LAV(MOD-bp) Indexed: 12.9 ml/m2 LVLd ap4: 7.7 cm LAV(MOD-sp2): 28.3 ml EDV(MOD-sp4): 73.1 ml LAV(MOD-sp4): 22.4 ml EDV(sp4-el): 74.1 ml LVAs ap4: 16.3 cm2 LVLs ap4: 6.9 cm ESV(MOD-sp4): 31.9 ml ESV(sp4-el): 32.6 ml EF(MOD-sp4): 56.4 % EF(sp4-el): 56.0 % LVAd ap2: 24.2 cm2 SV(MOD-sp4): 41.2 ml SV(MOD-sp2): 40.1 ml LVLd ap2: 7.7 cm SI(MOD-sp4): 20.6 ml/m2 SI(MOD-sp2): 20.1 ml/m2 EDV(MOD-sp2): 61.2 ml EDV(sp2-el): 64.4 ml LVAs ap2: 12.6 cm2 LVLs ap2: 6.0 cm ESV(MOD-sp2): 21.1 ml ESV(sp2-el): 22.2 ml EF(MOD-sp2): 65.5 % SV(sp4-el): 41.4 ml Ao sinus diam: 3.[address] Junction: 2.9 cm LA dimension(2D): 3.3 cm LA A4 area: 10.6 cm2 RA A4 area: 11.6 cm2 TAPSE: 1.5 cm Time Measurements MV dec time: 0.17 sec Doppler Measurements Calculations MV E max lucy: 74.9 cm/sec Lat Peak E' Lucy: 8.3 cm/sec Med Peak E' Lucy: 9.2 cm/sec MV A max lucy: 94.2 cm/sec E/E' lat: 9.0 E/E' med: 8.1 MV E/A: 0.79 MV dec slope: 441.0 cm/sec2 Ao V2 max: 119.4 cm/sec LV V1 max: 95.9 cm/sec Ao max P.7 mmHg LV V1 max P.7 mmHg Ao V2 mean: 91.9 cm/sec LV V1 mean P.4 mmHg Ao mean P.5 mmHg LV V1 mean: 75.3 cm/sec Ao V2 VTI: 19.2 cm LV V1 VTI: 15.5 cm AV (velocity ratio): 0.81 SANDEEP(I,D): 2.3 cm2 SANDEEP(V,D): 2.3 cm2 SV(LVOT): 43.4 ml PA V2 max: 122.9 cm/sec ECHO/Echo Complete W/ Contrast Interpretation Summary Normal LV size. Left ventricular systolic function is normal. The left ventricular ejection fraction is 65 %. Bubble contrast study is negative for PFO/ASD. Contrast injection was performed. Ordering Physician: Florida Salinas Performed By: Poppy Snowden RDCS 09/15/241323 Date Nikita Malik MD CC: Dr. Obi Moran DO; Dr. Leonor Domingo MD; Dr. Florida Salinas MD Date Dictated: 09/15/24827 Date Transcribed: 09/15/241323 Horse Breeder: Signed Normal [facility] Eosinophil percentageOrdered By: Florida Salinas on 09-15-2024 Eosinophils/100 WBC (Bld) 6.3 % High 0-5 [facility] Erythrocyte distribution wid th ratioOrdered By: Florida Salinas on 09-15-2024 Erythrocyte distribution width (RBC) [Ratio] 13.2 % 11.6-14.6 [facility] Erythrocyte distribution wid th standard deviationOrdered By: Florida Salinas on 09-15-2024 Erythrocyte distribution width (RBC) [Entitic vol] 46.7 fL High 35.1-43.9 [facility] Estimated glomerular filtrat ion rate (GFR) AmericanOrdered By: Florida Salinas on 09-15-2024 Estimated GFR (MDRD) Amer 64 mL/min >60 [facility] Comment on above: GFR Calc Estimation of creatinine angelica aranceOrdered By: Florida Salinas on 09-15-2024 Estimated Creatinine Clearance Calc 50.66 ml/min [facility] Ferritinon 09-15-2024 Ferritin [Mass/Vol] 328 ng/mL High 8-252 [facility] Comment on above: Order Comment: Has P atient had X-rays with Contrast this admission? N N Performed By: #### L 503.6030, L506.0250, L503.6550, L503.0105 #### [facility] [address] [place], [place], [id number] Ferritin measurementOrdered By: Obi ren on 09-15-2024 Ferritin [Mass/Vol] 328 ng/mL High 8-252 [facility] Folates, (Folic Acid)on 08-31 FOLATES 19.20 ng/mL Normal 3.1-55.4 [facility] Comment on above: Order Comment: Has P atient had X-rays with Contrast this admission? N N Performed By: #### L 503.6030, L506.0250, L503.5550, L503.0105 #### [facility] [address] [place], [address] Folic acid measurementOrdere d By: Obi Moran on 09-15-2024 Folate 19.20 ng/mL 3.1-55.4 [facility] Glomerular filtration rate ( GFR) estimationOrdered By: Florida Salinas on 09-15-2024 Estimated GFR (MDRD) Non-Af Amer 53 mL/min Low >60 [facility] Comment on above: Non- GFR Calc Glucose measurementOrdered B y: Florida Salinas on 09-15-2024 Glucose [Mass/Vol] 106 mg/dL 74-106 [facility] Comment on above: Fasting Glucose resu lt from 100 to 125 mg/dL suggests IMPAIRED HOMEOSTASIS per A.D.A. criteria. Hematocrit Auto (Bld) [Volum e fraction]Ordered By: Florida Salinas on 09-15-2024 Hematocrit (Bld) [Volume fraction] 37.4 % 37-47 [facility] Hemoglobin A1con 09-15-2024 HbA1c (Bld) [Mass fraction] 6.6 % High 3.8-5.6 [facility] Comment on above: Result Comment: Norm al < 5.7 % Prediabetic 5.7 - 6.4 % Diabetic >or= 6.5 % Please note range changes. Performed By: #### L 501.3220, L500.4050, L100.0100, L501.9985 ####[facility] [address] [place], [place], [id number] Hemoglobin A1c percentageOrd ered By: Florida Salinas on 09-15-2024 HbA1c (Bld) [Mass fraction] 6.6 % High 3.8-5.6 [facility] Comment on above: Normal < 5.7 % Predi abetic 5.7 - 6.4 % Diabetic >or= 6.5 % Please note range changes. Hemoglobin measurementOrdere d By: Florida Salinas on 09-15-2024 Hemoglobin (Bld) [Mass/Vol] 11.7 g/dL Low 12.0-15.0 [facility] High density lipoprotein (HD L) measurementOrdered By: Obi Moran on 09-15-2024 Cholesterol in HDL [Mass/Vol] 53 mg/dL >40 [facility] Comment on above: The drugs N-Acetylcy steine and Metamizole may falsely depress this assay. Reference Range HDL <40 mg/dL Low HDL Cholesterol HDL >or= 60 mg/dL High HDL Cholesterol Immature granulocytes/100 WB C Auto (Bld)Ordered By: Florida Salinas on 09-15-2024 Immature granulocytes/100 WBC (Bld) 0.200 % 0.0-0.9 [facility] Comment on above: IG% - Immature Granu locytes (promyelocytes, myelocytes and metamyelocytes) > 1% indicates that a LEFT SHIFT is Present. Iron (Unsp spec) [Mass/Mass] Ordered By: Obi Moran on 09-15-2024 Iron [Mass/Vol] 48 ug/dL Low 50-170 [facility] Iron saturation [Mass fracti on]Ordered By: Obi Moran on 09-15-2024 Iron Saturation 19.7 % 15.0-55.0 [facility] Iron+Iron Binding Capacityon 09-15-2024 Iron [Mass/Vol] 48 ug/dL Low 50-170 [facility] Comment on above: Order Comment: Has Geno sherman had X-rays with Contrast this admission? N N Performed By: #### L 503.0541, L506.0250, L503.6575, L503.0105 #### [facility] [address] [place], [address] IRON SATURATION 19.7 Normal 15.0-55.0 [facility] Comment on above: Order Comment: Has Geno sherman had X-rays with Contrast this admission? N N Performed By: #### L 503.6030, L506.0250, L503.6550, L503.0105 #### [facility] [address] [place], [address] TIBC 244 ug/dL Low 250-450 [facility] Comment on above: Order Comment: Has Geno sherman had X-rays with Contrast this admission? N N Performed By: #### L 503.6030, L506.0250, L503.6550, L503.0105 #### [facility] [address] [place], [address] Laboratory - Chemistry and C hemistry - challengeOrdered By: Florida Salinas on 09-15-2024 AST [Catalytic activity/Vol] 15 U/L 15-37 [facility] Lipid Profileon 09-15-2024 Cholesterol [Mass/Vol] 199 mg/dL Normal [facility] Comment on above: Result Comment: <200 mg/dL Desirable 200-240 mg/dL Borderline >240 mg/dL High Risk Performed By: #### L 500.4050 #### [facility] [address] [place], [address] Cholesterol in HDL [Mass/Vol] 53 mg/dL Normal [facility] Comment on above: Result Comment: The drugs N-Acetylcysteine and Metamizole may falsely depress this assay. Reference Range HDL <40 mg/dL Low HDL Cholesterol HDL >or= 60 mg/dL High HDL Cholesterol Performed By: #### L 500.4050 #### [facility] [address] [place], [address] Cholesterol in LDL [Mass/Vol] 103 mg/dL Normal 0-130 [facility] Comment on above: Performed By: #### L 500.4050 #### [facility] [address] [place], [address] Cholesterol in VLDL [Mass/Vol] 43 mg/dL High 5-40 [facility] Comment on above: Performed By: #### L 500.4050 #### [facility] [address] [place], [address] Triglyceride [Mass/Vol] 213 mg/dL High [facility] Comment on above: Result Comment: The drugs N-Acetylcysteine and Metamizole may falsely depress this assay. Serum Triglycerides Reference Interval Normal <150 mg/dL Borderline high 150 - 199 mg/dL High 200 - 499 mg/dL Very High > or = 500 mg/dL Performed By: #### L 500.4050 #### [facility] [address] [facility] [place], [address] Low density lipoprotein (LDL ) cholesterol measurementOrdered By: Obi Moran on 09-15-2024 Cholesterol in LDL [Mass/Vol] 103 mg/dL 0-130 [facility] Lymphocytes Auto (Unsp spec) [#/Vol]Ordered By: Florida Salinas on 09-15-2024 Lymphocytes (Bld) [#/Vol] 2.87 10*3/uL 0.83-4.51 [facility] Lymphocytes/100 WBC Auto (Un sp spec)Ordered By: Florida Salinas on 09-15-2024 Lymphocytes/100 WBC (Bld) 32.1 % 19-41 [facility] MCV (mean corpuscular volume ) determinationOrdered By: Florida Salinas on 09-15-2024 MCV (RBC) [Entitic vol] 95.2 fL 81-99 [facility] Magnesiumon 09-15-2024 Magnesium [Mass/Vol] 2.0 mg/dL Normal 1.6-2.6 [facility] Comment on above: Order Comment: Comme nts: may add to ED labs Performed By: #### L 501.5200 #### [facility] [address] [place], [address] Mean corpuscular hemoglobin (MCH) determinationOrdered By: Florida Salinas on 09-15-2024 MCH (RBC) [Entitic mass] 29.8 pg 27.0-32.0 [facility] Mean corpuscular hemoglobin concentration (MCHC) determinationOrdered By: Florida Salinas on 09-15-2024 MCHC (RBC) [Mass/Vol] 31.3 g/dL Low 32-36 [facility] Mean platelet volume determi nationOrdered By: Florida White on 09-15-2024 Platelet mean volume (Bld) [Entitic vol] 10.0 fL 6.2-12.0 [facility] Monocyte percentageOrdered B y: Florida White on 09-15-2024 Monocytes/100 WBC (Bld) 10.5 % High 0-10 [facility] Neutrophil percentageOrdered By: White on 09-15-2024 Neutrophils/100 WBC (Bld) 50.5 % 47-70 [facility] Nucleated red blood cell per centageOrdered By: White on 09-15-2024 Nucleated RBC/100 WBC (Bld) [Ratio] 0 % 0-5 [facility] Platelet countOrdered By: Shelya sutherland Rita on 09-15-2024 Platelets (Bld) [#/Vol] 215 10*3/uL 150-450 [facility] Potassium measurementOrdered By: Florida White on 09-15-2024 Potassium [Moles/Vol] 3.9 mmol/L 3.5-5.1 [facility] RBC Auto (Bld) [#/Vol]Ordere d By: Florida White on 09-15-2024 RBC (Bld) [#/Vol] 3.93 10*6/uL Low 4.2-5.4 [facility] Serum anion gap measurementO rdered By: Florida Rita on 09-15-2024 Anion gap [Moles/Vol] 5 mmol/L 5-15 [facility] Serum globulin measurementOr dered By: Florida Rita on 09-15-2024 Globulin (S) [Mass/Vol] 3.8 g/dL 2.2-4.2 [facility] Serum or plasma alanine bocanegra otransferase (ALT) measurementOrdered By: Rita on 09-15-2024 ALT [Catalytic activity/Vol] 20 U/L 13-56 [facility] Serum or plasma albumin diane urement (mass/volume)Ordered By: Florida Rita on 09-15-2024 Albumin [Mass/Vol] 2.9 g/dL Low 3.2-5.0 [facility] Serum or plasma alkaline julito sphatase measurementOrdered By: Florida Salinas on 09-15-2024 ALP [Catalytic activity/Vol] 99 U/L 45-117 [facility] Serum or plasma calcium diane urement (mass/volume)Ordered By: Florida Salinas on 09-15-2024 Calcium [Mass/Vol] 8.9 mg/dL 8.5-10.1 [facility] Serum or plasma cholesterol measurement (mass/volume)Ordered By: Obi Moran on 09-15-2024 Cholesterol [Mass/Vol] 199 mg/dL <200 [facility] Comment on above: <200 mg/dL Desirable 200-240 mg/dL Borderline >240 mg/dL High Risk Serum or plasma creatinine m easurement (mass/volume)Ordered By: Florida Salinas on 09-15-2024 Creatinine [Mass/Vol] 1.07 mg/dL High 0.55-1.02 [facility] Comment on above: The validity of the calculated GFR & GFRAA in patients over 70 years has not been determined. Clinical correlation is essential. Serum or plasma urea nitroge n measurement (mass/volume)Ordered By: Florida Salinas on 09-15-2024 Urea nitrogen [Mass/Vol] 21 mg/dL High 7-18 [facility] Sodium levelOrdered By: Paula Salinas on 09-15-2024 Sodium [Moles/Vol] 142 mmol/L 136-145 [facility] TIBCOrdered By: Obi duran on 09-15-2024 Total Iron Binding Capacity 244 ug/dL Low 250-450 [facility] TSH QnOrdered By: Florida Tineo te on 09-15-2024 Thyroid Stimulating Hormone (TSH) 1.730 uIU/mL 0.358-3.740 [facility] Thyroid Stim Hormone (TSH)on 09-15-2024 TSH 1.730 uIU/mL Normal 0.358-3.740 [facility] Comment on above: Performed By: #### L 501.9565, L500.4050, L100.0100, L501.9985 ####[facility] [address] [place], [place], [id number] Total proteinOrdered By: Dez Salinas on 09-15-2024 Protein [Mass/Vol] 6.7 g/dL 6.4-8.2 [facility] Triglycerides measurementOrd ered By: Obi Moran on 09-15-2024 Triglyceride [Mass/Vol] 213 mg/dL High <199 [facility] Comment on above: The drugs N-Acetylcy steine and Metamizole may falsely depress this assay.Serum Triglycerides Reference Interval Normal <150 mg/dL Borderline high 150 - 199 mg/dL High 200 - 499 mg/dL Very High > or = 500 mg/dL Urine cultureOrdered By: Sultana Whitehead on 09-15-2024 Bacteria identified Cx Nom (U) Positive Abnormal [facility] Very low density lipoprotein (VLDL) cholesterol measurementOrdered By: Obi Moran on 09-15-2024 VLDL Cholesterol 43 mg/dL High 5-40 [facility] Vitamin B12on 09-15-2024 Cobalamin (Vitamin B12) [Mass/Vol] 194 pg/mL Low 211-911 [facility] Comment on above: Performed By: #### L 503.6030, L506.0250, L503.6550, L503.0105 #### [facility] [address] [facility] [place], [place], [id number] Vitamin B12 measurementOrder ed By: Obi Moran on 09-15-2024 Cobalamin (Vitamin B12) [Mass/Vol] 194 pg/mL Low 211-911 [facility] White blood cell (WBC) count Ordered By: Florida Salinas on 09-15-2024 WBC (Bld) [#/Vol] 8.9 10*3/uL 4.4-11.0 [facility] 12 Lead EKGon 09-14-2024 12 Lead EKG [facility] Cardiovascular Services [address] [address] 12 Lead EKG 09/14/24 2253 MR#: [id number] Acct: [id number] Name: TATE MALLORY Rep #: [id number] : 1950 73 From: Nikita Malik MD Attending Dr: Dr. Obi Moran, DO Status : DIS IN Ordering Dr: Harvinder Whitehead MD Date: 09/14/24 Location: [facility] Sex: F C Admitted: 09/14/24 Test Reason : HTN Blood Pressure : */* mmHG Vent. Rate : 100 BPM Atrial Rate : 100 BPM P-R Int : 156 ms QRS Dur : 82 ms QT Int : 326 ms P-R-T Axes : 67 -38 70 degrees QTcB Int : 420 ms Normal sinus rhythm Left axis deviation Abnormal ECG Confirmed by HELENA MCINTYRE, NIKITA ([id number]), general expeditor MELBA ROSA ([id number]) on 09/17/2024 6:29:00 AM Referred By: Confirmed By: NIKITA MALIK MD 09/17/24 0629 Date Nikita Malik MD CC: Dr. Obi Moran DO; Dr. Leonor Domingo MD; Dr. Harvinder Whitehead MD Signed Normal [facility] Basic Metabolic Profile (BMP )on 09-14-2024 BUN/CRE 19.1 RATIO Normal 10-20 [facility] Comment on above: Order Comment: 'TROP ' Serial specimen #1, #2 or #3: 1 Performed By: #### L 501.4020, L500.2500, L100.0100 ####[facility] [address] [place], [address] CA,Total 9.0 mg/dL Normal 8.5-10.1 [facility] Comment on above: Order Comment: 'TROP ' Serial specimen #1, #2 or #3: 1 Performed By: #### L 501.4020, L500.2500, L100.0100 ####[facility] [address] [place], [address] Chloride [Moles/Vol] 106 mmol/L Normal 98-107 [facility] Comment on above: Order Comment: 'TROP ' Serial specimen #1, #2 or #3: 1 Performed By: #### L 501.4020, L500.2500, L100.0100 ####[facility] [address] [place], [address] CO2 [Moles/Vol] 27.0 mmol/L Normal 21.0-32.0 [facility] Comment on above: Order Comment: 'TROP ' Serial specimen #1, #2 or #3: 1 Performed By: #### L 501.4020, L500.2500, L100.0100 ####[facility] [address] [place], [address] Creatinine [Mass/Vol] 1.31 mg/dL High 0.55-1.02 [facility] Comment on above: Order Comment: 'TROP ' Serial specimen #1, #2 or #3: 1 Result Comment: The validity of the calculated GFR GFRAA in patients over 70 years has not been determined. Clinical correlation is essential. Performed By: #### L 501.4020, L500.2500, L100.0100 ####[facility] [address] [place], [address] ECRCL 41.80 ml/min Normal [facility] Comment on above: Order Comment: 'TROP ' Serial specimen #1, #2 or #3: 1 Performed By: #### L 501.4020, L500.2500, L100.0100 ####[facility] [address] [place], [address] EST GFR - AA 51 mL/min Low >60 [facility] Comment on above: Order Comment: 'TROP ' Serial specimen #1, #2 or #3: 1 Result Comment: Afri can Maur[place] GFR Calc Performed By: #### L 501.4020, L500.2500, L100.0100 ####[facility] [address] [place], [address] GAP 7 Normal 5-15 [facility] Comment on above: Order Comment: 'TROP ' Serial specimen #1, #2 or #3: 1 Performed By: #### L 501.4020, L500.2500, L100.0100 ####[facility] [address] [place], [address] GFR/1.73 sq M.predicted among non-blacks MDRD (S/P/Bld) [Vol rate/Area] 42 mL/min/{1.73_m2} Low >60 [facility] Comment on above: Order Comment: 'TROP ' Serial specimen #1, #2 or #3: 1 Result Comment: Non- GFR Calc Performed By: #### L 501.4020, L500.2500, L100.0100 ####[facility] [address] [place], [address] Glucose [Mass/Vol] 214 mg/dL High 74-106 [facility] Comment on above: Order Comment: 'TROP ' Serial specimen #1, #2 or #3: 1 Result Comment: Gluc ose result greater than or equal to 200 mg/dL suggests DIABETES MELLITUS per A.D.A. criteria. Performed By: #### L 501.4020, L500.2500, L100.0100 ####[facility] [address] [place], [address] Potassium [Moles/Vol] 3.9 mmol/L Normal 3.5-5.1 [facility] Comment on above: Order Comment: 'TROP ' Serial specimen #1, #2 or #3: 1 Performed By: #### L 501.4020, L500.2500, L100.0100 ####[facility] [address] [place], [address] Sodium [Moles/Vol] 140 mmol/L Normal 136-145 [facility] Comment on above: Order Comment: 'TROP ' Serial specimen #1, #2 or #3: 1 Performed By: #### L 501.4020, L500.2500, L100.0100 ####[facility] [address] [place], [address] Urea nitrogen [Mass/Vol] 25 mg/dL High 7-18 [facility] Comment on above: Order Comment: 'TROP ' Serial specimen #1, #2 or #3: 1 Performed By: #### L 501.4020, L500.2500, L100.0100 ####[facility] [address] [place], [address] Bilirubin Test strip Ql (U)O rdered By: Harvinder Whitehead on 09-14-2024 Bilirubin Ql (U) Negative Negative [facility] Brain/Head without Contrasto n 09-14-2024 Brain/Head without Contrast [facility] Imaging Services [address] [place] [address] Brain/Head without Contrast MR#: [id number] Acct: [id number] Name: TATE MALLORY Rep #: [id number] : 1950 F 73 From: Angus Euceda PCP: Dr. Leonor Domingo MD Status: REG ER Study: Brain/Head without Contrast Date of Exam: 08/31 02/21 Exam# [id number] Ordering Dr: Harvinder Whitehead [place] [id number] EXAM: CT HEAD WITHOUT INTRAVENOUS CONTRAST CLINICAL INDICATION: dysequilibrium TECHNIQUE: Multiple axial images were obtained of the head without intravenous contrast. This CT exam was performed using one or more of the following dose reduction techniques: automated exposure control, adjustment of the mA and/or kV according to patient size, and/or use of iterative reconstruction technique. RADIATION DOSE: CTDIvol = 44.99 mGy, DLP = 796.11 mGy-cm COMPARISON: No relevant prior studies available. FINDINGS: BRAIN AND EXTRA-AXIAL SPACES: Moderate generalized atrophy. Moderate low density bilaterally in the deep white matter. No intra- or extra-axial hemorrhage. No evidence of acute infarct. No intracranial mass or mass effect. There is preservation of the peguero/white matter interface. Posterior fossa structures are unremarkable. No hydrocephalus. Basal cisterns are patent. BONES/JOINTS: Unremarkable. No discrete lytic or blastic abnormalities. SINUSES: Unremarkable as visualized. Clear. MASTOID AIR CELLS: Unremarkable. Clear. ORBITS: Visualized globes, extraocular muscles, optic nerves and retrobulbar fat appear unremarkable. CT/Brain/Head without Contrast IMPRESSION: Moderate generalized atrophy. Moderate low density bilaterally in the deep white matter. This likely represents chronic small vessel ischemic changes in the deep white matter. Electronically Signed: Angus Rubin MD at 23:37 EST , CC: Dr. Leonor Domingo MD; Dr. Harvinder Whitehead MD Horse Breeder: Signed Normal [facility] CBC W/Diff, Automatedon 08-31 Absolute Lymph 2.50 X10 3/uL Normal 0.83-4.51 [facility] Comment on above: Performed By: #### L 501.4020, L500.2500, L100.0100 ####[facility] [address] [place], [address] Absolute Neut 4.9 X10 3/uL Normal 2.0-7.7 [facility] Comment on above: Performed By: #### L 501.4020, L500.2500, L100.0100 ####[facility] [address] [place], [address] Basophils/100 WBC (Bld) 0.6 % Normal 0-1 [facility] Comment on above: Performed By: #### L 501.4020, L500.2500, L100.0100 ####[facility] [address] [place], [address] Eosinophils/100 WBC (Bld) 6.2 % High 0-5 [facility] Comment on above: Performed By: #### L 501.4020, L500.2500, L100.0100 ####[facility] [address] [place], [address] Erythrocyte distribution width (RBC) [Ratio] 13.2 % Normal 11.6-14.6 [facility] Comment on above: Performed By: #### L 501.4020, L500.2500, L100.0100 ####[facility] [address] [place], [address] Hematocrit (Bld) [Volume fraction] 41.2 % Normal 37-47 [facility] Comment on above: Performed By: #### L 501.4020, L500.2500, L100.0100 ####[facility] [address] [place], [address] Hemoglobin (Bld) [Mass/Vol] 13.1 g/dL Normal 12.0-15.0 [facility] Comment on above: Performed By: #### L 501.4020, L500.2500, L100.0100 ####[facility] [address] [place], [address] IG% 0.200 Normal 0.0-0.9 [facility] Comment on above: Result Comment: IG% - Immature Granulocytes (promyelocytes, myelocytes and metamyelocytes) > 1% indicates that a LEFT SHIFT is Present. Performed By: #### L 501.4020, L500.2500, L100.0100 ####[facility] [address] [place], [address] Lymphocytes/100 WBC (Bld) 27.6 % Normal 19-41 [facility] Comment on above: Performed By: #### L 501.4020, L500.2500, L100.0100 ####[facility] [address] [place], [address] MCH (RBC) [Entitic mass] 29.9 pg Normal 27.0-32.0 [facility] Comment on above: Performed By: #### L 501.4020, L500.2500, L100.0100 ####[facility] [address] [place], [address] MCHC (RBC) [Mass/Vol] 31.8 g/dL Low 32-36 [facility] Comment on above: Performed By: #### L 501.4020, L500.2500, L100.0100 ####[facility] [address] [place], [address] MCV (RBC) [Entitic vol] 94.1 fL Normal 81-99 [facility] Comment on above: Performed By: #### L 501.4020, L500.2500, L100.0100 ####[facility] [address] [place], [address] Monocytes/100 WBC (Bld) 10.8 % High 0-10 [facility] Comment on above: Performed By: #### L 501.4020, L500.2500, L100.0100 ####[facility] [address] [place], [address] Neutrophils/100 WBC (Bld) 54.6 % Normal 47-70 [facility] Comment on above: Performed By: #### L 501.4020, L500.2500, L100.0100 ####[facility] [address] [place], [address] Nucleated RBC (Bld) [#/Vol] 0 10*3/uL Normal 0-5 [facility] Comment on above: Performed By: #### L 501.4020, L500.2500, L100.0100 ####[facility] [address] [place], [address] Platelet mean volume (Bld) [Entitic vol] 9.6 fL Normal 6.2-12.0 [facility] Comment on above: Performed By: #### L 501.4020, L500.2500, L100.0100 ####[facility] [address] [place], [address] Platelets (Bld) [#/Vol] 239 10*3/uL Normal 150-450 [facility] Comment on above: Performed By: #### L 501.4020, L500.2500, L100.0100 ####[facility] [address] [place], [address] RBC (Bld) [#/Vol] 4.38 10*6/uL Normal 4.2-5.4 [facility] Comment on above: Performed By: #### L 501.4020, L500.2500, L100.0100 ####[facility] [address] [place], [address] RDW SD 45.6 fl High 35.1-43.9 [facility] Comment on above: Performed By: #### L 501.4020, L500.2500, L100.0100 ####[facility] [address] [place], [address] WBC (Bld) [#/Vol] 9.1 10*3/uL Normal 4.4-11.0 [facility] Comment on above: Performed By: #### L 501.4020, L500.2500, L100.0100 ####[facility] [address] [place], [address] Emergency Department Summary on 09-14-2024 Emergency Department Summary [facility] Medical Records Department [address] [place] [address] Emergency Department Summary 09/14/24 MR#: [id number] Acct: [id number] Name: TATE MALLORY Rep #: [id number] : 1950 73 From: Harvinder Whitehead MD PCP: Dr. Leonor Domingo MD Status:REG ER Location: ED HPI History of Present Illness Chief Complaint: Hypertension Informant: patient Narrative Narrative: 73-year-old female presents with dizziness that started sometime yesterday, over 24 hours ago. Mostly notices it when she is getting around walking. She is off balance and feels some sensation of dizziness in her head but not lily spinning and vomiting. No nausea with this. No hearing disturbance. 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 She denies any recent URI or earache/infection. No recent head injury. She decided to check her blood pressure at home and it was reading 180 systolic. She does not have a history of high blood pressure, last time she had a checked was when she had knee surgery in August and it was in the 150s. She denies any chest pain, dyspnea. She has urinary frequency but no dysuria. No focal neurologic symptoms, vision changes, diplopia, photophobia. [facility] Medical History Bilateral renal stones Wears hearing aid Wears glasses Wears partial dentures History of steroid therapy Thyroid disease Osteoarthritis Easy bruising Former smoker COPD (chronic obstructive pulmonary disease) Shortness of breath on exertion History of irregular heartbeat History of stress test Shoulder pain Arthritis Home Medications ???Medication ???Instructions ???Recorded ???Last Taken ???Type latanoprost 0.005 % eye drops 1 drp EACH EYE QHS GLUACOMA 09/10/18 07/05/20 History (Xalatan) levothyroxine 50 mcg tablet 50 mcg PO QHS THYROID 07/06/20 07/05/20 History multivitamin with minerals 1 tab PO DAILY SUPPLEMENT 07/06/20 07/05/20 History timolol maleate 0.25 % eye drops 1 drp EACH EYE BID GLAUCOMA 07/06/20 07/06/20 History hydroxyzine pamoate 25 mg capsule 25 mg PO BID PRN PRN anxiety 09/14/24 Unknown History venlafaxine 37.5 mg 37.5 mg PO BID 09/14/24 Unknown History capsule,extended release 24 hr Allergy/AdvReac Type Severity Reaction Status Date / Time No Known Allergies Allergy Verified 09/14/24 22:16 Surgical History History of shoulder surgery History of cornea transplant History of microdiscectomy History of colonoscopy History of total left knee replacement History of nasal septoplasty History of tubal ligation History of cataract extraction History of thyroid surgery History of hysterectomy Social History Smoking Status: Former smoker alcohol intake: never ROS ROS ED Constitutional Constitutional ED: Denies chills or fever(s) Eyes Eyes: Denies change in vision or diplopia ENT ENT ED: Denies rhinorrhea or sore throat Cardiovascular Cardiovascular: Denies chest pain or palpitations Respiratory/Chest Respiratory/Chest: Denies cough or dyspnea Gastrointestinal Gastrointestinal: Denies abdominal pain, diarrhea, nausea or vomiting Genitourinary Genitourinary ED: Reports urinary frequency; Denies dysuria or hematuria Musculoskeletal Musculoskeletal: Denies back pain or neck pain Integumentary Denies abscess or rash Neurologic Neurologic: Reports as per HPI, abnormal gait, disequilibrium and dizziness; Denies abnormal speech, headache(s), paresthesias, vertigo or weakness Psychiatric Psychiatric: Denies anxiety or suicidal thoughts EXAM Physical Exam Const Vital Signs: 09/14/24 22:16 09/14/24 22:36 09/14/24 23:03 Temperature 97.1 F L Temperature Source Temporal Pulse Rate 110 H 98 Respiratory Rate 20 H 30 H Respiratory Effort Normal Non-Labored Respiratory Pattern Normal Blood Pressure 200/96 H 156/78 H Blood Pressure Mean 130 104 Pulse Ox 95 97 Oxygen Delivery Method Room Air Positive well nourished and well developed General Appearance ED: well developed and NAD HEENT Reports moist mucous membranes normocephalic and atraumatic Eyes PERRL and EOMs intact bilaterally Neck full ROM and supple Resp normal respiratory effort and clear to auscultation bilaterally Cardio regular rate, regular rhythm and no murmurs Rate: tachycardic GI non-tender and non-distended Auscultation: normoactive bowel sounds Palpation: soft Back/Spine no CVA tenderness General Back: other FROM Extremity normal to inspection General Extremety ED: Negative for edema, pulses abnormal or tenderness General Extremity: Negative for (more content not included)... Normal [facility] Epithelial cells.squamous LM Ql (Urine sed)Ordered By: Harvinder Whitehead on 09-14-2024 Epithelial cells.squamous LM.HPF (Urine sed) [#/Area] 5 /[HPF] 5-10 [facility] Glucose Ql (U)Ordered By: Roberto Whitehead on 09-14-2024 Urine Glucose (UA) Normal mg/dl Normal [facility] H AND P Exam - Hospitaliston 09-14-2024 H&P Exam - Hospitalist [facility] Medical Records Department [address] [place] [address] H P Exam - Hospitalist 09/14/24 5389 MR#: [id number] Acct: [id number] Name: TATE MALLORY Rep #: [id number] : 1950 73 From: Florida Salinas MD PCP: Dr. Leonor Domingo MD Status:ADM IN Location: [place] [id number] HPI - General General Date of Admission: 09/14/24 Date of Service: 09/14/24 Chief Complaint: Lightheadedness, dizziness, urinary frequency. HPI Narrative The patient is a 73 y/o F w/ PMHx: PAF, CKD stage III unclear subtype based on GFR trending, Glaucoma unclear type, Anxiety and Depression, Hypothyroidism, COPD, Former tobacco use, Obesity who presents to the [facility] ED on 09/14/24 with history of dizziness starting approximately 24 hours prior especially with attempts to get up and walk with sensation of feeling off balance occasionally dizzy but no lily spinning with no nausea or emesis with history of previous benign positional vertigo with no recent URI or earaches or infection no head injury with BP assessment at home with elevated readings with systolic at 180s with no history of hypertension previously although she does report that in August she had knee surgery and her BP was elevated at that time at 150 but was untreated with recent urinary frequency prompting eventual ED evaluation to be cautious. She definitely does report that the dizziness is different than when she has had benign positional vertigo previously. Workup in the ED included T97.1, heart rate 110, BP initially 200/96, respiratory rate 20, and he 5% on room air with most recent repeat vitals heart rate 98, BP 156/78, respiratory rate 30, 97% on room air, CBC with WBC 9.1, human 13.1, platelet 239 without marked shift, BMP with BUN/creatinine 25/1.31, GFR 42, glucose 214, troponin 13, urinalysis with cloudy appearing urine, specific gravity 1.025, protein 100, occult blood 150, nitrate positive, excess trace 500, urine RBCs 5-10, urine WBCs 10-25 with 2+ urine bacteria, urine culture pending per ED, CT brain with moderate generalized atrophy with moderate low-density bilaterally deep white matter 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 In the ED patient administered Rocephin 1 g IV x 1.in place. Full Code status. [facility] Medical History (Updated 09/15/24 @ 00:[address] [place] Salinas MD) Obesity Anxiety and depression CKD (chronic kidney disease), stage III Hypothyroidism PAF (paroxysmal atrial fibrillation) Bilateral renal stones Wears hearing aid Wears glasses Wears partial dentures Osteoarthritis Former smoker COPD (chronic obstructive pulmonary disease) History of stress test Arthritis Home Medications ???Medication ???Instructions ???Recorded ???Last Taken ???Type latanoprost 0.005 % eye drops 1 drp EACH EYE QHS GLUACOMA 09/10/18 07/05/20 History (Xalatan) levothyroxine 50 mcg tablet 50 mcg PO QHS THYROID 07/06/20 07/05/20 History multivitamin with minerals 1 tab PO DAILY SUPPLEMENT 07/06/20 07/05/20 History timolol maleate 0.25 % eye drops 1 drp EACH EYE BID GLAUCOMA 07/06/20 07/06/20 History hydroxyzine pamoate 25 mg capsule 25 mg PO BID PRN PRN anxiety 09/14/24 Unknown History venlafaxine 37.5 mg 37.5 mg PO BID 09/14/24 Unknown History capsule,extended release 24 hr Allergy/AdvReac Type Severity Reaction Status Date / Time No Known Allergies Allergy Verified 09/14/24 22:16 Family History (Updated 09/15/24 @ 00:[address] [place] Salinas MD) Mother Hypertension Father Hypertension CAD (coronary artery disease) Myocardial infarction Heart disease Surgical History History of shoulder surgery History of cornea transplant History of microdiscectomy History of colonoscopy History of total left knee replacement History of nasal septoplasty History of tubal ligation History of cataract extraction History of thyroid surgery History of hysterectomy Social History (Updated 09/15/24 @ 00:[address] [place] Salinas MD) household members: none Smoking Status: Former smoker how long ago did patient quit smoking: Quit 2011, started in her 20s, smoked 1/2-1 ppd until quit. alcohol intake: never substance use type: does not use ROS ROS Narrative Admission Review of Systems: CONSTITUTIONAL: No weight loss, fever, chills, + weakness or fatigue. HEENT: + Lightheadedness, dizziness. Eyes: No visual loss, blurred vision, double vision or yellow sclerae. Ears, Nose, Throat: No hearing loss, sneezing, congestion, runny nose or sore throat. SKIN: No rash or itching, lesions, wounds. CARDIOVASCULAR: No chest pain, chest pressure or chest discomfort, palpitations, edema, orthopnea, syncopal events. RESPIRAT (more content not included)... Normal [facility] Ketones Test strip Ql (U)Ord ered By: Harvinder Whitehead on 09-14-2024 Ketones Ql (U) Negative Negative [facility] L501.4020on 09-14-2024 TROPONIN-I HS 13 pg/mL Normal 3.0-54.0 [facility] Comment on above: Order Comment: 'TROP ' Serial specimen #1, #2 or #3: 1 Result Comment: Plea se Note: New Test Units and Gender Specific Reference Ranges. For more information see Policy Stat Procedure [place] High Sensitivity Troponin (TNIH) and attachments. Performed By: #### L 501.4020, L500.2500, L100.0100 ####[facility] [address] [place], [address] Magnesium measurementOrdered By: Florida Salinas on 09-14-2024 Magnesium [Mass/Vol] 2.0 mg/dL 1.6-2.6 [facility] Microscopic analysis of urin e for red blood cells (RBC)Ordered By: Harvinder Whitehead on 09-14-2024 Urine RBC 5-10 SEEN /hpf 0-5 [facility] Mucus LM Ql (Urine sed)Order ed By: Harvinder Whitehead on 09-14-2024 Mucus Ql (Urine sed) RARE /hpf [facility] Nitrite Test strip Ql (U)Ord ered By: Harvinder Whitehead on 09-14-2024 Nitrite Ql (U) Positive High Negative [facility] Protein Test strip Ql (U)Ord ered By: Harvinder Whitehead on 09-14-2024 Protein Ql (U) 100 mg/dl High Negative [facility] Troponin IOrdered By: Oksana Whitehead on 09-14-2024 Troponin I High Sensitivity 13 pg/mL 3.0-54.0 [facility] Comment on above: Please Note: New Naima t Units and Gender Specific Reference Ranges. For more information see Policy Stat Procedure [place] High Sensitivity Troponin (TNIH) and attachments. Urinalysis, Completeon 09-14 BACTERIA 2+ /hpf Normal None Seen [facility] Comment on above: Order Comment: CLEAN CATCH Performed By: #### L 400.0001 #### [facility] [address] [place], [address] EPI,SQUAMOUS 5-10 SEEN Normal 5-10 [facility] Comment on above: Order Comment: CLEAN CATCH Performed By: #### L 400.0001 #### [facility] [address] [place], [address] Mucus Ql (Urine sed) RARE Normal [facility] Comment on above: Order Comment: CLEAN CATCH Performed By: #### L 400.0001 #### [facility] [address] [place], [address] RBC 5-10 SEEN Normal 0-5 [facility] Comment on above: Order Comment: CLEAN CATCH Performed By: #### L 400.0001 #### [facility] [address] [place], [address] WBC 10-25 SEEN Normal 0-5 [facility] Comment on above: Order Comment: CLEAN CATCH Performed By: #### L 400.0001 #### [facility] [address] [place], [address] Urine blood detectionOrdered By: Harvinder Whitehead on 09-14-2024 Urine Occult Blood 150 /ul High Negative [facility] Urine clarityOrdered By: Sultana Whitehead on 09-14-2024 Clarity (U) Cloudy Clear [facility] Urine color determinationOrd ered By: Harvinder Whitehead on 09-14-2024 Color (U) Yellow Yellow [facility] Urine leukocyte esterase det ection by dipstickOrdered By: Harvinder Ventura on 09-14-2024 Leukocyte esterase Test strip Ql (U) 500 /ul High Negative [facility] Urine pHOrdered By: Harvinder Whitehead on 09-14-2024 pH (U) 5.0 [pH] 5.0 - 8.0 [facility] Urine sediment bacteria coun t by microscopy (number/high power field)Ordered By: Harvinder Whitehead on 09-14-2024 Bacteria LM.HPF (Urine sed) [#/Area] 2 /[HPF] None Seen [facility] Urine specific gravity measu rementOrdered By: Harvinder Whitehead on 09-14-2024 Specific gravity (U) [Rel density] 1.025 1.002-1.030 [facility] Urobilinogen Ql (U)Ordered B y: Harvinderrene Whitehead on 09-14-2024 Urine Urobilinogen Normal mg/dl Normal [facility] White blood cell countOrdere d By: Harvinder Ventura on 09-14-2024 Urine WBC 10-25 SEEN /hpf 0-5 [facility] Decalcification bone/plaqueo n 08-11-2024 Decalcification bone/plaque ---- Patient Age/Sex Location Account Attending Physician ---- TATE MALLORY 73/F LABSPEC [id number] Dr. Jamal Hebert MD ---- Specimen: [id number] Received: 08/11/24 Status: KARTHIK [place] Num: [id number] Spec Type: TOTAL KNEE Subm Dr: Dr. Jamal Hebert MD HEADER OPERATION: Right total knee arthroplasty PRE-OP DIAGNOSIS: Severe right knee osteoarthritis TISSUE SUBMITTED: Right knee bone and soft tissue ---- MICROSCOPIC DIAGNOSIS Bone and tissue of right knee, total knee resection: Severe degenerative joint disease. Polarizable crystals suggestive of pseudogout. AM: 08/15/2024 MICROSCOPIC DESCRIPTION Slides are reviewed. GROSS DESCRIPTION Received is one container designated bone and soft tissue right knee. The specimen consists of multiple fragments of bryson-yellow bone measuring in aggregate 11.0 x 10.0 x 3.5 cm. Also present in the container are two detached pieces of fibrocartilaginous tissue measuring in aggregate 5.5 x 2.5 x 1.0cm. A number of bony fragments contain articular surfaces consistent with tibial plateau and femoral condyle and displaying prominent osteophyte formation, eburnation and bone erosion. Slime Plant Operator sections are submitted in two cassettes as follows: 1 - soft tissue, 2 - bone after decalcification. / 08/12/2024 TC:5 CPT: 63754, 73755 ---- Patient Age/Sex Location Account Attending Physician ---- TATE MALLORY 73/F LABSPEC [id number] Dr. Jamal Hebert MD ---- Signed (signature on file) Dr. Joseph Patterson DO 08/15/24 1456 ---- Normal [facility] Comment on above: Performed By: #### P DEC ####[facility] [address] [place], [place], [id number] .Auto Diffon 07-29-2024 Basophil, Absolute 0.1 10 3/mcL Normal 0.0-0.2 [facility] Comment on above: Performed By: #### C MP, ANEU, LIPID, ADIFF, GFR, A1C, CBC, TSH, VIDH #### [address] [address] Basophils/100 WBC (Bld) 0.6 % Normal 0.0-2.5 [facility] Comment on above: Performed By: #### C MP, ANEU, LIPID, ADIFF, GFR, A1C, CBC, TSH, VIDH #### [address] [address] Eosinophil, Absolute 0.4 10 3/mcL Normal 0.0-0.7 [facility] Comment on above: Performed By: #### C MP, ANEU, LIPID, ADIFF, GFR, A1C, CBC, TSH, VIDH #### [address] [address] Eosinophils/100 WBC (Bld) 4.5 % Normal 0.0-7.0 [facility] Comment on above: Performed By: #### C MP, ANEU, LIPID, ADIFF, GFR, A1C, CBC, TSH, VIDH #### [address] [address] Lymphocyte, Absolute 1.7 10 3/mcL Normal 0.9-4.3 [facility] Comment on above: Performed By: #### C MP, ANEU, LIPID, ADIFF, GFR, A1C, CBC, TSH, VIDH #### [address] [address] Lymphocytes/100 WBC (Bld) 18.7 % Low 20.0-40.0 [facility] Comment on above: Performed By: #### C MP, ANEU, LIPID, ADIFF, GFR, A1C, CBC, TSH, VIDH #### [address] [address] Monocyte, Absolute 0.7 10 3/mcL Normal 0.1-1.4 [facility] Comment on above: Performed By: #### C MP, ANEU, LIPID, ADIFF, GFR, A1C, CBC, TSH, VIDH #### [address] [address] Monocytes/100 WBC (Bld) 7.8 % Normal 2.0-13.0 [facility] Comment on above: Performed By: #### C MP, ANEU, LIPID, ADIFF, GFR, A1C, CBC, TSH, VIDH #### [id number] [place], [place] [address] Neutrophils/100 WBC (Bld) 68.4 % Normal 50.0-75.0 [facility] Comment on above: Performed By: #### C MP, ANEU, LIPID, ADIFF, GFR, A1C, CBC, TSH, VIDH #### [id number] [place], [place] [address] .GFRon 07-29-2024 GFR Non- 37 ml/min/1.73sqm Normal [facility] Comment on above: Result Comment: GFR Population [...] 15 mL/min/1.73 square meters Performed By: #### C MP, ANEU, LIPID, ADIFF, GFR, A1C, CBC, TSH, VIDH #### [id number] [place], [place] [address] GFR 45 ml/min/1.73sqm Normal [facility] Comment on above: Result Comment: GFR Population [...] 15 mL/min/1.73 square meters Performed By: #### C MP, ANEU, LIPID, ADIFF, GFR, A1C, CBC, TSH, VIDH #### [address] [address] .NEUABSon 07-29-2024 Neutrophil, Absolute 6.1 10 3/mcL Normal 2.3-8.1 [facility] Comment on above: Performed By: #### C MP, ANEU, LIPID, ADIFF, GFR, A1C, CBC, TSH, VIDH #### [address] [address] A1Con 07-29-2024 Glucose [Mass/Vol] 131 mg/dL Normal [facility] Comment on above: Result Comment: Chasity mated Average Glucose calculated by equation ((28.7xA1C)-46.7) Estimated average glucose (eAG) is a calculated value from Hemoglobin A1C and is consumer sales representative of the average blood glucose level in the last 2-3 month period. Normal range: less than 114 mg/dL Performed By: #### C MP, ANEU, LIPID, ADIFF, GFR, A1C, CBC, TSH, VIDH #### [address] [address] HbA1c (Bld) [Mass fraction] 6.2 % Normal 4.3-6.4 [facility] Comment on above: Performed By: #### C MP, ANEU, LIPID, ADIFF, GFR, A1C, CBC, TSH, VIDH #### [address] [address] CBCon 07-29-2024 Erythrocyte distribution width (RBC) [Ratio] 12.9 % Normal 11.5-15.5 [facility] Comment on above: Performed By: #### C MP, ANEU, LIPID, ADIFF, GFR, A1C, CBC, TSH, VIDH #### [address] [address] Hematocrit (Bld) [Volume fraction] 45.9 % Normal 34.0-46.0 [facility] Comment on above: Performed By: #### C MP, ANEU, LIPID, ADIFF, GFR, A1C, CBC, TSH, VIDH #### [address] [address] Hgb 15.3 G/dL Normal 12.0-16.0 [facility] Comment on above: Performed By: #### C MP, ANEU, LIPID, ADIFF, GFR, A1C, CBC, TSH, VIDH #### [place] [address] MCH (RBC) [Entitic mass] 31.0 pg Normal 27.0-33.0 [facility] Comment on above: Performed By: #### C MP, ANEU, LIPID, ADIFF, GFR, A1C, CBC, TSH, VIDH #### [address] [address] MCHC 33.3 G/dL Normal 32.0-36.0 [facility] Comment on above: Performed By: #### C MP, ANEU, LIPID, ADIFF, GFR, A1C, CBC, TSH, VIDH #### [place] [address] MCV (RBC) [Entitic vol] 93.1 fL Normal 80.0-99.0 [facility] Comment on above: Performed By: #### C MP, ANEU, LIPID, ADIFF, GFR, A1C, CBC, TSH, VIDH #### [place] [address] Platelet 250 10 3/mcL Normal 150-450 [facility] Comment on above: Performed By: #### C MP, ANEU, LIPID, ADIFF, GFR, A1C, CBC, TSH, VIDH #### [place] [address] Platelet mean volume (Bld) [Entitic vol] 7.9 fL Normal 6.6-10.5 [facility] Comment on above: Performed By: #### C MP, ANEU, LIPID, ADIFF, GFR, A1C, CBC, TSH, VIDH #### [address] [address] RBC 4.93 10 6/mcL Normal 4.10-5.30 [facility] Comment on above: Performed By: #### C MP, ANEU, LIPID, ADIFF, GFR, A1C, CBC, TSH, VIDH #### [address] [address] WBC 8.9 10 3/mcL Normal 4.5-10.8 [facility] Comment on above: Performed By: #### C MP, ANEU, LIPID, ADIFF, GFR, A1C, CBC, TSH, VIDH #### [address] [address] CMPon 07-29-2024 Albumin Level 3.7 G/dL Normal 3.4-4.8 [facility] Comment on above: Performed By: #### C MP, ANEU, LIPID, ADIFF, GFR, A1C, CBC, TSH, VIDH #### [address] [address] Albumin/Globulin [Mass ratio] 1.0 {ratio} Low 1.1-2.5 [facility] Comment on above: Performed By: #### C MP, ANEU, LIPID, ADIFF, GFR, A1C, CBC, TSH, VIDH #### [address] [address] ALP [Catalytic activity/Vol] 90 U/L Normal 40-135 [facility] Comment on above: Performed By: #### C MP, ANEU, LIPID, ADIFF, GFR, A1C, CBC, TSH, VIDH #### [address] [address] ALT [Catalytic activity/Vol] 35 U/L Normal 14-59 [facility] Comment on above: Performed By: #### C MP, ANEU, LIPID, ADIFF, GFR, A1C, CBC, TSH, VIDH #### [address] [address] AST [Catalytic activity/Vol] 18 U/L Normal 10-40 [facility] Comment on above: Performed By: #### C MP, ANEU, LIPID, ADIFF, GFR, A1C, CBC, TSH, VIDH #### [address] [address] Bili Total 0.5 mg/dL Normal 0.2-1.0 [facility] Comment on above: Result Comment: Use of this assay is not recommended for patients undergoing treatment with eltrombopag due to the potential for falsely elevated results. Performed By: #### C MP, ANEU, LIPID, ADIFF, GFR, A1C, CBC, TSH, VIDH #### [address] [address] BUN/Creatinine Ratio 11 ratio Normal 7-27 [facility] Comment on above: Performed By: #### C MP, ANEU, LIPID, ADIFF, GFR, A1C, CBC, TSH, VIDH #### [address] [address] Calcium [Mass/Vol] 9.5 mg/dL Normal 8.4-10.2 [facility] Comment on above: Performed By: #### C MP, ANEU, LIPID, ADIFF, GFR, A1C, CBC, TSH, VIDH #### [address] [address] Chloride [Moles/Vol] 103 mmol/L Normal 98-107 [facility] Comment on above: Performed By: #### C MP, ANEU, LIPID, ADIFF, GFR, A1C, CBC, TSH, VIDH #### [address] [address] CO2 [Moles/Vol] 29 mmol/L Normal 23-31 [facility] Comment on above: Performed By: #### C MP, ANEU, LIPID, ADIFF, GFR, A1C, CBC, TSH, VIDH #### [address] [address] Creatinine [Mass/Vol] 1.38 mg/dL High 0.55-1.02 [facility] Comment on above: Result Comment: Test ing performed on [employer] Dimension EXL analyzer using a modified kinetic Saleem technique. Performed By: #### C MP, ANEU, LIPID, ADIFF, GFR, A1C, CBC, TSH, VIDH #### [address] [address] Electrolyte Balance 9.0 mEq/L Normal 4.0-15.0 [facility] Comment on above: Performed By: #### C MP, ANEU, LIPID, ADIFF, GFR, A1C, CBC, TSH, VIDH #### [address] [address] Globulin 3.7 G/dL Normal [facility] Comment on above: Performed By: #### C MP, ANEU, LIPID, ADIFF, GFR, A1C, CBC, TSH, VIDH #### [address] [address] Glucose [Mass/Vol] 170 mg/dL High 83-110 [facility] Comment on above: Performed By: #### C MP, ANEU, LIPID, ADIFF, GFR, A1C, CBC, TSH, VIDH #### [address] [address] Potassium [Moles/Vol] 4.4 mmol/L Normal 3.5-5.1 [facility] Comment on above: Performed By: #### C MP, ANEU, LIPID, ADIFF, GFR, A1C, CBC, TSH, VIDH #### [address] [address] Sodium [Moles/Vol] 141 mmol/L Normal 136-145 [facility] Comment on above: Performed By: #### C MP, ANEU, LIPID, ADIFF, GFR, A1C, CBC, TSH, VIDH #### [address] [address] Total Protein 7.4 G/dL Normal 6.4-8.2 [facility] Comment on above: Performed By: #### C MP, ANEU, LIPID, ADIFF, GFR, A1C, CBC, TSH, VIDH #### [address] [address] Urea nitrogen [Mass/Vol] 15 mg/dL Normal 7-18 [facility] Comment on above: Performed By: #### C MP, ANEU, LIPID, ADIFF, GFR, A1C, CBC, TSH, VIDH #### [facility] [address] [place], [place] [address] LABORATORYOrdered By: SYSTEM SYSTEM on 07-29-2024 25-hydroxyvitamin D3 [Mass/Vol] 39.3 ng/mL Invalid Interpretation Code AO ADM SS Comment on above: Interpretive Data: I nterpretive Values Based on Total 25(OH) Vitamin D: Deficient <20 ng/mL Insufficient 20 - <30 ng/mL Sufficient 30-100 ng/mL Albumin BCP dye [Mass/Vol] 3.7 G/dL Normal 3.4 - 4.8 G/dL AO ADM SS Albumin/Globulin [Mass ratio] 1.0 {ratio} Low 1.1 - 2.5 ratio AO ADM SS ALP [Catalytic activity/Vol] 90 U/L Normal 40 - 135 U/L AO ADM SS ALT With P-5'-P [Catalytic activity/Vol] 35 U/L Normal 14 - 59 U/L AO ADM SS AST With P-5'-P [Catalytic activity/Vol] 18 U/L Normal 10 - 40 U/L AO ADM SS Basophils (Bld) [#/Vol] 0.1 103/mcL Normal 0.0 - 0.2 10^3/mcL AO Workflow SS Basophils/100 WBC (Bld) 0.6 % Normal 0.0 - 2.5 % AO Workflow SS Bilirubin [Mass/Vol] 0.5 mg/dL Normal 0.2 - 1 .0 mg/dL AO ADM SS Comment on above: Interpretive Data: U se of this assay is not recommended for patients undergoing treatment with eltrombopag due to the potential for falsely elevated results. Calcium [Mass/Vol] 9.5 mg/dL Normal 8.4 - 10. 2 mg/dL AO ADM SS Chloride [Moles/Vol] 103 mmol/L Normal 98 - 10 7 mmol/L AO ADM SS CO2 [Moles/Vol] 29 mmol/L Normal 23 - 31 mmol/L AO ADM SS Creatinine [Mass/Vol] 1.38 mg/dL High 0.55 - 1.02 mg/dL AO ADM SS Comment on above: Interpretive Data: T esting performed on [employer] Dimension EXL analyzer using a modified kinetic Saleem technique. Electrolyte Balance 9.0 mEq/L Normal 4.0 - 15 .0 mEq/L AO ADM SS Eosinophil, Absolute 0.4 103/mcL Normal 0.0 - 0 .7 10^3/mcL AO Workflow SS Eosinophils/100 WBC (Bld) 4.5 % Normal 0.0 - 7.0 % AO Workflow SS Erythrocyte distribution width (RBC) [Ratio] 12.9 % Normal 11.5 - 15.5 % AO Workflow SS GFR/1.73 sq M.predicted among blacks MDRD (S/P/Bld) [Vol rate/Area] 45 ml/min/1.73sqm Invalid Interpretation Code AO Chemistry S [...] M.predicted among non-blacks MDRD (S/P/Bld) [Vol rate/Area] 37 ml/min/1.73sqm Invalid Interpretation Code AO Chemistry S [...] Less than 15 mL/min/1.73 square meters Globulin 3.7 G/dL Invalid Interpretation Code AO ADM SS Glucose [Mass/Vol] 131 mg/dL Invalid Interpretation Code AO Chemistry S Comment on above: Interpretive Data: E stimated average glucose (eAG) is a calculated value from Hemoglobin A1C and is consumer sales representative of the average blood glucose level in the last 2-3 month period. Normal range: less than 114 mg/dL Glucose [Mass/Vol] 170 mg/dL High 83 - 110 mg/dL AO ADM SS HbA1c (Bld) [Mass fraction] 6.2 % Normal 4.3 - 6.4 % AO ADM SS Hematocrit (Bld) [Volume fraction] 45.9 % Normal 34.0 - 46.0 % AO Workflow SS Hemoglobin (Bld) [Mass/Vol] 15.3 G/dL Normal 12.0 - 16.0 G/dL AO Workflow SS Lymphocytes (Bld) [#/Vol] 1.7 103/mcL Normal 0.9 - 4.3 10^3/mcL AO Workflow SS Lymphocytes/100 WBC (Bld) 18.7 % Low 20.0 - 40.0 % AO Workflow SS MCH (RBC) [Entitic mass] 31.0 pg Normal 27.0 - 33.0 pg AO Workflow SS MCHC 33.3 G/dL Normal 32.0 - 36.0 G/dL AO Workflow SS MCV (RBC) [Entitic vol] 93.1 fL Normal 80.0 - 99.0 fL AO Workflow SS Monocytes (Bld) [#/Vol] 0.7 103/mcL Normal 0.1 - 1.4 10^3/mcL AO Workflow SS Monocytes/100 WBC (Bld) 7.8 % Normal 2.0 - 13.0 % AO Workflow SS Neutrophils (Bld) [#/Vol] 6.1 103/mcL Normal 2.3 - 8.1 10^3/mcL AO Workflow SS Neutrophils/100 WBC (Bld) 68.4 % Normal 50.0 - 75.0 % AO Workflow SS Platelet mean volume (Bld) [Entitic vol] 7.9 fL Normal 6.6 - 10.5 fL AO Workflow SS Platelets (Bld) [#/Vol] 250 103/mcL Normal 150 - 450 10^3/mcL AO Workflow SS Potassium [Moles/Vol] 4.4 mmol/L Normal 3.5 - 5.1 mmol/L AO ADM SS Protein [Mass/Vol] 7.4 G/dL Normal 6.4 - 8.2 G/dL AO ADM SS RBC (Bld) [#/Vol] 4.93 106/mcL Normal 4.10 - 5.3 0 10^6/mcL AO Workflow SS Sodium [Moles/Vol] 141 mmol/L Normal 136 - 145 mmol/L AO ADM SS TSH Qn 1.41 m[IU]/L Normal 0.36 - 3.74 mcIU/mL AO ADM SS Urea nitrogen [Mass/Vol] 15 mg/dL Normal 7 - 18 mg/dL AO ADM SS Urea nitrogen/Creatinine [Mass ratio] 11 ratio Normal 7 - 27 ratio AO ADM SS WBC (Bld) [#/Vol] 8.9 103/mcL Normal 4.5 - 10.8 10^3/mcL AO Workflow SS LABORATORYOrdered By: Annita Dunn on 07-29-2024 Cholesterol [Mass/Vol] 238 mg/dL High 0 - 2 00 mg/dL AO ADM SS Comment on above: Interpretive Data: C holesterol Reference Interval: Less than 200 Desirable 200-239 Borderline high risk 240 and above High risk Cholesterol in HDL [Mass/Vol] 57 mg/dL Normal 40 - 60 mg/dL AO ADM SS Cholesterol in LDL [Mass/Vol] 123 mg/dL Normal 0 - 130 mg/dL AO ADM SS Triglyceride [Mass/Vol] 288 mg/dL High 0 - 150 mg/dL AO ADM SS Comment on above: Interpretive Data: T riglyceride Reference Interval: Less than 150 Normal 150-199 Borderline high risk 200-499 High risk 500 or higher Very high risk LIPIDon 07-29-2024 Cholesterol [Mass/Vol] 238 mg/dL High 0-200 [facility] Comment on above: Result Comment: Chol esterol Reference Interval: Less than 200 Desirable 200-239 Borderline high risk 240 and above High risk Performed By: #### C MP, ANEU, LIPID, ADIFF, GFR, A1C, CBC, TSH, VIDH #### [place] [id number] [place], [place] [address] Cholesterol in HDL [Mass/Vol] 57 mg/dL Normal 40-60 [facility] Comment on above: Performed By: #### C MP, ANEU, LIPID, ADIFF, GFR, A1C, CBC, TSH, VIDH #### [address] [address] Cholesterol in LDL [Mass/Vol] 123 mg/dL Normal 0-130 [facility] Comment on above: Performed By: #### C MP, ANEU, LIPID, ADIFF, GFR, A1C, CBC, TSH, VIDH #### [place] [address] [place], [place] [address] Triglyceride [Mass/Vol] 288 mg/dL High 0-150 [facility] Comment on above: Result Comment: Trig lyceride Reference Interval: Less than 150 Normal 150-199 Borderline high risk 200-499 High risk 500 or higher Very high risk Performed By: #### C MP, ANEU, LIPID, ADIFF, GFR, A1C, CBC, TSH, VIDH #### [address] [address] TSHon 07-29-2024 TSH Qn 1.41 m[IU]/L Normal 0.36-3.74 [facility] Comment on above: Performed By: #### C MP, ANEU, LIPID, ADIFF, GFR, A1C, CBC, TSH, VIDH #### [address] [address] VIDHon 07-29-2024 Vit. D 25-Hydroxy 39.3 ng/mL Normal [facility] Comment on above: Result Comment: Inte rpretive Values Based on Total 25(OH) Vitamin D: Deficient <20 ng/mL Insufficient 20 - <30 ng/mL Sufficient 30-100 ng/mL Performed By: #### C MP, ANEU, LIPID, ADIFF, GFR, A1C, CBC, TSH, VIDH #### [address] [address] 12 Lead EKGon 07-28-2024 12 Lead EKG [facility] Cardiovascular Services [address] [place] [address] 12 Lead EKG 07/28/24 1220 MR#: [id number] Acct: [id number] Name: TATE MALLORY Rep #: [id number] : 1950 73 From: Nikita Malik MD Attending Dr: Dr. Jamal Hebert MD Status: REG CLI Ordering Dr: Jamal Hebert MD Date: 07/28/24 Location: [facility] Sex: F C Admitted: Test Reason : PREOP Blood Pressure : / mmHG Vent. Rate : 096 BPM Atrial Rate : 096 BPM P-R Int : 156 ms QRS Dur : 094 ms QT Int : 346 ms P-R-T Axes : 055 -35 066 degrees QTc Int : 437 ms Normal sinus rhythm Left axis deviation Abnormal ECG Confirmed by NIKITA MALIK MD ([id number]), general expeditor MELBA ROSA ([id number]) on 07/28/2024 1:32:56 PM Referred By: Jamal Hebert Confirmed By:NIKITA MALIK MD 07/28/24 1333 Date Nikita Malik MD CC: Dr. Leonor Domingo MD; Dr. Jamal Hebert MD Signed Normal [facility] Chest PA and Lateralon 07-28 Chest PA and Lateral [facility] Imaging Services [address] [place], [place] [id number] Chest PA and Lateral MR#: [id number] Acct: [id number] Name: TATE MALLORY Rep #: [id number] : 1950 F 73 From: Yaniv Javier MD PCP: Dr. Leonor Domingo MD Status: REG CLI Study: Chest PA and Lateral Date of Exam: 07/28/24 Exam# [id number] Ordering Dr: Jamal Hebert [place] [id number] INDICATION: PRE OP EXAMINATION/TECHNIQUE: X-RAY - XR Chest 2 Views COMPARISON: None. FINDINGS: LINES/DEVICES: None. LUNGS: No consolidation, edema or effusion. No pneumothorax. MEDIASTINUM AND CARDIOVASCULAR STRUCTURES: Cardiac silhouette within normal limits. BONES AND SOFT TISSUES: No acute findings. RAD/Chest PA and Lateral IMPRESSION: No radiographic evidence of acute cardiopulmonary disease. Electronically Signed: Yaniv Javier MD at 19:58 EDT Reading Location ID and State: [facility] / [place] Tel , Service support , CC: Dr. Leonor Domingo MD; Dr. 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 Leonor Domingo MD Status: REG CLI Study: Extremity Lower without Contra Date of Exam: 0 06/25/24 Exam# [id number] Ordering Dr: Jamal Hebert [place] [id number] PROCEDURE: CT RIGHT KNEE WITHOUT CONTRAST REASON FOR EXAM: Female, 73 years old. Preoperative planning for the [employer] Robotic knee surgery. Knee pain. TECHNIQUE: Transaxial CT of the hip, knee and ankle were obtained. Coronal and sagittal reconstruction images of the knee were provided. Individualized dose optimization techniques were used for this CT. COMPARISON: None. FINDINGS: Standard protocol for the preoperative planning for the [employer] robotic knee surgery was performed. Osteopenia with mild arthrosis of the right hip, moderate medial compartmental arthrosis with osteophytes and mild arthrosis of the lateral femorotibial compartment and patellofemoral compartment and mild arthrosis of the tibiotalar and subtalar joints. Large calcaneal spurs. CT/Extremity Lower without Contra IMPRESSION: Preoperative [employer] knee surgical CT evaluation with findings as described above. Electronically Signed: Armando Fagan MD at 10:02 EDT , CC: Dr. Leonor Domingo MD; Dr. 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 Kathe Colvin risk calculations, generated with the history provided, [...] addition to annual mammographic screening per the [employer]. BIRADS: BI-RADS: 2: Benign RECALL: 1 year screening RECALL TYPE: mammo LETTER SENT: Normal BI-RADS 1 and 2 Interpreted by: Ilan Araujo MD Preliminary Report By: Ilan Araujo MD Electronically signed By Ilan Araujo MD Dictated Date: 03/28/2024 5:30:54 PM Prelim Date: 03/28/2024 5:36:58 PM Sign Date: 03/28/2024 5:36:58 PM Ordering Provider: DORCAS PALAFOX Medical Pathologist: SOWMYA SALINAS(R) RDMS letter sent: Normal BI-RADS 1 and 2 Mammogram BI-RADS: 2 Benign Normal [facility] ([place] .Auto Diffon 02-22-2024 Basophil, Absolute 0.0 10 3/mcL Normal 0.0-0.2 [facility] ([place]) Comment on above: Performed By: #### G FR, FERR, FT4, CBC, CMP, ADIFF, TSH, FT3, VIDH, ANEU, LIPID, FE, A1C #### [address] [address] Basophils/100 WBC (Bld) 0.3 % Normal 0.0-2.5 A [facility] ([place]) Comment on above: Performed By: #### G FR, FERR, FT4, CBC, CMP, ADIFF, TSH, FT3, VIDH, ANEU, LIPID, FE, A1C #### [address] [address] Eosinophil, Absolute 0.4 10 3/mcL Normal 0.0-0.4 [facility] ([place]) Comment on above: Performed By: #### G FR, FERR, FT4, CBC, CMP, ADIFF, TSH, FT3, VIDH, ANEU, LIPID, FE, A1C #### [address] [address] Eosinophils/100 WBC (Bld) 4.4 % Normal 0.0-7.0 [facility] ([place] Comment on above: Performed By: #### G FR, FERR, FT4, CBC, CMP, ADIFF, TSH, FT3, VIDH, ANEU, LIPID, FE, A1C #### [address] [address] Lymphocyte, Absolute 1.9 10 3/mcL Normal 0.8-3.9 [facility] ([place]) Comment on above: Performed By: #### G FR, FERR, FT4, CBC, CMP, ADIFF, TSH, FT3, VIDH, ANEU, LIPID, FE, A1C #### [address] [address] Lymphocytes/100 WBC (Bld) 20.3 % Normal 10.0-50.0 [facility] ([place] Comment on above: Performed By: #### G FR, FERR, FT4, CBC, CMP, ADIFF, TSH, FT3, VIDH, ANEU, LIPID, FE, A1C #### [address] [address] Monocyte, Absolute 0.7 10 3/mcL Normal 0.2-1.0 [facility] ([place]) Comment on above: Performed By: #### G FR, FERR, FT4, CBC, CMP, ADIFF, TSH, FT3, VIDH, ANEU, LIPID, FE, A1C #### [address] [address] Monocytes/100 WBC (Bld) 8.0 % Normal 1.7-13.0 [facility] ([place]) Comment on above: Performed By: #### G FR, FERR, FT4, CBC, CMP, ADIFF, TSH, FT3, VIDH, ANEU, LIPID, FE, A1C #### [address] [address] Neutrophils/100 WBC (Bld) 67.0 % Normal 37.0-80.0 [facility] ([place] Comment on above: Performed By: #### G FR, FERR, FT4, CBC, CMP, ADIFF, TSH, FT3, VIDH, ANEU, LIPID, FE, A1C #### [address] [address] .GFRon 02-22-2024 GFR 50 ml/min/1.73sqm Normal [facility] ([place]) Comment on above: Result Comment: GFR Population [...] FT3, VIDH, ANEU, LIPID, FE, A1C #### [address] [address] GFR Non- 41 ml/min/1.73sqm Normal [facility] ([place]) Comment on above: Result Comment: GFR Population [...] FT3, VIDH, ANEU, LIPID, FE, A1C #### [address] [address] .NEUABSon 02-22-2024 Neutrophil, Absolute 6.1 10 3/mcL Normal 2.9-6.2 [facility] ([place]) Comment on above: Performed By: #### G FR, FERR, FT4, CBC, CMP, ADIFF, TSH, FT3, VIDH, ANEU, LIPID, FE, A1C #### [address] [address] A1Con 02-22-2024 HbA1c (Bld) [Mass fraction] 6.2 % Normal 4.3-6.4 [facility] ([place]) Comment on above: Performed By: #### G FR, FERR, FT4, CBC, CMP, ADIFF, TSH, FT3, VIDH, ANEU, LIPID, FE, A1C #### [place] [address] CBCon 02-22-2024 Erythrocyte distribution width (RBC) [Ratio] 13.2 % Normal 11.5-14.5 [facility] ([place] Comment on above: Performed By: #### G FR, FERR, FT4, CBC, CMP, ADIFF, TSH, FT3, VIDH, ANEU, LIPID, FE, A1C #### [place] [address] Hematocrit (Bld) [Volume fraction] 42.4 % Normal 37.0-47.0 [facility] ([place] Comment on above: Performed By: #### G FR, FERR, FT4, CBC, CMP, ADIFF, TSH, FT3, VIDH, ANEU, LIPID, FE, A1C #### [place] [address] Hgb 14.9 G/dL Normal 12.0-16.0 [facility] ([place] Comment on above: Performed By: #### G FR, FERR, FT4, CBC, CMP, ADIFF, TSH, FT3, VIDH, ANEU, LIPID, FE, A1C #### [address] [address] MCH (RBC) [Entitic mass] 31.3 pg High 27.0-31.2 [facility] ([place] Comment on above: Performed By: #### G FR, FERR, FT4, CBC, CMP, ADIFF, TSH, FT3, VIDH, ANEU, LIPID, FE, A1C #### [address] [address] MCHC 35.2 G/dL Normal 33.0-37.0 [facility] ([place] Comment on above: Performed By: #### G FR, FERR, FT4, CBC, CMP, ADIFF, TSH, FT3, VIDH, ANEU, LIPID, FE, A1C #### [address] [address] MCV (RBC) [Entitic vol] 89.0 fL Normal 80.0-94.0 A [facility] ([place]) Comment on above: Performed By: #### G FR, FERR, FT4, CBC, CMP, ADIFF, TSH, FT3, VIDH, ANEU, LIPID, FE, A1C #### [address] [address] Platelet 237 10 3/mcL Normal 130-400 [facility] ([place] Comment on above: Performed By: #### G FR, FERR, FT4, CBC, CMP, ADIFF, TSH, FT3, VIDH, ANEU, LIPID, FE, A1C #### [address] [address] Platelet mean volume (Bld) [Entitic vol] 7.5 fL Normal 7.4-10.4 [facility] ([place] Comment on above: Performed By: #### G FR, FERR, FT4, CBC, CMP, ADIFF, TSH, FT3, VIDH, ANEU, LIPID, FE, A1C #### [address] [address] RBC 4.76 10 6/mcL Normal 4.20-5.40 [facility] ([place] Comment on above: Performed By: #### G FR, FERR, FT4, CBC, CMP, ADIFF, TSH, FT3, VIDH, ANEU, LIPID, FE, A1C #### [address] [address] WBC 9.2 10 3/mcL Normal 4.6-10.8 [facility] ([place] Comment on above: Performed By: #### G FR, FERR, FT4, CBC, CMP, ADIFF, TSH, FT3, VIDH, ANEU, LIPID, FE, A1C #### [address] [address] CMPon 02-22-2024 Albumin Level 3.6 G/dL Normal 3.4-4.8 [facility] ([place] Comment on above: Performed By: #### G FR, FERR, FT4, CBC, CMP, ADIFF, TSH, FT3, VIDH, ANEU, LIPID, FE, A1C #### [address] [address] Albumin/Globulin [Mass ratio] 0.9 {ratio} Low 1.1-2.5 [facility] [place] Comment on above: Performed By: #### G FR, FERR, FT4, CBC, CMP, ADIFF, TSH, FT3, VIDH, ANEU, LIPID, FE, A1C #### [address] [address] ALP [Catalytic activity/Vol] 73 U/L Normal 40-135 [facility] [place] Comment on above: Performed By: #### G FR, FERR, FT4, CBC, CMP, ADIFF, TSH, FT3, VIDH, ANEU, LIPID, FE, A1C #### [address] [address] ALT [Catalytic activity/Vol] 26 U/L Normal 14-59 [facility] [place] Comment on above: Performed By: #### G FR, FERR, FT4, CBC, CMP, ADIFF, TSH, FT3, VIDH, ANEU, LIPID, FE, A1C #### [address] [address] AST [Catalytic activity/Vol] 11 U/L Normal 10-40 [facility] [place] Comment on above: Performed By: #### G FR, FERR, FT4, CBC, CMP, ADIFF, TSH, FT3, VIDH, ANEU, LIPID, FE, A1C #### [address] [address] Bili Total 0.5 mg/dL Normal 0.2-1.0 [facility] [place] Comment on above: Result Comment: Use of this assay is not recommended for patients undergoing treatment with eltrombopag due to the potential for falsely elevated results. Performed By: #### G FR, FERR, FT4, CBC, CMP, ADIFF, TSH, FT3, VIDH, ANEU, LIPID, FE, A1C #### [address] [address] BUN/Creatinine Ratio 13 ratio Normal 7-27 [facility] ([place] Comment on above: Performed By: #### G FR, FERR, FT4, CBC, CMP, ADIFF, TSH, FT3, VIDH, ANEU, LIPID, FE, A1C #### [address] [address] Calcium [Mass/Vol] 9.2 mg/dL Normal 8.4-10.2 [facility] ([place]) Comment on above: Performed By: #### G FR, FERR, FT4, CBC, CMP, ADIFF, TSH, FT3, VIDH, ANEU, LIPID, FE, A1C #### [address] [address] Chloride [Moles/Vol] 105 mmol/L Normal 98-107 [facility] ([place]) Comment on above: Performed By: #### G FR, FERR, FT4, CBC, CMP, ADIFF, TSH, FT3, VIDH, ANEU, LIPID, FE, A1C #### [address] [address] CO2 [Moles/Vol] 27 mmol/L Normal 23-31 [facility] ([place] Comment on above: Performed By: #### G FR, FERR, FT4, CBC, CMP, ADIFF, TSH, FT3, VIDH, ANEU, LIPID, FE, A1C #### [address] [address] Creatinine [Mass/Vol] 1.26 mg/dL High 0.55-1.02 [facility] ([place]) Comment on above: Performed By: #### G FR, FERR, FT4, CBC, CMP, ADIFF, TSH, FT3, VIDH, ANEU, LIPID, FE, A1C #### [address] [address] Electrolyte Balance 12.0 mEq/L Normal 4.0-15.0 [facility] ([place]) Comment on above: Performed By: #### G FR, FERR, FT4, CBC, CMP, ADIFF, TSH, FT3, VIDH, ANEU, LIPID, FE, A1C #### [address] [address] Globulin 3.9 G/dL Normal [facility] ([place] Comment on above: Performed By: #### G FR, FERR, FT4, CBC, CMP, ADIFF, TSH, FT3, VIDH, ANEU, LIPID, FE, A1C #### [address] [address] Glucose [Mass/Vol] 144 mg/dL High 83-110 [facility] ([place]) Comment on above: Performed By: #### G FR, FERR, FT4, CBC, CMP, ADIFF, TSH, FT3, VIDH, ANEU, LIPID, FE, A1C #### [address] [address] Potassium [Moles/Vol] 4.6 mmol/L Normal 3.5-5.1 [facility]) Comment on above: Performed By: #### G FR, FERR, FT4, CBC, CMP, ADIFF, TSH, FT3, VIDH, ANEU, LIPID, FE, A1C #### [address] [address] Sodium [Moles/Vol] 144 mmol/L Normal 136-145 [facility] ([place] Comment on above: Performed By: #### G FR, FERR, FT4, CBC, CMP, ADIFF, TSH, FT3, VIDH, ANEU, LIPID, FE, A1C #### [address] [address] Total Protein 7.5 G/dL Normal 6.4-8.2 [facility] [place] Comment on above: Performed By: #### G FR, FERR, FT4, CBC, CMP, ADIFF, TSH, FT3, VIDH, ANEU, LIPID, FE, A1C #### [address] [address] Urea nitrogen [Mass/Vol] 16 mg/dL Normal 7-18 [facility] [place] Comment on above: Performed By: #### G FR, FERR, FT4, CBC, CMP, ADIFF, TSH, FT3, VIDH, ANEU, LIPID, FE, A1C #### [address] [address] FEon 02-22-2024 Iron [Mass/Vol] 77 ug/dL Normal 50-170 [facility] [place] Comment on above: Performed By: #### G FR, FERR, FT4, CBC, CMP, ADIFF, TSH, FT3, VIDH, ANEU, LIPID, FE, A1C #### [address] [address] Jacqueline 02-22-2024 Ferritin [Mass/Vol] 373.0 ng/mL High 8.0-252.0 [facility] ([place]) Comment on above: Performed By: #### G FR, FERR, FT4, CBC, CMP, ADIFF, TSH, FT3, VIDH, ANEU, LIPID, FE, A1C #### [address] [address] FT3on 02-22-2024 Free T3 [Mass/Vol] 3.19 pg/mL Normal 2.30-4.00 [facility] ([place]) Comment on above: Performed By: #### G FR, FERR, FT4, CBC, CMP, ADIFF, TSH, FT3, VIDH, ANEU, LIPID, FE, A1C #### [address] [address] FT4on 02-22-2024 Free T4 [Mass/Vol] 1.26 ng/dL Normal 0.76-1.46 [facility] ([place]) Comment on above: Performed By: #### G FR, FERR, FT4, CBC, CMP, ADIFF, TSH, FT3, VIDH, ANEU, LIPID, FE, A1C #### Adry [address] [address] LABORATORYOrdered By: SYSTEM SYSTEM on 02-22-2024 25-hydroxyvitamin [...] Cholesterol [Mass/Vol] 249 mg/dL High 0 - 2 00 mg/dL AO ADM SS Comment on above: [...] 02-22-2024 Cholesterol [Mass/Vol] 249 mg/dL High 0-200 [facility] ([place]) Comment on above: Result Comment: Chol esterol Reference Interval: Less than 200 Desirable 200-239 Borderline high risk 240 and above High risk Performed By: #### G FR, FERR, FT4, CBC, CMP, ADIFF, TSH, FT3, VIDH, ANEU, LIPID, FE, A1C #### [address] [address] Cholesterol in HDL [Mass/Vol] 62 mg/dL High 40-60 [facility] [place] Comment on above: Performed By: #### G FR, FERR, FT4, CBC, CMP, ADIFF, TSH, FT3, VIDH, ANEU, LIPID, FE, A1C #### [address] [address] Cholesterol in LDL [Mass/Vol] 157 mg/dL High 0-130 [facility] [place] Comment on above: Performed By: #### G FR, FERR, FT4, CBC, CMP, ADIFF, TSH, FT3, VIDH, ANEU, LIPID, FE, A1C #### [address] [address] Triglyceride [Mass/Vol] 149 mg/dL Normal 0-150 A [facility] ([place]) Comment on above: Result Comment: Trig lyceride Reference Interval: Less than 150 Normal 150-199 Borderline high risk 200-499 High risk 500 or higher Very high risk Performed By: #### G FR, FERR, FT4, CBC, CMP, ADIFF, TSH, FT3, VIDH, ANEU, LIPID, FE, A1C #### [address] [address] TSHon 02-22-2024 TSH Qn 1.26 m[IU]/L Normal 0.36-3.74 [facility] ([place] Comment on above: Performed By: #### G FR, FERR, FT4, CBC, CMP, ADIFF, TSH, FT3, VIDH, ANEU, LIPID, FE, A1C #### [address] [address] VIDHon 02-22-2024 Vit. D 25-Hydroxy 41.7 ng/mL Normal [facility] ([place] Comment on above: Result Comment: Inte rpretive Values Based on Total 25(OH) Vitamin D: Deficient <20 ng/mL Insufficient 20 - <30 ng/mL Sufficient 30-100 ng/mL Performed By: #### G FR, FERR, FT4, CBC, CMP, ADIFF, TSH, FT3, VIDH, ANEU, LIPID, FE, A1C #### [address] [address] Final Surgical Pathology Rep [facility] 09-13-2023 Final Surgical Pathology Report . Pathology Reports Accession: Collected Date/Time: Received Date/Time: Pathologist: [id number] 09/10/2023 13:25 EST 09/11/2023 10:15 MD SYLVAIN LOPEZ Final Surgical Pathology Report DIAGNOSIS: CECUM/ASCENDING COLON, BIOPSY: - TUBULAR ADENOMA CLINICAL INFORMATION: SCREENING Procedure: COLONOSCOPY Preoperative diagnosis: SCREENING Postoperative diagnosis: SCREENING SPECIMEN: A ASCENDING CECAL GROSS DESCRIPTION: All parts labelled with patient name and [id number] Received in formalin labeled cecal polyp are 2 bryson tissue fragments measuring 0.3 and 0.7 x 0.4 cm greatest dimension. TS-1 Shayy Seals, Grossing Final Touch Up Painter/ Dr. Mitch Ulloa, Pathologist Dictated by Shayy Seals MICROSCOPIC DESCRIPTION: The microscopic examination is performed, except in the case of Gross Only. Electronically Signed by Pathology Report verified by [facility] SYLVAIN SKY MD Sign out Date: 09/13/2023 13:48 Performing Lab: [facility], [address] [place] [address] Pathology Dept Disclaimer If ancillary studies were utilized, the following Laboratory Developed Test (LDT) disclaimer will apply: Under CLIA requirements, [facility] is qualified to perform high complexity testing. For all ancillary stains, positive and negative controls stain appropriately. Performance characteristics of immunohistochemical and chromogenic in-situ hybridization tests have been determined by [facility]. These tests are used for clinical purposes, They should not be regarded as investigational or for research. Normal [facility] ([place] .Auto Diffon 08-16-2023 Basophil, Absolute 0.1 10 3/mcL Normal 0.0-0.2 [facility] ([place]) Comment on above: Performed By: #### G FR, FERR, FT4, CBC, CMP, ADIFF, TSH, FT3, VIDH, ANEU, LIPID, FE, A1C #### [address] [address] Basophils/100 WBC (Bld) 0.6 % Normal 0.0-2.5 A [facility] ([place]) Comment on above: Performed By: #### G FR, FERR, FT4, CBC, CMP, ADIFF, TSH, FT3, VIDH, ANEU, LIPID, FE, A1C #### [address] [address] Eosinophil, Absolute 0.4 10 3/mcL Normal 0.0-0.4 [facility] ([place]) Comment on above: Performed By: #### G FR, FERR, FT4, CBC, CMP, ADIFF, TSH, FT3, VIDH, ANEU, LIPID, FE, A1C #### [address] [address] Eosinophils/100 WBC (Bld) 5.2 % Normal 0.0-7.0 [facility] ([place]) Comment on above: Performed By: #### G FR, FERR, FT4, CBC, CMP, ADIFF, TSH, FT3, VIDH, ANEU, LIPID, FE, A1C #### [address] [address] Lymphocyte, Absolute 1.9 10 3/mcL Normal 0.8-3.9 [facility] ([place]) Comment on above: Performed By: #### G FR, FERR, FT4, CBC, CMP, ADIFF, TSH, FT3, VIDH, ANEU, LIPID, FE, A1C #### [address] [address] Lymphocytes/100 WBC (Bld) 23.0 % Normal 10.0-50.0 [facility] ([place]) Comment on above: Performed By: #### G FR, FERR, FT4, CBC, CMP, ADIFF, TSH, FT3, VIDH, ANEU, LIPID, FE, A1C #### [address] [address] Monocyte, Absolute 0.8 10 3/mcL Normal 0.2-1.0 [facility] ([place]) Comment on above: Performed By: #### G FR, FERR, FT4, CBC, CMP, ADIFF, TSH, FT3, VIDH, ANEU, LIPID, FE, A1C #### [address] [address] Monocytes/100 WBC (Bld) 9.9 % Normal 1.7-13.0 [facility] ([place]) Comment on above: Performed By: #### G FR, FERR, FT4, CBC, CMP, ADIFF, TSH, FT3, VIDH, ANEU, LIPID, FE, A1C #### [address] [address] Neutrophils/100 WBC (Bld) 61.3 % Normal 37.0-80.0 [facility] [place] Comment on above: Performed By: #### G FR, FERR, FT4, CBC, CMP, ADIFF, TSH, FT3, VIDH, ANEU, LIPID, FE, A1C #### [address] [address] .GFRon 08-16-2023 GFR Non- 49 ml/min/1.73sqm Normal [facility] [place] Comment on above: Result Comment: GFR Population [...] FT3, VIDH, ANEU, LIPID, FE, A1C #### [address] [address] GFR 59 ml/min/1.73sqm Normal [facility] ([place] Comment on above: Result Comment: GFR Population [...] FT3, VIDH, ANEU, LIPID, FE, A1C #### [address] [address] .NEUABSon 08-16-2023 Neutrophil, Absolute 5.1 10 3/mcL Normal 2.9-6.2 [facility] ([place]) Comment on above: Performed By: #### G FR, FERR, FT4, CBC, CMP, ADIFF, TSH, FT3, VIDH, ANEU, LIPID, FE, A1C #### [place] [id number] A1Con 08-16-2023 HbA1c (Bld) [Mass fraction] 6.2 % Normal 4.3-6.4 [facility] [place] Comment on above: Performed By: #### G FR, FERR, FT4, CBC, CMP, ADIFF, TSH, FT3, VIDH, ANEU, LIPID, FE, A1C #### [place] [address]127 CBCon 08-16-2023 Erythrocyte distribution width (RBC) [Ratio] 12.7 % Normal 11.5-14.5 [facility] [place] Comment on above: Performed By: #### G FR, FERR, FT4, CBC, CMP, ADIFF, TSH, FT3, VIDH, ANEU, LIPID, FE, A1C #### [address] [address] Hematocrit (Bld) [Volume fraction] 43.0 % Normal 37.0-47.0 [facility] [place] Comment on above: Performed By: #### G FR, FERR, FT4, CBC, CMP, ADIFF, TSH, FT3, VIDH, ANEU, LIPID, FE, A1C #### [place] [address] Hgb 14.7 G/dL Normal 12.0-16.0 [facility] ([place] Comment on above: Performed By: #### G FR, FERR, FT4, CBC, CMP, ADIFF, TSH, FT3, VIDH, ANEU, LIPID, FE, A1C #### [address] [address] MCH (RBC) [Entitic mass] 30.4 pg Normal 27.0-31.2 [facility] [place] Comment on above: Performed By: #### G FR, FERR, FT4, CBC, CMP, ADIFF, TSH, FT3, VIDH, ANEU, LIPID, FE, A1C #### [address] [address] MCHC 34.1 G/dL Normal 33.0-37.0 [facility] [place] Comment on above: Performed By: #### G FR, FERR, FT4, CBC, CMP, ADIFF, TSH, FT3, VIDH, ANEU, LIPID, FE, A1C #### [address] [address] MCV (RBC) [Entitic vol] 89.2 fL Normal 80.0-94.0 A [facility] ([place]) Comment on above: Performed By: #### G FR, FERR, FT4, CBC, CMP, ADIFF, TSH, FT3, VIDH, ANEU, LIPID, FE, A1C #### [address] [address] Platelet 213 10 3/mcL Normal 130-400 [facility] [place] Comment on above: Performed By: #### G FR, FERR, FT4, CBC, CMP, ADIFF, TSH, FT3, VIDH, ANEU, LIPID, FE, A1C #### [address] [address] Platelet mean volume (Bld) [Entitic vol] 7.4 fL Normal 7.4-10.4 [facility] [place] Comment on above: Performed By: #### G FR, FERR, FT4, CBC, CMP, ADIFF, TSH, FT3, VIDH, ANEU, LIPID, FE, A1C #### [address] [address] RBC 4.82 10 6/mcL Normal 4.20-5.40 [facility] [place] Comment on above: Performed By: #### G FR, FERR, FT4, CBC, CMP, ADIFF, TSH, FT3, VIDH, ANEU, LIPID, FE, A1C #### [address] [address] WBC 8.3 10 3/mcL Normal 4.6-10.8 [facility] [place] Comment on above: Performed By: #### G FR, FERR, FT4, CBC, CMP, ADIFF, TSH, FT3, VIDH, ANEU, LIPID, FE, A1C #### [address] [address] CMPon 08-16-2023 Albumin Level 3.4 G/dL Normal 3.4-4.8 [facility] [place] Comment on above: Performed By: #### G FR, FERR, FT4, CBC, CMP, ADIFF, TSH, FT3, VIDH, ANEU, LIPID, FE, A1C #### [address] [address] Albumin/Globulin [Mass ratio] 0.8 {ratio} Low 1.1-2.5 [facility] [place] Comment on above: Performed By: #### G FR, FERR, FT4, CBC, CMP, ADIFF, TSH, FT3, VIDH, ANEU, LIPID, FE, A1C #### [address] [address] ALP [Catalytic activity/Vol] 79 U/L Normal 40-135 [facility] [place] Comment on above: Performed By: #### G FR, FERR, FT4, CBC, CMP, ADIFF, TSH, FT3, VIDH, ANEU, LIPID, FE, A1C #### [address] [address] ALT [Catalytic activity/Vol] 21 U/L Normal 14-59 [facility] [place] Comment on above: Performed By: #### G FR, FERR, FT4, CBC, CMP, ADIFF, TSH, FT3, VIDH, ANEU, LIPID, FE, A1C #### [address] [address] AST [Catalytic activity/Vol] 13 U/L Normal 10-40 [facility] [place] Comment on above: Performed By: #### G FR, FERR, FT4, CBC, CMP, ADIFF, TSH, FT3, VIDH, ANEU, LIPID, FE, A1C #### [address] [address] Bili Total 0.4 mg/dL Normal 0.2-1.0 [facility] ([place] Comment on above: Result Comment: Use of this assay is not recommended for patients undergoing treatment with eltrombopag due to the potential for falsely elevated results. Performed By: #### G FR, FERR, FT4, CBC, CMP, ADIFF, TSH, FT3, VIDH, ANEU, LIPID, FE, A1C #### [address] [address] BUN/Creatinine Ratio 21 ratio Normal 7-27 [facility] ([place]) Comment on above: Performed By: #### G FR, FERR, FT4, CBC, CMP, ADIFF, TSH, FT3, VIDH, ANEU, LIPID, FE, A1C #### [address] [address] Calcium [Mass/Vol] 8.9 mg/dL Normal 8.4-10.2 [facility] ([place]) Comment on above: Performed By: #### G FR, FERR, FT4, CBC, CMP, ADIFF, TSH, FT3, VIDH, ANEU, LIPID, FE, A1C #### [address] [address] Chloride [Moles/Vol] 106 mmol/L Normal 98-107 [facility] ([place] Comment on above: Performed By: #### G FR, FERR, FT4, CBC, CMP, ADIFF, TSH, FT3, VIDH, ANEU, LIPID, FE, A1C #### [address] [address] CO2 [Moles/Vol] 26 mmol/L Normal 23-31 [facility] [place] Comment on above: Performed By: #### G FR, FERR, FT4, CBC, CMP, ADIFF, TSH, FT3, VIDH, ANEU, LIPID, FE, A1C #### [address] [address] Creatinine [Mass/Vol] 1.10 mg/dL High 0.55-1.02 [facility] ([place]) Comment on above: Performed By: #### G FR, FERR, FT4, CBC, CMP, ADIFF, TSH, FT3, VIDH, ANEU, LIPID, FE, A1C #### [address] [address] Electrolyte Balance 10.0 mEq/L Normal 4.0-15.0 [facility] ([place]) Comment on above: Performed By: #### G FR, FERR, FT4, CBC, CMP, ADIFF, TSH, FT3, VIDH, ANEU, LIPID, FE, A1C #### [address] [address] Globulin 4.0 G/dL Normal [facility] ([place] Comment on above: Performed By: #### G FR, FERR, FT4, CBC, CMP, ADIFF, TSH, FT3, VIDH, ANEU, LIPID, FE, A1C #### [address] [address] Glucose [Mass/Vol] 122 mg/dL High 83-110 [facility] ([place] Comment on above: Performed By: #### G FR, FERR, FT4, CBC, CMP, ADIFF, TSH, FT3, VIDH, ANEU, LIPID, FE, A1C #### [address] [address] Potassium [Moles/Vol] 4.5 mmol/L Normal 3.5-5.1 [facility] ([place]) Comment on above: Performed By: #### G FR, FERR, FT4, CBC, CMP, ADIFF, TSH, FT3, VIDH, ANEU, LIPID, FE, A1C #### [address] [address] Sodium [Moles/Vol] 142 mmol/L Normal 136-145 [facility] ([place] Comment on above: Performed By: #### G FR, FERR, FT4, CBC, CMP, ADIFF, TSH, FT3, VIDH, ANEU, LIPID, FE, A1C #### [address] [address] Total Protein 7.4 G/dL Normal 6.4-8.2 [facility] [place] Comment on above: Performed By: #### G FR, FERR, FT4, CBC, CMP, ADIFF, TSH, FT3, VIDH, ANEU, LIPID, FE, A1C #### [address] [address] Urea nitrogen [Mass/Vol] 23 mg/dL High 7-18 [facility] [place] Comment on above: Performed By: #### G FR, FERR, FT4, CBC, CMP, ADIFF, TSH, FT3, VIDH, ANEU, LIPID, FE, A1C #### [address] [address] LIPIDon 08-16-2023 Cholesterol [Mass/Vol] 225 mg/dL High 0-200 [facility] ([place]) Comment on above: Result Comment: Chol esterol Reference Interval: Less than 200 Desirable 200-239 Borderline high risk 240 and above High risk Performed By: #### G FR, FERR, FT4, CBC, CMP, ADIFF, TSH, FT3, VIDH, ANEU, LIPID, FE, A1C #### [address] [address] Cholesterol in HDL [Mass/Vol] 59 mg/dL Normal 40-60 [facility] [place] Comment on above: Performed By: #### G FR, FERR, FT4, CBC, CMP, ADIFF, TSH, FT3, VIDH, ANEU, LIPID, FE, A1C #### [address] [address] Cholesterol in LDL [Mass/Vol] 138 mg/dL High 0-130 [facility] [place] Comment on above: Performed By: #### G FR, FERR, FT4, CBC, CMP, ADIFF, TSH, FT3, VIDH, ANEU, LIPID, FE, A1C #### [address] [address] Triglyceride [Mass/Vol] 139 mg/dL Normal 0-150 A [facility] ([place] Comment on above: Result Comment: Trig lyceride Reference Interval: Less than 150 Normal 150-199 Borderline high risk 200-499 High risk 500 or higher Very high risk Performed By: #### G FR, FERR, FT4, CBC, CMP, ADIFF, TSH, FT3, VIDH, ANEU, LIPID, FE, A1C #### [place] [id number] TSHon 08-16-2023 TSH Qn 0.66 m[IU]/L Normal 0.36-3.74 [facility] ([place] Comment on above: Performed By: #### G FR, FERR, FT4, CBC, CMP, ADIFF, TSH, FT3, VIDH, ANEU, LIPID, FE, A1C #### [address] [address] VIDHon 08-16-2023 Vit. D 25-Hydroxy 37.7 ng/mL Normal [facility] ([place] Comment on above: Result Comment: Inte rpretive Values Based on Total 25(OH) Vitamin D: Deficient <20 ng/mL Insufficient 20 - <30 ng/mL Sufficient 30-100 ng/mL Performed By: #### G FR, FERR, FT4, CBC, CMP, ADIFF, TSH, FT3, VIDH, ANEU, LIPID, FE, A1C #### [address] [address] LABORATORYOrdered By: SYSTEM SYSTEM on 02-13-2023 25-hydroxyvitamin [...] ml/min/1.73sqm Invalid Interpretation Code AO Chemistry S Basophil percentageon 2021 Chloride [Moles/Vol] 105 mmol/L 98-107 [facility] Work Phone: [phone] Glucose [Mass/Vol] 140 mg/dL 74-106 [facility] Work Phone: [phone] Comment on above: Fasting Glucose resu lt greater than or equal to 126 mg/dL suggests DIABETES MELLITUS per A.D.A. criteria. Potassium [Moles/Vol] 4.5 mmol/L 3.5-5.1 [facility] Work Phone: [phone] Sodium [Moles/Vol] 138 mmol/L 136-145 [facility] Work Phone: [phone] WBC (Bld) [#/Vol] 10.4 10*3/uL 4.4-11.0 [facility] Work Phone: [phone] Blood erythrocytes count (nu mber/volume)on 12-06-2021 RBC (Bld) [#/Vol] 5.04 10*6/uL 4.2-5.4 [facility] Work Phone: [phone] Blood hemoglobin measurement (mass/volume)on 12-06-2021 Hemoglobin (Bld) [Mass/Vol] 15.3 g/dL 12.0-15.0 [facility] Work Phone: [phone] Blood platelet mean volumeon 12-06-2021 Platelet mean volume (Bld) [Entitic vol] 9.9 fL 6.2-12.0 [facility] Work Phone: [phone] Determination of erythrocyte mean corpuscular volume (MCV)on 12-06-2021 MCV (RBC) [Entitic vol] 93.1 fL 81-99 [facility] Work Phone: [phone] Hematocrit Auto (Bld) [Volum e fraction]on 12-06-2021 Hematocrit (Bld) [Volume fraction] 46.9 % 37-47 [facility] Work Phone: [phone] Laboratory - Chemistry and C hemistry - challengeon 12-06-2021 CO2 [Moles/Vol] 31.0 mmol/L 21.0-32.0 [facility] Work Phone: [phone] Urea nitrogen/Creatinine [Mass ratio] 13.8 mg/mg 10-20 [facility] Work Phone: [phone] Laboratory - Hematology and Cell countson 12-06-2021 Erythrocyte distribution width (RBC) [Entitic vol] 43.0 fL 35.1-43.9 [facility] Work Phone: [phone] Erythrocyte distribution width (RBC) [Ratio] 12.5 % 11.6-14.6 [facility] Work Phone: [phone] MCH (RBC) [Entitic mass] 30.4 pg 27.0-32.0 [facility] Work Phone: [phone] MCHC Auto (RBC) [Mass/Vol]on 12-06-2021 MCHC (RBC) [Mass/Vol] 32.6 g/dL 32-36 [facility] Work Phone: [phone] Panel Informationon 12-06 Estimated GFR (MDRD) Amer 75 mL/min >60 [facility] Work Phone: [phone] Comment on above: GFR Calc Estimated GFR (MDRD) Non-Af Amer 62 mL/min >60 [facility] Work Phone: [phone] Comment on above: Non- GFR Calc Platelets bldon 12-06-2021 Platelets (Bld) [#/Vol] 242 10*3/uL 150-450 [facility] Work Phone: Serum or plasma calcium diane urement (mass/volume)on 12-06-2021 Calcium [Mass/Vol] 9.0 mg/dL 8.5-10.1 [facility] Work Phone: Serum or plasma creatinine m easurement (mass/volume)on 12-06-2021 Creatinine [Mass/Vol] 0.94 mg/dL 0.55-1.02 [facility] Work Phone: Comment on above: The validity of the calculated GFR & GFRAA in patients over 70 years has not been determined. Clinical correlation is essential. Serum or plasma urea nitroge n measurement (mass/volume)on 12-06-2021 Urea nitrogen [Mass/Vol] 13 mg/dL 7-18 [facility] Work Phone: Thin prep Papanicolaou smear with manual screeningon 12-06-2021 Thin prep Papanicolaou smear with manual screening 2 5-15 [facility] Work Phone: Absolute lymphocyte counton 11-29-2021 Lymphocytes Auto (Unsp spec) [#/Vol] 1.20 10*3/uL 0.83-4.51 [facility] Work Phone: Basophil percentageon 2021 Basophil percentage 0 SEEN /hpf [facility] Work Phone: Basophils/100 WBC (Bld) 0.6 % 0-1 [facility] Work Phone: Chloride [Moles/Vol] 108 mmol/L 98-107 [facility] Work Phone: Eosinophils/100 WBC (Bld) 3.5 % 0-5 [facility] Work Phone: Glucose [Mass/Vol] 152 mg/dL 74-106 [facility] Work Phone: Comment on above: Fasting Glucose resu lt greater than or equal to 126 mg/dL suggests DIABETES MELLITUS per A.D.A. criteria. Neutrophils (Bld) [#/Vol] 7.7 10*3/uL 2.0-7.7 [facility] Work Phone: Neutrophils/100 WBC (Bld) 75.9 % 47-70 [facility] Work Phone: [phone] Potassium [Moles/Vol] 4.1 mmol/L 3.5-5.1 [facility] Work Phone: [phone] Sodium [Moles/Vol] 139 mmol/L 136-145 [facility] Work Phone: WBC (Bld) [#/Vol] 10.2 10*3/uL 4.4-11.0 [facility] Work Phone: Bilirubin Test strip Ql (U)o n 11-29-2021 Bilirubin Ql (U) 3 mg/dL Negative [facility] Work Phone: Comment on above: COLOR OF URINE MAY A FFECT DIPSTICK RESULTS. Blood erythrocytes count (nu mber/volume)on 11-29-2021 RBC (Bld) [#/Vol] 5.01 10*6/uL 4.2-5.4 [facility] Work Phone: Blood hemoglobin measurement (mass/volume)on 11-29-2021 Hemoglobin (Bld) [Mass/Vol] 16.1 g/dL 12.0-15.0 [facility] Work Phone: Blood lymphocytes/100 leukoc yteson 11-29-2021 Lymphocytes/100 WBC (Bld) 11.8 % 19-41 [facility] Work Phone: Blood monocytes/100 leukocyt eson 11-29-2021 Monocytes/100 WBC (Bld) 7.7 % 0-10 [facility] Work Phone: Blood platelet mean volumeon 11-29-2021 Platelet mean volume (Bld) [Entitic vol] 10.1 fL 6.2-12.0 [facility] Work Phone: [phone] Determination of erythrocyte mean corpuscular volume (MCV)on 11-29-2021 MCV (RBC) [Entitic vol] 91.4 fL 81-99 [facility] Work Phone: [phone] Hematocrit Auto (Bld) [Volum e fraction]on 11-29-2021 Hematocrit (Bld) [Volume fraction] 45.8 % 37-47 [facility] Work Phone: [phone] Ketones Test strip Ql (U)on 11-29-2021 Ketones Ql (U) Negative Negative [facility] Work Phone: [phone] Laboratory - Chemistry and C hemistry - challengeon 11-29-2021 CO2 [Moles/Vol] 28.0 mmol/L 21.0-32.0 [facility] Work Phone: [phone] Urea nitrogen/Creatinine [Mass ratio] 14.7 mg/mg 10-20 [facility] Work Phone: [phone] Laboratory - Hematology and Cell countson 11-29-2021 Erythrocyte distribution width (RBC) [Entitic vol] 41.6 fL 35.1-43.9 [facility] Work Phone: [phone] Erythrocyte distribution width (RBC) [Ratio] 12.4 % 11.6-14.6 [facility] Work Phone: [phone] Immature granulocytes/100 WBC (Bld) 0.500 % 0.0-0.9 [facility] Work Phone: [phone] Comment on above: IG% - Immature Granu locytes (promyelocytes, myelocytes and metamyelocytes) > 1% indicates that a LEFT SHIFT is Present. MCH (RBC) [Entitic mass] 32.1 pg 27.0-32.0 [facility] [facility] Work Phone: [phone] Nucleated RBC/100 WBC (Bld) [Ratio] 0 % 0-5 [facility] Work Phone: [phone] MCHC Auto (RBC) [Mass/Vol]on 11-29-2021 MCHC (RBC) [Mass/Vol] 35.2 g/dL 32-36 [facility] Work Phone: [phone] Mucus LM Ql (Urine sed)on Mucus Ql (Urine sed) 0 SEEN /hpf [facility] Work Phone: Nitrite Test strip Ql (U)on 11-29-2021 Nitrite Ql (U) Positive Negative [facility] Work Phone: No Panel Informationon 11-29 Estimated Creatinine Clearance Calc 38.02 ml/min [facility] Work Phone: Estimated GFR (MDRD) Amer 63 mL/min >60 [facility] Work Phone: Comment on above: GFR Calc Estimated GFR (MDRD) Non-Af Amer 52 mL/min >60 [facility] Work Phone: Comment on above: Non- GFR Calc Platelets bldon 11-29-2021 Platelets (Bld) [#/Vol] 242 10*3/uL 150-450 [facility] Work Phone: Protein Test strip Ql (U)on 11-29-2021 Protein Ql (U) 15 mg/dl Negative [facility] Work Phone: Serum or plasma calcium diane urement (mass/volume)on 11-29-2021 Calcium [Mass/Vol] 9.1 mg/dL 8.5-10.1 [facility] Work Phone: Serum or plasma creatinine m easurement (mass/volume)on 11-29-2021 Creatinine [Mass/Vol] 1.09 mg/dL 0.55-1.02 [facility] Work Phone: Comment on above: The validity of the calculated GFR & GFRAA in patients over 70 years has not been determined. Clinical correlation is essential. Serum or plasma urea nitroge n measurement (mass/volume)on 11-29-2021 Urea nitrogen [Mass/Vol] 16 mg/dL 7-18 [facility] Work Phone: Squamous epithelial cells de tection in urine sediment by light microscopyon 11-29-2021 Epithelial cells.squamous LM Ql (Urine sed) 0-5 SEEN /hpf [facility] Work Phone: Thin prep Papanicolaou smear with manual screeningon 11-29-2021 Thin prep Papanicolaou smear with manual screening 3 5-15 [facility] Work Phone: Urine blood detectionon 03-0 RBC Ql (U) 150 /ul Negative [facility] Work Phone: [phone] RBC Ql (U) 10-25 SEEN /hpf [facility] Work Phone: Urine clarityon 11-29-2021 Clarity (U) Sl. Cloudy Clear [facility] Work Phone: Urine color determinationon 11-29-2021 Color (U) SEE COMMENT BELOW Yellow [facility] Work Phone: Comment on above: Visual Urine Color: ORANGE Urine glucose detectionon Glucose Ql (U) Normal mg/dl Normal [facility] Work Phone: Urine leukocyte esterase det ection by dipstickon 11-29-2021 Leukocyte esterase Test strip Ql (U) Negative Negative [facility] Work Phone: Urine pHon 11-29-2021 pH (U) 5.0 [pH] [facility] Work Phone: Urine sediment bacteria coun t by microscopy (number/high power field)on 11-29-2021 Bacteria LM.HPF (Urine sed) [#/Area] 1 /[HPF] None Seen [facility] Work Phone: Urine specific gravity measu rementon 11-29-2021 Specific gravity (U) [Rel density] 1.020 [facility] Work Phone: Urobilinogen Auto test strip Ql (U)on 11-29-2021 Urobilinogen Ql (U) 1 mg/dl Normal [facility] Work Phone: LABORATORYOrdered By: Melba Hebert on 08-11-2021 Albumin [...] current medications (procedure) Done Invalid Interpretation Code [facility] Work Phone: Fall risk assessment No Invalid Interpretation Code [facility] Work Phone: Rapid strep test Negative Invalid Interpretation Code [facility] Work Phone: Tobacco smoking status NHIS Never Invalid Interpretation Code [facility] Work Phone: Tobacco smoking status NHIS Tobacco smoking status NHIS Invalid Interpretation Code [facility] Work Phone: Office Visit: [facility]: sinus janes estionon 03-10-2017 Fall risk assessment No [facility] Work Phone: Protein mass conc Done [facility] Work Phone: Tobacco smoking status NHIS Never smoker [facility] Work Phone: Vital Signs Date Time Vital Sign Value Performing Clinician Facility 12-30-2024 13:51-0400 Diastolic blood pressure 62 mm[Hg] Dr. Leonor Domingo MD Work Phone: [facility] 12-30-2024 13:51-0400 Heart rate 67 /min Dr. Leonor Domingo MD Work Phone: [facility] 12-30-2024 13:51-0400 Respiratory rate 18 /min Dr. Leonor Domingo MD Work Phone: [facility] 12-30-2024 13:51-0400 SaO2% (BldA) [Mass fraction] 96 % Dr. Leonor Domingo MD Work Phone: [facility] 12-30-2024 13:51-0400 Systolic blood pressure 126 mm[Hg] Dr. Leonor Domingo MD Work Phone: [facility] 12-30-2024 13:13-0400 Body height 160.[address] Leonor Domingo MD Work Phone: [facility] 12-30-2024 13:13-0400 Body mass index (BMI) [Ratio] 35.4 kg/m2 Dr. Leonor Domingo MD Work Phone: [facility] 12-30-2024 13:13-0400 Body weight 90.[address] Leonor Domingo MD Work Phone: [facility] 12-29-2024 14:17-0400 Body mass index (BMI) [Ratio] 35.9 kg/m2 Dr. Leonor Domingo MD Work Phone: [facility] 12-29-2024 14:17-0400 Body temperature 96.7 [degF] Dr. Leonor Domingo MD Work Phone: [facility] 12-29-2024 14:17-0400 Body weight 91.[address] Leonor Domingo MD Work Phone: [facility] 12-29-2024 14:17-0400 Diastolic blood pressure 82 mm[Hg] Dr. Leonor Domingo MD Work Phone: [facility] 12-29-2024 14:17-0400 Heart rate 68 /min Dr. Leonor Domingo MD Work Phone: [facility] 12-29-2024 14:17-0400 Respiratory rate 16 /min Dr. Leonor Domingo MD Work Phone: [facility] 12-29-2024 14:17-0400 SaO2% (BldA) [Mass fraction] 95 % Dr. Leonor Domingo MD Work Phone: [facility] 12-29-2024 14:17-0400 Systolic blood pressure 138 mm[Hg] Dr. Leonor Domingo MD Work Phone: [facility] 12-12-2024 12:59-0400 Body height 160.[address] Leonor Domingo MD Work Phone: [facility] 12-12-2024 12:59-0400 Body mass index (BMI) [Ratio] 37.2 kg/m2 Dr. Leonor Domingo MD Work Phone: [facility] 12-12-2024 12:59-0400 Body temperature 97 [degF] Dr. Leonor Domingo MD Work Phone: [facility] 12-12-2024 12:59-0400 Body weight 95.[address] Leonor Domingo MD Work Phone: [facility] 12-12-2024 12:59-0400 Diastolic blood pressure 78 mm[Hg] Dr. Leonor Domingo MD Work Phone: [facility] 12-12-2024 12:59-0400 Heart rate 95 /min Dr. Leonor Domingo MD Work Phone: [facility] 12-12-2024 12:59-0400 Respiratory rate 19 /min Dr. Leonor Domingo MD Work Phone: [facility] 12-12-2024 12:59-0400 SaO2% (BldA) [Mass fraction] 98 % Dr. Leonor Domingo MD Work Phone: [facility] 12-12-2024 12:59-0400 Systolic blood pressure 136 mm[Hg] Dr. Leonor Domingo MD Work Phone: [facility] 12-11-2024 12:19-0400 Body mass index (BMI) [Ratio] 37 kg/m2 Dr. Leonor Domingo MD Work Phone: [facility] 12-11-2024 12:19-0400 Body weight 94.[address] Leonor Domingo MD Work Phone: [facility] 12-11-2024 12:19-0400 Diastolic blood pressure 83 mm[Hg] Dr. Leonor Domingo MD Work Phone: [facility] 12-11-2024 12:19-0400 Heart rate 101 /min Dr. Leonor Domingo MD Work Phone: [facility] 12-11-2024 12:19-0400 Respiratory rate 18 /min Dr. Leonor Domingo MD Work Phone: [facility] 12-11-2024 12:19-0400 Systolic blood pressure 131 mm[Hg] Dr. Leonor Domingo MD Work Phone: [facility] 10-31-2024 11:57-0500 Diastolic blood pressure 80 mm[Hg] Dr. Leonor Domingo MD Work Phone: [facility] 10-31-2024 11:57-0500 Heart rate 96 /min Dr. Leonor Domingo MD Work Phone: [facility] 10-31-2024 11:57-0500 Systolic blood pressure 138 mm[Hg] Dr. Leonor Domingo MD Work Phone: [facility] 10-31-2024 11:32-0500 Body mass index (BMI) [Ratio] 37.3 kg/m2 Dr. Leonor Domingo MD Work Phone: [facility] 10-31-2024 11:32-0500 Body temperature 96.6 [degF] Dr. Leonor Domingo MD Work Phone: [facility] 10-31-2024 11:32-0500 Body weight 95.[address] Leonor Domingo MD Work Phone: [facility] 10-31-2024 11:32-0500 Respiratory rate 20 /min Dr. Leonor Domingo MD Work Phone: [facility] 10-31-2024 11:32-0500 SaO2% (BldA) [Mass fraction] 95 % Dr. Leonor Domingo MD Work Phone: [facility] 10-28-2024 08:25-0500 Body mass index (BMI) [Ratio] 37.3 kg/m2 Dr. Leonor Domingo MD Work Phone: [facility] 10-28-2024 08:25-0500 Body weight 95.[address] Leonor Domingo MD Work Phone: [facility] 10-28-2024 08:25-0500 Diastolic blood pressure 82 mm[Hg] Dr. Leonor Domingo MD Work Phone: [facility] 10-28-2024 08:25-0500 Heart rate 102 /min Dr. Leonor Domingo MD Work Phone: [facility] 10-28-2024 08:25-0500 Respiratory rate 16 /min Dr. Leonor Domingo MD Work Phone: [facility] 10-28-2024 08:25-0500 Systolic blood pressure 133 mm[Hg] Dr. Leonor Domingo MD Work Phone: [facility] 09-25-2024 14:28-0500 Body mass index (BMI) [Ratio] 37.7 kg/m2 Dr. Leonor Domingo MD Work Phone: [facility] 09-25-2024 14:28-0500 Body temperature 97.3 [degF] Dr. Leonor Domingo MD Work Phone: [facility] 09-25-2024 14:28-0500 Body weight 96.[address] Leonor Domingo MD Work Phone: [facility] 09-25-2024 14:28-0500 Diastolic blood pressure 82 mm[Hg] Dr. Leonor Domingo MD Work Phone: [facility] 09-25-2024 14:28-0500 Heart rate 109 /min Dr. Leonor Domingo MD Work Phone: [facility] 09-25-2024 14:28-0500 Respiratory rate 16 /min Dr. Leonor Domingo MD Work Phone: [facility] 09-25-2024 14:28-0500 SaO2% (BldA) [Mass fraction] 97 % Dr. Leonor Domingo MD Work Phone: [facility] 09-25-2024 14:28-0500 Systolic blood pressure 118 mm[Hg] Dr. Leonor Domingo MD Work Phone: [facility] 09-15-2024 14:17-0500 Body mass index (BMI) [Ratio] 38.2 kg/m2 Dr. Leonor Domingo MD Work Phone: [facility] 09-15-2024 13:50-0500 SaO2% (BldA) [Mass fraction] 98 % Dr. Leonor Domingo MD Work Phone: [facility] 09-15-2024 13:00-0500 Body temperature 98 [degF] Dr. Leonor Domingo MD Work Phone: [facility] 09-15-2024 13:00-0500 Diastolic blood pressure 69 mm[Hg] Dr. Leonor Domingo MD Work Phone: [facility] 09-15-2024 13:00-0500 Heart rate 98 /min Dr. Leonor Domingo MD Work Phone: [facility] 09-15-2024 13:00-0500 Respiratory rate 17 /min Dr. Leonor Domingo MD Work Phone: [facility] 09-15-2024 13:00-0500 Systolic blood pressure 141 mm[Hg] Dr. Leonor Domingo MD Work Phone: [facility] 09-15-2024 08:44-0500 Body weight [address] Leonor Domingo MD Work Phone: [facility] 09-10-2023 14:00-0500 Diastolic Blood Pressure Non-Invasive 65 mm[Hg] DR PEPPER WILLINGHAM MD [facility] 09-10-2023 14:00-0500 Heart rate 77 /min DR EPPPER WILLINGHAM MD [facility] 09-10-2023 14:00-0500 Respiratory rate 19 /min DR PEPPER WILLINGHAM MD [facility] 09-10-2023 14:00-0500 Systolic Blood Pressure Non-Invasive 141 mm[Hg] DR PEPPER WILLINGHAM MD [facility] 09-10-2023 13:56-0500 Diastolic Blood Pressure Non-Invasive 62 mm[Hg] DR PEPPER WILLINGHAM MD [facility] 09-10-2023 13:56-0500 Heart rate 73 /min DR PEPPER WILLINGHAM MD [facility] 09-10-2023 13:56-0500 Respiratory rate 18 /min DR PEPPER WILLINGHAM MD [facility] 09-10-2023 13:56-0500 Systolic Blood Pressure Non-Invasive 93 mm[Hg] DR EPPPER WILLINGHAM MD [facility] 09-10-2023 13:51-0500 Diastolic Blood Pressure Non-Invasive 62 mm[Hg] DR PEPPER WILLINGHAM MD [facility] 09-10-2023 13:51-0500 Heart rate 64 /min DR PEPPER WILLINGHAM MD [facility] 09-10-2023 13:51-0500 Respiratory rate 14 /min DR PEPPER WILLINGHAM MD [facility] 09-10-2023 13:51-0500 Systolic Blood Pressure Non-Invasive 125 mm[Hg] DR PEPPER WILLINGHAM MD [facility] 09-10-2023 13:40-0500 Body temperature 96.8 [degF] DR PEPPER WILLINGHAM MD [facility] 09-10-2023 13:35-0500 Respiratory Rate - Anes 12 br/min DR PEPPER WILLINGHAM MD [facility] 09-10-2023 13:30-0500 Respiratory Rate - Anes 15 br/min DR PEPPER WILLINGHAM MD [facility] 09-10-2023 13:25-0500 Respiratory Rate - Anes 15 br/min DR PEPPER WILLINGHAM MD [facility] 09-10-2023 13:04-0500 Body height [address] PEPPER WILLINGHAM MD [facility] 09-10-2023 13:04-0500 Body weight 92.[address] PEPPER WILLINGHAM MD [facility] 09-10-2023 13:04-0500 Body weight 38.13 kg/m2 DR PEPPER WILLINGHAM MD [facility] 09-10-2023 12:50-0500 Body height [address] PEPPER WILLINGHAM MD [facility] 09-10-2023 12:50-0500 Body temperature 96.26 [degF] DR PEPPER WILLINGHAM MD [facility] 09-10-2023 12:50-0500 Body weight 92.[address] PEPPER WILLINGHAM MD [facility] 09-10-2023 12:50-0500 Heart rate 67 /min DR PEPPER WILLINGHAM MD [facility] 12-12-2021 18:11-0400 Body temperature 96.5 [degF] Dr. Dorcas Palafox Work Phone: [facility] Work Phone: 12-12-2021 18:11-0400 Diastolic blood pressure 76 mm[Hg] Dr. Dorcas Palafox Work Phone: [facility] Work Phone: 12-12-2021 18:11-0400 Heart rate 74 /min Dr. Dorcas Palafox Work Phone: [facility] Work Phone: 12-12-2021 18:11-0400 Respiratory rate 16 /min Dr. Dorcas Palafox Work Phone: [facility] Work Phone: 12-12-2021 18:11-0400 SaO2% (BldA) [Mass fraction] 97 % Dr. Dorcas Palafox Work Phone: [facility] Work Phone: 12-12-2021 18:11-0400 Systolic blood pressure 151 mm[Hg] Dr. Dorcas Palafox Work Phone: [facility] Work Phone: 12-12-2021 14:24-0400 Body height 160.[address] Dorcas Palafox Work Phone: [facility] Work Phone: 12-12-2021 14:24-0400 Body mass index (BMI) [Ratio] 36.7 kg/m2 Dr. Dorcas Palafox Work Phone: [facility] Work Phone: 12-12-2021 14:24-0400 Body weight [address] Dorcas Palafox Work Phone: [facility] Work Phone: 11-29-2021 10:39-0500 Diastolic blood pressure 78 mm[Hg] Dr. Dorcas Palafox Work Phone: [facility] Work Phone: 11-29-2021 10:39-0500 Heart rate 81 /min Dr. Dorcas Palafox Work Phone: [facility] Work Phone: 11-29-2021 10:39-0500 Respiratory rate 18 /min Dr. Dorcas Palafox Work Phone: [facility] Work Phone: 11-29-2021 10:39-0500 SaO2% (BldA) [Mass fraction] 98 % Dr. Dorcas Palafox Work Phone: [facility] Work Phone: 11-29-2021 10:39-0500 Systolic blood pressure 145 mm[Hg] Dr. Dorcas Palafox Work Phone: [facility] Work Phone: 11-29-2021 07:53-0500 Body temperature 95.9 [degF] Dr. Dorcas Palafox Work Phone: [facility] Work Phone: 11-29-2021 07:12-0500 Body mass index (BMI) [Ratio] 35.4 kg/m2 Dr. Dorcas Palafox Work Phone: [facility] Work Phone: 11-29-2021 07:12-0500 Body weight 90.[address] Dorcas Palafox Work Phone: [facility] Work Phone: 09-02-2017 09:20-0500 BMI (Body Mass Index) 34.89 kg/m2 Radhaortiz Queen LPN [facility] Work Phone: 09-02-2017 09:20-0500 Body Temperature 98.3 [degF] Radha Alarconjessica CERTIFIER [facility] Work Phone: 09-02-2017 09:20-0500 BP Diastolic 82 mm[Hg] Radha Alarconjessica CERTIFIER [facility] Work Phone: 09-02-2017 09:20-0500 BP Systolic 126 mm[Hg] Radha Queen CERTIFIER [facility] Work Phone: 09-02-2017 09:20-0500 Height 160.02 cm Radha Alarconjessica CERTIFIER [facility] Work Phone: 09-02-2017 09:20-0500 Pulse (Heart Rate) 96 /min Radha Alarconjessica CERTIFIER [facility] Work Phone: 09-02-2017 09:20-0500 Respiratory Rate 14 /min Radha Queen CERTIFIER [facility] Work Phone: 09-02-2017 09:20-0500 Weight 89.36 kg Radha Alarconjessica CERTIFIER [facility] Work Phone: 03-10-2017 12:32-0400 BMI (Body Mass Index) 35.57 kg/m2 Sol Bartlett LPN [facility] Work Phone: 03-10-2017 12:32-0400 Body Temperature 98.2 [degF] Sol Bartlett LPN [facility] Work Phone: 03-10-2017 12:32-0400 BP Diastolic 72 mm[Hg] Sol Bartlett LPN [facility] Work Phone: 03-10-2017 12:32-0400 BP Systolic 124 mm[Hg] Sol Bartlett LPN [facility] Work Phone: 03-10-2017 12:32-0400 Height 160.02 cm Sol Bartlett LPN [facility] Work Phone: 03-10-2017 12:32-0400 Pulse (Heart Rate) 72 /min Sol Bartlett LPN [facility] Work Phone: 03-10-2017 12:32-0400 Pulse Oximetry 97 % Sol Bartlett LPN [facility] Work Phone: 03-10-2017 12:32-0400 Respiratory Rate 14 /min Sol Bartlett LPN [facility] Work Phone: 03-10-2017 12:32-0400 Weight 91.08 kg Sol Bartlett LPN [facility] Work Phone: Encounters Encounter Date Encounter Type Care Provider Facility Start: 03-31-2025 ambulatory Leonor Simpsonlay Facility :[facility] Start: 12-31-2024 ambulatory [facility] Leonardo Facility:[facility] Start: 12-31-2024 Non-patient / Non-visit Dr. Tobias MCINTYRE -[facility] Start: 12-30-2024 End: 12-30-[address] Wai Patterson MD -[facility] Work Phone: Start: 12-30-2024 End: 12-30-[address] Leonor Domingo MD Work Phone: [facility] Work Phone: Start: 12-29-2024 End: 12-29-[address] Leonor Domingo MD -[facility] Work Phone: Start: 12-29-2024 End: 12-29-2024 ambulatory Wai Leonardo Facility:[facility] [place] [place] Start: 12-12-2024 End: 12-12-2024 Patient encounter procedure Giacomo FELDMAN -[facility] Work Phone: Start: 12-12-2024 End: 12-12-2024 ambulatory Leonor Domingo Facility:[facility] Start: 12-11-2024 End: 12-11-[address] Wai Patterson MD -[facility] Work Phone: Start: 12-11-2024 End: 12-11-[address] Leonor Domingo MD Work Phone: [facility] Work Phone: Start: 12-11-2024 End: 12-11-2024 ambulatory Wai Leonardo Facility:[facility] Start: 11-26-2024 Encounter for genera l adult medical examination without abnormal findings Giacomo FELDMAN [facility] Start: 11-20-2024 End: 11-20-2024 Patient encounter procedure Giacomo FELDMAN -Ultrasound, [facility] Work Phone: Start: 11-20-2024 End: 11-20-2024 ambulatory Giacomo FELDMAN Facility:[facility] Start: 11-12-2024 ambulatory Wai Patterson [facility] Start: 11-12-2024 Non-patient / Non-visit Dr. Wai gonzalez MD -[facility] Work Phone: Start: 11-12-2024 End: 11-12-[address] Wai Patterson MD -Pulmonary Services/Neurology Work Phone: Start: 11-12-2024 End: 11-12-2024 ambulatory Wai Leonardo Facility:[facility] Start: 11-11-2024 End: 11-11-2024 Patient encounter procedure Giacomo FELDMAN -Sleep Lab Work Phone: Start: 11-11-2024 End: 11-11-2024 ambulatory Giacomo FELDMAN Facility:[facility] Start: 10-31-2024 End: 10-31-2024 Patient encounter procedure Giacomo FELDMAN -[facility] Work Phone: Start: 10-31-2024 End: 10-31-2024 ambulatory Leonor Domingo Facility:[facility] Start: 10-28-2024 End: 10-28-[address] Wai Patterson MD -[facility] Work Phone: Start: 10-28-2024 End: 10-28-2024 ambulatory Wai Leonardo Facility:[facility] Start: 10-23-2024 ambulatory Wai Leonardo [facility] Start: 10-23-2024 Non-patient / Non-visit Dr. Wai gonzalez MD -[facility] Start: 10-22-2024 End: 10-22-2024 Patient encounter procedure Giacomo FELDMAN -Cardiovascular Services Work Phone: Start: 10-22-2024 End: 10-22-2024 ambulatory Giacomo FELDMAN Facility:[facility] Start: 10-22-2024 Non-patient / Non-visit Dr. Wai gonzalez MD -[facility] Start: 10-21-2024 End: 10-21-2024 Patient encounter procedure Giacomo FELDMAN -Sleep Lab Work Phone: Start: 10-21-2024 End: 10-21-2024 ambulatory Giacomo FELDMAN Facility:[facility] Start: 10-02-2024 End: 10-02-[address] Leonor Domingo MD -[facility] Work Phone: Start: 10-02-2024 End: 10-02-2024 ambulatory Leonor Domingo Facility:[facility] Start: 09-25-2024 End: 09-25-2024 ambulatory Leonor Domingo Facility:[facility] Start: 09-25-2024 End: 09-25-2024 Patient encounter procedure Giacomo FELDMAN -[facility] Work Phone: Start: 09-15-2024 Non-patient / Non-visit Dr. Leeann HILL -[facility] Work Phone: Start: 09-15-2024 ambulatory Nikita Malik Facility:[facility] Start: 09-15-2024 Non-patient / Non-visit Dr. Tobias MCINTYRE -[facility] Start: 09-14-2024 Non-patient / Non-visit Dr. Sheyla Salinas MD -[facility] Work Phone: Start: 09-14-2024 ambulatory [place] Salinas Facility :[facility] Start: 09-14-2024 End: 09-15-2024 Evaluation and management of inpatient Dr. Obi Moran DO -Progressive Care Unit Work Phone: Start: 08-17-2024 Encounter for preprocedural cardiovascular examination Jamal [facility] Start: 08-11-2024 End: 08-11-2024 ambulatory Jamal Kearsarge Facility:[facility] Start: 07-29-2024 End: 08-02-2024 ambulatory DORCAS PALAFOX Facility:[facility] Start: 07-29-2024 End: 08-02-[address] DORCAS PALAFOX DO [facility] Start: 07-28-2024 End: 07-28-2024 ambulatory Jamal Kearsarge Facility:[facility] [place] [place] Start: 07-28-2024 End: 07-28-2024 ambulatory Jamal Kearsarge Facility:[facility] Start: 06-25-2024 End: 06-25-2024 ambulatory Jamal Kearsarge Facility:[facility] Start: 03-28-2024 End: 03-28-[address] DORCAS PALAFOX DO Facility:[facility] Start: 03-28-2024 End: 03-28-[address] DORCAS PALAFOX DO [facility] Start: 02-22-2024 End: 02-22-[address] DORCAS PALAFOX DO Facility:[facility] Start: 02-22-2024 End: 02-22-[address] DORCAS PALAFOX DO [facility] Start: 09-10-2023 End: 09-10-2023 ambulatory PEPPER WILLINGHAM Facility:[facility] Start: 09-10-2023 End: 09-10-[address] PEPPER WILLINGHAM MD [facility] Start: 08-16-2023 End: 08-16-[address] DORCAS PALAFOX DO Facility:[facility] Start: 02-13-2023 End: 02-13-[address] DORCAS PALAFOX DO [facility] Start: 08-11-2022 End: 08-11-[address] DORCAS PALAFOX DO [facility] Start: 07-04-2022 End: 07-04-2022 ambulatory [facility] Work Phone: Start: 07-04-2022 End: 07-04-2022 Patient encounter procedure [facility] Start: 03-27-2022 End: 03-27-[address] DORCAS PALAFOX DO [facility] Start: 02-10-2022 End: 02-10-[address] DORCAS PALAFOX DO [facility] Start: 01-02-2022 End: 01-02-[address] Dorcas Palafox Work Phone: [facility] Start: 12-12-2021 End: 12-12-2021 Admission to same day surgery center Dr. Dorcas Palafox Work Phone: [facility] Start: 12-06-2021 Non-patient / Non-visit Dr. Pablo Palafox Work Phone: [facility] Start: 11-30-2021 End: 11-30-[address] Dorcas Palafox Work Phone: [facility] [place] Start: 11-29-2021 End: 11-29-2021 Emergency department patient visit Dr. Dorcas Palafox Work Phone: [facility]gency [facility] Start: 08-11-2021 End: 08-11-[address] DORCAS PALAFOX DO [facility] Procedures Date Procedure Procedure Detail Performing Clinician Start: 12-30-2024 Cardiac computed rita ography for calcium scoring Dr. Leonor Domingo MD Work Phone: Start: 11-20-2024 US scan of thyroid Dr. Leonor Domingo MD Work Phone: Start: 10-28-2024 Evaluation of diagno stic study results Dr. Leonor Domingo MD Work Phone: Start: 10-22-2024 Cardiovascular stres s test using pharmacologic stress agent Dr. Leonor Domingo MD Work Phone: Start: 09-15-[address] Yonas Domingo MD Work Phone: Start: 09-15-2024 CT angiography of he ad and neck Dr. Leonor Domingo MD Work Phone: Start: 09-15-2024 MRI of brain without contrast Dr. Leonor Domingo MD Work Phone: Start: 09-14-2024 CT of head without contrast Dr. Leonor Domingo MD Work Phone: Start: 01-30-2024 Structure of eye pro per (body structure) DR DORCAS PALAFOX DO Comment on above: tube placed for glau coma. Start: 07-04-2022 Diagnostic radiograp hy of abdomen Start: 01-02-2022 Diagnostic radiograp hy of abdomen Dr. Dorcas Palafox Work Phone: Start: 11-30-2021 Diagnostic radiograp hy of abdomen Dr. Dorcas Palafox Work Phone: Start: 11-29-2021 CT of abdomen and pe lvis without contrast Dr. Dorcas Palafox Work Phone: Start: 12-30-[address] DORCAS PALAFOX DO Start: 09-02-2017 End: 09-02-2017 Iaadiadoo streptococcus group a Anthony Crawford PA-C Work Phone: Start: 03-31-[address] DORCAS PALAFOX DO Start: 03-01-[address] DORCAS WOLF DO Start: 12-11-[address] DORCAS PALAFOX DO Start: 10-01-[address] operation DR DORCAS PALAFOX DO Start: 10-01-1995 Ligation of fallopian tube DR DORCAS PALAFOX DO Start: 10-01-[address] DORCAS WOLF DO Start: 10-01-1993 Adhesive capsulitis of shoulder (disorder) DR DORCAS PALAFOX DO Start: 10-01-1979 Lobectomy of thyroid gland DR DORCAS PALAFOX DO Cataract surgery DR DORCAS LLANES DO Septoplasty/submucou s resecj w/wo cartilage grf DR DORCAS PALAFOX DO Comment on above: 2001 Plan of Treatment Date Care Activity Detail Author Start: 09-25-2024 Patient referral [facility] Work Phone: Start: 09-15-2024 Patient discharge [facility] Start: 09-15-2024 End: 09-15-2024 Following clinical pathway protocol [facility] Start: 09-15-2024 Incentive spirometry [facility] Start: 09-15-2024 Provision of activity privileges [facility] Start: 09-15-2024 Assessment of risk of venous thromboembolism [facility] Start: 09-15-2024 Insertion of catheter into peripheral vein [facility] Start: 09-15-2024 Measuring intake and output [facility] Start: 09-15-2024 Providing care according to standard [facility] Start: 09-15-2024 Aspiration precautions [facility] Start: 09-15-2024 Cardiac monitoring [facility] Start: 09-15-2024 Catheterization of vein [facility] Start: 09-15-2024 Consultation [facility] Start: 09-15-2024 Continuous pulse oximetry [facility] Start: 09-15-2024 Elevation of head of bed [facility] Start: 09-15-2024 Exercises [facility] Start: 09-15-2024 Fall prevention [facility] Start: 09-15-2024 Introduction of urinary catheter [facility] Start: 09-15-2024 Notification of physician [facility] Start: 09-15-2024 Oxygen therapy [facility] Start: 09-15-2024 Patient referral to dietitian [facility] Start: 09-15-2024 Referral to occupational therapist [facility] Start: 09-15-2024 Referral to service [facility] Start: 09-15-2024 Speech therapy assessment [facility] Start: 09-15-2024 Tobacco use cessation education [facility] Start: 09-15-2024 End: 09-15-2024 [facility] Start: 09-14-2024 Admission procedure [facility] Start: 12-12-2021 Anes lithotrp xtrcorp shock wave w/o water bath ANESTH KIDNEY STONE DESTRUCT [facility] Work Phone: Start: 12-12-2021 Cysto bladder w/ureteral catheterization CYSTOSCOPY & URETER CATHETER [facility] Work Phone: Start: 12-12-2021 Lithotripsy xtrcorp shock wave FRAGMENTING OF KIDNEY STONE [facility] Work Phone: Start: 09-02-2017 End: 09-02-2017 Streptococcus.beta-hemolyti c [Presence] in Throat by Organism specific culture *Culture, R/O Strep A Swab [facility] Work Phone: Start: 09-02-2017 End: 09-02-2017 Appointment Appointment [facility] Work Phone: Start: 03-10-2017 End: 03-10-2017 Appointment Appointment [facility] Work Phone: Basic metabolic 2008 panel with ionized calcium - Serum or Plasma [facility] CT for calcium scori ng WO contrast and CTA W contrast IV Heart and coronary arteries [facility] Hemoglobin A1c/Hemoglobin.total in Blood [facility] Magnesium measurement [facility] Measurement of occul t blood in stool specimen using immunoassay [facility] MG Breast - bilatera l Screening [facility] Patient Education [facility] Work Phone: Patient referral [facility] Work Phone: Polysomnography [facility] Immunizations Immunization Date Immunization Notes Care Provider [facility] 09-15-2024 influenza, high dose seasonal, preservative-free Dr. Leonor Domingo MD Work Phone: [facility] 08-14-2023 influenza, injectabl e, quadrivalent, preservative free Dr. Leonor Domingo MD Work Phone: [facility] 08-14-2023 influenza, high dose seasonal, preservative-free; Translations: [Fluad Quadrivalent PF ] DR PEPPER WILLINGHAM MD [facility] 02-20-[address] DORCAS PALAFOX DO [facility] 08-21-[address] DORCAS PALAFOX DO [facility] 07-26-2022 COVID-19, mRNA, LNP- S, bivalent booster, PF, 30 mcg/0.3 mL dose; Translations: [[employer] COVID-19 (12y+) Bivalent Booster Vaccine PF] DR DORCAS PALAFOX DO [facility] 07-26-2022 SARSCoV2 mRNA(xtfyadjlihx79z+)biv al vac; Translations: [Pfizer-BioNTech COVID-19 (12y+) Bivalent Booster Vaccine PF] DR DORCAS PALAFOX DO [facility] 07-14-2022 influenza, injectabl e, quadrivalent, preservative free Dr. Leonor Domingo MD Work Phone: [facility] 07-14-2022 influenza, high dose seasonal, preservative-free DR DORCAS PALAFOX DO [facility] 02-16-2022 COVID-19, mRNA, LNP- S, PF, 30 mcg/0.3 mL dose; Translations: [Pfizer-BioNTech COVID-19 Vaccine (Do Not Dilute)] DR DORCAS PALAFOX DO [facility] 09-01-2021 Covid (Pfizer); Translations: [Pfizer-BioNTech COVID-19 [address]] Dr. Dorcas Palafox Work Phone: [facility] Work Phone: 08-18-2021 influenza, injectabl e, quadrivalent, preservative free Dr. Leonor Domingo MD Work Phone: [facility] 08-18-2021 influenza, high dose seasonal, preservative-free; Translations: [Fluad Quadrivalent PF ] DR DORCAS PALAFOX DO [facility] 01-03-2021 SARS-CoV-2 mRNA (tozinameran) vaccine DR DORCAS PALAFOX DO [facility] 12-13-2020 SARS-CoV-2 mRNA (tozivinicioeran) vaccine DR DORCAS PALAFOX DO [facility] Comment on above: Result Comment: 2020: [id number] 06-18-2020 influenza, injectabl e, quadrivalent, preservative free; Translations: [Fluarix PF Quadrivalent ] DR DORCAS PALAFOX DO [facility] 08-08-2019 influenza, injectabl e, quadrivalent, preservative free; Translations: [Fluarix PF Quadrivalent ] DR DORCAS PALAFOX DO [facility] 06-28-2018 influenza virus vacc ine, unspecified formulation DR DORCAS PALAFOX DO [facility] 06-28-2018 influenza, injectabl e, quadrivalent, preservative free Dr. Leonor Domingo MD Work Phone: [facility] 07-03-2017 influenza virus vacc ine, unspecified formulation DR DORCAS PALAFOX DO [facility] 07-03-2017 influenza, injectabl e, quadrivalent, preservative free Dr. Leonor Domingo MD Work Phone: [facility] 10-01-2016 pneumococcal conjuga te vaccine, [address] DORCAS PALAFOX DO [facility] 07-17-2016 influenza virus vacc ine, unspecified formulation DR DORCAS PALAFOX DO [facility] 07-17-2016 influenza, injectabl e, quadrivalent, preservative free Dr. Leonor Domingo MD Work Phone: [facility] 01-21-2016 pneumococcal conjuga te vaccine, [address] DORCAS PALAFOX DO [facility] 07-30-2015 influenza virus vacc ine, unspecified formulation DR DORCAS PALAFOX DO [facility] 07-30-2015 influenza, seasonal, injectable, preservative free Dr. Leonor Domingo MD Work Phone: [facility] 08-19-2014 pneumococcal polysaccharide vaccine, [address] DORCAS PALAFOX DO [facility] 07-31-[address] Dorcas Palafox Work Phone: [facility] 07-31-2014 influenza virus vacc ine, unspecified formulation DR DORCAS PALAFOX DO [facility] 07-31-2014 influenza, injectabl e, quadrivalent, preservative free Dr. Leonor Domingo MD Work Phone: [facility] 07-25-2013 influenza virus vacc ine, unspecified formulation DR DORCAS PALAFOX DO [facility] 07-25-2013 influenza, injectabl e, quadrivalent, preservative free Dr. Leonor Domingo MD Work Phone: [facility] 04-16-[address] Francoise PALAFOX DO [facility] Payers Date Payer Category Payer Self-pay [id number] 2013 Medicare [id number] 1950 Unknown [id number] 2.16.8 40.1.803995.3.579.2.627 1950 Unknown [id number] 2.16.8 40.1.680914.3.579.2.627 1950 Unknown [id number] 2.16.8 40.1.853543.3.579.2.627 1950 Unknown [id number] 2.16.8 40.1.230509.3.579.2.627 1950 Unknown [id number] 2.16.8 40.1.056101.3.579.2.627 Unknown [id number] 2.16.8 40.1.627384.3.579.2.462 Unknown [id number] 2.16.8 40.1.352493.3.579.2.462 Unknown [id number] 2.16.8 40.1.972814.3.579.2.462 Unknown [id number] 2.16.8 40.1.533118.3.579.2.462 Unknown [id number] 2.16.8 40.1.555501.3.579.2.462 Unknown [id number] 2.16.8 40.1.601910.3.579.2.462 Unknown [id number] 2.16.8 40.1.266863.3.579.2.462 Unknown [id number] 2.16.8 40.1.791849.3.579.2.462 Unknown [id number] 2.16.8 40.1.892400.3.579.2.462 Unknown [id number] 2.16.8 40.1.527772.3.579.2.462 Unknown [id number] 2.16.8 40.1.911477.3.579.2.462 Unknown [id number] 2.16.8 40.1.164784.3.579.2.462 Unknown [id number] 2.16.8 40.1.183924.3.579.2.462 Unknown [id number] 2.16.8 40.1.581154.3.579.2.462 Unknown [id number] 2.16.8 40.1.791545.3.579.2.462 Unknown [id number] 2.16.8 40.1.510431.3.579.2.462 Unknown [id number] 2.16.8 40.1.333515.3.579.2.462 Unknown [id number] 2.16.8 40.1.044208.3.579.2.462 Unknown [id number] 2.16.8 40.1.630691.3.579.2.462 Unknown [id number] 2.16.8 40.1.440583.3.579.2.462 Unknown [id number] 2.16.8 40.1.968297.3.579.2.462 Unknown [id number] 2.16.8 40.1.281222.3.579.2.462 Unknown [id number] 2.16.8 40.1.522105.3.579.2.462 Unknown [id number] 2.16.8 40.1.430995.3.579.2.462 Unknown [id number] 2.16.8 40.1.150614.3.579.2.462 Unknown [id number] 2.16.8 40.1.986263.3.579.2.462 Unknown [id number] 2.16.8 40.1.053519.3.579.2.462 Unknown [id number] 2.16.8 40.1.570930.3.579.2.462 Social History Date Type Detail Facility Start: 08-14-2019 End: 12-29-2024 Ex-smoker (finding) [facility] Comment on above: Minimal smoke exposu re Quit smokng August 2010, smoked for 20 years Sex Assigned At [facility] Start: 12-05-2021 Tobacco smoking stat us AKIS Unknown if ever smoked [facility] Work Phone: Start: 11-29-2021 Occasional [facility] Start: 11-29-2021 None [facility] Start: 11-29-2021 Homeless [facility] Start: 11-29-2021 Non-smoker [facility] Work Phone: Start: 1950 Sex Assigned At Female [facility] Start: 12-21-2024 End: 01-05-2025 Sex Female (finding) [facility] Medical Equipment Procedure Code Equipment Code Equipment Origin al Text Equipment Identifier Dates STENT,URETERAL PIGTAIL [id number] FDA Start: 07-07-2020 STENT,URETERAL PIGTAIL [id number] FDA Start: 07-07-2020 STENT,URETERAL PIGTAIL [id number] FDA Start: 07-07-2020 STENT,URETERAL PIGTAIL [id number] FDA Start: 07-07-2020 Goals Date Patient Goal Desired Activity /State Functional Status Date Assessment Result Facility 09-15-2024 Functional status Ambulates [facility] Work Phone: 09-10-2023 Functional Status Maintained [facility] Mental Status Date Assessment Result Facility 12-30-2024 Cognitive function Awake;Alert;Appropriat e [facility] Work Phone: 09-15-2024 Cognitive function Voice/Name [facility] Work Phone: 09-10-2023 Mental Status Orientation Oriented x 4 [facility] 09-10-2023 Mental Status [facility] 03-14-2022 Cognitive function Voice/Name [facility] Work Phone: 12-12-2021 Cognitive function Patient Hu geiger Person;Place;Time [facility] Work Phone: Clinical Notes 09-10-2023 to 12-31-2024 Note Date & Type Note Facility 12-31-2024 Radiology Diagnostic study note [facility] Imaging Services [address] [place] [address] 12/31/24 0818 MR#: [id number] Acct: [id number] Name: TATE MALLORY Rep #:[id number] : 1950 74 From: Nikita Malik MD PCP: Dr. Leonor Domingo MD Status:REG CLI Y Location: CT CCTA w/Cont Coronary Arteries Date of Study:: 12/30/24 Dyspnea Coronary Calcium Scoring: High-resolution Computed Tomographic imaging of the chest was performed on [12/30/2024], with particular attention paid to the coronary arteries. Intravenous contrast agent was administered per protocol and images reconstructed and displayed. LEFT MAIN CORONARY ARTERY: Coronary calcium score of 0. The left main arises from the left coronary cusp with no significant calcification or atherosclerotic plaquing noted. It bifurcates into left anterior descending artery and left circumflex artery. [] LEFT ANTERIOR DESCENDING CORONARY ARTERY: Coronary calcium score of 288. This vessel arises from the left main coronary artery. The proximal portion appears to be free of significant atherosclerotic plaquing but there is an eccentric 40 to 50% plaque noted in the midsegment of the LAD with the distal vessel being free of significant disease. [] LEFT CIRCUMFLEX CORONARY ARTERY: Coronary calcium score of 26. The proximal circumflex artery appears to be free of significant disease there is mild calcification noted in the vessel continues with no high-grade plaquing present. [] RIGHT CORONARY ARTERY: Coronary calcium score of 31. This arises from the right coronary cusp there is mild calcification noted in the vessel is noted to be a small vessel. [] THORACIC AORTA: [] PULMONARY ARTERY: [] LEFT ATRIUM/APPENDAGE: [] MITRAL VALVE: [] AORTIC VALVE: [] LEFT VENTRICLE: [] CORONARY CALCIUM SCORE: Total coronary calcium score of 346. Percentile ranking of [address] angiogram demonstrating moderate calcification noted in the LAD with eccentric plaquing. [] 12/31/24 0821 Date _ _ Nikita Malik MD Cosigner Signature (if applicable): Date __ CC: Dr. Leonor Domingo MD; Dr. Wai Patterson MD; Dr. Nikita Malik MD ~ Signed [facility] Work Phone: 12-30-2024 Radiology Diagnostic study note [facility] Imaging Services [address] [place] [id number] Cardiac Only MR#: [id number] Acct: [id number] Name: TATE MALLORY Rep #: [id number] : 1950 F 74 From: Nelson Siddiqi MD PCP: Dr. Leonor Domingo MD Status: REG CLI Study:Limited Chest CT Cardiac Only Date of E xam: 12/30/24 Exam# [id number] Ordering Dr: Jessica Patterson MD PROCEDURE: LIMITED CHEST CT CARDIAC ONLY REASON FOR EXAM: R06.09 - OTHER FORMS OF DYSPNEA TECHNIQUE: Supine chest CT with and without contrast, high resolution CT (HRCT) protocol. One or more dose reduction techniques were used (e.g., Automated exposure control, adjustment of the mA and/or kV according to patient size, use of iterative reconstruction technique). COMPARISON: None FINDINGS: Hardware: None Lymph nodes: Small benign-appearing mediastinal lymph nodes. Heart and Vasculature: Normal heart size. No pericardial effusion. Coronary Artery Calcifications: Present Lungs and Airways: Minimal linear scarring in the lingular segment of the left upper lobe as well as the right middle lobe. Pleura: Unremarkable Upper Abdomen: Fatty infiltration of the liver. Bones: Degenerative changes of the thoracic spine. CT/Limited Chest CT Cardiac Only IMPRESSION: Coronary artery calcification (CAC) is is present Reading Location: [id number] CC: Dr. Leonor Domingo MD; Dr. 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 Leonor Domingo MD Status:ADM IN Location: [place] [id number] Providers Date of Admission: 09/14/24 Date of Discharge: 09/15/24 Primary Care Physician: Dr. Leonor Domingo MD Reason For Visit: HTN URGENCY UTI ? TIA/CVA Diagnosis Discharge Diagnosis (1) Acute UTI: Status: Acute Code(s): N39.0 - Urinary tract infection, site not specified Medications at Discharge Home Medications levothyroxine 50 mcg tablet 50 mcg PO QHS THYROID 07/06/20 multivitamin with minerals 1 tab PO DAILY SUPPLEMENT 07/06/20 timolol maleate 0.25 % eye drops 1 drp EACH EYE BID GLAUCOMA 07/06/20 hydroxyzine pamoate 25 mg capsule 25 mg PO BID PRN PRN anxiety 09/14/24 venlafaxine 37.5 mg capsule,extended release 24 hr 37.5 mg PO BID 09/14/24 aspirin 81 mg chewable tablet 81 mg PO BREAKFAST 30 days #30 tabs 09/15/24 atorvastatin 40 mg tablet 40 mg PO DAILY 30 days #30 tabs 09/15/24 levofloxacin 750 mg tablet 750 mg PO DAILY 5 days #5 tabs 09/15/24 Hospital Course Operations None Procedures EKG, Transthoracic echo and - (CT brain, MRI brain, CTA head/neck) Summary of Care Provided Minutes Spent on Discharge: 45 Hospital Course: Patient is a 73-year-old female who presented [facility] ED on 09/14/2024 with dizziness and hypertension. Short hospital course as noted below. Patient discharged home with no therapy needs in stable condition on 09/15. 1. Dizziness with disequilibrium, CVA ruled out; history of vertigo ??? Neurology followed. Presented with dizziness and disequilibrium with walking as well as very elevated blood pressure into the 180s to 190s concerning for posterior stroke. However, CT brain, CTA head/neck and MRI brain were all needed for any acute pathology. Echo showed normal EF, no other concerning findings. Worked with therapy on afternoon of day of discharge and did well, dizziness was much improved. Blood pressure also improved back to the 130s systolic without treatment. Lipid panel with total cholesterol 199, LDL 103, HDL 53. A1c 6.6%. Given concern for possible TIA and elevated lipids as well as elevated ASCVD risk score, will treat with baby aspirin and atorvastatin 40 mg daily going forward. 2. Elevated blood pressure readings ??? Patient was hypertensive to the 190s to low 200s systolic on admission. Patient denies ever being on previous antihypertensive medications. Blood pressure improved back to the 130s to low 140s systolic by hospital day 2 and was consistently in the range. Patient may have some degree of essential hypertension at baseline but I recommended patient take her blood pressure at home twice daily for the next week and see how her blood pressures are running. Recommended that if they are continuing to run in the 130s to 140s that she contact her PCP and discuss starting an antihypertensive medication then. 3. Acute cystitis ??? Patient did report increased urinary frequency on admission. UA showed 500 leukocyte esterase, positive nitrites, 2+ bacteria. Urine culture pending on discharge. Patient notably with no prior urine culture data available and does not have a frequent history of UTIs. Will opt to treat with Levaquin on discharge to complete a 7-day course of antibiotics total, stop date 09/20. I discussed with the patient that if her urine culture shows that she is resistant to Levaquin, I will call her and switch her antibiotic as needed. 4. Mild normocytic anemia ??? Hemoglobin 11.7 on admit. Prior baseline appeared to be 13-14 back in 2021. Anemia studies were consistent with mild anemia of chronic disease. No need for further treatment at this time. 5. Mild creatinine elevation ??? Creatinine 1.31 on admit, improved to 1.07 on hospital day 2 after IV fluid resuscitation. Prior baseline was 0.9-1.0 back in 2021, suspect she is back to her baseline. 6. Hyperlipidemia ???Lipid panel on admit as noted above. ASCVD 10-year risk score calculated to be 24%. Will start patient on atorvastatin 40 mg daily on discharge. 7. Thyroid nodules ??? Noted on CTA head/neck to have multiple low-density nodules within the right lobe of the thyroid with recommendation to consider thyroid ultrasound for further evaluation. Patient notably with normal TSH on admit and no symptoms of neck pain or discomfort. Continue home Synthroid as noted below and will defer to outpatient physician on need for ultrasound moving forward. Chronic medical conditions: ??? Class II obesity: BMI 38 on admit. Encouraged lifestyle modifications. Complicates hospital course, care and prognosis. ??? Hypothyroidism: TSH normal on admit. Continue home Synthro (more content not included)... [facility] 09-15-2024 Evaluation note Diagnosis Onset Date Resolution Acute UTI acute September 14, 2024 11:49pm Accelerated hypertension resolved September 14, 2024 11:49pm Acute renal insufficiency resolved September 14, 024 11:49pm Dysequilibrium resolved August 312023 11:49pm Anemia acute September 25, 2024 2:21pm B12 deficiency acute September 012023 2:21pm Diabetes mellitus acute Decembe r 2023 2:21pm Elevated blood pressure reading acute September 25, 024 2:21pm Exertional dyspnea acute Decemb er 2023 2:21pm Fatigue acute September 25, 2024 2:21pm Thyroid nodule acute September 012023 2:21pm Sleep apnea chronic August 2:21pm Elevated blood pressure reading acute October 02 2:53pm Tachycardia acute October 28, 2024 11:28am Anxiety and depression chronic Ja nuary 2024 11:28am Dyslipidemia chronic October 11:28am Dyspnea on exertion chronic Janua ry 2024 11:28am Grade I diastolic dysfunction chronic October 28 11:28am Obesity (BMI 30-39.9) chronic Horace uary 2024 11:28am Sleep apnea chronic October 28, 2024 11:28am Thyroid nodule acute October 312024 11:27am Anxiety and depression chronic Ja nuary 2024 11:27am Dyspnea on exertion chronic Janua ry 2024 11:27am Sleep apnea chronic October 31, 2024 11:27am Anxiety and depression chronic [facility] 2024 12:44pm Dyslipidemia chronic December 11, 2024 12:44pm Dyspnea on exertion chronic December 11, 2024 12:44pm Grade I diastolic dysfunction chronic December 11, 2024 12:44pm Inappropriate sinus tachycardia chronic December 11, 2024 12:44pm Obesity (BMI 30-39.9) chronic [facility] 2024 12:44pm Sleep apnea chronic December 11, 2 025 12:44pm Anemia acute December 12 12:45pm New onset type 2 diabetes mellitus acute December 12 12:45pm Benign essential HTN chronic [facility] 2024 12:45pm CKD (chronic kidney disease), stage III chronic December 12, 2024 12:45pm Dyslipidemia chronic December 12, 2024 12:45pm Dyspnea on exertion chronic December 12, 2024 12:45pm [facility] Work Phone: 1(787) 625-927112-16-2024 Evaluation note* Diagnosis Onset Date Resolution Status Admit Date Accelerated hypertension resolved September 14, 2024 11:49pm Acute renal insufficiency resolved September 14, 2024 11:49pm Acute UTI resolved September 14, 2024 11:49pm Dysequilibrium resolved August 312023 11:49pm Anemia acute September 25, 2024 2:21pm B12 deficiency acute September 012023 2:21pm Diabetes mellitus acute Decembe r 2023 2:21pm Exertional dyspnea acute Dece er 2023 2:21pm Fatigue acute September 25, 2024 2:21pm Thyroid nodule acute September 012023 2:21pm Sleep apnea chronic August 2:21pm Elevated blood pressure reading deleted September 25, 024 2:21pm Elevated blood pressure reading deleted October 02 2:53pm Tachycardia acute October 28, 2024 11:28am Anxiety and depression chronic Ja nuary 2024 11:28am Dyslipidemia chronic October 11:28am Dyspnea on exertion chronic Janua ry 2024 11:28am Grade I diastolic dysfunction chroni c October 28, 2024 11:28am Obesity (BMI 30-39.9) chronic Horace uary 2024 11:28am Sleep apnea chronic October 28, 2024 11:28am Thyroid nodule acute October 312024 11:27am Anxiety and depression chronic Kevin nuary 2024 11:27am Dyspnea on exertion chronic Janua ry 2024 11:27am Sleep apnea chronic October 31, 2024 11:27am Anxiety and depression chronic [facility] 2024 12:44pm Dyslipidemia chronic December 11, 2024 12:44pm Dyspnea on exertion chronic December 11, 2024 12:44pm Grade I diastolic dysfunction chroni c December 11, 2024 12:44pm Inappropriate sinus tachycardia chronic December 11, 2024 12:44pm Obesity (BMI 30-39.9) chronic [facility] 2024 12:44pm Sleep apnea chronic December 11, 12:44pm Anemia acute December 12 12:45pm New onset type 2 diabetes mellitus acute December 12, 2024 12:45pm Benign essential HTN chronic [facility] 2024 12:45pm CKD (chronic kidney disease) , stage III chronic December 12, 2024 12:45pm Dyslipidemia chronic December 12, 2024 12:45pm Dyspnea on exertion chronic December 12, 2024 12:45pm Thyroid nodule acute November 1:38pm Anxiety and depression chronic [facility] 2024 1:38pm Dyspnea on exertion chronic December 29, 2024 1:38pm TONY (obstructive sleep apnea) noneac tive December 29, 2024 1:38pm Establishing care with new doctor, encounter for noneactive November 1:38pm Type 2 diabetes mellitus noneactive December 29, 2024 1:38pm Vitamin deficiency noneactive December 29, 2024 1:38pm Post-operative hypothyroidism noneac tive December 29, 2024 1:38pm Essential hypertension noneactive [facility] 2024 1:38pm Right wrist pain noneactive December 292024 1:38pm Screening for breast cancer noneacti ve December 29, 2024 1:38pm [facility] Work Phone: [phone]) 344-292012-11-2023 Hospital Discharge instructions Patient Education 09/10/2023 13:47:47 Monitored Anesthesia [...] before eating solid foods. General instructions Take xlqq-fxa-vtxicfd and prescription medicines only as told by [...] 01/07/2017 Document Revised: 12/16/2018 Document Reviewed: 01/07/2017 [employer] Patient Education 2020 [employer]. 09/10/2023 13:47:41 Colonoscopy, Adult, Care After, Yhtz-tv-Nttf Colonoscopy, Adult, Care After This sheet gives [...] are soft and easy to digest. Take wowv-jiv-nllrsvu or prescription medicines only as told by [...] 10/20/2011 Document Revised: 07/18/2018 Document Reviewed: 06/11/2017 [employer] Patient Education [employer]ume[employer]. Follow Up Care 08/30/2023 09:26:14 With:PEPPER WILLINGHAM MD, Clinical Gastroenterology Address: [address] [place] [address] [place] [address] [phone] When: Unknown Comments:Follow-up as needed. Call the office with questions or concerns. [facility] 12-11-2023 Evaluation + Plan noteExtracted from: Title:History and Physical Author:MARE WILLINGHAM MD Date:09/10/23 Orders: Lactated Ringers Infusion 1,000 mL, Start: 09/10/23 12:45:00 EST, Rate: 20 mL/hr, 09/10/23 12:45:00 EST Communication Order (scheduled) Communication Order (scheduled) Communication Order (scheduled) Consult to Anesthesia Sign Consent Strong family history of colon cancer. Consent conference held for colonoscopy. Future Appointments Appointment Date:02/12/2024 01:30:00 PM Scheduled Provider:DORCAS PALAFOX DO Location:[facility] Appointment Type:PC OV [facility] 12-11-2023 Summary of episode note Discharge Instructions Thank you for allowing [facility] to assist you with your healthcare needs. The following is importantdischarge information regarding your hospital visit. Your Care Team DORCAS PALAFOX DO What to do next Scheduled Follow-Up Appointments Appointment Type When With Where Contact InformationPC OV 02/12/2024 01:30 PM EDT DORCAS PALAFOX DO [facility] [address] [phone] Follow Up Appointments Follow Up with PEPPER WILLINGHAM MD, Clinical Gastroenterology When Why: Follow-up as needed. Call the office with questions or concerns. Where: [address] [facility] [place] [address]- [phone] Allergies OxyCONTIN (Unknown) Tape (Burn) Medications Please [...] as provided by your GI provider at [facility]. Unchanged wheat dextrin (Benefiber) by mouth Two [...] before eating solid foods. General instructions Take adsv-nof-jhnryov and prescription medicines only as told by [...] 01/07/2017 Document Revised: 12/16/2018 Document Reviewed: 01/07/2017 [employer] Patient Education 2020 [employer]. Colonoscopy, Adult, Care After This sheet gives [...] are soft and easy to digest. Take cuda-ngi-mkulcrb or prescription medicines only as told by [...] 10/20/2011 Document Revised: 07/18/2018 Document Reviewed: 06/11/2017 [employer] Patient Education 2020 [employer]. Additional Information VACCINATE! IT SAVES LIVES! Members of the community who have not yet received the COVID-19 vaccine and would like to receive it can visit one of [facility] vaccine clinics. There are many vaccine clinic locations within the [facility]. For locations and available times, please visit [email or web address].[place].gov/. It is important to note that some COVID mobile vaccine clinics are held outdoors and may be canceled in rainy or stormy conditions. To learn more about pediatric vaccinations (ages 5-11), we invite you to visit the [facility] webpage. [email or web address]/[email or web address] [email or web address].htmlTo learn more about the COVID-19 vaccine, we invite you to visit the CDC website for a list of frequently asked questions.https://www.cdc.gov/coronavirus/2019-ncov/vaccines/faq.html [email or web address] Patient Portal Access Instructions: Stay connected with your healthcare team and access your personal medical information anytime with the [email or web address] Patient Portal. Please follow the directions below to create your [email or web address] account: 1.Access the email account you provided upon registration to the hospital/physician office.2.Look for an invitation email from [facility].3.Open the email and access the invitation link: AcceptInvitation to [facility].4.Fill in the required foster to create your account. To access your account, visit [email or web address]. Click the blue button labeled Access Patient [...] who you will allowto register on the [facility] Patient Portal for access to your information. You can also access the [facility] Patient Portal on the [facility] arjun. Simply click on Patient Portal and then log into your account. If you would like to receive a full copy of your medical records, please contact the [facility] Medical Records Department by calling [phone], Sunday through Sunday between 8 a.m. and [...] Call your local pharmacy or go to [email or web address] to find one close to you.3.Make use of household items: Use cat litter or old coffee grounds to dispose medications if other options arenot available. Mix your drugs with these household products, seal them in an airtight container andthrow it into the garbage. Call [facility]: [phone] to be sure your drugs can be [...] Care, Care After Colonoscopy, Adult, Care After, Arxx-ii-Woak Medication Leaflets My discharge plan and instructions have been reviewed and explained to me and IMOHAMUD MARGARET V understand my current condition and have read and understand these discharge instructions. I have received a written copy of the plan/instructions. If I have questions, I am aware that I should contactmy doctor. 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: Date/Time: Relationship to Patient: Witness Name/Signature: Date/Time: [facility]12-11-2023 Note Date of Service 09/10/2023 Chief [...] PEPPER WILLINGHAM MD on 09/10/2023 01:18 PM [facility]12-11-2023 Anesthesiology Consult note Patient: TATE MALLORY [...] as provided by your GI provider at [facility]., 1 EA, 0 Refill(s) escitalopram 20 mg [...] list: Medical Adjustment disorder / SNOMED CT 11261366 / Confirmed Allergic rhinitis / SNOMED CT 439823646 / Confirmed Arthritis / SNOMED CT 9163008 / Confirmed BMI 39.0-39.9,adult / SNOMED CT 755830777 / Confirmed CKD (chronic kidney disease) stage 3, GFR 30-59 ml/min / SNOMED CT 1877429845 / Confirmed COPD without exacerbation / SNOMED CT 00700747 / Confirmed Former smoker / SNOMED CT 59029962 / Confirmed Family history of colon cancer / SNOMED CT 198658749 / Confirmed Previous back surgery / SNOMED CT 218765730 / Confirmed Hyperglycemia / SNOMED CT 270370257 / Confirmed Hyperlipidemia / SNOMED CT 78430397 / Confirmed Hypothyroidism / SNOMED CT 98195205 / Confirmed Nephrolithiasis / SNOMED CT 174305438 / Confirmed Morbid obesity / SNOMED CT 103883191 / Confirmed Osteoarthritis of right knee / SNOMED CT 0408802666 / Confirmed Osteopenia / SNOMED CT 400931840 / Confirmed Screening for colon cancer / SNOMED CT 079155483 / Confirmed Piriformis syndrome / SNOMED CT 978232563 / Confirmed PAC (premature atrial contraction) / SNOMED CT 077550711 / Confirmed Trigger finger / SNOMED CT 633995772 / Confirmed Vitamin D deficiency / SNOMED CT 65981134 / Confirmed, Active Problems (21) Adjustment disorder [...] brain Grandparent Procedure history: DESK Cornea transplant ([id number]) on 12/30/2018 at 68 Years. Microdiscectomy ([id number]) on 03/31/2016 at 65 Years. Colonoscopy ([id number]) on 03/01/2016 at 65 Years. Knee replacement ([id number]) on 12/11/2011 at 61 Years. Arthroscopic knee procedure ([id number]) on 10/01/2010 at 59 Years. Tubal ligation ([id number]) on 10/01/1995 at 44 Years. Hysterectomy ([id number]) on 10/01/1994 at 43 Years. Frozen shoulder ([id number]) on 10/01/1993 at 42 Years. Thyroid lobectomy (5764013754) on 10/01/1979 at 28 Years. Cataract surgery bilateral ([id number]). Septoplasty or submucous resection, with or without cartilage scoring, contouring or replacement with graft (29520). Comments: 08/18/2019 9:18 EDDIE - Miya Francisco LPN 2002 Social History Social & Psychosocial Habits Alcohol 09/10/2023 Use: occasional Substance Abuse 09/10/2023 Use: Never Tobacco 09/10/2023 Tobacco Use: Former smoker, quit more Comment: Quit smokng August 2010, smoked for 20 years - 08/14/2019 17:14 - Chela Vaughn LPN; Minimal smoke exposure - 08/14/2019 17:14 - Chela Vaughn CERTIFIER Nutrition/Health 09/10/2023 Caffeine intake amount: coffee 1 servings . Physical Examination Vital Signs 09/10/2023 12:50 EST Temperature Temporal Artery 35.7 DegC Apical Heart Rate 67 bpm Respiratory Rate 14 br/min Vital Signs(last 24 hrs) Last Charted Resp Rate 14 br/min (SEP 10 12:50) BMI38.13 (SEP 10 13:04) Measurements from flowsheet : Measurements 09/10/2023 13:04 EST Height 156 cm Admission Weight 92.8 kg [place] Body Weight 48.76 kg BSA Admission 1.92 Body Mass Index 38.13 kg/m2 09/10/2023 12:50 EST Height 156 cm Admission Weight 92.8 kg [place] Body Weight 48.76 kg Admission Body Mass [...] Person #1 We May Share SIMON Puri [phone] Designated Person #1 Relationship Daughter Height 156 cm Admission Weight 92.8 kg Gaylord Body Weight 48.76 kg BSA Admission 1.92 [...] Method Explanation, Printed materials Preferred Spoken Language Belizean Preferred Written Language Belizean Information Given by Patient Patient's Current Physicians Dr. Palafox Discharge To, Anticipated Home with family care [...] Height 156 cm Admission Weight 92.8 kg [place] Body Weight 48.76 kg Admission Body Mass [...] Quadrants Present Skin Temperature Warm Skin Description [place], Dry Skin Integrity Intact Mucous Membrane Color [place] Characteristics of Speech Clear Level of Consciousness [...] position, Wheels locked . Assessment and Plan [place] [employer] Anesthesiologists (ASA) physical status classification: Class III. Anesthetic Preoperative Plan Anesthetic technique: MAC. Postoperative pain management: Per surgeon. Risks discussed: nausea, vomiting, hypotension, allergic reaction, serious complications. Informed consent: signed by patient. Digitally Signed by ZOHREH PENNINGTON APRN-LIVESTOCK SLAUGHTERER on 09/10/2023 01:13 PM [facility] App[facility]ments Appointment Date:08/18/2021 09:00:00 AM Scheduled Provider:DORCAS PALAFOX DO Location[facility] Appointment Type:PC OV Appointment Date:08/18/2021 02:00:00 PM Scheduled Provider:DORCAS PALAFOX DO Location:[facility] Appointment Type:PC OV [facility] Evaluation + Plan note Future Appointments Appointment Date:02/14/2022 09:30:00 AM Scheduled Provider:DORCAS PALAFOX DO Location:[facility] Appointment Type:PC OV Future Scheduled Tests Radiology* XR Foot Minimum 3 Views Right 08/18/21 [facility] Evaluation + Plan note Future Appointments Appointment Date:08/15/2022 10:45:00 AM Scheduled Provider:DORCAS PALAFOX DO Location:[facility] Appointment Type:PC OV Follow Up Future Scheduled Tests Laboratory* Thyroid Stimulating Hormone 08/17/22 * A1C Hemoglobin 08/17/22 * Complete Blood Count 08/17/22 * Lipid Profile 08/17/22 * Vitamin D Level 08/17/22 * Complete Metabolic Panel 08/17/22 Radiology* XR Foot Minimum 3 Views Right 08/18/21 [facility] Evaluation + Plan note Future Appointments Appointment Date:08/15/2022 11:00:00 AM Scheduled Provider:DORCAS PALAFOX DO Location:[facility] Appointment Type:PC OV Follow Up Future Scheduled Tests Radiology* XR Foot Minimum 3 Views Right 08/18/21 [facility] Evaluation + Plan note Future Appointments Appointment Date:08/14/2023 01:30:00 PM Scheduled Provider:DORCAS PALAFOX DO Location:[facility] Appointment Type:PC OV Future Scheduled Tests Radiology* MA Mammo Screening Bilateral w/ Jamari 02/13/23 * BD Bone Density DEXA Axial Skeleton 02/13/23 [facility] Evaluation + Plan note Future Appointments Appointment Date:02/28/2024 01:30:00 PM Scheduled Provider:DORCAS PALAFOX DO Location:[facility] Appointment Type:PC OV [facility] Evaluation + Plan note Future Appointments Appointment Date:08/21/2024 02:00:00 PM Scheduled Provider:DORCAS PALAFOX DO Location:[facility] Appointment Type: OV Future Scheduled Tests Laboratory* Thyroid Stimulating Hormone 08/30/24 * A1C Hemoglobin 08/30/24 * Complete Blood Count 08/30/24 * Lipid Profile 08/30/24 * Vitamin D Level 08/30/24 * Complete Metabolic Panel 08/30/24 [facility] Evaluation + Plan note Future Appointments Appointment Date:08/21/2024 02:00:00 PM Scheduled Provider:DORCAS PALAFOX DO Location:[facility] Appointment Type: OV [facility] Evaluation note* Diagnosis Onset Date Resolution Status Bilateral renal stones acute [facility] Work Phone: Evaluation noteNo assessment information available [facility] Work Phone: Hospital course Narrative No data available for this section [facility] Hospital Discharge instructions No data available for this section [facility] Progress note No data available for this section [facility] Chief Complaint and Reason for Visit Chief Complaint FLANK PAIN KUB- STONE ESWL LEFT ESWL LEFT KUB- KIDNEY CALC. Reason for Visit Bilateral renal ston es Chief Complaint KUB Chief Complaint Admit Date HTN URGENCY UTI ? TIA/CVA September 14, 2024 11:49pm HTN URGENCY UTI TIA/CVA September 14, 2 024 11:59pm HTN URGENCY UTI ? TIA/CVA September 15, 2024 2:21pm HIGH BP September 25, 2024 2:21pm BP CHECK WITH CUFF October 02, 2024 2: 53pm sleep apnea history October 21, 2024 7 :57pm DYSPNEA October 22, 2024 1 2:00am DYSPNEA October 22, 2024 5 :23am DYSPNEA October 23, 2024 8 :48am DYSPNEA (WAYT) October 28, 2024 1 1:28am ACUTE 1 MONTH FU October 31, 2024 1 1:27am TONY November 11, 2024 1:00pm HYPERLIPIDEMIA November 12, 2024 11:48am TACHY, DYSPNEA November 12, 2024 12:02pm NODULES November 20, 2024 1:44pm 6 WK FU December 11, 2024 12: 44pm INT LAB ORDER December 11, 2024 1:2 7pm 6 wk FU December 12, 2024 12: 45pm Reason for Visit Admit Date Acute UTI September 14, 2024 11:49pm Accelerated hypertension September 14, 2024 11:49pm Acute renal insufficiency September 14, 2024 11:49pm Dysequilibrium September 14, 2024 11:49pm Anemia September 25, 2024 2:21pm B12 deficiency September 25, 2024 2:21pm Diabetes mellitus September 25, 2024 2:21pm Elevated blood pressure reading September 25, 2024 2:21pm Exertional dyspnea September 25, 2024 2:21pm Fatigue September 25, 2024 2:21pm Thyroid nodule September 25, 2024 2:21pm Sleep apnea September 25, 2024 2:21pm Elevated blood pressure reading October 02, 2024 2:53pm Tachycardia October 28, 2024 1 1:28am Anxiety and depression October 28 11:28am Dyslipidemia October 28, 2024 1 1:28am Dyspnea on exertion October 28, 2024 1 1:28am Grade I diastolic dysfunction October 282024 11:28am Obesity (BMI 30-39.9) October 28, 2024 11:28am Sleep apnea October 28, 2024 1 1:28am Thyroid nodule October 31, 2024 1 1:27am Anxiety and depression October 31 11:27am Dyspnea on exertion October 31, 2024 1 1:27am Sleep apnea October 31, 2024 1 1:27am Anxiety and depression December 11, 2024 12:44pm Dyslipidemia December 11, 2024 12: 44pm Dyspnea on exertion December 11, 2024 12: 44pm Grade I diastolic dysfunction November 12:44pm Inappropriate sinus tachycardia December 112024 12:44pm Obesity (BMI 30-39.9) December 11, 2024 1 2:44pm Sleep apnea December 11, 2024 12: 44pm Anemia December 12, 2024 12: 45pm New onset type 2 diabetes mellitus December 12, 2024 12:45pm Benign essential HTN December 12, 2024 12 :45pm CKD (chronic kidney disease), stage III December 12, 2024 12:45pm Dyslipidemia December 12, 2024 12: 45pm Dyspnea on exertion December 12, 2024 12: 45pm Chief Complaint Admit Date HTN URGENCY UTI ? TIA/CVA September 14, 2024 11:49pm HTN URGENCY UTI TIA/CVA September 14, 2 024 11:59pm HTN URGENCY UTI ? 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 December 29 1:38pm DYSPENEA December 30, 2024 12:5 6pm DYSPENEA December 31, 2024 8:18 am Reason for Visit Admit Date Accelerated hypertension September 14, 2024 11:49pm Acute renal insufficiency September 14, 2024 11:49pm Acute UTI September 14, 2024 11:49pm Dysequilibrium September 14, 2024 11:49pm Anemia September 25, 2024 2:21pm B12 deficiency September 25, 2024 2:21pm Diabetes mellitus September 25, 2024 2:21pm Exertional dyspnea September 25, 2024 2:21pm Fatigue September 25, 2024 2:21pm Thyroid nodule September 25, 2024 2:21pm Sleep apnea September 25, 2024 2:21pm Elevated blood pressure reading September 25, 2024 2:21pm Elevated blood pressure reading October 02, 2024 2:53pm Tachycardia October 28, 2024 1 1:28am Anxiety and depression October 28 11:28am Dyslipidemia October 28, 2024 1 1:28am Dyspnea on exertion October 28, 2024 1 1:28am Grade I diastolic dysfunction October 282024 11:28am Obesity (BMI 30-39.9) October 28, 2024 11:28am Sleep apnea October 28, 2024 1 1:28am Thyroid nodule October 31, 2024 1 1:27am Anxiety and depression October 31 11:27am Dyspnea on exertion October 31, 2024 1 1:27am Sleep apnea October 31, 2024 1 1:27am Anxiety and depression December 11, 2024 12:44pm Dyslipidemia December 11, 2024 12: 44pm Dyspnea on exertion December 11, 2024 12: 44pm Grade I diastolic dysfunction November 12:44pm Inappropriate sinus tachycardia December 112024 12:44pm Obesity (BMI 30-39.9) December 11, 2024 1 2:44pm Sleep apnea December 11, 2024 12: 44pm Anemia December 12, 2024 12: 45pm New onset type 2 diabetes mellitus December 12, 2024 12:45pm Benign essential HTN December 12, 2024 12 :45pm CKD (chronic kidney disease), stage III December 12, 2024 12:45pm Dyslipidemia December 12, 2024 12: 45pm Dyspnea on exertion December 12, 2024 12: 45pm Thyroid nodule December 29, 2024 1:3 8pm Anxiety and depression December 29, 2024 1:38pm Dyspnea on exertion December 29, 2024 1:3 8pm TONY (obstructive sleep apnea) November 1:38pm Establishing care with new doctor, rodrick graff for December 29, 2024 1:38pm Type 2 diabetes mellitus December 29 1:38pm Vitamin deficiency December 29, 2024 1:3 8pm Post-operative hypothyroidism November 1:38pm Essential hypertension December 29, 2024 1:38pm Right wrist pain December 29, 2024 1:3 8pm Screening for breast cancer December 29, 2024 1:38pm Advance Directives No Advanced Directives Records Found Advance Directive Response Recorded Date/ Time Advance Directives No October 11, 2017 12:33pm Living Will Yes December 05, 2021 3:46pm Power of Insurance Loss Adjuster Yes December 05 3:46pm Advance Directive Response Recorded Date/ Time Advance Directives No October 22, 2024 11:56am Living Will Yes September 15, 024 1:22am Do you have a Healthcare Pow er of Insurance Loss Adjuster? Yes September 15, 2024 1:22am Name of Medical Power of Insurance Loss Adjuster Pat Puri, sandy September 15, 2024 1:22am Summary Purpose Family History Relationship Condition Age at Onset Recorded Date/T ashlyn mother Hypertension Unknown Dementia Unknown father Hypertension Unknown Coronary artery disease Unknown Myocardial infarction Unknown Cardiac disease Unknown brother Malignant neoplasm of colon Unknown Relationship Condition Age at Onset Recorded Date/T ashlyn mother Hypertension Unknown father Hypertension Unknown Coronary artery disease Unknown Myocardial infarction Unknown Cardiac disease Unknown No Family History Records Found Additional Source Comments Goals (unrecognized section and content) Goals may be documented in a n alternate section Care Team (unrecognized sect ion and content) Team Status: Active Member Role Status Dates Dr. Leonor Domingo MD Primary Care Provider Active Team Status: Inactive Member Role Status Dates Dr. Leonor Domingo MD Primary Care Provider Active Start: September 14, 2024 End: September 15, 2024 Dr. Harvinder Whitehead MD Emergency Provider Active Start: September 14, 2024 End: September 15, 2024 Dr. Florida Salinas MD Admit Provider Active St art: September 14, 2024 End: September 15, 2024 Dr. Florida Salinas MD Other Provider Active St art: September 14, 2024 End: September 15, 2024 Dr. Obi Moran DO Attending Provider Active Start: September 14, 2024 End: September 15, 2024 Team Status: Active Member Role Status Dates Dr. Leonor Domingo MD Primary Care Provider Active Start: September 14, 2024 Dr. Harvinder Whitehead MD Emergency Provider Active Start: September 14, 2024 Dr. Florida Salinas MD Admit Provider Active St art: September 14, 2024 Dr. Florida Salinas MD Attending Provider Active Start: September 14, 2024 Dr. Florida Salinas MD Other Provider Active St art: September 14, 2024 Team Status: Active Member Role Status Dates Dr. Leonor Domingo MD Primary Care Provider Active Start: September 15, 2024 Dr. Nikita Malik MD Attending Provider Active S tart: September 15, 2024 Team Status: Active Member Role Status Dates Dr. Leonor Domingo MD Primary Care Provider Active Start: September 15, 2024 Dr. Harvinder Whitehead MD Emergency Provider Active Start: September 15, 2024 Dr. Florida Salinas MD Admit Provider Active St art: September 15, 2024 Dr. Florida Salinas MD Other Provider Active St art: September 15, 2024 Dr. Obi Moran DO Attending Provider Active Start: September 15, 2024 Dr. Obi Moran DO Other Provider Active Start: September 15, 2024 Team Status: Inactive Member Role Status Dates Dr. Leonor Domingo MD Primary Care Provider Active Start: September 25, 2024 End: September 25, 2024 Dr. Leonor Domingo MD Referring Provider Active Start: September 25, 2024 End: September 25, 2024 Giacomo FELDMAN, PA Attending Provider Active St art: September 25, 2024 End: September 25, 2024 Team Status: Inactive Member Role Status Dates Dr. Leonor Domingo MD Primary Care Provider Active Start: October 02, 2024 End: October 02, 2024 Dr. Leonor Domingo MD Attending Provider Active Start: October 02, 2024 End: October 02, 2024 Dr. Leonor Domingo MD Referring Provider Active Start: October 02, 2024 End: October 02, 2024 Team Status: Inactive Member Role Status Dates Dr. Leonor Domingo MD Primary Care Provider Active Start: October 21, 2024 End: October 21, 2024 Giacomo FELDMAN PA Attending Provider Active St art: October 21, 2024 End: October 21, 2024 Giacomo Frost PA, PA Referring Provider Active St art: October 21, 2024 End: October 21, 2024 Team Status: Active Member Role Status Dates Dr. Leonor Domingo MD Primary Care Provider Active Start: October 22, 2024 Dr. Wai Patterson MD Attending Provider Active Start: October 22, 2024 Giacomo FELDMAN, PA Referring Provider Active St art: October 22, 2024 Team Status: Inactive Member Role Status Dates Dr. Leonor Domingo MD Primary Care Provider Active Start: October 22, 2024 End: October 22, 2024 Giacomo FELDMAN, PA Attending Provider Active St art: October 22, 2024 End: October 22, 2024 Giacomo FELDMAN, PA Referring Provider Active St art: October 22, 2024 End: October 22, 2024 Team Status: Active Member Role Status Dates Dr. Leonor Domingo MD Primary Care Provider Active Start: October 23, 2024 Giacomo FELDMAN, PA Referring Provider Active St art: October 23, 2024 Giacomo FELDMAN PA Other Provider Active Start: October 23, 2024 Dr. Wai Patterson MD Attending Provider Active Start: October 23, 2024 Team Status: Inactive Member Role Status Dates Dr. Leonor Domingo MD Primary Care Provider Active Start: October 28, 2024 End: October 28, 2024 Dr. Leonor Domingo MD Referring Provider Active Start: October 28, 2024 End: October 28, 2024 Dr. Wai Patterson MD Attending Provider Active Start: October 28, 2024 End: October 28, 2024 Team Status: Inactive Member Role Status Dates Dr. Leonor Domingo MD Primary Care Provider Active Start: October 31, 2024 End: October 31, 2024 Dr. Leonor Domingo MD Referring Provider Active Start: October 31, 2024 End: October 31, 2024 Giacomo FELDMAN PA Attending Provider Active St art: October 31, 2024 End: October 31, 2024 Team Status: Inactive Member Role Status Dates Dr. Leonor Domingo MD Primary Care Provider Active Start: November 11, 2024 End: November 11, 2024 GASTON Amin Attending Provider Active St art: November 11, 2024 End: November 11, 2024 GASTON Amin Referring Provider Active St art: November 11, 2024 End: November 11, 2024 Team Status: Inactive Member Role Status Dates Dr. Leonor Domingo MD Primary Care Provider Active Start: November 12, 2024 End: November 12, 2024 Dr. Wai Patterson MD Attending Provider Active Start: November 12, 2024 End: November 12, 2024 Dr. Wai Patterson MD Referring Provider Active Start: November 12, 2024 End: November 12, 2024 Team Status: Active Member Role Status Dates Dr. Leonor Domingo MD Primary Care Provider Active Start: November 12, 2024 Dr. Wai Patterson MD Attending Provider Active Start: November 12, 2024 Dr. Wai Patetrson MD Referring Provider Active Start: November 12, 2024 Team Status: Inactive Member Role Status Dates Dr. Leonor Domingo MD Primary Care Provider Active Start: November 20, 2024 End: November 20, 2024 GASTON Amin Attending Provider Active St art: November 20, 2024 End: November 20, 2024 Giacomo FELDMAN PA Referring Provider Active St art: November 20, 2024 End: November 20, 2024 Team Status: Inactive Member Role Status Dates Dr. Leonor Domingo MD Primary Care Provider Active Start: December 11, 2024 End: December 11, 2024 Dr. Leoonr Domingo MD Referring Provider Active Start: December 11, 2024 End: December 11, 2024 Dr. Wai Patterson MD Attending Provider Active Start: December 11, 2024 End: December 11, 2024 Team Status: Inactive Member Role Status Dates Dr. Leonor Domingo MD Primary Care Provider Active Start: December 11, 2024 End: December 11, 2024 Dr. Wai Patterson MD Attending Provider Active Start: December 11, 2024 End: December 11, 2024 Dr. Wai Patterson MD Referring Provider Active Start: December 11, 2024 End: December 11, 2024 Team Status: Inactive Member Role Status Dates Dr. Leonor Domingo MD Primary Care Provider Active Start: December 12, 2024 End: December 12, 2024 Dr. Leonor Domingo MD Referring Provider Active Start: December 12, 2024 End: December 12, 2024 Giacomo FELDMAN PA Attending Provider Active St art: December 12, 2024 End: December 12, 2024 Team Status: Inactive Member Role Status Dates Dr. Leonor Domingo MD Primary Care Provider Active Start: December 29, 2024 End: December 29, 2024 Dr. Leonor Domingo MD Attending Provider Active Start: December 29, 2024 End: December 29, 2024 Dr. Leonor Domingo MD Referring Provider Active Start: December 29, 2024 End: December 29, 2024 Team Status: Inactive Member Role Status Dates Dr. Leonor Domingo MD Primary Care Provider Active Start: December 30, 2024 End: December 30, 2024 Dr. Wai Patterson MD Attending Provider Active Start: December 30, 2024 End: December 30, 2024 Dr. Wai Patterson MD Referring Provider Active Start: December 30, 2024 End: December 30, 2024 Team Status: Active Member Role Status Dates Dr. Leonor Domingo MD Primary Care Provider Active Start: December 31, 2024 Dr. Wai Patterson MD Referring Provider Active Start: December 31, 2024 Dr. Wai Patterson MD Other Provider Active Star t: December 31, 2024 Dr. Nikita Malik MD Attending Provider Active S tart: December 31, 2024 Care Team (unrecognized sect ion and content) Personnel Name: DORCAS PALAFOX DO Address: Address: [address] [place], [place] [address] Name: Jean Marie Pool PT Care Team Personnel Name: Jean Marie Pool Clecharlie Reno PT Position: P3 Scheduling - Splicing Technician Advanced Member Role: Other Name: DORCAS PALAFOX DO Position: P4 Physician - Primary Care Member Role: Primary Care Physician Address: Address: [address] [place] [address]- Care Team Related Persons Name: SARAH MALLORY Address: Home [address] [place], [place] [id number] [place] INFORMATION SOURCE (unrecogn ized section and content) DATE CREATED AUTHOR 04/02/2024 [facility] DATE CREATED AUTHOR AUTHOR'S ORGANIZ ATION 08/04/2024 [facility] DATE CREATED AUTHOR AUTHOR'S ORGANIZ ATION 03/24/2025 [facility] FOR RECORDS PERTAINING TO PATIENTS WHO ARE [...] BE BASED ON THE PRIMARY CLINICAL RECORDS. [employer] [facility]. provides no warranty or guarantee of the accuracy or completeness of information in this document.
== END | disposition home or self-care (01) ==
LOC: OPBI 13:11
PROVIDERS: PCP Internal Medicine; Referring Provider Internal Medicine; Visit Provider Internal Medicine
DX: Z12.31 Encounter for screening mammogram for malignant neoplasm of breast (principal)
CPT/HCPCS: 77063; 77067

== ENCOUNTER → 2025-06-23 | Outpatient (CLI) | payer MEDICARE, SELFPAY | END | disposition home or self-care (01) | LOC: SL 13:37 | PROVIDERS: PCP Internal Medicine; Visit Provider Internal Medicine | DX: Z00.00 Encounter for general adult medical examination without abnormal findings (principal) ==

== ENCOUNTER → 2025-07-14 | Outpatient (CLI) | payer MEDICARE, SELFPAY ==
[2025-07-14 12:42] LABS: Hematocrit 38.9 % (37-47); Hemoglobin 12.7 g/dL (12.0-15.0); Immature Granulocytes Count 0.030 X10^3/uL (0.0-0.0); Mean Corp Hgb Conc 32.6 g/dL (32-36); Mean Corpuscular Volume 92.4 fL (81-99); Mean Platelet Vol. 10.5 fl (6.2-12.0); NRBC Flagged by Analyzer 0 % (0-5); Platelet Count 227 K/mm3 (150-450); RBC Distribution Width CV 13.9 % (11.6-14.6); RBC Distribution Width SD 46.5 fl (35.1-43.9); Red Blood Count 4.21 M/mm3 (4.2-5.4); White Blood Count 9.0 K/mm3 (4.4-11.0)
[2025-07-14 13:26] LABS: AST(SGOT) 16 U/L (<=31); Alanine Aminotransfer ALT/SGPT 18 U/L (<=34); Albumin, Serum 4.0 g/dL (3.4-4.8); Alkaline Phosphatase 79 U/L (35-104); Anion Gap 12 (5-15); BUN 25 mg/dL (4-19); BUN/Creat Ratio 18.0 RATIO (10-20); Calcium,Total 9.6 mg/dL (7.6-11.0); Carbon Dioxide 24.3 mmol/L (21.0-32.0); Chloride 105 mmol/L (98-108); Cholesterol 138 mg/dL (<=200); Globulin 3.4 g/dL (2.2-4.2); Glucose 183 mg/dL (70-99); Low Density Lipoprotein Calc. 55 mg/dL; Potassium 4.7 mmol/L (3.3-5.1); Triglycerides 162 mg/dL; Very Low Density Lipoprotein 32 mg/dL (5-40); cholesterol:hdl ratio screen 2.74
== END | disposition home or self-care (01) ==
LOC: MTLAB 09:22
PROVIDERS: PCP Internal Medicine; Referring Provider Physician Assistant; Visit Provider Physician Assistant
DX: I10 Essential (primary) hypertension (principal); E11.9 Type 2 diabetes mellitus without complications
CPT/HCPCS: 36415; 80053; 80061; 83036; 84443; 85025